=== PATIENT | female | born 1940 | race Caucasian/White ===

== ENCOUNTER → 2020-02-18 15:24 | Outpatient (CLI) | payer MEDICARE, SELFPAY | PROVIDERS: Visit Provider Family Medicine | DX: N15.9 Renal tubulo-interstitial disease, unspecified (principal) | CPT/HCPCS: 87086 ==

== ENCOUNTER → 2020-05-07 15:31 | Outpatient (CLI) | payer MEDICARE, MEDICAID, SELFPAY ==
[2020-05-07 17:22] LABS: Basophils % 0.6 % (0.1-2.0); Eosinophils # 0.1 K/mm3 (0.0-0.4); Eosinophils % 1.7 % (0.1-12.0); Lymphocytes # 1.2 K/mm3 (0.7-4.5); Lymphocytes % 16.7 % (10-50); Mean Corpuscular HGB Conc 32.8 g/dL (31.8-35.4); Mean Corpuscular Hemoglobin 32.3 pg (27.0-31.2); Mean Corpuscular Volume 98.6 fl (81-99); Mean Platelet Volume 9.6 fl (7.4-10.4); Monocytes # 0.5 K/mm3 (0.1-1.0); Monocytes % 6.5 % (1.7-9.3); Neutrophils # 5.3 K/mm3 (1.8-7.8); Neutrophils % 74.5 % (37.0-80.0); Platelet Count 260 K/mm3 (142-424); Red Blood Count 4.97 M/mm3 (4.20-5.40); Red Cell Distribution Width 13.9 % (11.5-17.5); White Blood Count 7.1 K/mm3 (4.8-10.8)
[2020-05-07 17:32] LABS: Alanine Aminotransferase 23 U/L (12-78); Albumin Level 4.3 g/dl (3.5-5.0); Albumin/Globulin Ratio 1.5 (1.1-1.8); Alkaline Phosphatase 168 U/L (38-126); Anion Gap 17.7 mEq/L (5-15); Aspartate Amino Transferase 32 U/L (14-36); Bilirubin,Total 0.7 mg/dl (0.2-1.3); Blood Urea Nitrogen 20 mg/dl (7-17); Calcium 9.5 mg/dl (8.4-10.2); Carbon Dioxide 24 mmol/L (22.0-30.0); Chloride 101 mmol/L (98-107); Chol/HDL Ratio 3.7 (1-3.5); Cholesterol 217 mg/dl (140-200); Estimated Glomerular Filt Rate 44 ml/min (>60); GFR (African American) 53 ML/MIN (>60); Globulin 2.9 g/dL (1.3-3.2); Glucose 181 mg/dl (74-100); HDL Cholesterol 58 mg/dl (40-60); Potassium 4.7 mmoL/L (3.5-5.1); Sodium 138 mmol/L (136-145); Total Protein,Serum 7.2 g/dl (6.3-8.2); Triglycerides 237 mg/dl (30-150); VLDL Cholesterol 47 mg/dL (0-40)
[2020-05-07 17:44] LABS: Hemoglobin A1C 6.6 % (4.0-6.0)
[2020-05-07 17:46] LABS: Direct LDL Cholesterol 132.73 mg/dL (100-129)
== END ==
PROVIDERS: Visit Provider Family Medicine
DX: E11.9 Type 2 diabetes mellitus without complications (principal); J44.9 Chronic obstructive pulmonary disease, unspecified; Z79.84 Long term (current) use of oral hypoglycemic drugs; Z79.899 Other long term (current) drug therapy
CPT/HCPCS: 80053; 80061; 83036; 85025

== ENCOUNTER 2020-11-20 13:38 | Observation (INO) | payer MEDICARE, MEDICAID, SELFPAY ==
[2020-11-20 14:00] VITALS: BP 140/55; RESP 22; TEMP 36.8; O2SAT 91; BMI 26.8
--- NOTE | 2020-11-20 14:42 | XR_ITS ---
PROCEDURE: XR CHEST PORTABLE CLINICAL HISTORY: pneumonia COMPARISON: No exams were available for comparison FINDINGS: The cardiomediastinal silhouette and pulmonary vascularity are within normal limits. Background of chronic interstitial changes are noted. No lobar consolidation, pleural effusions or pneumothorax. Calcifications in the right hilum, may represent had a calcified lymph nodes. Minor bibasal atelectasis. Visualized osseous structures are unremarkable. IMPRESSION: Background of chronic interstitial changes. No lobar consolidation or pleural effusions. Dictated by: Lourdes Garcia 11/20/2020 15:19 Lourdes Garcia in OV 11/20/2020 15:19
[2020-11-20 14:45] LABS: Adenovirus,PCR Not Detected (NotDetected); Bordetella Pertussis Not Detected (NotDetected); Chlamydophila Pneumoniae, PCR Not Detected (NotDetected); Coronavirus 19, PCR Not Detected (NotDetected); Coronavirus 229E Not Detected (NotDetected); Coronavirus NL63 Not Detected (NotDetected); Coronavirus OC43 Not Detected (NotDetected); Coronovirus HKU1,PCR Not Detected (NotDetected); Human Metapneumovirus Not Detected (NotDetected); Influenza A, PCR Not Detected (NotDetected); Influenza AH1, 2009 Not Detected (NotDetected); Influenza AH1, PCR Not Detected (NotDetected); Influenza AH3,PCR Not Detected (NotDetected); Influenza B, PCR Not Detected (NotDetected); Mycoplasma Pneumoniae, PCR Not Detected (NotDetected); Parainfluenza 1, PCR Not Detected (NotDetected); Parainfluenza 2, PCR Not Detected (NotDetected); Parainfluenza 3, PCR Not Detected (NotDetected); Parainfluenza 4, PCR Not Detected (NotDetected); Respiratory Syncytial Virus Not Detected (NotDetected)
--- NOTE | 2020-11-20 14:55 | P.CONPHA_ITS ---
[facility] Pharmacy VTE Monitoring - Patient Demographics Admission date: 11/20/20 Report Date: 11/20/20 Time: 14:55 Allergies/Adverse Reactions: Patient Allergies codeine Adverse Reaction (Severe, Verified 11/20/20 13:02) Anaphylaxis Height: 1.65 m Weight: 73.028 kg - VTE Risk Was VTE Risk Assessment Performed: Yes VTE Score: 8 VTE Risk Level: Moderate Risk Clinical Trial Participant: No - Prophylaxis VTE Prophylaxis Ordered?: Yes Types of VTE Prophylaxis: TEDS Knee High, Pharmacological Pharmacologic Type: Other (xarelto)
--- NOTE | 2020-11-20 15:00 | HMH.HP ---
*Admission Date: 11/20/20 *Chief complaint: copd exacerbation, dyspnea and productive cough *History of present illness: Patient is a 80-year-old female, well-known to me, who has a longstanding history of chronic lung disease. She had come into the office on 11/10/2020 with complaints of productive cough and dyspnea. She refused hospitalization on that occasion, was treated with IM Rocephin and p.o. antibiotics with steroids. Over the course of the last week or so her condition continued to decline. She became more short of breath, has a cough productive of thick yellow purulent sputum, increased wheezing, and has been unsteady on her feet. She has sustained several falls, has an abrasion on her left upper extremity. She seems lucid in the office, but I suspect she is retaining. Patient carries a previous history of severe pneumonia. She had been admitted to [facility] in [place] about a year ago, and after that discharge was offered consideration for hospice. As she clinically improved she was adamant about refusing hospice. She is actually done fairly well since then. Patient has a history of of paroxysmal atrial fibrillation and diabetes. She has marked erosive osteoarthritis, chronic back pain, and chronic lung disease. [facility] History Medical History: Reports:: Arrhythmia, Atrial Fibrillation, Cancer (BREAST), Congestive Heart Failure, Diabetes Mellitus Type 2, Hyperlipidemia, Hypertension *Have you ever received a pneumonia vaccine?: Yes *Have you received a flu vaccine this season?: Yes Other Medical History: Reports: Arthritis, Chemotherapy, Radiation Therapy Laterality Cases: Left: Mastectomy Other Surgeries: Yes: Cancer Surgery, Cardiac Surgery, Open Heart Surgery - *Social History Last grade of school completed: 7th or 8th Smoking Status: Current every day smoker # Packs/Day (cigarettes): 1 Alcohol Intake: never Substance Use Type: denies use *Occupational Status:: retired Housing: house Household Members: family *Travel in the last 8 weeks: None Family Hx:: Unable to obtain Review of Systems - Constitutional Reports weakness - Eyes Denies change in vision - ENT Reports nasal discharge, Reports post nasal drip, Denies difficulty swallowing - *Cardiovascular Reports shortness of breath, Reports shortness of breath with activity, Denies chest pain - *Respiratory Reports change in phlegm color, Reports chest congestion, Reports cough, Reports shortness of breath, Reports shortness of breath with activity, Reports excessive phlegm production, Reports pain with cough, Reports wheezing - *Gastrointestinal Denies abdominal pain - *Genitourinary Denies painful urination - *Musculoskeletal Reports abnormal walking, Reports joint pain, Reports decreased muscle mass, Reports back pain, Reports deformity, Reports joint swelling, Reports limited joint movement, Reports loss of height, Reports muscle weakness, Reports stiffness - Integumentary/Breasts Denies yellowing of the skin - *Neurologic Reports abnormal walking, Reports unsteadiness, Reports dizziness, Reports lack of coordination, Reports dizziness, Reports weakness, Denies abnormal hearing, Denies abnormal movements, Denies abnormal speech, Denies confusion, Denies fainting - Psychiatric Denies behavioral changes - Endocrine Denies cold intolerance - Hematologic/Lymphatic Reports easy bruising - Allergic/Immunologic Reports wheezing Meds Home Medications Medication Instructions Recorded Confirmed Type aspirin 81 mg tablet,delayed 81 mg PO DAILY 02/18/20 11/20/20 History release rivaroxaban 15 mg tablet 15 mg PO DAILY 02/18/20 11/20/20 History furosemide 40 mg tablet 40 mg PO DAILY PRN #90 tab 08/07/20 11/20/20 Rx hydrocodone 5 mg-acetaminophen 325 1 tab PO BID PRN #14 tab 09/11/20 11/20/20 Rx mg tablet Atorvastatin Calcium [Lipitor 10mg 10 mg PO DAILY 11/20/20 11/20/20 History Tab] Blood Sugar Diagnostic [Advanced See
[2020-11-20 15:01] LABS: Basophils % 0.2 % (0.1-2.0); Eosinophils # 0.1 K/mm3 (0.0-0.4); Eosinophils % 1.3 % (0.1-12.0); Hematocrit 44.4 % (37.0-47.0); Hemoglobin 14.5 g/dL (12.2-16.2); Lymphocytes # 1.4 K/mm3 (0.7-4.5); Lymphocytes % 18.3 % (10-50); Mean Corpuscular HGB Conc 32.7 g/dL (31.8-35.4); Mean Corpuscular Hemoglobin 32.8 pg (27.0-31.2); Mean Corpuscular Volume 100.4 fl (81-99); Mean Platelet Volume 8.1 fl (7.4-10.4); Monocytes # 0.5 K/mm3 (0.1-1.0); Neutrophils # 5.7 K/mm3 (1.8-7.8); Neutrophils % 74.1 % (37.0-80.0); Platelet Count 328 K/mm3 (142-424); Red Blood Count 4.43 M/mm3 (4.20-5.40); Red Cell Distribution Width 14.4 % (11.5-17.5); White Blood Count 7.6 K/mm3 (4.8-10.8)
[2020-11-20 15:05] LABS: Chloride 107 mmol/L (98-107); Potassium 5.1 mmoL/L (3.5-5.1); Sodium 140 mmol/L (136-145)
[2020-11-20 15:08] LABS: Alanine Aminotransferase 19 U/L (12-78); Albumin Level 4.5 g/dl (3.5-5.0); Albumin/Globulin Ratio 1.7 (1.1-1.8); Alkaline Phosphatase 124 U/L (38-126); Anion Gap 15.1 mEq/L (5-15); Aspartate Amino Transferase 29 U/L (14-36); Bilirubin,Total 0.5 mg/dl (0.2-1.3); Blood Urea Nitrogen 20 mg/dl (7-17); Calcium 9.7 mg/dl (8.4-10.2); Carbon Dioxide 23 mmol/L (22.0-30.0); Creatinine Clearance Estimated 49 mL/min (50-200); Estimated Glomerular Filt Rate 48 ml/min (>60); GFR (African American) 58 ML/MIN (>60); Globulin 2.6 g/dL (1.3-3.2); Glucose 110 mg/dl (74-100); Total Protein,Serum 7.1 g/dl (6.3-8.2)
--- NOTE | 2020-11-20 15:10 | HMH.PULMCON ---
*Admission Date: 11/20/20 *Reason for consult:: Pneumonia *History of present illness: Ms. Roche is a 80-year-old for significant smoking history smoking 3 to 4 packs a day since she was 10 to 12 years old, currently cut down to 1 pack every 2 to 4 days as per the patient presented to the primary care clinic today where she was found to be having coarse breath sounds, respiratory distress along with her complaining of cough and productive phlegm for the last couple of days associated with dizziness and balance issues and patient was admitted to the hospital for further management and pulmonary was called for evaluation. [facility] History Medical History: Reports:: Arrhythmia, Atrial Fibrillation, Cancer (BREAST), Congestive Heart Failure, Diabetes Mellitus Type 2, Hyperlipidemia, Hypertension *Have you ever received a pneumonia vaccine?: Yes *Have you received a flu vaccine this season?: Yes Other Medical History: Reports: Arthritis, Chemotherapy, Radiation Therapy Laterality Cases: Left: Mastectomy Other Surgeries: Yes: Cancer Surgery, Cardiac Surgery, Open Heart Surgery - *Social History Last grade of school completed: 7th or 8th Smoking Status: Current every day smoker # Packs/Day (cigarettes): 1 Alcohol Intake: never Substance Use Type: denies use Last Used Substance: unknown *Occupational Status:: retired Housing: house Household Members: family *Travel in the last 8 weeks: None Family Hx:: Other ROS - Cons Reports anorexia, Reports fatigue - Eyes Reports blurry vision - Card Reports shortness of breath, Reports shortness of breath with activity - Resp Respiratory: Reports chest congestion, Reports cough, Reports dyspnea on exertion, Reports excessive phlegm production, Reports cough with sputum production, Denies pain with breathing - GI Gastrointestingal: Denies: abdominal pain - Musk Musculoskeletal: Reports back pain Meds Home Medications Medication Instructions Recorded Confirmed Type aspirin 81 mg tablet,delayed 81 mg PO DAILY 02/18/20 11/20/20 History release rivaroxaban 15 mg tablet 15 mg PO DAILY 02/18/20 11/20/20 History furosemide 40 mg tablet 40 mg PO DAILY PRN #90 tab 08/07/20 11/20/20 Rx hydrocodone 5 mg-acetaminophen 325 1 tab PO BID PRN #14 tab 09/11/20 11/20/20 Rx mg tablet Atorvastatin Calcium [Lipitor 10mg 10 mg PO DAILY 11/20/20 11/20/20 History Tab] Blood Sugar Diagnostic [Advanced See Rx Instructions .ROUTE 11/20/20 11/20/20 History Gluc Meter Test Strip] .MEDSUPPLY Blood-Glucose Meter See Rx Instructions .ROUTE 11/20/20 11/20/20 History .MEDSUPPLY Famotidine [Acid Bean Viner] 20 mg PO BID 11/20/20 11/20/20 History Lancets See Rx Instructions .ROUTE 11/20/20 11/20/20 History .MEDSUPPLY Metformin HCl [Glucophage] 850 mg PO BID 11/20/20 11/20/20 History Potassium Chloride [Micro-K 10mEq 10 meq PO DAILY 11/20/20 11/20/20 History cap] dilTIAZem HCl [Diltiazem 240mg 240 mg PO DAILY 11/20/20 11/20/20 History 24Hr ER Cap] levoFLOXacin [Levaquin 500mg 500 mg PO DAILY 11/20/20 11/20/20 History tab] lisinopriL [Prinivil 10mg Tablet] 10 mg PO DAILY 11/20/20 11/20/20 History Allergies Allergy/AdvReac Type Severity Reaction Status Date / Time codeine AdvReac Severe Anaphylaxis Verified 11/20/20 13:02 Exam - Constitutional Constitutional:: Present: no acute distress, comfortable - HENMT Exam HENMT: Present: atraumatic - Eye Exam Eyes:: Present: normal appearance both eyes and related structures - Neck Exam Neck:: Present: normal visual inspection - Respiratory Exam Respiratory:: Present: able to speak in complete sentences, respiratory distress, crackles, wheezing - Cardiovascular Exam Cardiac:: Present: S1, S2 - GI Exam GI:: Present: soft - Skin Exam Skin: Present: warm, no rash - Neurological Exam Neurological: Present: alert, awake, normal cognition - Extremities Exam Extremities: Present: no cyanosis, no clubbing, no ky
[2020-11-20 15:38] LABS: NT Pro Brain Natriuretic Pep. 1720 pg/mL (0-450)
--- NOTE | 2020-11-20 15:38 | PC.NURSE ---
Respiratory notified per Dr Cheek's request that pt will need chest physiotherapy bid and to call him w/ABG result
--- NOTE | 2020-11-20 15:42 | HMH.PTEV ---
Physical Therapy Evaluation Rehab PT IP Evaluation Start: 11/20/20 14:48 Freq: ONCE Status: Active Protocol: Document 11/20/20 15:33 JAIR (Rec: 11/20/20 15:42 JAIR [id number]) Subjective/History History History Patient is a 80 year old female admitted to [facility] 11/20/20 secondary to COPD exacerbation and increased dyspnea. Patient complain of overall general deconditioning and weakness resulting in unsteadyness on her feet. Patient denies any recent falls at home. She reports that she was previously independent with all ADL's . Patient lives at home with her grandson and his . Subjective Subjective I feel like I'm drunk when I have been up walking for a little bit. I just feel weak in my hips. Rehab PT IP Eval Objective Appearance Patient Behavior Appropriate Patient Orientation Person,Place,Day of Week Difficulty following instructions none Speech Pattern Clear,Appropriate Ambulation Patient Able to Ambulate Yes Ambulation Observation IP General Gait Pattern Observation Wide Based Gait Ambulation Distance (feet) 80 Ambulation Assistive Device Straight Cane Ambulation Ability Contact Guard/Hand Hold Balance Ability to Arise Able, w/o using arms Sitting Balance Steady, safe Standing Balance Narrow stance w/o support Dynamic Sitting Balance Ability Normal Dynamic Standing Balance Ability Good Transfers Bed Transfer Ability Independent Sit to Stand Bed Transfer Ability Independent ROM All Extremities PT ROM Status WFL MMT All Extremities PT MMT WFL Rehab PT IP prob,goals,plan Problems Date of Evaluation: 11/20/20 PT IP Problems Gait,Balance,Safety Rehab Potential Rehab Potential Good Plan PT Intervention Plan Gait,Balance,Safety, Therapeutic Exercise PT Plan Frequency BID Duration LOS Discharge Goals Bed Transfer Ability Supervision/Stand by Sit to Stand Chair Transfer Ability Supervision/Stand by Ambulation Assistive Device Straight Cane Ambulation Distance (feet) 150 Discharge Plan PT Discharge Plan PT suggests patient to be seen
[2020-11-20 15:48] LABS: ABG Base Excess -5.5 mmol/L (-2.4-2.3); ABG HCO3 20.3 mmhg (22.0-26.0); ABG Oxygen Saturation 91 % (90-100); ABG PCO2 38.6 mmhg (35.0-45.0); ABG PH 7.34 mmol/L (7.35-7.45); ABG PO2 61.2 mmhg (80-100); ABG TCO2 21.5 mmhg (23-27); Allen's Test Acceptable; Oxygen 21% %; Source Right Radial
[2020-11-20 16:00] VITALS: BP 120/73; RESP 24; TEMP 36.6; O2SAT 93
[2020-11-20 17:13] LABS: POC Glucose,Bedside 88 (70-110)
--- NOTE | 2020-11-20 17:46 | PC.NURSE ---
Pt is alert and oriented x4. Lungs have rhonchi, expiratory wheezes and audible wheezing. She is on RA with O2 sats > 90%. She ambulates with a cane and 1 assist. Gait is unsteady and legs are weak. Bed alarm activated and call light within reach. She has a small skin tear to LFA and scattered bruising. She has had 1 loose BM since admission. Granddaughter is to bring in patients home meds. Will continue to monitor.
[2020-11-20 18:01] VITALS: PULSE 81; PULSE 86; O2SAT 89
[2020-11-20 18:51] LABS: Microscopic, Urine URINE MICROSCOPIC (MICROSCOPIC)
[2020-11-20 18:53] LABS: Appearance,Urine CLEAR (Clear); Bilirubin,Urine Negative (Negative); Blood, Urine Negative (Negative); Color,Urine YELLOW (Yellow); Glucose,Urine (UA) Negative (Negative); Ketones,Urine Negative (Negative); Leukocyte Esterase,Urine TRACE (Negative); Nitrate,Urine Negative (Negative); PH,Urine 5.5 (5.0-8.5); Protein,Urine Negative (Negative); Urobilinogen,Urine 0.2 EU/dl (0.2)
[2020-11-20 19:01] LABS: Bacteria,Urine Trace /lpf
[2020-11-20 19:45] LABS: Lactic Acid 3.9 mmol/L (0.7-2.1)
[2020-11-20 20:00] VITALS: BP 135/67; PULSE 76; RESP 17; TEMP 36.7; O2SAT 93
[2020-11-20 20:18] LABS: POC Glucose,Bedside 151 (70-110)
[2020-11-20 21:15] VITALS: PULSE 74; PULSE 86
[2020-11-20 21:17] LABS: Rhinovirus/Enterovirus Detected (NotDetected)
[2020-11-20 23:41] VITALS: BP 133/64; PULSE 103; RESP 17; TEMP 36.6; O2SAT 94
[2020-11-21] VITALS (10 sets, daily range): BP systolic 98–147; BP diastolic 45–76; PULSE 77–109; RESP 16–28; TEMP 36.3–36.8; O2SAT 91–98; BMI 27.0
--- NOTE | 2020-11-21 02:56 | PC.NURSE ---
shift summary pt is alert and oriented X4. pt denies any pain, nausea, vomting, or diarrhea. pt has had no complaints and slept for most of the shift.
[2020-11-21 05:26] LABS: POC Glucose,Bedside 243 (70-110)
--- NOTE | 2020-11-21 09:11 | HMH.ACPN2 ---
Internal Medicine - PN: Subj *Date: 11/22/20 *Time: 06:47 Interval history: doing better - more alert Exam Vital signs and Labs for Last 24 Hours: Temp Pulse Resp BP Pulse Ox 97.3 F L 107 H 16 147/76 H 97 11/21/20 07:56 11/21/20 07:56 11/21/20 07:56 11/21/20 07:56 11/21/20 07:56 Laboratory Results - last 24 hr 11/20/20 14:10: WBC 7.6, RBC 4.43, Hgb 14.5, Hct 44.4, MCV 100.4 H, MCH 32.8 H, MCHC 32.7, RDW 14.4, Plt Count 328, MPV 8.1, Neut % (Auto) 74.1, Lymph % (Auto) 18.3, Caroline % (Auto) 6.0, Eos % (Auto) 1.3, Baso % (Auto) 0.2, Neut # (Auto) 5.7, Lymph # (Auto) 1.4, Caroline # (Auto) 0.5, Eos # (Auto) 0.1, Baso # (Auto) 0.0 11/20/20 14:10: Sodium 140, Potassium 5.1, Chloride 107, Carbon Dioxide 23, Anion Gap 15.1 H, BUN 20 H, Creatinine 1.10 H, Estimated Creat Clear 49, Estimated GFR 48 L, Est GFR ( Amer) 58 L, Glucose 110 H, Calcium 9.7, Total Bilirubin 0.5, AST 29, ALT 19, Alkaline Phosphatase 124, Total Protein 7.1, Albumin 4.5, Globulin 2.6, Albumin/Globulin Ratio 1.7 11/20/20 14:10: NT-Pro-B Natriuret Pep 1720 H 11/20/20 14:10: Lactate 3.0 H 11/20/20 14:38: Chlamy pneumoniae PCR Not detected, Adenovirus (PCR) Not detected, B. pertussis DNA (PCR) Not detected, Coronavirus OC43 (PCR) Not detected, Coronavirus HKU1 (PCR) Not detected, Coronavirus 229E (PCR) Not detected, SARS-CoV-2 (PCR) Not detected, Coronavirus NL63 (PCR) Not detected, Human Metapneumovir PCR Not detected, Influenza A (H1) PCR Not detected, Influ A (H1N1/09) PCR Not detected, Influenza A (H3) PCR Not detected, Influenza Type A (PCR) Not detected, Influenza Type B (PCR) Not detected, M. pneumoniae (PCR) Not detected, Parainfluenza 1 (PCR) Not detected, Parainfluenza 2 (PCR) Not detected, Parainfluenza 3 (PCR) Not detected, Parainfluenza 4 (PCR) Not detected, RSV (PCR) Not detected, Entero/Rhino (PCR) Detected A 11/20/20 14:40: Specimen Source Right radial, O2 % 21%, ABG pH 7.34 L, ABG pCO2 38.6, ABG pO2 61.2 L, ABG HCO3 20.3 L, ABG Total CO2 21.5 L, ABG O2 Saturation 91, ABG Base Excess -5.5 L, Kamron Test Acceptable 11/20/20 14:41: Urine Color Yellow, Urine Appearance Clear, Urine pH 5.5, Ur Specific [place] 1.020, Urine Protein Negative, Urine Glucose (UA) Negative, Urine Ketones Negative, Urine Blood Negative, Urine Nitrate Negative, Urine Bilirubin Negative, Urine Urobilinogen 0.2, Ur Leukocyte Esterase Trace, Urine RBC None, Urine WBC 5-10, Ur Squamous Epith Cells 5-10, Urine Bacteria Trace 11/20/20 16:11: POC Glucose 88 11/20/20 19:18: Lactate 3.9 H 11/20/20 20:06: POC Glucose 151 H 11/21/20 05:15: POC Glucose 243 H I & O for Last 24 hours: Intake & Output 11/18/20 11/19/20 11/20/20 11/21/20 11:59 11:59 11:59 11:59 Intake Total 720 / 720 Balance 720 / 720 Weight 162 lb 4 oz Microbiology Reports for the Last 24 Hours: Microbiology 11/20/20 15:30 Sputum - Expectorated Sputum Gram Stain - Final - Constitutional no acute distress - *Routine HEENT Exam Head: Present: normocephalic Eye: Present: EOMI, PERRL ENT: Present: mucous membranes dry - *Routine Neck Exam Present: supple. Absent: JVD - *Routine Respiratory Exam Present: decreased breath sounds - *Routine Cardiovascular Exam Present: RRR, murmur - *Routine Abdominal Exam Present: soft - *Routine Extremities Exam Absent: calf tenderness - *Routine Skin Exam Present: intact - *Routine Neurological Exam Present: alert, CN II-XII intact - Routine Psychiatric Exam Present: normal affect Assessment and Plan (1) COPD (chronic obstructive pulmonary disease) Status: Acute Qualifiers: COPD type: unspecified COPD Qualified Code(s): J44.9 - Chronic obstructive pulmonary disease, unspecified Category: Medical Code(s): J44.9 - Chronic obstructive pulmonary disease, unspecified (2) Chronic pain Status: Acute Qualifiers: Chronic pain type: other chronic pain Qualified Code(s): G89.29 - Other chronic pain Category: Med
[2020-11-21 10:04] LABS: Basophils % 0.1 % (0.1-2.0); Eosinophils % 0.1 % (0.1-12.0); Hematocrit 44.9 % (37.0-47.0); Hemoglobin 13.5 g/dL (12.2-16.2); Lymphocytes # 0.6 K/mm3 (0.7-4.5); Lymphocytes % 6.9 % (10-50); Mean Corpuscular Hemoglobin 31.6 pg (27.0-31.2); Mean Corpuscular Volume 105.2 fl (81-99); Mean Platelet Volume 8.1 fl (7.4-10.4); Monocytes # 0.2 K/mm3 (0.1-1.0); Neutrophils # 8.1 K/mm3 (1.8-7.8); Neutrophils % 90.9 % (37.0-80.0); Platelet Count 275 K/mm3 (142-424); Red Blood Count 4.27 M/mm3 (4.20-5.40); Red Cell Distribution Width 13.9 % (11.5-17.5); White Blood Count 8.9 K/mm3 (4.8-10.8)
[2020-11-21 10:13] LABS: Anion Gap 19.5 mEq/L (5-15); Blood Urea Nitrogen 23 mg/dl (7-17); Calcium 9.5 mg/dl (8.4-10.2); Carbon Dioxide 21 mmol/L (22.0-30.0); Chloride 102 mmol/L (98-107); Creatinine Clearance Estimated 49 mL/min (50-200); Estimated Glomerular Filt Rate 48 ml/min (>60); GFR (African American) 58 ML/MIN (>60); Glucose 344 mg/dl (74-100); Potassium 5.5 mmoL/L (3.5-5.1); Sodium 137 mmol/L (136-145)
[2020-11-21 10:20] LABS: MANUAL DIFFERENTIAL MANUAL DIFFERENTIAL (MANUAL DIFF)
[2020-11-21 11:07] LABS: Lymphocytes % 9 % (10-50); Macrocytosis 1+; Neutrophils % 88 % (42-76); Platelet Estimate Normal; Total Cells Counted 100
[2020-11-21 11:36] LABS: POC Glucose,Bedside 344 (70-110)
--- NOTE | 2020-11-21 12:00 | HMH.PHAVTE ---
[facility] Pharmacy VTE Monitoring - Patient Demographics Admission date: 11/20/20 Report Date: 11/21/20 Time: 12:01 Allergies/Adverse Reactions: Patient Allergies codeine Adverse Reaction (Severe, Verified 11/20/20 13:02) Anaphylaxis Height: 1.65 m Weight: 73.595 kg Patient Problems: Current Active Problems Pneumonia (Acute) PAF (paroxysmal atrial fibrillation) (Acute) Chronic pain (Acute) Degenerative joint disease (DJD) of lumbar spine (Acute) COPD (chronic obstructive pulmonary disease) (Acute) - VTE Risk Labs: VTE Related Lab Results Hgb 13.5 g/dL (12.2-16.2) 11/21/20 09:49 Hct 44.9 % (37.0-47.0) 11/21/20 09:49 Plt Count 275 K/mm3 (142-424) 11/21/20 09:49 BUN 23 mg/dl (7-17) H 11/21/20 09:49 Creatinine 1.10 mg/dl (0.52-1.04) H 11/21/20 09:49 Estimated Creat Clear 49 mL/min (50-200) 11/21/20 09:49 Was VTE Risk Assessment Performed: Yes VTE Score: 8 VTE Risk Level: Moderate Risk Clinical Trial Participant: No - Prophylaxis VTE Prophylaxis Ordered?: Yes Types of VTE Prophylaxis: TEDS Knee High, Pharmacological Location of Applied Device: Bilateral Lower Extremeties Pharmacologic Type: Other (XARELTO)
--- NOTE | 2020-11-21 12:08 | PC.NURSE ---
DR. WHATLEY PHONED THIS RN TO INQUIRE ABOUT PATIENT. THIS RN PROVIDED REPORT. PER MD HE WOULD LIKE PATIENT TO RECEIVE MUCOMYST BEFORE EACH CHEST PHYSIOTHERAPY. THIS RN PHONED RT AND SPOKE WITH REGINALD, THIS RN PROVIDED INFORMATION FROM , REGINALD VERBALIZED AN UNDERSTANDING.
--- NOTE | 2020-11-21 13:43 | PC.NURSE ---
THIS RN APPROACHED PATIENT AND VISITOR IN REGARDS TO FOOD FROM [facility]. THIS RN EDUCATED PATIENT AND VISITOR THE IMPORTANCE OF FOLLOWING A DIABETIC DIET. THIS RN PROVIDED PRINTED EDUCATION WELL.
[2020-11-21 17:18] LABS: POC Glucose,Bedside 334 (70-110)
--- NOTE | 2020-11-21 18:08 | PC.NURSE ---
THIS RN HAS EXPLAINED TO PATIENT ON SEVERAL OCCASIONS IN REGARDS TO FALL PREVENTION. PATIENT CONTINUES TO GET UP OUT OF BED WITHOUT ASSISTANCE. PATIENT A&O X4, LUNGS: WHEEZING HEARD THROUGHOUT, PULSES ARE EQUAL. NO NEW NEEDS AT THIS TIME.
[2020-11-21 20:34] LABS: POC Glucose,Bedside 177 (70-110)
[2020-11-22] VITALS (16 sets, daily range): BP systolic 105–138; BP diastolic 40–62; PULSE 74–105; RESP 18–28; TEMP 36.5–37; O2SAT 89–95; BMI 28.4
--- NOTE | 2020-11-22 03:32 | PC.NURSE ---
shift summary pts lung sounds are diminished with some wheezes on inspiration sats maintained 95% or above on 2L via NC, with a rate ranging from 18-22. pt is alert and oriented X4. pt is noncompliant in the fact that she tries to walk on her own constantly, and has even figured out how to turn the bed alarm off so staff won hear her get up. pt is able to walk with a cane to the bathroom with a stanby assist, urine is clear and yellow in color. pt denies any pain, nausea, or diarrhea.
[2020-11-22 05:29] LABS: POC Glucose,Bedside 213 (70-110)
[2020-11-22 07:45] LABS: Potassium 5.9 mmoL/L (3.5-5.1)
--- NOTE | 2020-11-22 09:32 | HMH.ACPN2 ---
Internal Medicine - PN: Subj *Date: 11/23/20 *Time: 07:30 Interval history: doing better - but still sob and labs pending Exam Vital signs and Labs for Last 24 Hours: Temp Pulse Resp BP Pulse Ox 98.6 F 105 H 20 138/55 L 94 L 11/22/20 08:00 11/22/20 08:00 11/22/20 08:00 11/22/20 08:00 11/22/20 08:00 Laboratory Results - last 24 hr 11/21/20 09:49: WBC 8.9, RBC 4.27, Hgb 13.5, Hct 44.9, MCV 105.2 H, MCH 31.6 H, MCHC 30.0 L, RDW 13.9, Plt Count 275, MPV 8.1, Neut % (Auto) 90.9 H, Lymph % (Auto) 6.9 L, Nobles % (Auto) 2.0, Eos % (Auto) 0.1, Baso % (Auto) 0.1, Neut # (Auto) 8.1 H, Lymph # (Auto) 0.6 L, Nobles # (Auto) 0.2, Eos # (Auto) 0.0, Baso # (Auto) 0.0, Total Counted 100, Neutrophils % (Manual) 88 H, Lymphocytes % (Manual) 9 L, Atypical Lymphs % 3.0, Platelet Estimate Normal, Macrocytosis 1+ 11/21/20 09:49: Sodium 137, Potassium 5.5 H, Chloride 102, Carbon Dioxide 21 L, Anion Gap 19.5 H, BUN 23 H, Creatinine 1.10 H, Estimated Creat Clear 49, Estimated GFR 48 L, Est GFR ( Amer) 58 L, Glucose 344 H D, Calcium 9.5 11/21/20 11:25: POC Glucose 344 H* 11/21/20 16:57: POC Glucose 334 H* 11/21/20 20:16: POC Glucose 177 H 11/22/20 05:06: POC Glucose 213 H 11/22/20 07:17: Potassium 5.9 H I & O for Last 24 hours: Intake & Output 11/19/20 11/20/20 11/21/20 11/22/20 11:59 11:59 11:59 11:59 Intake Total 720 / 720 600 / 600 Output Total 3 / 3 Balance 720 / 720 597 / 597 Weight 162 lb 4 oz 170 lb 9 oz Microbiology Reports for the Last 24 Hours: Microbiology 11/20/20 15:30 Sputum - Expectorated Sputum Gram Stain - Final 11/20/20 15:30 Sputum - Expectorated Sputum Sputum Culture - Preliminary - Constitutional no acute distress - *Routine HEENT Exam Head: Present: normocephalic Eye: Present: EOMI, PERRL ENT: Present: mucous membranes dry - *Routine Neck Exam Present: supple. Absent: JVD - *Routine Respiratory Exam Present: decreased breath sounds - *Routine Cardiovascular Exam Present: RRR - *Routine Abdominal Exam Present: soft - *Routine Extremities Exam Absent: calf tenderness - *Routine Skin Exam Present: intact - *Routine Neurological Exam Present: alert, CN II-XII intact - Routine Psychiatric Exam Present: normal affect Assessment and Plan (1) COPD (chronic obstructive pulmonary disease) Status: Acute Qualifiers: COPD type: unspecified COPD Qualified Code(s): J44.9 - Chronic obstructive pulmonary disease, unspecified Category: Medical Code(s): J44.9 - Chronic obstructive pulmonary disease, unspecified (2) Chronic pain Status: Acute Qualifiers: Chronic pain type: other chronic pain Qualified Code(s): G89.29 - Other chronic pain Category: Medical Code(s): G89.29 - Other chronic pain (3) Degenerative joint disease (DJD) of lumbar spine Status: Acute Qualifiers: Spinal osteoarthritis complication: unspecified spinal osteoarthritis Qualified Code(s): M47.816 - Spondylosis without myelopathy or radiculopathy, lumbar region Category: Medical Code(s): M47.816 - Spondylosis without myelopathy or radiculopathy, lumbar region (4) PAF (paroxysmal atrial fibrillation) Status: Acute Category: Medical Code(s): I48.0 - Paroxysmal atrial fibrillation (5) Pneumonia Status: Acute Qualifiers: Pneumonia type: due to unspecified organism Laterality: right Category: Medical Code(s): J18.9 - Pneumonia, unspecified organism (6) Overweight (BMI 25.0-29.9) Status: Acute Category: Medical Code(s): E66.3 - Overweight (7) Renal insufficiency Status: Acute Category: Medical Code(s): N28.9 - Disorder of kidney and ureter, unspecified (8) CHF (congestive heart failure) Status: Acute Qualifiers: Heart failure type: unspecified Heart failure chronicity: acute on chronic Qualified Code(s): I50.9 - Heart failure, unspecified Category: Medical Code(s): I50.9 - Heart failure, uns
[2020-11-22 09:52] LABS: Blood Urea Nitrogen 34 mg/dl (7-17); Calcium 9.2 mg/dl (8.4-10.2); Carbon Dioxide 16 mmol/L (22.0-30.0); Chloride 100 mmol/L (98-107); Creatinine Clearance Estimated 44 mL/min (50-200); Estimated Glomerular Filt Rate 40 ml/min (>60); GFR (African American) 48 ML/MIN (>60); Glucose 165 mg/dl (74-100); Sodium 131 mmol/L (136-145)
[2020-11-22 11:37] LABS: POC Glucose,Bedside 237 (70-110)
[2020-11-22 16:34] LABS: POC Glucose,Bedside 151 (70-110)
--- NOTE | 2020-11-22 18:18 | PC.NURSE ---
PT IS RESTING IN BED WITH FAMILY AT BEDSIDE. PT HAS BEEN ALERT AND ORIENTED T/O THE SHIFT. PT TOLERATED SITTING UP IN THE CHAIR FOR SEVERAL HOURS THIS SHIFT. PT RECEIVED ONE DOSE OF KAYEXALATE THIS SHIFT FOR ELEVATED POTASSIUM. EATING AND DRINKING FAIR THIS SHIFT. LUNG SOUNDS HAVE SCATTERED RHONCHI. ABDOMEN SOFT/NON TENDER WITH ACTIVE BOWEL SOUNDS. PT'S LISINIPRIL AND METFORMIN WERE DC'D THIS SHIFT PER . VSS. SHOWER AND BED CHANGE THIS SHIFT. WILL CONTINUE TO MONITOR.
[2020-11-22 20:37] LABS: POC Glucose,Bedside 210 (70-110)
[2020-11-22 22:40] LABS: Anion Gap 17.8 mEq/L (5-15); Blood Urea Nitrogen 37 mg/dl (7-17); Calcium 8.9 mg/dl (8.4-10.2); Carbon Dioxide 19 mmol/L (22.0-30.0); Chloride 100 mmol/L (98-107); Creatinine Clearance Estimated 44 mL/min (50-200); Estimated Glomerular Filt Rate 40 ml/min (>60); GFR (African American) 48 ML/MIN (>60); Glucose 196 mg/dl (74-100); Potassium 4.8 mmoL/L (3.5-5.1); Sodium 132 mmol/L (136-145)
[2020-11-23] VITALS (10 sets, daily range): BP systolic 96–139; BP diastolic 44–67; PULSE 68–103; RESP 18–21; TEMP 36.3–36.7; O2SAT 90–97; BMI 28.6
--- NOTE | 2020-11-23 03:33 | PC.NURSE ---
shift summary pts lung sounds are diminished with sats maintained 90% or above on room air, with a rate ranging from 16-18. pt is alert and oriente X$. pt is not compliant about calling for help to get up out of bed and continually sets bed alarm off. pt has had 2 episodes of diarrhea tonight but has had no other complaints. pt denies any pain, nausea, or vomiting.
[2020-11-23 05:38] LABS: POC Glucose,Bedside 267 (70-110)
[2020-11-23 06:27] LABS: Eosinophils % 0.2 % (0.1-12.0); Hematocrit 35.4 % (37.0-47.0); Hemoglobin 10.8 g/dL (12.2-16.2); Lymphocytes # 0.5 K/mm3 (0.7-4.5); Lymphocytes % 4.9 % (10-50); Mean Corpuscular HGB Conc 30.5 g/dL (31.8-35.4); Mean Corpuscular Volume 101.5 fl (81-99); Mean Platelet Volume 8.1 fl (7.4-10.4); Monocytes # 0.3 K/mm3 (0.1-1.0); Monocytes % 2.8 % (1.7-9.3); Neutrophils # 8.8 K/mm3 (1.8-7.8); Neutrophils % 92.1 % (37.0-80.0); Platelet Count 227 K/mm3 (142-424); Red Blood Count 3.49 M/mm3 (4.20-5.40); White Blood Count 9.6 K/mm3 (4.8-10.8)
[2020-11-23 06:40] LABS: Anion Gap 11.7 mEq/L (5-15); Blood Urea Nitrogen 35 mg/dl (7-17); Calcium 8.1 mg/dl (8.4-10.2); Carbon Dioxide 22 mmol/L (22.0-30.0); Chloride 104 mmol/L (98-107); Creatinine Clearance Estimated 52 mL/min (50-200); Estimated Glomerular Filt Rate 48 ml/min (>60); GFR (African American) 58 ML/MIN (>60); Glucose 209 mg/dl (74-100); Potassium 3.7 mmoL/L (3.5-5.1); Sodium 134 mmol/L (136-145)
[2020-11-23 06:46] LABS: MANUAL DIFFERENTIAL MANUAL DIFFERENTIAL (MANUAL DIFF)
--- NOTE | 2020-11-23 09:00 | CA_ITS ---
APPROVED REPORT EXAM: Comprehensive 2D, Doppler, and color-flow Echocardiogram Development Advisor: Annette Rosen, ADDY, RVS Ht: 5 ft 5 in Wt: 172lbs BSA: 1.86 BP: 000/00 mmHg Indications: COPD, PAF, SOB, Pneumonia,PAF 2D Dimensions IVSd 1.27 cm LVEF (Visual) 59.00 % PWd 0.93 cm LA Volume 67.80 mL LVDd 4.11 cm LA Volume Index 36.50 mL/m2 (M/F) 16-34 LVDs 2.84 cm Aortic Root 2.61 cm Left Atrium 4.32 cm LVOT 1.76 cm (M/F) 1.5-2.5 M-Mode Dimensions LA Diam 3.19 cm (1.9-4.0) Ao Diam 3.62 cm (2.0-3.7) EPSs 0.85 cm TAPSE 1.62 (<1.7) LV Diastology E Decel Time 203.00 (160-240 msec) E/A Ratio 3.95 MED E' 11.60 (< 7 cm/sec) MED A' 4.50 cm/s E'/MED E' Ratio 13.55 (>14) LAT E' 7.70 (<10 cm/sec) LAT A' 4.20 cm/s E/LAT E' Ratio 20.42 (>14) Aortic Valve LVOT Max 90.00 (70-110 cm/s) LVOT VTI 18.63 cm AoV Peak Colin. 191.00 (50-130 cm/s) AO Peak GR. 14.50 mmHg AO Mean GR. 7.70 (<5 mmHg) AO VTI 40.10 (18-25 cm) TIFFANIE (VTI) 1.13 (2.5-4.5 cm2) Mitral Valve MV E Max Colin. 157.00 (40-130 cm/s) MV A Velocity 40.00 (40-130 cm/s) E/A Ratio 3.95 MV Decel. Time 203.00 (160-240 ms) MV PHT 60.00 ms Pulmonary Valve PV Peak Velocity 76.00 (50-150 cm/s) Tricuspid Valve TR P. Velocity 339.00 cm/s RAP Estimate 10.00 mmHg RVSP 56.00 mmHg Left Ventricle Left atrium is moderately enlarged, left ventricle is normal size, mild concentric left ventricular hypertrophy, visually estimated ejection fraction 55% with no regional wall motion abnormality, diastolic parameters are inconclusive, Doppler evidence of raise left ventricular end-diastolic pressure. Right Ventricle Right atrium and right ventricle are mildly enlarged with normal contractility. Aortic Valve Aortic valve is thickened and calcified without Doppler evidence of aortic stenosis or aortic insufficiency. Mitral Valve Mitral valve is minimally thickened and calcified, there is mitral annular calcification present, there is no mitral stenosis, there is mild mitral regurgitation. Tricuspid Valve Tricuspid valve grossly normal, there is mild tricuspid regurgitation, tricuspid regurgitation jet velocity is inadequate for calculation of the right ventricular systolic pressure. Pulmonic Valve Pulmonic valve is poorly visualized. Great Vessels Aortic root is normal size. Pericardium No significant pericardial effusion noted. Conclusion 1. Biatrial enlargement, normal left ventricular size, mild concentric left ventricular hypertrophy, visually estimated ejection fraction 55% with no regional wall motion abnormality, Doppler evidence of raise left ventricular end-diastolic pressure. Diastolic parameters are inconclusive 2. Thickened and calcified aortic valve without Doppler evidence of aortic stenosis or aortic insufficiency. 3. Mild mitral and tricuspid regurgitation. 4. No significant pericardial effusion noted. Electronically signed by : Landry Ward, 11/23/2020 12:18:19
--- NOTE | 2020-11-23 09:32 | HMH.PULMPN ---
Internal Medicine - PN: Subj *Date: 11/23/20 *Time: 09:32 Interval history: No acute respiratory events overnight Exam - Constitutional Constitutional:: Present: no acute distress - HENMT Exam HENMT: Present: normocephalic, atraumatic - Eye Exam Eyes:: Present: eyelids normal - Neck Exam Neck:: Present: normal visual inspection - Respiratory Exam Respiratory:: Present: able to speak in complete sentences, no respiratory distress, rhonchi - Cardiovascular Exam Cardiac:: Present: S1, S2 - GI Exam GI:: Present: soft - Skin Exam Skin: Present: warm, no rash - Neurological Exam Neurological: Present: alert, awake, normal cognition - Extremities Exam Extremities: Present: no cyanosis, no clubbing, no edema - Psychiatric Exam Psychiatric: Present: normal affect Assessment and Plan (1) COPD (chronic obstructive pulmonary disease) Status: Acute Qualifiers: COPD type: unspecified COPD Qualified Code(s): J44.9 - Chronic obstructive pulmonary disease, unspecified Category: Medical Code(s): J44.9 - Chronic obstructive pulmonary disease, unspecified (2) Chronic pain Status: Acute Qualifiers: Chronic pain type: other chronic pain Qualified Code(s): G89.29 - Other chronic pain Category: Medical Code(s): G89.29 - Other chronic pain (3) Degenerative joint disease (DJD) of lumbar spine Status: Acute Qualifiers: Spinal osteoarthritis complication: unspecified spinal osteoarthritis Qualified Code(s): M47.816 - Spondylosis without myelopathy or radiculopathy, lumbar region Category: Medical Code(s): M47.816 - Spondylosis without myelopathy or radiculopathy, lumbar region (4) PAF (paroxysmal atrial fibrillation) Status: Acute Category: Medical Code(s): I48.0 - Paroxysmal atrial fibrillation (5) Pneumonia Status: Acute Qualifiers: Pneumonia type: due to unspecified organism Laterality: right Category: Medical Code(s): J18.9 - Pneumonia, unspecified organism (6) Overweight (BMI 25.0-29.9) Status: Acute Category: Medical Code(s): E66.3 - Overweight (7) Renal insufficiency Status: Acute Category: Medical Code(s): N28.9 - Disorder of kidney and ureter, unspecified (8) CHF (congestive heart failure) Status: Acute Qualifiers: Heart failure type: unspecified Heart failure chronicity: acute on chronic Qualified Code(s): I50.9 - Heart failure, unspecified Category: Medical Code(s): I50.9 - Heart failure, unspecified (9) Diabetes Status: Acute Qualifiers: Diabetes mellitus type: type 2 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 Roche is a 80-year-old for significant smoking history smoking 3 to 4 packs a day since she was 10 to 12 years old, currently cut down to 1 pack every 2 to 4 days as per the patient presented to the primary care clinic today where she was found to be having coarse breath sounds, respiratory distress along with her complaining of cough and productive phlegm for the last couple of days associated with dizziness and balance issues and patient was admitted to the hospital for further management and pulmonary was called for evaluation. She attempted using albuterol inhaler with albuterol ipratropium nebs. Patient also on home oxygen which she uses it as needed. Patient respiratory status continued to improve. Initial ABG showed hypoxia with a PO2 of 62. Patient initiated on 2 L nasal cannula. Patient also initiated Mucomyst and chest vest with prolonged clearance techniques. Patient auscultation significantly im
--- NOTE | 2020-11-23 09:54 | PC.NURSE ---
Room air sat at rest 82%
[2020-11-23 10:03] LABS: Lymphocytes % 7 % (10-50); Neutrophils % 93 % (42-76); Total Cells Counted 100
[2020-11-23 10:05] LABS: Macrocytosis 2+; Platelet Estimate Normal
[2020-11-23 10:06] LABS: Hypochromasia 1+
--- NOTE | 2020-11-23 11:04 | HMH.ACPN ---
Internal Medicine - PN: Subj *Date: 11/23/20 *Time: 11:04 Exam Vital signs and Labs for Last 24 Hours: Temp Pulse Resp BP Pulse Ox 97.3 F L 91 H 19 109/53 L 90 L 11/23/20 08:00 11/23/20 09:50 11/23/20 08:00 11/23/20 08:00 11/23/20 09:50 Laboratory Results - last 24 hr 11/22/20 11:28: POC Glucose 237 H 11/22/20 16:10: POC Glucose 151 H 11/22/20 20:16: POC Glucose 210 H 11/22/20 22:22: Sodium 132 L, Potassium 4.8, Chloride 100, Carbon Dioxide 19 L, Anion Gap 17.8 H, BUN 37 H, Creatinine 1.30 H, Estimated Creat Clear 44, Estimated GFR 40 L, Est GFR ( Amer) 48 L, Glucose 196 H, Calcium 8.9 11/23/20 05:12: POC Glucose 267 H 11/23/20 06:13: WBC 9.6, RBC 3.49 L, Hgb 10.8 L, Hct 35.4 L, MCV 101.5 H, MCH 31.0, MCHC 30.5 L, RDW 14.0, Plt Count 227, MPV 8.1, Neut % (Auto) 92.1 H, Lymph % (Auto) 4.9 L, [place] % (Auto) 2.8, Eos % (Auto) 0.2, Baso % (Auto) 0.0 L, Neut # (Auto) 8.8 H, Lymph # (Auto) 0.5 L, [place] # (Auto) 0.3, Eos # (Auto) 0.0, Baso # (Auto) 0.0, Total Counted 100, Neutrophils % (Manual) 93 H, Lymphocytes % (Manual) 7 L, Platelet Estimate Normal, Hypochromasia 1+, Macrocytosis 2+ 11/23/20 06:13: Sodium 134 L, Potassium 3.7 D, Chloride 104, Carbon Dioxide 22, Anion Gap 11.7, BUN 35 H, Creatinine 1.10 H, Estimated Creat Clear 52, Estimated GFR 48 L, Est GFR ( Amer) 58 L D, Glucose 209 H, Calcium 8.1 L I & O for Last 24 hours: Intake & Output 11/20/20 11/21/20 11/22/20 11/23/20 23:59 23:59 23:59 23:59 Intake Total 360 / 360 720 / 720 480 / 480 600 / 600 Output Total Balance 360 / 360 717 / 717 480 / 480 600 / 600 Weight 73.028 kg 73.595 kg 77.366 kg 78.046 kg Microbiology Reports for the Last 24 Hours: Microbiology 11/20/20 15:30 Sputum - Expectorated Sputum Gram Stain - Final 11/20/20 15:30 Sputum - Expectorated Sputum Sputum Culture - Final Normal Respiratory [place] 11/20/20 16:25 Nose - Nasal MRSA Culture - Final No growth. 11/20/20 16:25 Blood Blood Culture - Preliminary NO GROWTH AFTER 48 HOURS 11/20/20 14:10 Blood Blood Culture - Preliminary NO GROWTH AFTER 48 HOURS Assessment and Plan (1) COPD (chronic obstructive pulmonary disease) Status: Acute Qualifiers: COPD type: unspecified COPD Qualified Code(s): J44.9 - Chronic obstructive pulmonary disease, unspecified Category: Medical Code(s): J44.9 - Chronic obstructive pulmonary disease, unspecified (2) Chronic pain Status: Acute Qualifiers: Chronic pain type: other chronic pain Qualified Code(s): G89.29 - Other chronic pain Category: Medical Code(s): G89.29 - Other chronic pain (3) Degenerative joint disease (DJD) of lumbar spine Status: Acute Qualifiers: Spinal osteoarthritis complication: unspecified spinal osteoarthritis Qualified Code(s): M47.816 - Spondylosis without myelopathy or radiculopathy, lumbar region Category: Medical Code(s): M47.816 - Spondylosis without myelopathy or radiculopathy, lumbar region (4) PAF (paroxysmal atrial fibrillation) Status: Acute Category: Medical Code(s): I48.0 - Paroxysmal atrial fibrillation (5) Pneumonia Status: Acute Qualifiers: Pneumonia type: due to unspecified organism Laterality: right Category: Medical Code(s): J18.9 - Pneumonia, unspecified organism (6) Overweight (BMI 25.0-29.9) Status: Acute Category: Medical Code(s): E66.3 - Overweight (7) Renal insufficiency Status: Acute Category: Medical Code(s): N28.9 - Disorder of kidney and ureter, unspecified (8) CHF (congestive heart failure) Status: Acute Qualifiers: Heart failure type: unspecified Heart failure chronicity: acute on chronic Qualified Code(s): I50.9 - Heart failure, unspecified Category: Medical Code(s): I50.9 - Heart failure, unspecified (9) Diabetes Status: Acute Quali
[2020-11-23 11:25] LABS: POC Glucose,Bedside 362 (70-110)
--- NOTE | 2020-11-23 12:24 | PC.NURSE ---
PT IS SITTING UP ON THE SOB WITH FAMILY AT BEDSIDE. ALERT AND ORIENTED X4. PT STATES SHE FEELS GREAT AND REALLY WANTS TO GO HOME. PT STILL APPEARS SOA EVEN WITH 2 L NC. PT STATES SHE IS NO MORE SOA THAN SHE IS WHE SHE IS AT HOME. CONTINUES TO HAVE ELEVATED BLOOD SUGARS. LUNG SOUNDS HAVE SCATTERED RHONCHI. ABDOMEN SOFT/NON TENDER WITH ACTIVE BOWEL SOUNDS. PT'S POTASSIUM IS BACK TO NORMAL. AMBULATED TO THE BATHROOM WITH WALKER. WILL CONTINUE TO MONITOR.
--- NOTE | 2020-11-23 12:25 | HMH.CNCARD ---
History of Present Illness Consult date: 11/23/20 Requesting physician: Nehemias Teresa Consult reason: shortness of breath Chief complaint: SOA History of present illness: 80-year-old white female who presented to the emergency department with complaints of shortness of breath and productive cough. The patient states that this has been progressively worsening for quite some time. She states that since being admitted to the hospital her shortness of breath is significantly improved. The patient reports I feel great states that she does not know why cardiology is coming to see her. She denies any chest pain or pressure. She states her shortness of breath is much better. She denies any lower extremity edema. She denies any fever, chills, nausea, vomiting, diarrhea, PND or orthopnea. The patient denies a history of coronary artery disease. She denies a history of congestive heart failure. However, the patient does take Lasix daily and has a diagnosis of congestive heart failure in her medical records. She does have a history of paroxysmal atrial fibrillation and is on long-term anticoagulation for this. [facility] History I have reviewed the patient's past medical history: Yes Medical History: Reports:: Arrhythmia, Atrial Fibrillation, Cancer (BREAST), Congestive Heart Failure, Diabetes Mellitus Type 2, Hyperlipidemia, Hypertension *Have you ever received a pneumonia vaccine?: Yes *Have you received a flu vaccine this season?: Yes Other Medical History: Reports: Arthritis, Chemotherapy, Radiation Therapy Laterality Cases: Left: Mastectomy Other Surgeries: Yes: Cancer Surgery, Cardiac Surgery, Open Heart Surgery - *Social History Last grade of school completed: 7th or 8th Smoking Status: Current every day smoker # Packs/Day (cigarettes): 1 Alcohol Intake: never Substance Use Type: denies use Last Used Substance: unknown *Occupational Status:: retired Housing: house Household Members: family *Travel in the last 8 weeks: None Family Hx:: Unable to obtain Meds Home Medications Medication Instructions Recorded Confirmed Type aspirin 81 mg tablet,delayed 81 mg PO DAILY 02/18/20 11/20/20 History release rivaroxaban 15 mg tablet 15 mg PO QPMWM 02/18/20 11/21/20 History furosemide 40 mg tablet 40 mg PO DAILY PRN #90 tab 08/07/20 11/20/20 Rx hydrocodone 5 mg-acetaminophen 325 1 tab PO BID PRN #14 tab 09/11/20 11/20/20 Rx mg tablet Atorvastatin Calcium [Lipitor 10mg 10 mg PO HS 11/20/20 11/21/20 History Tab] Famotidine [Acid Tapering Machine Operator] 20 mg PO BID 11/20/20 11/20/20 History Metformin HCl [Glucophage] 850 mg PO BID 11/20/20 11/20/20 History Potassium Chloride [Micro-K 10mEq 10 meq PO DAILY 11/20/20 11/20/20 History cap] dilTIAZem HCl [Diltiazem 240mg 240 mg PO DAILY 11/20/20 11/20/20 History 24Hr ER Cap] levoFLOXacin [Levaquin 500mg 500 mg PO DAILY 11/20/20 11/20/20 History tab] lisinopriL [Lisinopril] 10 mg PO DAILY 11/21/20 11/21/20 History Albuterol Sulfate [Albuterol 8.5 gm IH Q6 PRN #1 hfa.aer.ad 11/23/20 Rx Sulfate Hfa] Ipratropium/Albuterol Sulfate 3 ml IH Q6 PRN #120 ampul.neb 11/23/20 Rx [Iprat-Albut 0.5-3(2.5) mg/3 ml] Umeclidinium Brm/Vilanterol Tr 1 inh IH DAILY #60 device 11/23/20 Rx [Anoro Ellipta 62.5-25 Mcg INH] Allergies Allergy/AdvReac Type Severity Reaction Status Date / Time codeine AdvReac Severe Anaphylaxis Verified 11/20/20 13:02 Exam Vital signs and Labs for Last 24 Hours: Temp Pulse Resp BP Pulse Ox 97.9 F 80 18 96/44 L 97 11/23/20 11:41 11/23/20 11:41 11/23/20 11:41 11/23/20 11:41 11/23/20 11:41 Laboratory Results - last 24 hr 11/22/20 16:10: POC Glucose 151 H 11/22/20 20:16: POC Glucose 210 H 11/22/20 22:22: Sodium 132 L, Potassium 4.8, Chloride 100, Carbon Dioxide 19 L, Anion Gap 17.8 H, BUN 37 H, Creatinine 1.30 H, Estimated Creat Clear 44, Estimated GFR 40 L, Est GFR ( Amer) 48 L, Glucose 196 H, Calcium 8.9 11/23/20 05:12: POC
--- NOTE | 2020-11-23 13:14 | HMH.ACPN2 ---
Internal Medicine - PN: Subj *Date: 11/24/20 *Time: 06:40 Interval history: pt is better today and has card consult Exam Vital signs and Labs for Last 24 Hours: Temp Pulse Resp BP Pulse Ox 97.9 F 80 18 96/44 L 97 11/23/20 11:41 11/23/20 11:41 11/23/20 11:41 11/23/20 11:41 11/23/20 11:41 Laboratory Results - last 24 hr 11/22/20 16:10: POC Glucose 151 H 11/22/20 20:16: POC Glucose 210 H 11/22/20 22:22: Sodium 132 L, Potassium 4.8, Chloride 100, Carbon Dioxide 19 L, Anion Gap 17.8 H, BUN 37 H, Creatinine 1.30 H, Estimated Creat Clear 44, Estimated GFR 40 L, Est GFR ( Amer) 48 L, Glucose 196 H, Calcium 8.9 11/23/20 05:12: POC Glucose 267 H 11/23/20 06:13: WBC 9.6, RBC 3.49 L, Hgb 10.8 L, Hct 35.4 L, MCV 101.5 H, MCH 31.0, MCHC 30.5 L, RDW 14.0, Plt Count 227, MPV 8.1, Neut % (Auto) 92.1 H, Lymph % (Auto) 4.9 L, [place] % (Auto) 2.8, Eos % (Auto) 0.2, Baso % (Auto) 0.0 L, Neut # (Auto) 8.8 H, Lymph # (Auto) 0.5 L, [place] # (Auto) 0.3, Eos # (Auto) 0.0, Baso # (Auto) 0.0, Total Counted 100, Neutrophils % (Manual) 93 H, Lymphocytes % (Manual) 7 L, Platelet Estimate Normal, Hypochromasia 1+, Macrocytosis 2+ 11/23/20 06:13: Sodium 134 L, Potassium 3.7 D, Chloride 104, Carbon Dioxide 22, Anion Gap 11.7, BUN 35 H, Creatinine 1.10 H, Estimated Creat Clear 52, Estimated GFR 48 L, Est GFR ( Amer) 58 L D, Glucose 209 H, Calcium 8.1 L 11/23/20 11:07: POC Glucose 362 H* I & O for Last 24 hours: Intake & Output 11/21/20 11/22/20 11/23/20 11/24/20 11:59 11:59 11:59 11:59 Intake Total 720 / 720 600 / 600 840 / 840 Output Total 3 / 3 Balance 720 / 720 597 / 597 840 / 840 Weight 162 lb 4 oz 170 lb 9 oz 172 lb 1 oz Microbiology Reports for the Last 24 Hours: Microbiology 11/20/20 15:30 Sputum - Expectorated Sputum Gram Stain - Final 11/20/20 15:30 Sputum - Expectorated Sputum Sputum Culture - Final Normal Respiratory [place] 11/20/20 16:25 Nose - Nasal MRSA Culture - Final No growth. 11/20/20 16:25 Blood Blood Culture - Preliminary NO GROWTH AFTER 48 HOURS 11/20/20 14:10 Blood Blood Culture - Preliminary NO GROWTH AFTER 48 HOURS - Constitutional no acute distress - *Routine HEENT Exam Head: Present: normocephalic Eye: Present: EOMI, PERRL ENT: Present: mucous membranes dry - *Routine Neck Exam Present: supple - *Routine Respiratory Exam Present: prolonged expiratory phase - *Routine Cardiovascular Exam Present: RRR - *Routine Abdominal Exam Present: soft - *Routine Extremities Exam Absent: calf tenderness - *Routine Skin Exam Present: intact - *Routine Neurological Exam Present: alert, CN II-XII intact - Routine Psychiatric Exam Present: normal affect Assessment and Plan (1) PAF (paroxysmal atrial fibrillation) Status: Acute Category: Medical Code(s): I48.0 - Paroxysmal atrial fibrillation (2) COPD (chronic obstructive pulmonary disease) Status: Acute Qualifiers: COPD type: unspecified COPD Qualified Code(s): J44.9 - Chronic obstructive pulmonary disease, unspecified Category: Medical Code(s): J44.9 - Chronic obstructive pulmonary disease, unspecified (3) Chronic pain Status: Acute Qualifiers: Chronic pain type: other chronic pain Qualified Code(s): G89.29 - Other chronic pain Category: Medical Code(s): G89.29 - Other chronic pain (4) Degenerative joint disease (DJD) of lumbar spine Status: Acute Qualifiers: Spinal osteoarthritis complication: unspecified spinal osteoarthritis Qualified Code(s): M47.816 - Spondylosis without myelopathy or radiculopathy, lumbar region Category: Medical Code(s): M47.816 - Spondylosis without myelopathy or radiculopathy, lumbar region (5) Pneumonia Status: Acute Qualifiers: Pneumonia type: due to unspecified organism Laterality: right Tanisha
[2020-11-23 14:17] LABS: NT Pro Brain Natriuretic Pep. 4030 pg/mL (0-450)
[2020-11-23 14:25] LABS: T4 (Thyroxine) 5.5 ug/dl (5.53-11.0)
[2020-11-23 16:10] LABS: POC Glucose,Bedside 379 (70-110)
[2020-11-23 17:17] LABS: Body Fluid Culture, Sterile Not indicated. (.); Organism ID Not indicated. (.); Specimen Source Urine (.); Streptococcus pneumoniae Ag Negative (Negative)
[2020-11-23 21:11] LABS: POC Glucose,Bedside 161 (70-110)
[2020-11-24] VITALS (7 sets, daily range): BP systolic 130–156; BP diastolic 56–74; PULSE 71–95; RESP 18–22; TEMP 36.4–36.6; O2SAT 91–96; BMI 29.2
--- NOTE | 2020-11-24 03:04 | PC.NURSE ---
PT A&OX4 AT BEGINNING OF SHIFT BUT SEEMS TO BECOME MORE CONFUSED T/O THE NIGHT. PT TOLERATING 2LNC WELL. PT HAS INTERMITTENT HACKING COUGH T/O SHIFT, PRODUCING CLEAR PHLEGEM. PT AMBULATING WELL IN ROOM WITH CANE AND STANDBY ASSIST. PT HAS HAD NO C/O PAIN, SOA. PT HAS NOT APPEARED TO BE SOA THIS SHIFT. RESTING IN BED MAJORITY OF NIGHT, VSS WILL CONTINUE TO MONITOR.
[2020-11-24 05:32] LABS: POC Glucose,Bedside 207 (70-110)
--- NOTE | 2020-11-24 08:31 | HMH.PNCARD ---
Subjective Date: 11/24/20 Time: 08:20 Principal diagnosis: chf Interval history: This is a 80-year-old white female who presented to the emergency department with complaints of shortness of breath and a productive cough. The patient states that this has been worsening over quite some time. The patient was admitted to the hospital and she states that her shortness of breath has improved. However when speaking to me this morning the patient does seem to be a little short of breath and she has to catch her breath between words. She denies any chest pain or pressure. She states the only time she is short of breath is when she is up ambulating but as mentioned above she seems short of breath just talking to me this morning. She denies any fever, chills, nausea, vomiting, diarrhea, PND orthopnea. She denies any lower extremity edema. She states that she is feeling much better than when she was admitted to the hospital. Exam Vital signs and Labs for Last 24 Hours: Temp Pulse Resp BP Pulse Ox 98.8 F 70 20 125/54 L 94 L 11/24/20 08:00 11/24/20 08:00 11/24/20 08:00 11/24/20 08:00 11/24/20 08:00 Laboratory Results - last 24 hr 11/23/20 06:13: Total Counted 100, Neutrophils % (Manual) 93 H, Lymphocytes % (Manual) 7 L, Platelet Estimate Normal, Hypochromasia 1+, Macrocytosis 2+ 11/23/20 06:13: NT-Pro-B Natriuret Pep 4030 H, TSH 0.10 L, Thyroxine (T4) 5.5 L 11/23/20 11:07: POC Glucose 362 H* 11/23/20 15:38: POC Glucose 379 H* 11/23/20 20:34: POC Glucose 161 H 11/24/20 05:12: POC Glucose 207 H I & O for Last 24 hours: Intake & Output 11/21/20 11/22/20 11/23/20 11/24/20 23:59 23:59 23:59 23:59 Intake Total 720 / 720 480 / 480 2672 / 2672 280 / 280 Output Total 3 / 3 0 / 0 Balance 717 / 717 480 / 480 2672 / 2672 280 / 280 Weight 162 lb 4 oz 170 lb 9 oz 171 lb 15.369 oz 175 lb 8 oz Microbiology Reports for the Last 24 Hours: Microbiology 11/20/20 15:30 Sputum - Expectorated Sputum Gram Stain - Final 11/20/20 15:30 Sputum - Expectorated Sputum Sputum Culture - Final Normal Respiratory [place] 11/20/20 16:25 Nose - Nasal MRSA Culture - Final No growth. Narrative: Echo shows: 1. Biatrial enlargement, normal left ventricular size, mild concentric left ventricular hypertrophy, visually estimated ejection fraction 55% with no regional wall motion abnormality, Doppler evidence of raise left ventricular end-diastolic pressure. Diastolic parameters are inconclusive 2. Thickened and calcified aortic valve without Doppler evidence of aortic stenosis or aortic insufficiency. 3. Mild mitral and tricuspid regurgitation. 4. No significant pericardial effusion noted. - Constitutional no acute distress, average body habitus - *Routine HEENT Exam Head: Present: normocephalic Eye: Present: EOMI, PERRL ENT: Present: mucous membranes moist - *Routine Neck Exam Present: supple, full ROM, normal carotid upstroke. Absent: JVD, carotid bruit, lymphadenopathy - *Routine Respiratory Exam Present: rales, wheezes - *Routine Cardiovascular Exam Present: RRR, Normal S1, Normal S2. Absent: murmur - *Routine Abdominal Exam Present: soft, normoactive bowel sounds. Absent: tenderness, distended - *Routine Extremities Exam Present: full ROM, pulses intact, normal capillary refill. Absent: cyanosis, clubbing, edema - *Routine Skin Exam Present: intact, warm. Absent: erythema, rash - *Routine Neurological Exam Present: alert, oriented X3, CN II-XII intact. Absent: sensory deficit, motor deficit Progress Note: A&P (1) SOB (shortness of breath) Status: Acute (2) CHF (congestive heart failure) Status: Acute (3) PAF (paroxysmal atrial fibrillation) Status: Acute (4) COPD (chronic obstructive pulmonary disease) Status: Acute (5) Chronic pain Status: Acute (6) Degenerative joint disease (DJD) of lumbar spine Status: Acute
--- NOTE | 2020-11-24 10:09 | HMH.OTEV ---
OT Inpatient Evaluation Rehab OT IP Evaluation Start: 11/24/20 08:59 Freq: ONCE Status: Complete Protocol: Document 11/24/20 10:02 TRACEY (Rec: 11/24/20 10:08 [facility] [id number]) Rehab OT IP Assessment Subjective History Pt oriented x 3 on arrival. Pt agreeable to engage in therapy evaluation. Pt was admitted on 11/20/20 due to COPD exacerbation, dyspnea, and productive cough. Pt has a past medical history of Arrhythmia, CHF, DM type 2, Hyperlipidemia, and HTN. Pt reports she lives at home with her 5 grandchildren. Pt claims she is independent with all ADLs and IADLs. She uses a cane during ambulation and oxygen at night. Subjective I don't need help, I am fine. Objective Patient Orientation Person,Place,Birthday Upper Extremity Gross ROM WFL Transfer Training Sit/Stand Transfer Assist Level Supervision/Stand by Chair Transfer Ability Supervision/Stand by Chair Transfer Technique Sit to/from Ambulatory Chair Transfer Assistive Devices Straight Cane Feeding Ability Independent Lower Body Dressing Ability Standby Assistance Rehab OT IP prob,goals,plan Problems Date of Evaluation: 11/24/20 Rehab Potential Rehab Potential Innapropriate for Skilled Therapy Discharge Plan OT Discharge Plan Pt appears to be at baseline at this time functionally. Pt can return home with family once medically stable per physician. Eval Complexity Eval Charge Codes 40178 - Moderate Complexity G Codes G -code Required No PHYSICIAN CERTIFICATION: I certify the specified therapy services for Goldie Roche are required, authorized, and reviewed every 30 days.
[2020-11-24 11:17] LABS: POC Glucose,Bedside 229 (70-110)
--- NOTE | 2020-11-24 11:45 | HMH.PTEV ---
Physical Therapy Evaluation Rehab PT IP Evaluation Start: 11/20/20 14:48 Freq: ONCE Status: Complete Protocol: Document 11/20/20 15:33 JAIR (Rec: 11/20/20 15:42 JAIR [id number]) Subjective/History History History Patient is a 80 year old female admitted to [facility] 11/20/20 secondary to COPD exacerbation and increased dyspnea. Patient complain of overall general deconditioning and weakness resulting in unsteadyness on her feet. Patient denies any recent falls at home. She reports that she was previously independent with all ADL's . Patient lives at home with her grandson and his . Subjective Subjective I feel like I'm drunk when I have been up walking for a little bit. I just feel weak in my hips. Rehab PT IP Eval Objective Appearance Patient Behavior Appropriate Patient Orientation Person,Place,Day of Week Difficulty following instructions none Speech Pattern Clear,Appropriate Ambulation Patient Able to Ambulate Yes Ambulation Observation IP General Gait Pattern Observation Wide Based Gait Ambulation Distance (feet) 80 Ambulation Assistive Device Straight Cane Ambulation Ability Contact Guard/Hand Hold Balance Ability to Arise Able, w/o using arms Sitting Balance Steady, safe Standing Balance Narrow stance w/o support Dynamic Sitting Balance Ability Normal Dynamic Standing Balance Ability Good Transfers Bed Transfer Ability Independent Sit to Stand Bed Transfer Ability Independent ROM All Extremities PT ROM Status WFL MMT All Extremities PT MMT WFL Rehab PT IP prob,goals,plan Problems Date of Evaluation: 11/20/20 PT IP Problems Gait,Balance,Safety Rehab Potential Rehab Potential Good Plan PT Intervention Plan Gait,Balance,Safety, Therapeutic Exercise PT Plan Frequency BID Duration LOS Discharge Goals Bed Transfer Ability Supervision/Stand by Sit to Stand Chair Transfer Ability Supervision/Stand by Ambulation Assistive Device Straight Cane Ambulation Distance (feet) 150 Discharge Plan PT Discharge Plan PT suggests patient to be seen
--- NOTE | 2020-11-24 13:06 | HMH.PULMPN ---
Internal Medicine - PN: Subj *Date: 11/24/20 *Time: 13:26 Interval history: No acute respiratory events overnight. denies any new complaints. Exam - Constitutional Constitutional:: Present: no acute distress - HENMT Exam HENMT: Present: normocephalic - Neck Exam Neck:: Present: normal visual inspection - Respiratory Exam Respiratory:: Present: able to speak in complete sentences, crackles - Cardiovascular Exam Cardiac:: Present: S1, S2 - GI Exam GI:: Present: soft - Skin Exam Skin: Present: warm, no rash - Neurological Exam Neurological: Present: alert, awake - Extremities Exam Extremities: Present: no cyanosis, no clubbing - Psychiatric Exam Psychiatric: Present: normal affect Assessment and Plan (1) SOB (shortness of breath) Status: Acute Category: Medical Code(s): R06.02 - Shortness of breath (2) CHF (congestive heart failure) Status: Acute Qualifiers: Heart failure type: unspecified Heart failure chronicity: acute on chronic Qualified Code(s): I50.9 - Heart failure, unspecified Category: Medical Code(s): I50.9 - Heart failure, unspecified (3) PAF (paroxysmal atrial fibrillation) Status: Acute Category: Medical Code(s): I48.0 - Paroxysmal atrial fibrillation (4) COPD (chronic obstructive pulmonary disease) Status: Acute Qualifiers: COPD type: unspecified COPD Qualified Code(s): J44.9 - Chronic obstructive pulmonary disease, unspecified Category: Medical Code(s): J44.9 - Chronic obstructive pulmonary disease, unspecified (5) Chronic pain Status: Acute Qualifiers: Chronic pain type: other chronic pain Qualified Code(s): G89.29 - Other chronic pain Category: Medical Code(s): G89.29 - Other chronic pain (6) Degenerative joint disease (DJD) of lumbar spine Status: Acute Qualifiers: Spinal osteoarthritis complication: unspecified spinal osteoarthritis Qualified Code(s): M47.816 - Spondylosis without myelopathy or radiculopathy, lumbar region Category: Medical Code(s): M47.816 - Spondylosis without myelopathy or radiculopathy, lumbar region (7) Pneumonia Status: Acute Qualifiers: Pneumonia type: due to unspecified organism Laterality: right Category: Medical Code(s): J18.9 - Pneumonia, unspecified organism (8) Overweight (BMI 25.0-29.9) Status: Acute Category: Medical Code(s): E66.3 - Overweight (9) Renal insufficiency Status: Acute Category: Medical Code(s): N28.9 - Disorder of kidney and ureter, unspecified (10) Diabetes Status: Acute Qualifiers: Diabetes mellitus type: type 2 Diabetes mellitus exterminator termite insulin use: unspecified alf insulin use status Diabetes mellitus complication status: without complication Qualified Code(s): E11.9 - Type 2 diabetes mellitus without complications Category: Medical Code(s): E11.9 - Type 2 diabetes mellitus without complications - Assessment and plan all Dx Assessment and Plan for all problems:: #Community-acquired pneumonia: #COPD exacerbation: Ms. Roche is a 80-year-old for significant smoking history smoking 3 to 4 packs a day since she was 10 to 12 years old, currently cut down to 1 pack every 2 to 4 days as per the patient presented to the primary care clinic today where she was found to be having coarse breath sounds, respiratory distress along with her complaining of cough and productive phlegm for the last couple of days associated with dizziness and balance issues and patient was admitted to the hospital for further management and pulmonary was called for evaluation. She attempted using albuterol inhaler with albuterol ipratropium nebs. Patient also on home oxygen which she uses it as needed. Initial ABG showed hypoxia with a PO2 of 62. Patient has been initiated subfractions remember possible community-acquired and diuresis oxygen as needed along with nocturnal oxygen therapy which she had been using at home. Plan:
--- NOTE | 2020-11-24 14:21 | HMH.DCSUM ---
General - General Admission date:: 11/20/20 Discharge date: 11/24/20 HPI HPI: Patient is a 80-year-old female, well-known to me, who has a longstanding history of chronic lung disease. She had come into the office on 11/10/2020 with complaints of productive cough and dyspnea. She refused hospitalization on that occasion, was treated with IM Rocephin and p.o. antibiotics with steroids. Over the course of the last week or so her condition continued to decline. She became more short of breath, has a cough productive of thick yellow purulent sputum, increased wheezing, and has been unsteady on her feet. She has sustained several falls, has an abrasion on her left upper extremity. She seems lucid in the office, but I suspect she is retaining. Patient carries a previous history of severe pneumonia. She had been admitted to [facility] in [place] about a year ago, and after that discharge was offered consideration for hospice. As she clinically improved she was adamant about refusing hospice. She is actually done fairly well since then. Patient has a history of of paroxysmal atrial fibrillation and diabetes. She has marked erosive osteoarthritis, chronic back pain, and chronic lung disease. Hospital Course Hospital Course: 80-year-old female patient admitted with increased shortness of breath, thick yellow productive cough, and increased wheezing. 11/20/20: Rhino Virus PCR positive 11/10/20 CXR: FINDINGS: The cardiomediastinal silhouette and pulmonary vascularity are within normal limits. Background of chronic interstitial changes are noted. No lobar consolidation, pleural effusions or pneumothorax. Calcifications in the right hilum, may represent had a calcified lymph nodes. Minor bibasal atelectasis. Visualized osseous structures are unremarkable. IMPRESSION: Background of chronic interstitial changes. No lobar consolidation or pleural effusions. Dictated by: Lourdes Garcia 11/23/20 ECHO: Conclusion 1. Biatrial enlargement, normal left ventricular size, mild concentric left ventricular hypertrophy, visually estimated ejection fraction 55% with no regional wall motion abnormality, Doppler evidence of raise left ventricular end-diastolic pressure. Diastolic parameters are inconclusive 2. Thickened and calcified aortic valve without Doppler evidence of aortic stenosis or aortic insufficiency. 3. Mild mitral and tricuspid regurgitation. 4. No significant pericardial effusion noted. Electronically signed by : Landry Ward Cardiology is seen and recommends: 1. The patient was admitted to the hospital for shortness of breath. She is being treated for COPD. This is being managed by her primary care provider and pulmonary. 2. The patient's BNP is elevated over 4000. She is more short of breath today when talking to me than she was yesterday. She denies any significant shortness of breath but on exam she does appear to be short of breath. We will stop her IV fluids and change her Lasix to 40 mg IV twice daily for diuresis. 3. Her echocardiogram showed a preserved ejection fraction. The patient is likely having acute exacerbation of systolic congestive heart failure. 4. Her blood pressures well controlled. 5. Her LDL goal is less than 100. 6. Tobacco cessation is highly advised and counseled. 7. The patient denies any chest pain or pressure. No plans for any invasive cardiac testing at this time. She may benefit from an ischemic evaluation on an outpatient basis. 8. Repeat a BMP in the morning. 9. Further recommendations were made pending the patient's response to treatment. Pulmonology has seen and recommends: - Can de-escalate de-escalate antibiotics to levofloxacin to complete a total of 5-day course. - De-escalate methylprednisolone to prednisone for the total of 7 days at 40 mg including IV steroid duration - DuoNebs every 6 hours scheduled, discharge patient on
--- NOTE | 2020-11-24 17:14 | PC.NURSE ---
Pt left prior to this RN being able to give her home meds back, pt was very anxious to leave. This RN did attempt to call son and no one answered the phone at this time.
--- NOTE | 2020-11-24 19:32 | PC.NURSE ---
Pts family aware that home meds need to be picked up.
[2020-12-01 06:53] LABS: Lactate Arterial 3.2 mmol/L (0.4-2.0)
[2020-12-01 10:52] LABS: Reflex Lactic Add Lactic Reflex
== END 2020-11-24 15:40 | disposition home or self-care (01) ==
PROVIDERS: Emergency Medicine; Internal Medicine Pulmonary Disease; Admitting Provider Family Medicine; PCP Family Medicine; Visit Provider Family Medicine
DX: J18.9 Pneumonia, unspecified organism (principal); I48.0 Paroxysmal atrial fibrillation; E11.9 Type 2 diabetes mellitus without complications; I50.23 Acute on chronic systolic (congestive) heart failure; F17.210 Nicotine dependence, cigarettes, uncomplicated; Z20.822 Contact with and (suspected) exposure to COVID-19; J44.1 Chronic obstructive pulmonary disease with (acute) exacerbation; Z87.01 Personal history of pneumonia (recurrent); M15.4 Erosive (osteo)arthritis; G89.29 Other chronic pain; M54.9 Dorsalgia, unspecified; I11.0 Hypertensive heart disease with heart failure; E78.5 Hyperlipidemia, unspecified; Z79.84 Long term (current) use of oral hypoglycemic drugs; Z88.5 Allergy status to narcotic agent; J44.0 Chronic obstructive pulmonary disease with (acute) lower respiratory infection; M47.896 Other spondylosis, lumbar region; Z71.6 Tobacco abuse counseling; E87.5 Hyperkalemia
CPT/HCPCS: 36415; 71045; 80048; 80053; 81001; 82803; 82962; 83605; 83880; 84132; 84436; 84443; 85007; 85025; 87040; 87070; 87081; 87205; 87581; 87633; 87798; 87899; 93306; 94640; 94667; 94668; 94761; 97116; 97161; 97166; G0378; J0456

== ENCOUNTER → 2020-12-01 13:39 | Outpatient (CLI) | payer MEDICARE, MEDICAID, SELFPAY ==
[2020-12-01 13:55] LABS: Alanine Aminotransferase 22 U/L (12-78); Albumin Level 3.9 g/dl (3.5-5.0); Albumin/Globulin Ratio 1.8 (1.1-1.8); Alkaline Phosphatase 112 U/L (38-126); Aspartate Amino Transferase 26 U/L (14-36); Blood Urea Nitrogen 25 mg/dl (7-17); Calcium 8.8 mg/dl (8.4-10.2); Carbon Dioxide 30 mmol/L (22.0-30.0); Chloride 98 mmol/L (98-107); Estimated Glomerular Filt Rate 43 ml/min (>60); GFR (African American) 53 ML/MIN (>60); Globulin 2.2 g/dL (1.3-3.2); Glucose 158 mg/dl (74-100); Sodium 137 mmol/L (136-145); Total Protein,Serum 6.1 g/dl (6.3-8.2)
== END ==
PROVIDERS: Visit Provider Family Medicine
DX: N28.9 Disorder of kidney and ureter, unspecified (principal)
CPT/HCPCS: 80053

== ENCOUNTER 2020-12-23 08:19 | Emergency (ER) | payer MEDICARE, MEDICAID, SELFPAY ==
[2020-12-23 08:20] VITALS: BP 109/68; PULSE 72; RESP 20; TEMP 36.4; O2SAT 90; BMI 26.1
--- NOTE | 2020-12-23 08:24 | ECG_ITS ---
APPROVED REPORT Exam: Resting ECG HR:68 bpm ECG Measurements Heart Rate 68 AXES QRSd 88 QRS -16 QT 394 T 138 QTc [address] & T wave abnormality, consider lateral ischemia or digitalis effect Abnormal ECG Electronically signed by : Stephen Romero, 12/23/2020 17:49:33
--- NOTE | 2020-12-23 08:31 | HMH.EDGENADL ---
ED Disposition Clinical Impression: Cervical radiculopathy Disposition: Home, Self-Care Condition on Discharge: Good Instructions: DI for Cervical Radiculopathy Additional Instructions: Medrol Dosepak as prescribed. Dolphin as needed for pain. Follow-up with primary care provider, call to make appointment. Additional instructions for CONTROLLED SUBSTANCES: You have been prescribed a medication that is a controlled substance. Controlled substances include pain medications known as opiates and sedative nerve medications known as benzodiazepines. Tramadol, fioricet, and gabapentin are also controlled substances. Some common opiates include: Codeine (such as Tylenol #3) Hydrocodone (Vicodin, Lortab, Lorcet, Dolphin) Oxycodone (Percocet, Percodan, Oxycodone, Oxy IR) Some common benzodiazepines include: Diazepam (Valium) Lorazepam (Ativan) Alprazolam (Xanax) Clonazepam (Klonopin) Oxazepam (Serax) All of these controlled substances are highly addictive and frequently abused. Misuse can and frequently does lead to addiction as well as overdose and . Medication should be stored in a locked cabinet or other secure storage unit. Do not store the medication in a motor vehicle. Short term supplies, 3 days or less, are prescribed because of the highly addictive nature of the medication. Any of the controlled substance medication NOT taken should be disposed of properly and NOT SAVED. The recommended method of disposing of unused medications is: Place the medicines in a sealable plastic bag. If the medicine is a solid, crush it or add water to dissolve it. Add something undesirable (cat litter, coffee grounds, etc.) Dispose of sealed bag in household trash Do not flush or pour unused medicines down a sink or drain. Controlled substances should not be shared, given away or sold. Because of the addictive nature and frequent abuse, these medications are sometimes stolen. These medications should be kept in a safe place where they cannot be stolen. Do not keep them in your car or purse. Lost or stolen prescriptions for controlled substances WILL NOT BE REFILLED in this emergency department, regardless of whether a police report was filed. Prescriptions: Hydrocod/Acet 5/325 mg [Dolphin 5/325mg tablet] 1 tab PO Q6HP PRN #10 tab PRN Reason: Pain Transmission Status: Sent to [facility] methylPREDNISolone [Medrol 4mg tab] 4 mg PO DIRECTED #21 tab Transmission Status: Pending to [facility] Referrals: Jesus Alberto Stevenson MD [Primary Care Provider] - - Critical Care Critical Care Time: No Attestation: On , the high probability of a clinically significant, sudden or life threatening deterioration of the following system(s) required my full and direct attention, intervention and personal management. The time I documented below is in addition to time spent performing reported procedures but includes the following listed in this critical care notation. Medical Decision Making - Medical Records Medical records reviewed: Yes: I reviewed the patient's medical records. MR Comment: The patient was seen by her primary care provider, Dr. Stevenson, 09/11/2020 for same symptoms and addition to left hip pain. Treated with steroids and Dolphin. No imaging performed. - Jose Inquiry Pt receiving controlled substance: Yes Jose was queried for this patient: Yes Risks and benefits of using a controlled substance: were discussed with pt by me Vital Signs: 12/23/20 08:20 12/23/20 08:43 Temperature 97.5 F L Temperature Source Oral Pulse Rate [Left] 72 Respiratory Rate 20 Blood Pressure [Right Arm] 109/68 L Blood Pressure Mean [Right Arm] 81 Blood Pressure Source [Right Arm] Automatic Cuff Blood Pressure Position [Right Arm] Supine 02 Sat by Pulse Oximetry 90 L 96 Oxygen Delivery Method Room Air Nasal Cannula Oxygen Flow Rate (LPM) 3 Orders (Tests/Meds): ED MEDICATIONS Discontinued
[2020-12-23 08:43] VITALS: O2SAT 96
--- NOTE | 2020-12-23 09:01 | CT_ITS ---
PROCEDURE: CT CERVICAL SPINE WO CON CLINICAL INDICATION: neck pain, left arm radicular pain COMPARISON: No exams were available for comparison TECHNIQUE: Axial images obtained with sagittal and coronal reformats. All CT scans at the facility use one or more dose reduction, viz: automated exposure control, ma/kV adjustment per patient size (including targeted exams where dose is matched to indication, i.e. head), or iterative reconstruction technique. Axial spiral CT scanning performed of the cervical spine beginning at the base of the skull and continuing to the upper T-spine. 3-D multiplanar reconstruction with 3-D manipulation of volumetric data set in image rendering was completed by the radiologist and/or technologist with the supervision of the radiologist on independent workstation. FINDINGS: Extensive diffuse degenerative changes are present, particularly of C6-7 and C7-T1. Slight anterolisthesis of C6 on C7. No definite acute fracture. No subluxation. Odontoid and lateral masses of C1 are normal. No prevertebral soft tissue swelling. Some bilateral neural foraminal encroachment at multiple levels, most pronounced at C2-3 as well as at C6-7. No paraspinous soft tissue abnormality. No central canal stenosis. Soft tissues of the neck are normal. 2 centimeter low-attenuation nodule in the right thyroid lobe noted for which correlation with nonemergent thyroid ultrasound is suggested. Lung apices are normal. IMPRESSION: Extensive diffuse cervical spondylosis and multilevel neural foraminal encroachment as described above. No acute fracture or subluxation. 2 cm low-attenuation nodule right thyroid lobe for which correlation with nonemergent thyroid ultrasound is suggested. Dictated by: Jose Woody MD 12/23/2020 09:40 Jose Woody MD in [place] 12/23/2020 09:40
--- NOTE | 2020-12-23 09:15 | PC.NURSE ---
patient to CT
[2020-12-23 10:13] VITALS: BP 97/55; PULSE 76; RESP 16; TEMP 36.7; O2SAT 93
== END 2020-12-23 10:14 | disposition home or self-care (01) ==
PROVIDERS: Emergency Provider Emergency Medicine; PCP Family Medicine
DX: M54.12 Radiculopathy, cervical region (principal); E11.9 Type 2 diabetes mellitus without complications; I48.91 Unspecified atrial fibrillation; I10 Essential (primary) hypertension; E78.5 Hyperlipidemia, unspecified; F17.210 Nicotine dependence, cigarettes, uncomplicated; Z90.12 Acquired absence of left breast and nipple; Z79.899 Other long term (current) drug therapy
CPT/HCPCS: 72125; 93005; 96374; 96375; 99282; J2405

== ENCOUNTER 2021-01-15 19:19 | Inpatient (IN) | payer MEDICARE, MEDICAID, SELFPAY ==
[2021-01-15 19:20] VITALS: BP 118/57; PULSE 117; RESP 16; TEMP 38.4; O2SAT 97; BMI 24.5
--- NOTE | 2021-01-15 19:41 | HMH.EDGENADL ---
ED Disposition Condition on Discharge: Good - Critical Care Critical Care Time: No <Mo Ceron - Last Filed: 01/15/21 21:07> <Nehemias Teresa - Last Filed: 01/15/21 22:09> Clinical Impression: PAF (paroxysmal atrial fibrillation), SIRS (systemic inflammatory response syndrome), Tobacco use, Acute delirium Sepsis Qualifiers: Sepsis type: sepsis due to unspecified organism Sepsis acute organ dysfunction status: unspecified Qualified Code(s): A41.9 - Sepsis, unspecified organism Pneumonia Qualifiers: Pneumonia type: due to unspecified organism Laterality: right Lung location: lower lobe of lung Qualified Code(s): J18.9 - Pneumonia, unspecified organism COPD (chronic obstructive pulmonary disease) Qualifiers: COPD type: unspecified COPD Qualified Code(s): J44.9 - Chronic obstructive pulmonary disease, unspecified Diabetes Qualifiers: Diabetes mellitus type: type 2 Diabetes mellitus intermodal dispatcher insulin use: unspecified intermodal dispatcher insulin use status Diabetes mellitus complication status: with other specified complication Qualified Code(s): E11.69 - Type 2 diabetes mellitus with other specified complication Disposition: Admitted As Inpatient Attestation: On 01/15/21, the high probability of a clinically significant, sudden or life threatening deterioration of the following system(s) required my full and direct attention, intervention and personal management. The time I documented below is in addition to time spent performing reported procedures but includes the following listed in this critical care notation. Medical Decision Making - Jose Inquiry Pt receiving controlled substance: No - Lab Data Result diagrams: 01/15/21 19:49 01/15/21 19:49 <Mo Ceron - Last Filed: 01/15/21 21:07> - Medical Records Medical records reviewed: Yes: I reviewed the patient's medical records. - Lab Data Lab results reviewed: Yes: I reviewed the patient's lab results. Result diagrams: 01/15/21 19:49 01/15/21 19:49 - Radiology Data #1 Image(s): Chest Image Reviewed: Yes I reviewed the patient's radiology image Preliminary Findings: Abnormal (see report) - CT Data CT Scan: Head, Abdomen, Pelvis Time Received: 22:[address] Reviewed: Yes: I have viewed the radiologist's interpretation Preliminary Findings: Abnormal (see report ) - ECG Data Tracing #1 Arrhythmias present: afib Ischemic changes: non-specific ST-T wave changes <Nehemias Teresa Carrie - Last Filed: 01/15/21 22:09> Vital Signs: 01/15/21 19:20 01/15/21 20:59 Temperature 101.2 F H 98.9 F Temperature Source Rectal Oral Pulse Rate [Right] 117 H Respiratory Rate 16 Blood Pressure [Right Arm] 118/57 L Blood Pressure Mean [Right Arm] 77 02 Sat by Pulse Oximetry 97 - Lab Data Lab Results 01/15/21 19:33: POC Glucose 195 H 01/15/21 19:49: WBC 7.2, RBC 4.37, Hgb 14.4, Hct 42.3, MCV 96.8, MCH 32.9 H, MCHC 34.0, RDW 16.3, Plt Count 177, MPV 8.2, Neut % (Auto) 73.7, Lymph % (Auto) 15.7, Mccormick % (Auto) 10.1 H, Eos % (Auto) 0.3, Baso % (Auto) 0.2, Neut # (Auto) 5.3, Lymph # (Auto) 1.1, Mccormick # (Auto) 0.7, Eos # (Auto) 0.0, Baso # (Auto) 0.0 01/15/21 19:49: Sodium 138, Potassium 4.3, Chloride 105, Carbon Dioxide 23, Anion Gap 14.3, BUN 12, Creatinine 1.00, Estimated Creat Clear 43, Estimated GFR 54 L, Est GFR ( Amer) 65, Glucose 194 H, Calcium 9.0, Total Bilirubin 1.6 H, AST 41 H, ALT 35, Alkaline Phosphatase 110, Troponin I < 0.01, Total Protein 7.1, Albumin 4.4, Globulin 2.7, Albumin/Globulin Ratio 1.6 01/15/21 19:49: ESR 50 H 01/15/21 19:49: C-Reactive Protein 46.1 H, Amylase 65, Procalcitonin 0.053 01/15/21 19:49: Lipase 88 01/15/21 19:52: Specimen Source Right radial, ABG pH 7.48 H, ABG pCO2 31.2 L, ABG pO2 61.5 L, ABG HCO3 22.6, ABG Total CO2 23.6, ABG O2 Saturation 94, ABG Base Excess -0.9, Kamron Test Acceptable 01/15/21 20:00: Lactate 1.7 01/15/21 20:10: Urine Color Yellow, Urine Appearance Clear, Urine pH 5.0, Ur Specific G
--- NOTE | 2021-01-15 19:43 | ECG_ITS ---
APPROVED REPORT Exam: Resting ECG HR:117 bpm ECG Measurements Heart Rate 117 AXES QRSd 86 QRS -8 QT 306 T 96 QTc 426 Conclusion Atrial fibrillation with rapid ventricular response Inferior infarct, age undetermined Abnormal ECG Electronically signed by : Stephen Romero, 01/17/2021 13:50:26
[2021-01-15 19:56] LABS: ABG Base Excess -0.9 mmol/L (-2.4-2.3); ABG HCO3 22.6 mmhg (22.0-26.0); ABG Oxygen Saturation 94 % (90-100); ABG PCO2 31.2 mmhg (35.0-45.0); ABG PH 7.48 mmol/L (7.35-7.45); ABG PO2 61.5 mmhg (80-100); ABG TCO2 23.6 mmhg (23-27)
--- NOTE | 2021-01-15 19:56 | CT_ITS ---
PROCEDURE INFORMATION: Exam: CT Abdomen And Pelvis Without Contrast Exam date and time: 01/15/2021 7:56 PM Age: 80 years old Clinical indication: Abdominal pain; Localized; Patient HX: Right abd pain with nausea TECHNIQUE: Imaging protocol: Computed tomography of the abdomen and pelvis without contrast. Radiation optimization: All CT scans at this facility use at least one of these dose optimization techniques: automated exposure control; mA and/or kV adjustment per patient size (includes targeted exams where dose is matched to clinical indication); or iterative reconstruction. COMPARISON: CR XR CHEST PORTABLE 11/20/2020 2:53 PM FINDINGS: Lungs: Calcific densities of the right hilum, and right lower lobe favor granulomas. Pleural spaces: Low volume right basilar pleural effusion with compressive atelectasis present. Liver: Click liver calcs Gallbladder and bile ducts: There are surgical clips within the gallbladder fossa. Pancreas: Normal. No ductal dilation. Spleen: Multiple calcific densities spleen are likely related to prior granulomatous process. Adrenal glands: Normal. No mass. 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 Multiple nonobstructing nephroliths on the right with largest measuring approximately 3 mm. Stomach and bowel: Unremarkable. No obstruction. No mucosal thickening. Appendix: No evidence of appendicitis. Intraperitoneal space: Unremarkable. No free air. No significant fluid collection. Vasculature: Moderate calcific atherosclerotic disease of the abdominal aorta without aneurysmal dilatation is present. Lymph nodes: Unremarkable. No enlarged lymph nodes. Urinary bladder: Robles catheter decompresses the bladder. Reproductive: Calcified uterine fibroid measures 3.6 cm in diameter. Bones/joints: There are postsurgical changes to the right hip with right femoral IM nail and cannulated femoral neck screw in place. Soft tissues: Normal. IMPRESSION: Nonobstructive right nephrolithiasis. No CT findings explain patient's symptoms.
--- NOTE | 2021-01-15 19:56 | CT_ITS ---
PROCEDURE INFORMATION: Exam: CT Head Without Contrast Exam date and time: 01/15/2021 7:56 PM Age: 80 years old Clinical indication: Altered mental status/memory loss; Patient HX: AMS; Additional info: Pain TECHNIQUE: Imaging protocol: Computed tomography of the head without contrast. 3D rendering (Not supervised by radiologist): MIP and/or 3D reconstructed images were created by the technologist. Radiation optimization: All CT scans at this facility use at least one of these dose optimization techniques: automated exposure control; mA and/or kV adjustment per patient size (includes targeted exams where dose is matched to clinical indication); or iterative reconstruction. COMPARISON: CT CERVICAL SPINE WO CON 12/23/2020 9:24 AM FINDINGS: Brain: There is parenchymal atrophy. Periventricular and subcortical white matter areas of hypoattenuation, likely chronic small vessel ischemic change, demyelination, or gliosis. No mass, hemorrhage, or acute infarction. Cerebral ventricles: No ventriculomegaly. Paranasal sinuses: Visualized sinuses are unremarkable. No fluid levels. Mastoid air cells: Small amount of fluid within the left mastoid air cells. Vasculature: Atherosclerotic vascular disease. Bones/joints: Normal. Soft tissues: Unremarkable. IMPRESSION: No acute intracranial abnormality.
--- NOTE | 2021-01-15 19:56 | XR_ITS ---
PROCEDURE INFORMATION: Exam: XR Chest Exam date and time: 01/15/2021 7:56 PM Age: 80 years old Clinical indication: Cough and fever; Additional info: Fever, cough, AMS TECHNIQUE: Imaging protocol: XR of the chest. Views: 1 view. COMPARISON: CR XR CHEST PORTABLE 11/20/2020 2:53 PM FINDINGS: Lungs: Right basilar opacities partially silhouette the right rigoberto diaphragm are favored to represent combination of atelectasis/pleural effusion/consolidation. Pleural spaces: See Lungs finding. Heart/Mediastinum: Unremarkable. No cardiomegaly. Bones/joints: Unremarkable. IMPRESSION: Right basilar opacities partially silhouette the right rigoberto diaphragm are favored to represent combination of atelectasis/pleural effusion/consolidation.
[2021-01-15 19:57] LABS: Allen's Test Acceptable; Source Right Radial
[2021-01-15 20:01] LABS: POC Glucose,Bedside 195 (70-110)
[2021-01-15 20:14] LABS: Basophils % 0.2 % (0.1-2.0); Eosinophils % 0.3 % (0.1-12.0); Hematocrit 42.3 % (37.0-47.0); Hemoglobin 14.4 g/dL (12.2-16.2); Lymphocytes # 1.1 K/mm3 (0.7-4.5); Lymphocytes % 15.7 % (10-50); Mean Corpuscular Hemoglobin 32.9 pg (27.0-31.2); Mean Corpuscular Volume 96.8 fl (81-99); Mean Platelet Volume 8.2 fl (7.4-10.4); Monocytes # 0.7 K/mm3 (0.1-1.0); Monocytes % 10.1 % (1.7-9.3); Neutrophils # 5.3 K/mm3 (1.8-7.8); Neutrophils % 73.7 % (37.0-80.0); Platelet Count 177 K/mm3 (142-424); Red Blood Count 4.37 M/mm3 (4.20-5.40); Red Cell Distribution Width 16.3 % (11.5-17.5); White Blood Count 7.2 K/mm3 (4.8-10.8)
[2021-01-15 20:16] LABS: Alanine Aminotransferase 35 U/L (12-78); Albumin Level 4.4 g/dl (3.5-5.0); Albumin/Globulin Ratio 1.6 (1.1-1.8); Alkaline Phosphatase 110 U/L (38-126); Anion Gap 14.3 mEq/L (5-15); Aspartate Amino Transferase 41 U/L (14-36); Bilirubin,Total 1.6 mg/dl (0.2-1.3); Blood Urea Nitrogen 12 mg/dl (7-17); Carbon Dioxide 23 mmol/L (22.0-30.0); Chloride 105 mmol/L (98-107); Creatinine Clearance Estimated 43 mL/min (50-200); Estimated Glomerular Filt Rate 54 ml/min (>60); GFR (African American) 65 ML/MIN (>60); Globulin 2.7 g/dL (1.3-3.2); Glucose 194 mg/dl (74-100); Potassium 4.3 mmoL/L (3.5-5.1); Sodium 138 mmol/L (136-145); Total Protein,Serum 7.1 g/dl (6.3-8.2)
[2021-01-15 20:20] LABS: Microscopic, Urine URINE MICROSCOPIC (MICROSCOPIC)
[2021-01-15 20:21] LABS: Appearance,Urine CLEAR (Clear); Bilirubin,Urine Negative (Negative); Blood, Urine Negative (Negative); Color,Urine YELLOW (Yellow); Glucose,Urine (UA) Negative (Negative); Ketones,Urine Negative (Negative); Leukocyte Esterase,Urine Negative (Negative); Nitrate,Urine Negative (Negative); Protein,Urine Negative (Negative); Specific Gravity, Urine 1.015 (1.005-1.030); Urobilinogen,Urine 0.2 EU/dl (0.2)
[2021-01-15 20:21] LABS: Amylase 65 U/L (30-110)
[2021-01-15 20:24] LABS: Adenovirus,PCR Not Detected (NotDetected); Bordetella Pertussis Not Detected (NotDetected); Chlamydophila Pneumoniae, PCR Not Detected (NotDetected); Coronavirus 19, PCR Not Detected (NotDetected); Coronavirus 229E Not Detected (NotDetected); Coronavirus NL63 Not Detected (NotDetected); Coronavirus OC43 Not Detected (NotDetected); Coronovirus HKU1,PCR Not Detected (NotDetected); Human Metapneumovirus Not Detected (NotDetected); Influenza A, PCR Not Detected (NotDetected); Influenza AH1, 2009 Not Detected (NotDetected); Influenza AH1, PCR Not Detected (NotDetected); Influenza AH3,PCR Not Detected (NotDetected); Influenza B, PCR Not Detected (NotDetected); Mycoplasma Pneumoniae, PCR Not Detected (NotDetected); Parainfluenza 1, PCR Not Detected (NotDetected); Parainfluenza 2, PCR Not Detected (NotDetected); Parainfluenza 3, PCR Not Detected (NotDetected); Parainfluenza 4, PCR Not Detected (NotDetected); Respiratory Syncytial Virus Not Detected (NotDetected); Rhinovirus/Enterovirus Not Detected (NotDetected)
[2021-01-15 20:30] LABS: Troponin I < 0.01 ng/ml (0.00-0.034)
[2021-01-15 20:30] LABS: Bacteria,Urine 1+ /lpf; RBC,Urine Occasional #/hpf (0-3)
[2021-01-15 20:33] LABS: Lactic Acid 1.7 mmol/L (0.7-2.1)
[2021-01-15 20:38] LABS: C-Reactive Protein 46.1 mg/L (0-4)
[2021-01-15 20:39] LABS: Erythrocyte Sedimentation Rate 50 mm/hr (0-30)
[2021-01-15 20:49] LABS: Lipase 88 U/L (23-300)
[2021-01-15 20:52] LABS: Procalcitonin 0.053 ng/mL (0.0-2.0)
[2021-01-15 20:59] VITALS: TEMP 37.2
--- NOTE | 2021-01-15 21:06 | PC.NURSE ---
spoke with munir @ night watch for vanc dosage
[2021-01-15 21:52] VITALS: PULSE 89; PULSE 96
[2021-01-15 22:06] LABS: NT Pro Brain Natriuretic Pep. 5450 pg/mL (0-450)
--- NOTE | 2021-01-15 22:27 | PC.NURSE ---
report called to Lizabeth Kaiser
[2021-01-15 22:28] VITALS: BP 128/68; PULSE 90; RESP 16; TEMP 37.2; O2SAT 97
--- NOTE | 2021-01-15 22:36 | PC.NURSE ---
patient up to floor via stretcher.
[2021-01-15 23:20] VITALS: BMI 24.4
[2021-01-15 23:30] VITALS: BP 129/54; PULSE 89; RESP 20; TEMP 36.6; O2SAT 96
[2021-01-15 23:59] LABS: Troponin I < 0.01 ng/ml (0.00-0.034)
[2021-01-16] VITALS (15 sets, daily range): BP systolic 110–137; BP diastolic 55–85; PULSE 70–103; RESP 16–20; TEMP 36.3–37; O2SAT 90–99; BMI 27.4; BMI 27.9
[2021-01-16 02:31] LABS: Troponin I < 0.01 ng/ml (0.00-0.034)
[2021-01-16 05:57] LABS: POC Glucose,Bedside 253 (70-110)
--- NOTE | 2021-01-16 06:16 | PC.NURSE ---
Pt is alert to self. Has not c/o any discomfort since arrival to floor. VSS. Pt has been febrile. She is currently on O2 2L NC. Pt was noted to be 88% on RA while sleeping overnight. Has been diaphoretic this shift. FSBS was 253. Pt received 6 units of humalog. Lungs noted to have wheezing t/o. BS active. F/C draining to bedside. 300 ml total urine output. No other concerns. Will continue to monitor.
[2021-01-16 06:55] LABS: Basophils % 0.1 % (0.1-2.0); Eosinophils % 0.3 % (0.1-12.0); Hematocrit 39.6 % (37.0-47.0); Hemoglobin 13.2 g/dL (12.2-16.2); Lymphocytes # 0.4 K/mm3 (0.7-4.5); Lymphocytes % 13.4 % (10-50); Mean Corpuscular HGB Conc 33.3 g/dL (31.8-35.4); Mean Corpuscular Hemoglobin 33.5 pg (27.0-31.2); Mean Corpuscular Volume 100.5 fl (81-99); Mean Platelet Volume 8.8 fl (7.4-10.4); Monocytes # 0.1 K/mm3 (0.1-1.0); Monocytes % 2.5 % (1.7-9.3); Neutrophils # 2.7 K/mm3 (1.8-7.8); Neutrophils % 83.7 % (37.0-80.0); Platelet Count 138 K/mm3 (142-424); Red Blood Count 3.95 M/mm3 (4.20-5.40); Red Cell Distribution Width 16.1 % (11.5-17.5); White Blood Count 3.3 K/mm3 (4.8-10.8)
[2021-01-16 07:04] LABS: Anion Gap 11.6 mEq/L (5-15); Blood Urea Nitrogen 15 mg/dl (7-17); Calcium 8.2 mg/dl (8.4-10.2); Carbon Dioxide 22 mmol/L (22.0-30.0); Chloride 111 mmol/L (98-107); Creatinine Clearance Estimated 48 mL/min (50-200); Estimated Glomerular Filt Rate 69 ml/min (>60); GFR (African American) 84 ML/MIN (>60); Glucose 268 mg/dl (74-100); Magnesium 1.5 mg/dl (1.6-2.3); Potassium 4.6 mmoL/L (3.5-5.1); Sodium 140 mmol/L (136-145)
--- NOTE | 2021-01-16 08:52 | HMH.PHAVTE ---
[facility] Pharmacy VTE Monitoring - Patient Demographics Admission date: 01/16/21 Report Date: 01/16/21 Time: 08:52 Allergies/Adverse Reactions: Patient Allergies codeine Adverse Reaction (Severe, Verified 12/08/20 14:45) Anaphylaxis Height: 1.55 m Weight: 67.16 kg Patient Problems: Current Active Problems Pneumonia (Acute) Sepsis (Acute) SIRS (systemic inflammatory response syndrome) (Acute) Tobacco use (Acute) Acute delirium (Acute) Diabetes (Acute) PAF (paroxysmal atrial fibrillation) (Acute) COPD (chronic obstructive pulmonary disease) (Acute) - VTE Risk Labs: VTE Related Lab Results Hgb 13.2 g/dL (12.2-16.2) 01/16/21 06:28 Hct 39.6 % (37.0-47.0) 01/16/21 06:28 Plt Count 138 K/mm3 (142-424) L 01/16/21 06:28 BUN 15 mg/dl (7-17) 01/16/21 06:28 Creatinine 0.80 mg/dl (0.52-1.04) 01/16/21 06:28 Estimated Creat Clear 48 mL/min (50-200) 01/16/21 06:28 Was VTE Risk Assessment Performed: Yes VTE Risk Level: Moderate Risk Clinical Trial Participant: No - Prophylaxis VTE Prophylaxis Ordered?: Yes Types of VTE Prophylaxis: TEDS Knee High Location of Applied Device: Not Applicable
--- NOTE | 2021-01-16 09:32 | HMH.PHACONS ---
- Pharmacy Consult Date: 01/16/21 Time: 09:32 Referring provider: DR. JEWELL Reason for Consult:: VANCOMYCIN DOSING Allergies and ADEs:: Allergies Allergy/AdvReac Type Severity Reaction Status Date / Time codeine AdvReac Severe Anaphylaxis Verified 12/08/20 14:45 Home Medications:: Home Medications Medication Instructions Recorded Confirmed Type aspirin 81 mg tablet,delayed 81 mg PO DAILY 02/18/20 01/15/21 History release rivaroxaban 15 mg tablet 15 mg PO QPMWM 02/18/20 01/15/21 History Atorvastatin Calcium [Lipitor 10mg 10 mg PO HS 11/20/20 01/16/21 History Tab] Famotidine [Acid Binder Fixer] 20 mg PO BID 11/20/20 01/16/21 History Potassium Chloride [Micro-K 10mEq 10 meq PO DAILY 11/20/20 01/15/21 History cap] dilTIAZem HCl [Diltiazem 240mg 240 mg PO DAILY 11/20/20 01/16/21 History 24Hr ER Cap] Albuterol Sulfate [Albuterol 8.5 gm IH Q6 PRN #1 hfa.aer.ad 11/23/20 01/15/21 Rx Sulfate Hfa] Ipratropium/Albuterol Sulfate 3 ml IH Q6 PRN #120 ampul.neb 11/23/20 01/15/21 Rx [Iprat-Albut 0.5-3(2.5) mg/3 ml] Hydrocod/Acet 5/325 mg [[place] 1 tab PO Q6HP PRN #10 tab 12/23/20 01/16/21 Rx 5/325mg tablet] Metformin HCl [Glucophage 500mg 500 mg PO BIDWM 12/23/20 01/15/21 History Tablet] Umeclidinium Brm/Vilanterol Tr 1 inh IH DAILY 12/23/20 01/15/21 History [Anoro Ellipta 62.5-25 Mcg INH] lisinopriL [Zestril 2.5mg Tab] 2.5 mg PO DAILY 12/23/20 01/15/21 History furosemide 40 mg tablet 40 mg PO BID #60 tab 12/24/20 01/15/21 Rx Blood Sugar Diagnostic [OneTouch See Rx Instructions .ROUTE TID 01/15/21 01/15/21 History Verio test strips] methylPREDNISolone [Medrol 4mg 4 mg PO DIRECTED 01/15/21 01/15/21 History tab] Height: 1.55 m Weight: 67.16 kg Laboratory Results:: Laboratory Results - last 24 hr 01/15/21 19:33: POC Glucose 195 H 01/15/21 19:49: WBC 7.2, RBC 4.37, Hgb 14.4, Hct 42.3, MCV 96.8, MCH 32.9 H, MCHC 34.0, RDW 16.3, Plt Count 177, MPV 8.2, Neut % (Auto) 73.7, Lymph % (Auto) 15.7, [place] % (Auto) 10.1 H, Eos % (Auto) 0.3, Baso % (Auto) 0.2, Neut # (Auto) 5.3, Lymph # (Auto) 1.1, [place] # (Auto) 0.7, Eos # (Auto) 0.0, Baso # (Auto) 0.0 01/15/21 19:49: Sodium 138, Potassium 4.3, Chloride 105, Carbon Dioxide 23, Anion Gap 14.3, BUN 12, Creatinine 1.00, Estimated Creat Clear 43, Estimated GFR 54 L, Est GFR ( Amer) 65, Glucose 194 H, Calcium 9.0, Total Bilirubin 1.6 H, AST 41 H, ALT 35, Alkaline Phosphatase 110, Troponin I < 0.01, Total Protein 7.1, Albumin 4.4, Globulin 2.7, Albumin/Globulin Ratio 1.6 01/15/21 19:49: ESR 50 H 01/15/21 19:49: C-Reactive Protein 46.1 H, Amylase 65, Procalcitonin 0.053 01/15/21 19:49: Lipase 88 01/15/21 19:49: NT-Pro-B Natriuret Pep 5450 H 01/15/21 19:52: Specimen Source Right radial, ABG pH 7.48 H, ABG pCO2 31.2 L, ABG pO2 61.5 L, ABG HCO3 22.6, ABG Total CO2 23.6, ABG O2 Saturation 94, ABG Base Excess -0.9, Kamron Test Acceptable 01/15/21 20:00: Lactate 1.7 01/15/21 20:00: Chlamy pneumoniae PCR Not detected, Adenovirus (PCR) Not detected, B. pertussis DNA (PCR) Not detected, Coronavirus OC43 (PCR) Not detected, Coronavirus HKU1 (PCR) Not detected, Coronavirus 229E (PCR) Not detected, SARS-CoV-2 (PCR) Not detected, Coronavirus NL63 (PCR) Not detected, Human Metapneumovir PCR Not detected, Influenza A (H1) PCR Not detected, Influ A (H1N1/) PCR Not detected, Influenza A (H3) PCR Not detected, Influenza Type A (PCR) Not detected, Influenza Type B (PCR) Not detected, M. pneumoniae (PCR) Not detected, Parainfluenza 1 (PCR) Not detected, Parainfluenza 2 (PCR) Not detected, Parainfluenza 3 (PCR) Not detected, Parainfluenza 4 (PCR) Not detected, RSV (PCR) Not detected, Entero/Rhino (PCR) Not detected 01/15/21 20:10: Urine Color Yellow, Urine Appearance Clear, Urine pH 5.0, Ur Specific [place] 1.015, Urine Protein Negative, Urine Glucose (UA) Negative, Urine Ketones Negative, Urine Blood Negative, Urine Nitrate Negative, Urine Bilirubin Negative, Urine Urobilin
--- NOTE | 2021-01-16 09:53 | HMH.HP ---
*Admission Date: 01/16/21 *Chief complaint: cough *History of present illness: this patient presented to the ed with cough pauline is a 80-year-old female who was sent to the emergency department today by 911 because her son called because she had a fever and was confused at home. She has had this happen before in the past. Son says she has a history of COPD. She has had worsening confusion over the past day or 2. He denies any syncopal events. Patient is alert to person and place at this time but not to the year. She complains of pain everywhere. pt uses o2 at night and has hx of copd - pt was found to have cap and admitted with orders [facility] History I have reviewed the patient's past medical history: Yes Medical History: Reports:: Arrhythmia, Atrial Fibrillation, Congestive Heart Failure, Diabetes Mellitus Type 2, Hyperlipidemia, Hypertension Denies:: Cancer (breast) *Have you ever received a pneumonia vaccine?: Yes *Have you received a flu vaccine this season?: Yes Other Medical History: Reports: Arthritis, Chemotherapy, Radiation Therapy Laterality Cases: Left: Mastectomy, Right: Arthroscopy Hip Other Surgeries: Yes: Cancer Surgery, Cardiac Surgery, Open Heart Surgery - *Social History Smoking Status: Current every day smoker Tobacco Type: cigarettes # Packs/Day (cigarettes): 1 Alcohol Intake: never Substance Use Type: denies use *Occupational Status:: retired Housing: house Household Members: family *Travel in the last 8 weeks: None Family Hx:: Cancer, Diabetes, Heart Attack, Hyperlipidemia, Hypertension Review of Systems - Review of Systems Review of systems:: pertinent systems reviewed and negative unless documented below - Constitutional Reports fever(s), Reports weakness - Eyes Denies change in vision - ENT Reports dry mouth - *Cardiovascular Reports shortness of breath, Denies chest pain - *Respiratory Reports cough, Denies coughing up blood - *Gastrointestinal Denies abdominal pain - *Genitourinary Denies blood in urine - *Musculoskeletal Denies joint pain - Integumentary/Breasts Denies rash - *Neurologic Denies headache(s), Denies seizure-like activity - Psychiatric Denies anxiety Meds Home Medications Medication Instructions Recorded Confirmed Type aspirin 81 mg tablet,delayed 81 mg PO DAILY 02/18/20 01/15/21 History release rivaroxaban 15 mg tablet 15 mg PO QPMWITHMEAL 02/18/20 01/16/21 History Atorvastatin Calcium [Lipitor 10mg 10 mg PO HS 11/20/20 01/16/21 History Tab] Famotidine [Acid Bacteriologist Food] 20 mg PO BID 11/20/20 01/16/21 History Potassium Chloride [Micro-K 10mEq 10 meq PO DAILY 11/20/20 01/15/21 History cap] dilTIAZem HCl [Diltiazem 240mg 240 mg PO DAILY 11/20/20 01/16/21 History 24Hr ER Cap] Albuterol Sulfate [Albuterol 8.5 gm IH Q6 PRN #1 hfa.aer.ad 11/23/20 01/15/21 Rx Sulfate Hfa] Ipratropium/Albuterol Sulfate 3 ml IH Q6 PRN #120 ampul.neb 11/23/20 01/15/21 Rx [Iprat-Albut 0.5-3(2.5) mg/3 ml] Metformin HCl [Glucophage 500mg 500 mg PO BIDWMEAL 12/23/20 01/16/21 History Tablet] Umeclidinium Brm/Vilanterol Tr 1 puff IH DAILY 12/23/20 01/16/21 History [Anoro Ellipta 62.5-25 Mcg INH] lisinopriL [Zestril 2.5mg Tab] 2.5 mg PO DAILY 12/23/20 01/15/21 History furosemide 40 mg tablet 40 mg PO BID #60 tab 12/24/20 01/15/21 Rx Allergies Allergy/AdvReac Type Severity Reaction Status Date / Time codeine AdvReac Severe Anaphylaxis Verified 12/08/20 14:45 Exam Vital signs and Labs for Last 24 Hours: Temp Pulse Resp BP Pulse Ox 98.5 F 85 18 128/68 99 01/16/21 07:35 01/16/21 07:35 01/16/21 07:35 01/16/21 07:35 01/16/21 07:58 Laboratory Results - last 24 hr 01/15/21 19:33: POC Glucose 195 H 01/15/21 19:49: WBC 7.2, RBC 4.37, Hgb 14.4, Hct 42.3, MCV 96.8, MCH 32.9 H, MCHC 34.0, RDW 16.3, Plt Count 177, MPV 8.2, Neut % (Auto) 73.7, Lymph % (Auto) 15.7, [place] % (Auto) 10.1 H, Eos % (Auto) 0.3, Baso % (Auto) 0.
--- NOTE | 2021-01-16 10:06 | CT_ITS ---
PROCEDURE INFORMATION: Exam: CT Chest Without Contrast; Diagnostic Exam date and time: 01/16/2021 10:06 AM Age: 80 years old Clinical indication: Shortness of breath; Patient HX: Pneumonia, SOB TECHNIQUE: Imaging protocol: Diagnostic computed tomography of the chest without contrast. Radiation optimization: All CT scans at this facility use at least one of these dose optimization techniques: automated exposure control; mA and/or kV adjustment per patient size (includes targeted exams where dose is matched to clinical indication); or iterative reconstruction. COMPARISON: CR XR CHEST PORTABLE 01/15/2021 8:39 PM FINDINGS: Thyroid: Heterogeneous appearance of the thyroid gland with a nodule on the right lobe measuring up to 1.6 cm. Further evaluation with thyroid ultrasound is recommended. Lungs: The lungs are hyperinflated, consistent with underlying small airways disease. Patchy airspace opacity is noted within the right middle lobe consistent with atelectasis and/or developing pneumonia. Pleural spaces: Bilateral pleural effusions, greater on the right. There is no evidence of pneumothorax. Heart: The heart demonstrates mild diffuse enlargement. There is moderate atherosclerotic calcification of the coronary arteries. Aorta: The vasculature demonstrates diffuse mild atherosclerotic calcification. Lymph nodes: There is no evidence of mediastinal or hilar lymphadenopathy. Calcified hilar and mediastinal lymph nodes present consistent with granulomatous changes. Liver: The liver demonstrates punctate calcifications, consistent with remote granulomatous organism exposure. Gallbladder and bile ducts: There has been a cholecystectomy. Spleen: The spleen demonstrates punctate calcifications, consistent with remote granulomatous organism exposure. Bones/joints: Unremarkable. No acute fracture. Soft tissues: Unremarkable. IMPRESSION: 1. The lungs are hyperinflated, consistent with underlying small airways disease. 2. Patchy airspace opacity is noted within the right middle lobe consistent with atelectasis and/or developing pneumonia. 3. Bilateral pleural effusions, greater on the right. 4. Calcified hilar and mediastinal lymph nodes present consistent with granulomatous changes. 5. Heterogeneous appearance of the thyroid gland with a nodule on the right lobe measuring up to 1.6 cm. Further evaluation with thyroid ultrasound is recommended. COMMENTS: Consistent with the [employer]'s Incidental Findings Committee white paper (J Am Lydia Radiol 2015): In patients aged 35 years and older with an incidental thyroid nodule equal to or greater than 1.[address], MRI or extrathyroidal US, further evaluation with dedicated thyroid US is recommended for patients with normal life expectancy and without comorbidities. For smaller nodules without suspicious features, no further evaluation or follow up is recommended.
[2021-01-16 11:01] LABS: POC Glucose,Bedside 298 (70-110)
--- NOTE | 2021-01-16 11:52 | HMH.PHAINT ---
MEDICATION RECONCILIATION COMPLETED ON PATIENT USING EXTERNAL FILL HISTORY FROM PHARMACY AND LIST FROM PCP OFFICE. -ISABEL JOHNSOND
--- NOTE | 2021-01-16 14:20 | PC.NURSE ---
SPUTUM SAMPLE SENT TO LAB
[2021-01-16 17:00] LABS: POC Glucose,Bedside 324 (70-110)
--- NOTE | 2021-01-16 19:13 | PC.NURSE ---
Pt alert and oriented to person, place. Pt able to communicate needs to staff. Pt has tolerated room air since 1200 with sats above 93. Robles catheter removed during this shift. Pt able to ambulate to bathroom with standby assist. Pt glucose was 324 at 1630 and was given 8u Humalog per sliding scale. Pt has had no c/o pain t/o shift. Son at bedside. Call light within reach. Will continue to monitor.
[2021-01-16 21:32] LABS: POC Glucose,Bedside 310 (70-110)
[2021-01-17] VITALS (10 sets, daily range): BP systolic 100–146; BP diastolic 50–68; PULSE 67–93; RESP 17–20; TEMP 36.3–36.9; O2SAT 91–98; BMI 29.2
--- NOTE | 2021-01-17 03:46 | PC.NURSE ---
Patient was pleasant and rested well throughout shift. Ambulated to bathroom with stand by assist. VSS. No pain reported to RN. No further concerns voiced to RN.
[2021-01-17 05:53] LABS: POC Glucose,Bedside 283 (70-110)
--- NOTE | 2021-01-17 09:41 | HMH.ACPN2 ---
Internal Medicine - PN: Subj *Date: 01/18/21 *Time: 07:33 Interval history: doing better - reviewed ct and labs pending Exam Vital signs and Labs for Last 24 Hours: Temp Pulse Resp BP Pulse Ox 97.8 F 85 18 100/68 L 95 01/17/21 08:00 01/17/21 08:00 01/17/21 08:00 01/17/21 08:00 01/17/21 08:00 Laboratory Results - last 24 hr 01/16/21 10:54: POC Glucose 298 H 01/16/21 16:24: POC Glucose 324 H* 01/16/21 20:47: POC Glucose 310 H* 01/17/21 05:25: POC Glucose 283 H I & O for Last 24 hours: Intake & Output 01/14/21 01/15/21 01/16/21 01/17/21 11:59 11:59 11:59 11:59 Intake Total 2290 / 2290 2713 / 2713 Output Total 1000 / 1000 Balance 1290 / 1290 2713 / 2713 Weight 148 lb 1 oz 155 lb 2 oz Microbiology Reports for the Last 24 Hours: Microbiology 01/15/21 14:20 Sputum - Expectorated Sputum Gram Stain - Final 01/15/21 14:20 Sputum - Expectorated Sputum Sputum Culture - Preliminary - Constitutional no acute distress - *Routine HEENT Exam Head: Present: normocephalic Eye: Present: EOMI, PERRL ENT: Present: mucous membranes dry - *Routine Neck Exam Present: supple. Absent: JVD - *Routine Respiratory Exam Present: decreased breath sounds - *Routine Cardiovascular Exam Present: RRR, murmur - *Routine Abdominal Exam Present: soft - *Routine Extremities Exam Present: pulses intact - *Routine Skin Exam Present: intact - *Routine Neurological Exam Present: alert, CN II-XII intact - Routine Psychiatric Exam Present: normal affect Assessment and Plan (1) Pneumonia Status: Acute Qualifiers: Pneumonia type: due to unspecified organism Laterality: right Lung location: lower lobe of lung Qualified Code(s): J18.9 - Pneumonia, unspecified organism Category: Medical Code(s): J18.9 - Pneumonia, unspecified organism (2) Overweight (BMI 25.0-29.9) Status: Acute Category: Medical Code(s): E66.3 - Overweight (3) Renal insufficiency Status: Acute Category: Medical Code(s): N28.9 - Disorder of kidney and ureter, unspecified (4) SIRS (systemic inflammatory response syndrome) Status: Acute Category: Medical Code(s): R65.10 - Systemic inflammatory response syndrome (SIRS) of non-infectious origin without acute organ dysfunction (5) Acute delirium Status: Acute Category: Medical Code(s): R41.0 - Disorientation, unspecified (6) Diabetes Status: Acute Qualifiers: Diabetes mellitus type: type 2 Diabetes mellitus skilled nursing insulin use: unspecified skilled nursing insulin use status Diabetes mellitus complication status: with other specified complication Qualified Code(s): E11.69 - Type 2 diabetes mellitus with other specified complication Category: Medical Code(s): E11.9 - Type 2 diabetes mellitus without complications (7) PAF (paroxysmal atrial fibrillation) Status: Acute Category: Medical Code(s): I48.0 - Paroxysmal atrial fibrillation (8) COPD (chronic obstructive pulmonary disease) Status: Acute Qualifiers: COPD type: unspecified COPD Qualified Code(s): J44.9 - Chronic obstructive pulmonary disease, unspecified Category: Medical Code(s): J44.9 - Chronic obstructive pulmonary disease, unspecified (9) Thyroid nodule Status: Acute Category: Medical Code(s): E04.1 - Nontoxic single thyroid nodule
[2021-01-17 10:16] LABS: Basophils % 0.1 % (0.1-2.0); Eosinophils # 0.1 K/mm3 (0.0-0.4); Eosinophils % 0.7 % (0.1-12.0); Hematocrit 38.7 % (37.0-47.0); Hemoglobin 12.5 g/dL (12.2-16.2); Lymphocytes # 0.5 K/mm3 (0.7-4.5); Lymphocytes % 4.3 % (10-50); Mean Corpuscular HGB Conc 32.3 g/dL (31.8-35.4); Mean Corpuscular Hemoglobin 32.8 pg (27.0-31.2); Mean Corpuscular Volume 101.5 fl (81-99); Mean Platelet Volume 8.7 fl (7.4-10.4); Monocytes # 0.4 K/mm3 (0.1-1.0); Monocytes % 3.4 % (1.7-9.3); Neutrophils # 9.6 K/mm3 (1.8-7.8); Neutrophils % 91.5 % (37.0-80.0); Platelet Count 192 K/mm3 (142-424); Red Blood Count 3.81 M/mm3 (4.20-5.40); Red Cell Distribution Width 15.9 % (11.5-17.5); White Blood Count 10.5 K/mm3 (4.8-10.8)
[2021-01-17 10:18] LABS: MANUAL DIFFERENTIAL MANUAL DIFFERENTIAL (MANUAL DIFF)
[2021-01-17 10:22] LABS: Chloride 106 mmol/L (98-107); Sodium 139 mmol/L (136-145)
[2021-01-17 10:23] LABS: Potassium 4.7 mmoL/L (3.5-5.1)
[2021-01-17 10:26] LABS: Anion Gap 19.7 mEq/L (5-15); Blood Urea Nitrogen 23 mg/dl (7-17); Calcium 8.4 mg/dl (8.4-10.2); Carbon Dioxide 18 mmol/L (22.0-30.0); Creatinine Clearance Estimated 40 mL/min (50-200); Estimated Glomerular Filt Rate 40 ml/min (>60); GFR (African American) 48 ML/MIN (>60); Glucose 365 mg/dl (74-100); Magnesium 1.5 mg/dl (1.6-2.3)
[2021-01-17 10:38] LABS: Anisocytosis 1+; Lymphocytes % 3 % (10-50); Macrocytosis 1+; Monocytes % 1 % (2-9); Neutrophils % 96 % (42-76); Platelet Estimate Normal; Total Cells Counted 100
[2021-01-17 11:51] LABS: POC Glucose,Bedside 363 (70-110)
--- NOTE | 2021-01-17 13:46 | PC.NURSE ---
Pt reports IV fell out while going to bathroom. New IV inserted into R FA.
[2021-01-17 16:29] LABS: POC Glucose,Bedside 356 (70-110)
--- NOTE | 2021-01-17 16:57 | PC.NURSE ---
Pt is a+o to person, place. No acute changes this shift. Pt is able to ambulate to bathroom well with standby assist. Pt reports she uses 2L O2 PRN at home. Pt has tolerated O2 2L nc intermittently and sats have remained in upper 90s. Pt has had no c/o pain t/o shift. Son is at bedside. Will continue to monitor.
[2021-01-17 20:50] LABS: POC Glucose,Bedside 350 (70-110)
[2021-01-18] VITALS: BP 111/51; PULSE 78; RESP 20; TEMP 36.5; O2SAT 94
[2021-01-18 02:07] LABS: Vancomycin,Peak 20.6 ug/ml (11-39)
--- NOTE | 2021-01-18 03:08 | PC.NURSE ---
Patient is A&Ox4. NO complaints of pain. VSS. Ambulated to bathroom multiple times with stand by assist. Patient rested well and was cooperative throughout shift. Patient veralized no further concerns to RN.
[2021-01-18 04:00] VITALS: BP 117/55; PULSE 72; RESP 20; TEMP 36.7; O2SAT 93
[2021-01-18 05:16] VITALS: BMI 29.9
[2021-01-18 05:43] LABS: POC Glucose,Bedside 301 (70-110)
[2021-01-18 06:04] VITALS: PULSE 72; PULSE 77; O2SAT 94
[2021-01-18 08:00] VITALS: BP 153/73; PULSE 98; RESP 20; TEMP 36.9; O2SAT 95
--- NOTE | 2021-01-18 08:00 | US_ITS ---
PROCEDURE: US THYROID CLINICAL INDICATION: nodule /mass COMPARISON: No exams were available for comparison FINDINGS: Right lobe: 4.8 x 2.3 x 1.4 cm. There are numerous hypoechoic nodules which are probably benign the largest in the mid aspect of the right lobe at 6 mm. There is a solid-appearing 16 mm nodule in the lower pole slightly hyperechoic to the strap muscles. In the lower pole there is a 2.3 x 1.1 cm heterogeneous hypoechoic nodule with increased echogenicity centrally and posteriorly fairly well-defined with no obvious calcifications, TR 4 greater than 1.5 cm. Left lobe: 4.1 x 1.3 x 1.3 cm. There are multiple small hypoechoic/cystic nodules measuring up to 6 mm in the lower pole. In the lower pole there is a 7 by 5 mm slightly hypoechoic nodule and a 5 mm slightly hypoechoic nodule. TR level 4 less than 1.5 cm. Isthmus: Unremarkable Additional findings: IMPRESSION: Numerous bilateral thyroid nodules with borderline enlarged gland. Multinodular goiter is considered. There is a TR level 4 nodule in the lower pole on the right greater than 1.5 cm. Ultrasound-guided FNA suggested. TR level 4 nodules on the left less than 1.5 cm. Recommend follow-up of the left lobe in 1 year. Dictated by: Kamron Yo MD 01/18/2021 12:02 Kamron Yo MD in [place] 01/18/2021 12:02
--- NOTE | 2021-01-18 09:28 | HMH.DCSUM ---
General - General Admission date:: 01/15/21 Discharge date: 01/18/21 HPI HPI: this patient presented to the ed with cough pauline is a 80-year-old female who was sent to the emergency department today by 911 because her son called because she had a fever and was confused at home. She has had this happen before in the past. Son says she has a history of COPD. She has had worsening confusion over the past day or 2. He denies any syncopal events. Patient is alert to person and place at this time but not to the year. She complains of pain everywhere. pt uses o2 at night and has hx of copd - pt was found to have cap and admitted with orders Hospital Course Hospital Course: Laboratory Tests 01/15/21 01/15/21 01/15/21 19:33 19:49 19:49 WBC 7.2 RBC 4.37 Hgb 14.4 Hct 42.3 MCV 96.8 MCH 32.9 H MCHC 34.0 RDW 16.3 Plt Count 177 MPV 8.2 Neut % (Auto) 73.7 Lymph % (Auto) 15.7 [place] % (Auto) 10.1 H Eos % (Auto) 0.3 Baso % (Auto) 0.2 Neut # (Auto) 5.3 Lymph # (Auto) 1.1 [place] # (Auto) 0.7 Eos # (Auto) 0.0 Baso # (Auto) 0.0 Total Counted Neutrophils % (Manual) Lymphocytes % (Manual) Monocytes % (Manual) Platelet Estimate Anisocytosis Macrocytosis ESR Specimen Source ABG pH ABG pCO2 ABG pO2 ABG HCO3 ABG Total CO2 ABG O2 Saturation ABG Base Excess Kamron Test Sodium 138 Potassium 4.3 Chloride 105 Carbon Dioxide 23 Anion Gap 14.3 BUN 12 Creatinine 1.00 Estimated Creat Clear 43 Estimated GFR 54 L Est GFR ( Amer) 65 Glucose 194 H POC Glucose 195 H Lactate Calcium 9.0 Magnesium Total Bilirubin 1.6 H AST 41 H ALT 35 Alkaline Phosphatase 110 Troponin I < 0.01 C-Reactive Protein NT-Pro-B Natriuret Pep Total Protein 7.1 Albumin 4.4 Globulin 2.7 Albumin/Globulin Ratio 1.6 Amylase Lipase Procalcitonin Urine Color Urine Appearance Urine pH Ur Specific [place] Urine Protein Urine Glucose (UA) Urine Ketones Urine Blood Urine Nitrate Urine Bilirubin Urine Urobilinogen Ur Leukocyte Esterase Urine RBC Urine WBC Ur Squamous Epith Cells Urine Bacteria Vancomycin Peak Chlamy pneumoniae PCR Adenovirus (PCR) B. pertussis DNA (PCR) Coronavirus OC43 (PCR) Coronavirus HKU1 (PCR) Coronavirus 229E (PCR) SARS-CoV-2 (PCR) Coronavirus NL63 (PCR) Human Metapneumovir PCR Influenza A (H1) PCR Influ A (H1N1/) PCR Influenza A (H3) PCR Influenza Type A (PCR) Influenza Type B (PCR) M. pneumoniae (PCR) Parainfluenza 1 (PCR) Parainfluenza 2 (PCR) Parainfluenza 3 (PCR) Parainfluenza 4 (PCR) RSV (PCR) Entero/Rhino (PCR) 01/15/21 01/15/21 01/15/21 19:49 19:49 19:49 WBC RBC Hgb Hct MCV MCH MCHC RDW Plt Count MPV Neut % (Auto) Lymph % (Auto) [place] % (Auto) Eos % (Auto) Baso % (Auto) Neut # (Auto) Lymph # (Auto) [place] # (Auto) Eos # (Auto) Baso # (Auto) Total Counted Neutrophils % (Manual) Lymphocytes % (Manual) Monocytes % (Manual) Platelet Estimate Anisocytosis Macrocytosis ESR 50 H Specimen Source ABG pH ABG pCO2 ABG pO2 ABG HCO3 ABG Total CO2 ABG O2 Saturation ABG Base Excess Kamron Test Sodium Potassium Chloride Carbon Dioxide Anion Gap BUN Creatinine Estimated Creat Clear Estimated GFR Est GFR ( Amer) Glucose POC Glucose Lactate Calcium Magnesium Total Bilirubin AST ALT Alkaline Phosphatase Troponin I C-Reactive Protein 46.1 H NT-Pro-B Natriuret Pep Total Protein Albumin Globulin Albumin/Globulin Ratio Amylase 65 Lipase 88 Procalcitonin 0.053 Urin
== END 2021-01-18 10:45 | disposition home or self-care (01) | DRG 194 ==
LOC: ER 21:07 → 2ND 21:30
PROVIDERS: Admitting Provider Emergency Medicine; Emergency Provider Emergency Medicine; PCP Family Medicine; Visit Provider Emergency Medicine
DX: J18.9 Pneumonia, unspecified organism (principal); J44.0 Chronic obstructive pulmonary disease with (acute) lower respiratory infection; E11.9 Type 2 diabetes mellitus without complications; Z79.84 Long term (current) use of oral hypoglycemic drugs; Z79.82 Long term (current) use of aspirin; Z99.81 Dependence on supplemental oxygen; I48.0 Paroxysmal atrial fibrillation; I11.0 Hypertensive heart disease with heart failure; I50.9 Heart failure, unspecified; E78.5 Hyperlipidemia, unspecified; M19.90 Unspecified osteoarthritis, unspecified site; F17.210 Nicotine dependence, cigarettes, uncomplicated; Z20.822 Contact with and (suspected) exposure to COVID-19; Z85.9 Personal history of malignant neoplasm, unspecified
CPT/HCPCS: 36415; 70450; 71045; 71250; 74176; 76536; 80048; 80053; 80202; 81001; 82150; 82803; 82962; 83605; 83690; 83735; 83880; 84145; 84484; 85007; 85025; 85651; 86140; 87040; 87070; 87077; 87186; 87205; 87581; 87633; 87798; 93005; 94640; 96365; 96366; 96375; 99285; 99291; J2543; J3370

== ENCOUNTER → 2021-03-03 13:21 | Outpatient (CLI) | payer MEDICARE, MEDICAID, SELFPAY ==
--- NOTE | 2021-03-03 13:26 | US_ITS ---
PROCEDURE: US FNA THYROID CLINICAL INDICATION: Dominant mass right lower pole thyroid COMPARISON: US US THYROID from 01/18/2021 TECHNIQUE: Following obtaining informed consent and time-out procedure, using aseptic technique and local anesthesia with buffered lidocaine, fine-needle aspiration was performed of the nodule of interest using sonographic guidance. 3 passes were made into the nodule with a 21-gauge needle. Specimen was given to cytology. The patient tolerated the procedure well without evidence of immediate complications and left the ultrasound suite in stable condition. FINDINGS: CYTOLOGY: Atypical follicular lesion of undetermined significance IMPRESSION: Status post FNA right thyroid nodule without complications. Cytology demonstrates atypical follicular lesion of undetermined significance. Please see pathologist recommendations Dictated by: Kamron Yo MD 03/22/2021 10:20 Kamron Yo MD in [place] 03/22/2021 10:20
== END ==
PROVIDERS: PCP Family Medicine; Visit Provider Family Medicine
DX: E04.1 Nontoxic single thyroid nodule (principal)
CPT/HCPCS: 10005; 76536

== ENCOUNTER → 2022-05-16 16:57 | Outpatient (CLI) | payer MEDICARE, MEDICAID, SELFPAY ==
--- NOTE | 2022-05-16 17:07 | XR_ITS ---
PROCEDURE INFORMATION: Exam: XR Left Hip Exam date and time: 05/16/2022 5:11 PM Age: 81 years old Clinical indication: Hip pain; Left hip; Additional info: Pain -- no injury TECHNIQUE: Imaging protocol: Radiologic exam of the Left hip. Views: 2 or 3 views hip with pelvis when performed. COMPARISON: CT ABDOMEN PELVIS WO CON 01/15/2021 8:30 PM FINDINGS: Bones/joints: There is a right femoral intramedullary pete. No visible fracture or dislocation. Soft tissues: Coarse focus of calcification projected over the left pelvic floor. Vasculature: Vascular calcifications noted. IMPRESSION: No visible fracture or dislocation.
== END ==
PROVIDERS: PCP Family Medicine; Visit Provider Family Medicine
DX: M25.551 Pain in right hip (principal); M25.552 Pain in left hip
CPT/HCPCS: 73502

== ENCOUNTER → 2022-07-07 09:24 | Outpatient (CLI) | payer MEDICARE, MEDICAID, SELFPAY ==
--- NOTE | 2022-07-07 09:33 | XR_ITS ---
FINAL REPORT CLINICAL HISTORY: lt hip pain COMPARISON: May 16, 2022 FINDINGS: 2 views of the left hip were obtained. There are postoperative changes involving the right femur. There are mild degenerative changes of the left femur. There is chronic deformity of the greater and lesser trochanters that may represent sequela of prior fractures. There is no definite acute fracture. There is a calcified mass in the left pelvis that may represent a uterine fibroid. There are chronic calcifications adjacent to the greater trochanter. There is moderate vascular calcification. IMPRESSION: No definite acute fracture. If indicated, CT or MRI could further evaluate. Deformity of the left lesser and greater trochanters may represent sequela of prior fractures. Reviewed, Interpreted and Dictated by Armando Arellano III, MD Transcribed by Catarino Nichole Authenticated and [facility]
== END ==
PROVIDERS: PCP Family Medicine; Visit Provider Orthopaedic Surgery
DX: M25.552 Pain in left hip (principal)
CPT/HCPCS: 73502

== ENCOUNTER 2022-07-11 15:12 | Emergency (ER) | payer MEDICARE, MEDICAID, SELFPAY ==
[2022-07-11 15:15] VITALS: BP 108/81; PULSE 98; RESP 18; TEMP 36.4; O2SAT 98; BMI 26.6
[2022-07-11 15:30] VITALS: BP 120/65; PULSE 83; RESP 20; O2SAT 96
--- NOTE | 2022-07-11 15:34 | XR_ITS ---
PROCEDURE INFORMATION: Exam: XR Chest Exam date and time: 07/11/2022 4:22 PM Age: 81 years old Clinical indication: Injury or trauma; Fall; Blunt trauma (contusions or hematomas) TECHNIQUE: Imaging protocol: Radiologic exam of the chest. Views: 1 view. COMPARISON: CT CHEST WO CON 01/16/2021 1:05 PM FINDINGS: Lungs: No evidence of pneumonia or interstitial edema. Pleural spaces: Unremarkable. No pleural effusion. No pneumothorax. Heart/Mediastinum: Unremarkable. No cardiomegaly. Bones/joints: No acute osseous abnormality IMPRESSION: No evidence of pneumonia or interstitial edema.
--- NOTE | 2022-07-11 15:34 | CT_ITS ---
PROCEDURE INFORMATION: Exam: CT Abdomen And Pelvis Without Contrast Exam date and time: 07/11/2022 5:01 PM Age: 81 years old Clinical indication: Abdominal pain; Generalized; Additional info: Fall, ecchysmosi hip (l) TECHNIQUE: Imaging protocol: Computed tomography of the abdomen and pelvis without contrast. Radiation optimization: All CT scans at this facility use at least one of these dose optimization techniques: automated exposure control; mA and/or kV adjustment per patient size (includes targeted exams where dose is matched to clinical indication); or iterative reconstruction. COMPARISON: CT ABDOMEN PELVIS WO CON 01/15/2021 8:30 PM FINDINGS: Tubes, catheters and devices: None noted. Lungs: Lung bases appear clear. Heart: No significant coronary calcifications. No cardiomegaly. No significant pericardial effusion. Liver: Calcified granulomata. No mass. Gallbladder and bile ducts: Cholecystectomy. No ductal dilation. Pancreas: Normal. No ductal dilation. Spleen: Calcified granulomata. No splenomegaly. Adrenal glands: Normal. No mass. Kidneys and ureters: Abnormal axis left kidney. At least 2 nonobstructive right renal caliceal calcifications. No hydronephrosis. Stomach and bowel: Unremarkable. No obstruction. No mucosal thickening. Appendix: No evidence of appendicitis. Intraperitoneal space: Unremarkable. No free air. No significant fluid collection. Retroperitoneal space: No significant retroperitoneal inflammatory changes are noted. Vasculature: Unremarkable. No abdominal aortic aneurysm. Lymph nodes: Unremarkable. No enlarged lymph nodes. Urinary bladder: Unremarkable as visualized. Reproductive: Myomatous uterus. Bones/joints: Internal fixation right hip. No acute fracture. Soft tissues: Unremarkable. IMPRESSION: 1. Intramedullary pete right femur with Temple screw. 2. Myomatous uterus. 3. Calcified granulomata. 4. Cholecystectomy. 5. Abnormal axis left kidney 6. Abnormal caliceal calcifications right kidney without obstruction.
--- NOTE | 2022-07-11 15:39 | HMH.EDGENADL ---
Discharge Plan Disposition Patient Disposition: Home, Self-Care Condition: Good Prescriptions Prescriptions: No Action mupirocin 2 % ointment 1 applic TOPICAL TID Qty: 22 3RF Rx Instructions: apply to navel, be especially liberal hs prednisone 20 mg tablet 20 mg PO DAILY Qty: 10 0RF hydrocodone-acetaminophen 5-325 mg tablet 1 tab PO BID PRN (Reason: pain) Qty: 60 0RF aspirin [Adult Aspirin Regimen] 81 mg tablet,delayed release (DR/EC) 81 mg PO DAILY albuterol sulfate 90 mcg/actuation HFA aerosol inhaler 2 puff INHALATION Q6 PRN (Reason: Shortness Of Breath Or Wheezing) Qty: 8.5 12RF atorvastatin 10 mg tablet See Rx Instructions .ROUTE .COMPLEX Qty: 90 3RF Dose Instruction: TAKE 1 TABLET BY MOUTH DAILY. Rx Instructions: TAKE 1 TABLET BY MOUTH DAILY. diltiazem HCl 240 mg capsule,extended release 24 hr See Rx Instructions .ROUTE .COMPLEX Qty: 90 3RF Dose Instruction: TAKE 1 CAPSULE BY MOUTH DAILY. Rx Instructions: TAKE 1 CAPSULE BY MOUTH DAILY. ipratropium-albuterol 0.5 mg-3 mg(2.5 mg base)/3 mL solution for nebulization 3 ml IH Q6 PRN (Reason: Shortness Of Breath Or Wheezing) Qty: 120 2RF Xarelto 15 mg tablet 15 mg PO QPMWITHMEAL Qty: 90 3RF Rx Instructions: must administer with evening meal umeclidinium-vilanterol 62.5-25 mcg/actuation blister with device 1 ea IH DAILY Qty: 60 10RF potassium chloride 10 mEq capsule, extended release See Rx Instructions .ROUTE .COMPLEX Qty: 90 0RF Dose Instruction: TAKE 1 CAPSULE BY MOUTH DAILY. Rx Instructions: TAKE 1 CAPSULE BY MOUTH DAILY. metformin 500 mg tablet 500 mg PO BIDWMEAL Qty: 180 3RF furosemide 40 mg tablet See Rx Instructions .ROUTE .COMPLEX Qty: 90 0RF Dose Instruction: TAKE 1 TABLET BY MOUTH DAILY NEEDED FOR EDEMA. Rx Instructions: TAKE 1 TABLET BY MOUTH DAILY NEEDED FOR EDEMA. lisinopril 2.5 mg tablet See Rx Instructions .ROUTE .COMPLEX Qty: 90 0RF Dose Instruction: TAKE 1 TABLET BY MOUTH DAILY. Rx Instructions: TAKE 1 TABLET BY MOUTH DAILY. famotidine 20 mg tablet See Rx Instructions .ROUTE .COMPLEX Qty: 180 0RF Dose Instruction: TAKE ONE (1) TABLET BY MOUTH TWO TIMES A DAY. Rx Instructions: TAKE ONE (1) TABLET BY MOUTH TWO TIMES A DAY. (DME) OneTouch Verio test strips Strip See Rx Instructions .Route Qty: 100 0RF Rx Instructions: As directed Referrals Follow up/Referrals: Jesus Alberto Stevenson MD [Primary Care Provider] - See instructions Activity Restrictions/Add. Instructions Additional Instructions/Restrictions: Please follow up with your primary care physician in 1-2 days for further management. Please take tylenol for comfort. Please return if bruising expands or pain worsens. Clinical Impressions Clinical Impression: Hematoma, Muscle strain Instructions Patient Instructions: Abdominal Muscle Strain, DI for Hematoma (Bruise), How to Prevent Falls Print Language Print Language: Colombian Discharge ED Provider: Isaura Galloway Adult HPI General Chief complaint: Fall Stated complaint: ao fall 06/27, dizzy, left side brusing, cough Time Seen by Provider: 07/11/22 17:59 Mode of Arrival: Ambulatory Source of Information: Patient Limitations: No Limitations Description of Symptoms (Recalled from ER Triage Doc. by RN): pt states she fell about 2-3 weeks ago, states she got tripped p on her feet, denies LOC, states she landed on her left side and has pain on that side since, explains it as a sharp, pounding pain History of Present Illness HPI narrative: Miss Roche is a 81 yo female presenting to the ED after mechanical fall. Patient reports she fell 2-3 weeks ago, she tripped from standing and landed on her (L) hip. She denies hitting her head, -LOC. Since then she has had sharp pounding pain on her left hip w/ residual ecchymosis. XR of hip was performed during h
[2022-07-11 16:00] VITALS: BP 112/59; PULSE 86; O2SAT 95
--- NOTE | 2022-07-11 16:09 | PC.NURSE ---
rad at bedside for cxr
[2022-07-11 16:22] LABS: Alanine Aminotransferase 15 U/L (12-78); Albumin Level 4.1 g/dl (3.5-5.0); Albumin/Globulin Ratio 1.6 (1.1-1.8); Alkaline Phosphatase 113 U/L (38-126); Anion Gap 12.7 mEq/L (5-15); Aspartate Amino Transferase 25 U/L (14-36); Blood Urea Nitrogen 29 mg/dl (7-17); Calcium 8.7 mg/dl (8.4-10.2); Carbon Dioxide 26 mmol/L (22.0-30.0); Chloride 100 mmol/L (98-107); Creatinine Clearance Estimated 33 mL/min (50-200); Estimated Glomerular Filt Rate 31 ml/min (>60); GFR (African American) 38 ML/MIN (>60); Globulin 2.5 g/dL (1.3-3.2); Glucose 108 mg/dl (74-100); Potassium 4.7 mmoL/L (3.5-5.1); Sodium 134 mmol/L (136-145); Total Protein,Serum 6.6 g/dl (6.3-8.2)
[2022-07-11 17:54] VITALS: BP 112/74; PULSE 87; O2SAT 96
[2022-07-11 17:58] VITALS: BP 112/74; PULSE 91; RESP 17; TEMP 37; O2SAT 99
== END 2022-07-11 17:59 | disposition home or self-care (01) ==
PROVIDERS: Emergency Provider Student in an Organized Health Care Education/Training Program; PCP Family Medicine
DX: S39.011A Strain of muscle, fascia and tendon of abdomen, initial encounter (principal); S30.1XXA Contusion of abdominal wall, initial encounter; W01.0XXA Fall on same level from slipping, tripping and stumbling without subsequent striking against object, initial encounter; F17.210 Nicotine dependence, cigarettes, uncomplicated
CPT/HCPCS: 71045; 74176; 80053; 99285

== ENCOUNTER 2022-08-20 12:13 | Emergency (ER) | payer MEDICARE, MEDICAID, SELFPAY ==
[2022-08-20] VITALS (7 sets, daily range): BP systolic 106–155; BP diastolic 59–80; PULSE 86–107; RESP 16–20; TEMP 36.7; O2SAT 95–97; BMI 26.6
--- NOTE | 2022-08-20 12:13 | ECG_ITS ---
APPROVED REPORT Exam: Resting ECG HR:107 bpm ECG Measurements Heart Rate 107 AXES QRSd 89 QRS -3 QT 332 T 93 QTc 394 Conclusion ATRIAL FLUTTER/TACHYCARDIA WITH RAPID VENTRICULAR RESPONSE NONSPECIFIC ST & T-WAVE ABNORMALITY ABNORMAL ECG UNCONFIRMED REPORT Electronically signed by : Stephen Romero MD 08/21/2022 09:08:56
--- NOTE | 2022-08-20 12:49 | HMH.EDGENADL ---
Discharge Plan Disposition Patient Disposition: Home, Self-Care Prescriptions Prescriptions: No Action mupirocin 2 % ointment 1 applic TOPICAL TID Qty: 22 3RF Rx Instructions: apply to tj, be especially liberal hs prednisone 20 mg tablet 20 mg PO DAILY Qty: 10 0RF aspirin [Adult Aspirin Regimen] 81 mg tablet,delayed release (DR/EC) 81 mg PO DAILY albuterol sulfate 90 mcg/actuation HFA aerosol inhaler 2 puff INHALATION Q6 PRN (Reason: Shortness Of Breath Or Wheezing) Qty: 8.5 12RF atorvastatin 10 mg tablet See Rx Instructions .ROUTE .COMPLEX Qty: 90 3RF Dose Instruction: TAKE 1 TABLET BY MOUTH DAILY. Rx Instructions: TAKE 1 TABLET BY MOUTH DAILY. diltiazem HCl 240 mg capsule,extended release 24 hr See Rx Instructions .ROUTE .COMPLEX Qty: 90 3RF Dose Instruction: TAKE 1 CAPSULE BY MOUTH DAILY. Rx Instructions: TAKE 1 CAPSULE BY MOUTH DAILY. ipratropium-albuterol 0.5 mg-3 mg(2.5 mg base)/3 mL solution for nebulization 3 ml IH Q6 PRN (Reason: Shortness Of Breath Or Wheezing) Qty: 120 2RF Xarelto 15 mg tablet 15 mg PO QPMWITHMEAL Qty: 90 3RF Rx Instructions: must administer with evening meal umeclidinium-vilanterol 62.5-25 mcg/actuation blister with device 1 ea IH DAILY Qty: 60 10RF potassium chloride 10 mEq capsule, extended release See Rx Instructions .ROUTE .COMPLEX Qty: 90 0RF Dose Instruction: TAKE 1 CAPSULE BY MOUTH DAILY. Rx Instructions: TAKE 1 CAPSULE BY MOUTH DAILY. metformin 500 mg tablet 500 mg PO BIDWMEAL Qty: 180 3RF furosemide 40 mg tablet See Rx Instructions .ROUTE .COMPLEX Qty: 90 0RF Dose Instruction: TAKE 1 TABLET BY MOUTH DAILY NEEDED FOR EDEMA. Rx Instructions: TAKE 1 TABLET BY MOUTH DAILY NEEDED FOR EDEMA. lisinopril 2.5 mg tablet See Rx Instructions .ROUTE .COMPLEX Qty: 90 0RF Dose Instruction: TAKE 1 TABLET BY MOUTH DAILY. Rx Instructions: TAKE 1 TABLET BY MOUTH DAILY. famotidine 20 mg tablet See Rx Instructions .ROUTE .COMPLEX Qty: 180 0RF Dose Instruction: TAKE ONE (1) TABLET BY MOUTH TWO TIMES A DAY. Rx Instructions: TAKE ONE (1) TABLET BY MOUTH TWO TIMES A DAY. (DME) OneTouch Verio test strips Strip See Rx Instructions .Route Qty: 100 0RF Rx Instructions: As directed hydrocodone-acetaminophen 5-325 mg tablet 1 tab PO BID PRN (Reason: pain) Qty: 60 0RF Referrals Follow up/Referrals: Jesus Alberto Stevenson MD [Primary Care Provider] - See instructions Activity Restrictions/Add. Instructions Additional Instructions/Restrictions: Your work-up for altered mental status today yielded only a 5 mm punctate intraparenchymal brain hemorrhage. The remainder of your work-up is negative. We considered hospitalization. However that this is not symptom needs emergency neurosurgical intervention. Additionally does not need any emergent neurologic intervention. With shared decision making and discussion with Dr. Stevenson we opted for close outpatient observation and to return to the emergency department with any worsening symptoms at all at which point you would get a repeat CT scan to see if there is any progression of the small hemorrhage. Dr. Stevenson advised that your son Frances call his clinic early in the week and to follow-up with him or to return the emergency department any worsening. Clinical Impressions Clinical Impression: Altered mental status, Intraparenchymal hemorrhage of brain Discharge ED Provider: Ryan Sofia Adult HPI General Chief complaint: Weakness Stated complaint: Dizziness Time Seen by Provider: 08/20/22 12:49 Mode of Arrival: Ambulatory Source of Information: Patient Limitations: No Limitations Description of Symptoms (Recalled from ER Triage Doc. by RN): Pt family reports pt has had some confusion intermittently over the past 2-3 days, also reports pt has been off balance. Pt reports sh
--- NOTE | 2022-08-20 12:56 | CT_ITS ---
PROCEDURE INFORMATION: Exam: CT Head Without Contrast Exam date and time: 08/20/2022 1:07 PM Age: 81 years old Clinical indication: Altered mental status/memory loss; Additional info: AMS TECHNIQUE: Imaging protocol: Computed tomography of the head without contrast. Radiation optimization: All CT scans at this facility use at least one of these dose optimization techniques: automated exposure control; mA and/or kV adjustment per patient size (includes targeted exams where dose is matched to clinical indication); or iterative reconstruction. Other protocol: This patient has received [address] and 0 known cardiac nuclear medicine studies in the 12 months prior to the current study. COMPARISON: CT HEAD/BRAIN WO CON 01/15/2021 8:28 PM FINDINGS: Brain: Symmetric prominence of the cortical sulci. Small-vessel ischemic change. Vascular, basal ganglia, and dural calcifications. Newly visualized 5 mm nodular hyperdensity in the left centrum semiovale (series 3: Image 42), suggesting small hemorrhage. No significant surrounding edema or mass effect is identified. Cerebral ventricles: Normal configuration of the ventricles. Paranasal sinuses: No sinus fluid. Mastoid air cells: Partial opacification of left mastoid air cells. Bones/joints: No acute calvarial pathology. Soft tissues: Unremarkable soft tissues. IMPRESSION: 1. No 5 mm nodular hyperdensity in the left centrum semiovale (series 3: Image 42), suggesting small hemorrhage. 2. Asymmetric inflammatory change in the left left mastoid air cells. The aforementioned findings initiated a critical results communication pathway. An addendum will be issued at the time of clincian notification.
--- NOTE | 2022-08-20 12:56 | XR_ITS ---
PROCEDURE INFORMATION: Exam: XR Chest Exam date and time: 08/20/2022 1:21 PM Age: 81 years old Clinical indication: Other: AMS TECHNIQUE: Imaging protocol: Radiologic exam of the chest. Views: 1 view. COMPARISON: CR XR CHEST PORTABLE 07/11/2022 4:22 PM FINDINGS: Lungs: COPD and interstitial prominence. Pleural spaces: No pleural effusion. Heart/Mediastinum: Epicardial fat accentuates the cardiac silhouette. Bones/joints: Osteopenia and degenerative change. IMPRESSION: COPD and interstitial prominence.
[2022-08-20 13:02] LABS: Microscopic, Urine URINE MICROSCOPIC (MICROSCOPIC)
--- NOTE | 2022-08-20 13:09 | PC.NURSE ---
xray at bedside
--- NOTE | 2022-08-20 13:16 | PC.NURSE ---
Limb alert band placed on patient's left arm. Rounded on pt. does not need anything at this time; call light within reach
--- NOTE | 2022-08-20 13:24 | PC.NURSE ---
blood sent to lab at this time, call light within reach, pt states no needs at this time
[2022-08-20 13:29] LABS: Appearance,Urine Clear (Clear); Bacteria,Urine Trace /lpf; Bilirubin,Urine Negative (Negative); Blood, Urine Negative (Negative); Color,Urine Yellow (Yellow); Glucose,Urine (UA) Negative (Negative); Ketones,Urine Negative (Negative); Leukocyte Esterase,Urine Negative (Negative); Nitrate,Urine Negative (Negative); Protein,Urine Negative (Negative); Squamous Epithelial Cell,Urine Occasional #/hpf (0-5); Urobilinogen,Urine 0.2 EU/dl (0.2)
--- NOTE | 2022-08-20 13:52 | PC.NURSE ---
vrad on with Dr Sofia
[2022-08-20 14:08] LABS: Alanine Aminotransferase 18 U/L (12-78); Albumin Level 4.4 g/dl (3.5-5.0); Albumin/Globulin Ratio 1.6 (1.1-1.8); Alkaline Phosphatase 129 U/L (38-126); Anion Gap 9.6 mEq/L (5-15); Aspartate Amino Transferase 30 U/L (14-36); Basophils % 0.4 % (0.1-2.0); Blood Urea Nitrogen 14 mg/dl (7-17); Calcium 8.8 mg/dl (8.4-10.2); Carbon Dioxide 28 mmol/L (22.0-30.0); Chloride 106 mmol/L (98-107); Creatinine Clearance Estimated 37 mL/min (50-200); Eosinophils # 0.1 K/mm3 (0.0-0.4); Eosinophils % 1.1 % (0.1-12.0); Estimated Glomerular Filt Rate 36 ml/min (>60); GFR (African American) 44 ML/MIN (>60); Globulin 2.7 g/dL (1.3-3.2); Glucose 120 mg/dl (74-100); Hematocrit 47.9 % (37.0-47.0); Hemoglobin 15.6 g/dL (12.2-16.2); Mean Corpuscular HGB Conc 32.6 g/dL (31.8-35.4); Mean Corpuscular Hemoglobin 33.5 pg (27.0-31.2); Mean Corpuscular Volume 102.7 fl (81-99); Mean Platelet Volume 8.3 fl (7.4-10.4); Monocytes # 0.5 K/mm3 (0.1-1.0); Monocytes % 6.9 % (1.7-9.3); Neutrophils # 4.9 K/mm3 (1.8-7.8); Neutrophils % 75.5 % (37.0-80.0); Platelet Count 264 K/mm3 (142-424); Potassium 4.6 mmoL/L (3.5-5.1); Red Blood Count 4.66 M/mm3 (4.20-5.40); Red Cell Distribution Width 14.1 % (11.5-17.5); Sodium 139 mmol/L (136-145); Total Protein,Serum 7.1 g/dl (6.3-8.2); White Blood Count 6.4 K/mm3 (4.8-10.8)
--- NOTE | 2022-08-20 14:23 | PC.NURSE ---
DR GODINEZ PAGED AT THIS TIME
== END 2022-08-20 14:50 | disposition home or self-care (01) ==
PROVIDERS: Emergency Provider Student in an Organized Health Care Education/Training Program; PCP Family Medicine
DX: I61.8 Other nontraumatic intracerebral hemorrhage (principal); R41.82 Altered mental status, unspecified; R42 Dizziness and giddiness; F17.210 Nicotine dependence, cigarettes, uncomplicated
CPT/HCPCS: 70450; 71045; 80053; 81001; 85025; 93005; 99285

== ENCOUNTER 2022-08-30 10:56 | Emergency (ER) | payer MEDICARE, MEDICAID, SELFPAY ==
[2022-08-30 11:13] VITALS: BP 136/64; PULSE 76; RESP 16; TEMP 36.5; O2SAT 97; BMI 23.3
--- NOTE | 2022-08-30 11:19 | CT_ITS ---
FINAL REPORT TECHNIQUE: Axial CT images of the face were obtained without contrast. Coronal reformatted images were also obtained. This study was performed with techniques to keep radiation doses as low as reasonably achievable, (ALARA). Individualized dose reduction techniques using automated exposure control or adjustment of mA and/or kV according to the patient''s size were employed. CLINICAL HISTORY: fall, lac, blood thinner FINDINGS: No fracture is identified. There is severe degenerative changes of the left TMJ. There is mild sinus mucosal thickening. No fluid levels are identified. The globes are intact. IMPRESSION: No fracture or acute bony abnormality identified. Reviewed, Interpreted and Dictated by Armando Arellano III, MD Transcribed by Ailyn Alvarez Authenticated and [facility]
--- NOTE | 2022-08-30 11:19 | CT_ITS ---
FINAL REPORT CLINICAL HISTORY: fall, lac, blood thinner COMPARISON: 08/20/2022 FINDINGS: Axial images of the head were obtained without contrast. Coronal reformatted images were also obtained. This study was performed with techniques to keep radiation doses as low as reasonably achievable (ALARA). Individualized dose reduction techniques using automated exposure control or adjustment of mA and/or kV according to the patient''s size were employed. There is generalized age appropriate atrophy. There is a 5 mm increased attenuation focus in the left centrum semiovale. It is uncertain if this represents a small focus of hemorrhage or calcification however appear stable since previous. No new evidence of hemorrhage is identified. The ventricular size is within normal limits. There is no evidence of shift of the midline structures. No skull abnormality is seen on the bone window images. IMPRESSION: Stable focus in the left centrum semiovale, may represent hemorrhage versus calcification. Additional follow-up CT or MRI is recommended. Reviewed, Interpreted and Dictated by Armando Arellano III, MD Transcribed by Ailyn Alvarez Authenticated and [facility]
--- NOTE | 2022-08-30 11:22 | PC.NURSE ---
notified rad of CT orders
--- NOTE | 2022-08-30 11:22 | PC.NURSE ---
spoke with md about pt hx and complaints. verbal order given to ct head/brain and facial bones.
--- NOTE | 2022-08-30 11:51 | HMH.EDGENADL ---
Discharge Plan Disposition Patient Disposition: Home, Self-Care Condition: Good Chief Complaint: Wound/Laceration Prescriptions Prescriptions: No Action mupirocin 2 % ointment 1 applic TOPICAL TID Qty: 22 3RF Rx Instructions: apply to tj be especially liberal hs cefdinir 300 mg capsule 300 mg PO BID 10 Days Qty: 20 0RF aspirin [Adult Aspirin Regimen] 81 mg tablet,delayed release (DR/EC) 81 mg PO DAILY albuterol sulfate 90 mcg/actuation HFA aerosol inhaler 2 puff INHALATION Q6 PRN (Reason: Shortness Of Breath Or Wheezing) Qty: 8.5 12RF atorvastatin 10 mg tablet See Rx Instructions .ROUTE .COMPLEX Qty: 90 3RF Dose Instruction: TAKE 1 TABLET BY MOUTH DAILY. Rx Instructions: TAKE 1 TABLET BY MOUTH DAILY. diltiazem HCl 240 mg capsule,extended release 24 hr See Rx Instructions .ROUTE .COMPLEX Qty: 90 3RF Dose Instruction: TAKE 1 CAPSULE BY MOUTH DAILY. Rx Instructions: TAKE 1 CAPSULE BY MOUTH DAILY. ipratropium-albuterol 0.5 mg-3 mg(2.5 mg base)/3 mL solution for nebulization 3 ml IH Q6 PRN (Reason: Shortness Of Breath Or Wheezing) Qty: 120 2RF Xarelto 15 mg tablet 15 mg PO QPMWITHMEAL Qty: 90 3RF Rx Instructions: must administer with evening meal umeclidinium-vilanterol 62.5-25 mcg/actuation blister with device 1 ea IH DAILY Qty: 60 10RF potassium chloride 10 mEq capsule, extended release See Rx Instructions .ROUTE .COMPLEX Qty: 90 0RF Dose Instruction: TAKE 1 CAPSULE BY MOUTH DAILY. Rx Instructions: TAKE 1 CAPSULE BY MOUTH DAILY. metformin 500 mg tablet 500 mg PO BIDWMEAL Qty: 180 3RF furosemide 40 mg tablet See Rx Instructions .ROUTE .COMPLEX Qty: 90 0RF Dose Instruction: TAKE 1 TABLET BY MOUTH DAILY NEEDED FOR EDEMA. Rx Instructions: TAKE 1 TABLET BY MOUTH DAILY NEEDED FOR EDEMA. lisinopril 2.5 mg tablet See Rx Instructions .ROUTE .COMPLEX Qty: 90 0RF Dose Instruction: TAKE 1 TABLET BY MOUTH DAILY. Rx Instructions: TAKE 1 TABLET BY MOUTH DAILY. famotidine 20 mg tablet See Rx Instructions .ROUTE .COMPLEX Qty: 180 0RF Dose Instruction: TAKE ONE (1) TABLET BY MOUTH TWO TIMES A DAY. Rx Instructions: TAKE ONE (1) TABLET BY MOUTH TWO TIMES A DAY. (DME) OneTouch Verio test strips Strip See Rx Instructions .Route Qty: 100 0RF Rx Instructions: As directed hydrocodone-acetaminophen 5-325 mg tablet 1 tab PO BID PRN (Reason: pain) Qty: 60 0RF Referrals Follow up/Referrals: Jesus Alberto Stevenson MD [Primary Care Provider] - See instructions Clinical Impressions Clinical Impression: Complex laceration of face Qualifiers: Encounter type: initial encounter Qualified Code(s): S01.91XA - Laceration without foreign body of unspecified part of head, initial encounter Instructions Patient Instructions: DI for Laceration Repair Discharge ED Provider: Alex Santana General Adult HPI General Chief complaint: Wound/Laceration Stated complaint: [email or web address]@home lac on forehead Time Seen by Provider: 08/30/22 11:10 Mode of Arrival: Ambulatory Source of Information: Patient and Relative Limitations: No Limitations Description of Symptoms (Recalled from ER Triage Doc. by RN): pt comes in for laceration to forehead and right elbow. pt reports that she tripped over her feet due to the shoes she was wearing at the time. pt states that she hit her head on something but does not remember what exactly. pt reports no LOC. pt is on a blood thinner. History of Present Illness HPI narrative: This is a 81-year-old female with history of A-fib on Xarelto, COPD, renal insufficiency, CHF, who is presenting with fall from standing. Patient had mechanical fall from standing after tripping over her shoes, hit her head on nearby furniture. Denies loss of consciousness. Because she is on Xarelto, EMS was called and she was brought to the ER for further evaluation.
[2022-08-30 12:00] VITALS: BP 137/64; PULSE 66; RESP 18; O2SAT 94
[2022-08-30 12:30] VITALS: BP 129/66; PULSE 76; O2SAT 94
[2022-08-30 13:00] VITALS: BP 119/53; PULSE 72; O2SAT 94
--- NOTE | 2022-08-30 13:50 | PC.NURSE ---
MARGOTH CARRILLO at suturing
[2022-08-30 14:36] VITALS: BP 144/87; PULSE 84; RESP 14; TEMP 36.7
== END 2022-08-30 14:37 | disposition home or self-care (01) ==
PROVIDERS: Emergency Provider Emergency Medicine; PCP Family Medicine
DX: S01.81XA Laceration without foreign body of other part of head, initial encounter (principal); S51.011A Laceration without foreign body of right elbow, initial encounter; W01.0XXA Fall on same level from slipping, tripping and stumbling without subsequent striking against object, initial encounter; I48.91 Unspecified atrial fibrillation; Z79.01 Long term (current) use of anticoagulants; J44.9 Chronic obstructive pulmonary disease, unspecified; N19 Unspecified kidney failure; I50.9 Heart failure, unspecified; F17.210 Nicotine dependence, cigarettes, uncomplicated; Z23 Encounter for immunization
CPT/HCPCS: 12013; 70450; 70486; 90471; 90714; 99285

== ENCOUNTER → 2022-09-06 08:55 | Outpatient (CLI) | payer MEDICARE, MEDICAID, SELFPAY ==
--- NOTE | 2022-09-06 09:05 | CT_ITS ---
FINAL REPORT TECHNIQUE: Thin section axial images were obtained from skull base to vertex without contrast. Coronal reconstruction images were obtained from the axial data. Exam was performed using dose reduction technique. CLINICAL HISTORY: follow up on bleed COMPARISON: 08/30/2022 FINDINGS: There is stable atrophy. There is no mass effect or midline shift. There is no hydrocephalus. There is a small focus of increased density in the left centrum semiovale which may be less stents as compared to the prior exam. This could represent a small resolving hematoma. No new hemorrhage is identified. The posterior fossa is without acute abnormality. There is continued opacification of the left mastoid air cells. No acute osseous abnormality is identified. IMPRESSION: Focus of increased density in the left centrum semiovale may be slightly less dense, as compared to the prior exam, and could represent resolving small hemorrhage. Continued follow-up is recommended. No new abnormality identified. Reviewed, Interpreted and Dictated by Justine Allan MD Transcribed by Brooklyn Novak Authenticated and [facility]
[2022-09-06 09:38] LABS: Blood Urea Nitrogen 20 mg/dl (7-17); Estimated Glomerular Filt Rate 29 ml/min (>60); GFR (African American) 35 ML/MIN (>60)
== END ==
PROVIDERS: PCP Family Medicine; Visit Provider Family Medicine
DX: I61.9 Nontraumatic intracerebral hemorrhage, unspecified (principal)
CPT/HCPCS: 36415; 70450; 82565; 84520

== ENCOUNTER 2023-02-07 11:31 | Emergency (ER) | payer MEDICARE, SELFPAY ==
[2023-02-07] VITALS (8 sets, daily range): BP systolic 81–151; BP diastolic 32–72; PULSE 66–101; RESP 17–20; TEMP 36.6; O2SAT 97–99; BMI 26.6
[2023-02-07 11:44] LABS: Microscopic, Urine URINE MICROSCOPIC (MICROSCOPIC)
[2023-02-07 11:47] LABS: Appearance,Urine CLEAR (Clear); Bilirubin,Urine Negative (Negative); Blood, Urine Negative (Negative); Color,Urine YELLOW (Yellow); Glucose,Urine (UA) Negative (Negative); Ketones,Urine Negative (Negative); Leukocyte Esterase,Urine Negative (Negative); Nitrate,Urine Negative (Negative); Protein,Urine Negative (Negative); Urobilinogen,Urine 0.2 EU/dl (0.2)
--- NOTE | 2023-02-07 11:55 | XR_ITS ---
FINAL REPORT TECHNIQUE: Chest PA & Lateral CLINICAL HISTORY: cough, copd, AMS COMPARISON: August 20, 2022 FINDINGS: 2 views of the chest were performed. The heart size is normal. The mediastinum is within normal limits. There is presumed postoperative change in the left thorax. A 10 mm left mid lung nodule has increased in size. There are no pleural effusions. There is no pneumothorax. The bony thorax appears intact. IMPRESSION: Interval increase in size of a left mid lung nodule. Recommend chest CT. Reviewed, Interpreted and Dictated by Armando Arellano III, MD Transcribed by Catraino Nichole Authenticated and [facility]
--- NOTE | 2023-02-07 11:58 | HMH.EDGENADL ---
Discharge Plan Disposition Patient Disposition: Home, Self-Care Prescriptions Prescriptions: New amoxicillin-pot clavulanate 875-125 mg tablet 1 tab PO BID Qty: 20 0RF No Action mupirocin 2 % ointment 1 applic TOPICAL TID Qty: 22 3RF Rx Instructions: apply to navel, be especially liberal hs hydrocodone-acetaminophen 5-325 mg tablet 1 tab PO BID PRN (Reason: pain) Qty: 60 0RF methylprednisolone [Medrol (Juancarlos)] 4 mg tablets,dose pack See Rx Instructions PO PER PKG DIR Qty: 21 0RF Rx Instructions: PO PER PKG DIR methylprednisolone [Medrol (Juancarlos)] 4 mg tablets,dose pack See Rx Instructions PO PER PKG DIR Qty: 21 0RF Rx Instructions: PO PER PKG DIR cephalexin 500 mg capsule 500 mg PO Q8H 10 Days Qty: 30 0RF mupirocin 2 % ointment 1 applic topical TID Qty: 22 4RF aspirin [Adult Aspirin Regimen] 81 mg tablet,delayed release (DR/EC) 81 mg PO DAILY albuterol sulfate 90 mcg/actuation HFA aerosol inhaler 2 puff INHALATION Q6 PRN (Reason: Shortness Of Breath Or Wheezing) Qty: 8.5 12RF atorvastatin 10 mg tablet See Rx Instructions .ROUTE .COMPLEX Qty: 90 3RF Dose Instruction: TAKE 1 TABLET BY MOUTH DAILY. Rx Instructions: TAKE 1 TABLET BY MOUTH DAILY. diltiazem HCl 240 mg capsule,extended release 24 hr See Rx Instructions .ROUTE .COMPLEX Qty: 90 3RF Dose Instruction: TAKE 1 CAPSULE BY MOUTH DAILY. Rx Instructions: TAKE 1 CAPSULE BY MOUTH DAILY. ipratropium-albuterol 0.5 mg-3 mg(2.5 mg base)/3 mL solution for nebulization 3 ml IH Q6 PRN (Reason: Shortness Of Breath Or Wheezing) Qty: 120 2RF Xarelto 15 mg tablet 15 mg PO QPMWITHMEAL Qty: 90 3RF Rx Instructions: must administer with evening meal umeclidinium-vilanterol 62.5-25 mcg/actuation blister with device 1 ea IH DAILY Qty: 60 10RF metformin 500 mg tablet 500 mg PO BIDWMEAL Qty: 180 3RF (DME) OneTouch Verio test strips Strip See Rx Instructions .Route Qty: 100 0RF Rx Instructions: As directed lisinopril 2.5 mg tablet See Rx Instructions .ROUTE .COMPLEX Qty: 90 0RF Dose Instruction: TAKE 1 TABLET BY MOUTH DAILY. Rx Instructions: TAKE 1 TABLET BY MOUTH DAILY. famotidine 20 mg tablet See Rx Instructions .ROUTE .COMPLEX Qty: 180 0RF Dose Instruction: TAKE ONE (1) TABLET BY MOUTH TWO TIMES A DAY. Rx Instructions: TAKE ONE (1) TABLET BY MOUTH TWO TIMES A DAY. furosemide 40 mg tablet See Rx Instructions .ROUTE .COMPLEX Qty: 90 0RF Dose Instruction: TAKE 1 TABLET BY MOUTH DAILY NEEDED FOR EDEMA. Rx Instructions: TAKE 1 TABLET BY MOUTH DAILY NEEDED FOR EDEMA. potassium chloride 10 mEq capsule, extended release See Rx Instructions .ROUTE .COMPLEX Qty: 90 0RF Dose Instruction: TAKE 1 CAPSULE BY MOUTH DAILY. Rx Instructions: TAKE 1 CAPSULE BY MOUTH DAILY. hydrocodone-acetaminophen 5-325 mg tablet 1 tab PO BID PRN (Reason: pain) Qty: 60 0RF Referrals Follow up/Referrals: Jesus Alberto Stevenson MD [Primary Care Provider] - See instructions Activity Restrictions/Add. Instructions Additional Instructions/Restrictions: Take antibiotic twice daily for 10 days as prescribed. If you have any worsening of your condition or any other concerning signs or symptoms, return to the emergency department or your primary care doctor for further evaluation. Be sure to stay hydrated. If diarrhea develops from antibiotic, you can add a probiotic from an [facility] pharmacy. Clinical Impressions Clinical Impression: Acute exacerbation of chronic obstructive pulmonary disease (COPD), Nodule of left lung Instructions Patient Instructions: DI for Altered Mental Status Discharge ED Provider: Alex Santana General Adult [facility] General Chief complaint: Altered Mental Status Stated complaint: confused Time Seen by Provider: 02/07/23 11:39 Mode of Arrival: Ambulatory S
[2023-02-07 12:07] LABS: Basophils % 0.4 % (0.1-2.0); Eosinophils # 0.2 K/mm3 (0.0-0.4); Eosinophils % 1.5 % (0.1-12.0); Hematocrit 52.2 % (37.0-47.0); Hemoglobin 16.8 g/dL (12.2-16.2); Lymphocytes # 1.4 K/mm3 (0.7-4.5); Lymphocytes % 13.3 % (10-50); Mean Corpuscular HGB Conc 32.3 g/dL (31.8-35.4); Mean Corpuscular Hemoglobin 31.7 pg (27.0-31.2); Mean Corpuscular Volume 98.3 fl (81-99); Mean Platelet Volume 8.3 fl (7.4-10.4); Monocytes # 0.6 K/mm3 (0.1-1.0); Monocytes % 6.1 % (1.7-9.3); Neutrophils % 78.6 % (37.0-80.0); Platelet Count 274 K/mm3 (142-424); Red Blood Count 5.31 M/mm3 (4.20-5.40); Red Cell Distribution Width 13.9 % (11.5-17.5); White Blood Count 10.1 K/mm3 (4.8-10.8)
[2023-02-07 12:14] LABS: Alanine Aminotransferase 23 U/L (12-78); Albumin Level 4.5 g/dl (3.5-5.0); Albumin/Globulin Ratio 1.6 (1.1-1.8); Alkaline Phosphatase 119 U/L (38-126); Anion Gap 11.9 mEq/L (5-15); Aspartate Amino Transferase 28 U/L (14-36); Bilirubin,Total 1.1 mg/dl (0.2-1.3); Blood Urea Nitrogen 13 mg/dl (7-17); Carbon Dioxide 28 mmol/L (22.0-30.0); Chloride 99 mmol/L (98-107); Creatinine Clearance Estimated 47 mL/min (50-200); Estimated Glomerular Filt Rate 48 ml/min (>60); GFR (African American) 58 ML/MIN (>60); Globulin 2.8 g/dL (1.3-3.2); Glucose 178 mg/dl (74-100); Lipase 213 U/L (23-300); Potassium 3.9 mmoL/L (3.5-5.1); Sodium 135 mmol/L (136-145); Total Protein,Serum 7.3 g/dl (6.3-8.2)
[2023-02-07 12:44] LABS: Lactic Acid 2.1 mmol/L (0.7-2.1)
[2023-02-07 14:14] LABS: VBG HCO3 23.8 mmol/L (23-30); VBG Oxygen Saturation 48.4 % (50-70); VBG PCO2 45.8 mmol/L (35-51); VBG PH 7.33 mmol/L (7.31-7.41); VBG PO2 25.7 mmol/L (28-40); VBG Total CO2 25.2 mmol/L (23-27)
[2023-02-07 16:17] LABS: Reflex Lactic Add Lactic Reflex
== END 2023-02-07 14:45 | disposition home or self-care (01) ==
PROVIDERS: Emergency Provider Emergency Medicine; PCP Family Medicine
DX: J44.1 Chronic obstructive pulmonary disease with (acute) exacerbation (principal); R41.82 Altered mental status, unspecified; R91.1 Solitary pulmonary nodule; I10 Essential (primary) hypertension; E78.5 Hyperlipidemia, unspecified; I48.0 Paroxysmal atrial fibrillation; F17.210 Nicotine dependence, cigarettes, uncomplicated; Z79.01 Long term (current) use of anticoagulants
CPT/HCPCS: 71046; 80053; 81001; 82803; 83605; 83690; 85025; 87040; 96361; 96374; 99285

== ENCOUNTER → 2023-03-23 23:51 | Outpatient (CLI) | payer MEDICARE, MEDICAID, SELFPAY ==
[2023-03-23 21:56] LABS: Hemoglobin A1C 5.7 % (4.0-6.0)
== END ==
LOC: LAB.DROPOF 23:51
PROVIDERS: PCP Family Medicine; Visit Provider Family Medicine
DX: E11.69 Type 2 diabetes mellitus with other specified complication (principal); E04.1 Nontoxic single thyroid nodule
CPT/HCPCS: 83036; 84443

== ENCOUNTER 2024-07-05 15:13 | Emergency (ER) | payer MEDICARE, MEDICAID, SELFPAY ==
--- NOTE | 2024-07-05 15:11 | ECG_ITS ---
APPROVED REPORT Exam: Resting ECG HR:76 bpm ECG Measurements Heart Rate 76 AXES QRSd 86 QRS -9 QT 360 T 72 QTc 391 Conclusion ATRIAL FIBRILLATION NONSPECIFIC ST & T-WAVE ABNORMALITY No acute STEMI Electronically signed by : ROMEO CROCKER, 07/06/2024 00:11:11
[2024-07-05 15:13] VITALS: BP 129/56; PULSE 94; RESP 16; TEMP 36.5; O2SAT 97; BMI 18.9
--- NOTE | 2024-07-05 15:29 | XR_ITS ---
PROCEDURE INFORMATION: Exam: XR Left Femur Exam date and time: 07/05/2024 4:07 PM Age: 83 years old Clinical indication: Injury or trauma; Fall; Blunt trauma; Hip; Left; Additional info: Fall, pain TECHNIQUE: Imaging protocol: Radiologic exam of the left femur. Views: 2 views. COMPARISON: CR XR FEMUR LT 2V 07/05/2024 4:07 PM FINDINGS: Bones/joints: Only the distal 2/3 of the femur or imaged. Within the limits of this limited study there is no fracture. Soft tissues: Unremarkable. Vasculature: Vascular calcifications. IMPRESSION: Limited evaluation of the femur. No fracture noted involving the distal 2/3.
--- NOTE | 2024-07-05 15:29 | XR_ITS ---
PROCEDURE INFORMATION: Exam: XR Left Hip Exam date and time: 07/05/2024 4:07 PM Age: 83 years old Clinical indication: Injury or trauma; Fall; Blunt trauma (contusions or hematomas); Left; Hip; Additional info: Fall, pain TECHNIQUE: Imaging protocol: Radiologic exam of the left hip. Views: 2 or 3 views hip with pelvis when performed. COMPARISON: CT ABDOMEN PELVIS WO CON 07/11/2022 5:01 PM FINDINGS: Bones/joints: No fracture. Internal fixation in the right hip. Soft tissues: Unremarkable. Intraperitoneal space: The patient is having a CT scan of the pelvis. Please see that report as well. Organs: Calcification in the uterus consistent with a fibroid. Vasculature: Vascular calcifications. IMPRESSION: No evidence of a bony fracture. However, please see the CT scan of the pelvis which was performed at a separate dedicated study.
--- NOTE | 2024-07-05 15:29 | CT_ITS ---
PROCEDURE INFORMATION: Exam: CT Lumbar Spine Without Contrast Exam date and time: 07/05/2024 4:05 PM Age: 83 years old Clinical indication: Injury or trauma; Additional info: Fall, pain TECHNIQUE: Imaging protocol: Computed tomography of the lumbar spine without contrast. Radiation optimization: All CT scans at this facility use at least one of these dose optimization techniques: automated exposure control; mA and/or kV adjustment per patient size (includes targeted exams where dose is matched to clinical indication); or iterative reconstruction. COMPARISON: CT THORACIC SPINE WO CON 07/05/2024 3:59 PM FINDINGS: Bones/joints: No acute fracture. Normal alignment. L1-L2: Vacuum disc L1-L2, L2-L3, and L5-S1. L2-L3: See L1-L2 finding. L3-L4: No significant disc bulge or herniation. No severe spinal canal stenosis. No significant neural foraminal narrowing. L4-L5: No significant disc bulge or herniation. No severe spinal canal stenosis. No significant neural foraminal narrowing. L5-S1: See L1-L2 finding. Gallbladder and biliary ducts: Cholecystectomy. Reproductive: Calcified uterine fibroids. Vasculature: Atherosclerotic vascular calcifications. Soft tissues: Unremarkable. IMPRESSION: No acute traumatic injury identified.
--- NOTE | 2024-07-05 15:29 | CT_ITS ---
PROCEDURE INFORMATION: Exam: CT Chest Without Contrast; Diagnostic Exam date and time: 07/05/2024 4:03 PM Age: 83 years old Clinical indication: Injury or trauma; Additional info: Fall, pain TECHNIQUE: Imaging protocol: Diagnostic computed tomography of the chest without contrast. Radiation optimization: All CT scans at this facility use at least one of these dose optimization techniques: automated exposure control; mA and/or kV adjustment per patient size (includes targeted exams where dose is matched to clinical indication); or iterative reconstruction. COMPARISON: CT CHEST WO CON 01/16/2021 1:05 PM FINDINGS: Thyroid: Questionable mass measuring 19 x 22 mm in the right lobe of the thyroid. Other masses may be present on this noncontrast study. Lungs: Mild interstitial lung disease early changes noted versus sequelae of radiation therapy status post mastectomy involving the left upper lobe. There is a 4 mm left upper lobe nodule image as well as a peripheral base possible pleural tag measuring 6 x 5 mm image 10/07. Granuloma right posterior lung base. Pleural spaces: See Lungs finding. Heart: Cardiomegaly. Pericardial thickening versus a small pericardial effusion. Coronary arteries: Severe coronary artery calcifications. Lymph nodes: Calcified lymph nodes in the mediastinum and right hilum. Mediastinal lymph nodes. They are enlarged measuring up to 11 x 11 mm in the AP window. There is an 11 x 13 mm pretracheal lymph node. Vasculature: Ascending aortic ectasia at 32 x 31 mm. Bones/joints: The spine will be discussed in a separate examination. Soft tissues: See Lungs finding. Other findings: The abdomen will be discussed in a separate examination. IMPRESSION: 1. Interstitial lung changes unilateral versus sequelae of radiation therapy status post left mastectomy. I favor the latter. 2. Two lung abnormalities in the left upper lobe in the area of radiation therapy changes. Due to the fact that I suspect there has been a prior mastectomy possibly for neoplasia recommendations for these lung abnormalities will not be made at this time. If additional clinical correlation and history can be made Jh criteria can be applied if clinically needed. 3. Mediastinal granulomas lowest right hilar granulomas with uncalcified mediastinal enlarged lymph nodes. 4. No evidence of a fracture. Please see the cervical, thoracic and lumbar spine dictations for separate evaluation of these areas. 5. Pericardial thickening versus a small pericardial effusion. 6. Questionable thyroid masses. Questionable multinodular gland. COMMENTS: Consistent with the [employer]'s Incidental Findings Committee white paper (J Am Lydia Radiol 2015): In patients aged 35 years and older with an incidental thyroid nodule equal to or greater than 1.[address], MRI or extrathyroidal US, further evaluation with dedicated thyroid US is recommended for patients with normal life expectancy and without comorbidities. For smaller nodules without suspicious features, no further evaluation or follow up is recommended.
--- NOTE | 2024-07-05 15:29 | CT_ITS ---
PROCEDURE INFORMATION: Exam: CT Head Without Contrast Exam date and time: 07/05/2024 3:55 PM Age: 83 years old Clinical indication: Injury or trauma; Additional info: Fall, pain TECHNIQUE: Imaging protocol: Computed tomography of the head without contrast. Radiation optimization: All CT scans at this facility use at least one of these dose optimization techniques: automated exposure control; mA and/or kV adjustment per patient size (includes targeted exams where dose is matched to clinical indication); or iterative reconstruction. COMPARISON: Head CT from 09/06/2022 FINDINGS: Brain: There is no acute intracranial hemorrhage, cerebral edema, or midline shift. A tiny calcification is again noted in the left perez radiata. Chronic microvascular ischemic changes are seen in the periventricular white matter. Age-related cerebral and cerebellar volume loss is present. Cerebral ventricles: Mild ex vacuo dilation of the lateral and third ventricles is noted. Paranasal sinuses: There is no acute sinusitis. Mastoid air cells: The mastoid air cells are clear. Orbital cavities: The included orbital structures are unremarkable. Bones: Unremarkable. No acute fracture. Soft tissues: Unremarkable. Vasculature: Atherosclerotic calcifications are seen involving the cavernous carotid arteries. IMPRESSION: 1. No acute intracranial abnormality. 2. Atrophy and chronic deep white matter ischemic changes.
--- NOTE | 2024-07-05 15:29 | CT_ITS ---
PROCEDURE INFORMATION: Exam: CT Abdomen And Pelvis Without Contrast Exam date and time: 07/05/2024 4:08 PM Age: 83 years old Clinical indication: Injury or trauma; Additional info: Fall, pain TECHNIQUE: Imaging protocol: Computed tomography of the abdomen and pelvis without contrast. Radiation optimization: All CT scans at this facility use at least one of these dose optimization techniques: automated exposure control; mA and/or kV adjustment per patient size (includes targeted exams where dose is matched to clinical indication); or iterative reconstruction. COMPARISON: CT ABDOMEN PELVIS WO CON 07/11/2022 5:01 PM FINDINGS: Tubes, catheters and devices: None noted. Lungs: Lung bases appear clear. Heart: Severe proximal coronary calcifications. No cardiomegaly. No significant pericardial effusion. Liver: Calcified granulomata. No mass. Gallbladder and biliary ducts: Cholecystectomy. No ductal dilation. Pancreas: Normal. No ductal dilation. Spleen: Calcified granulomata. No splenomegaly. Adrenal glands: Normal. No mass. Kidneys and ureters: Abnormal axis left kidney. No hydronephrosis. Stomach and bowel: Unremarkable. No obstruction. No mucosal thickening. Appendix: No evidence of appendicitis. Intraperitoneal space: Unremarkable. No free air. No significant fluid collection. Retroperitoneal space: No significant retroperitoneal inflammatory changes are noted. Vasculature: Atherosclerotic vascular calcifications. No abdominal aortic aneurysm. Lymph nodes: Unremarkable. No enlarged lymph nodes. Urinary bladder: Unremarkable as visualized. Reproductive: Calcified fibroids. Bones/joints: Intramedullary pete right femur with Tempel screw. No acute fracture. Soft tissues: Unremarkable. IMPRESSION: No acute traumatic findings.
--- NOTE | 2024-07-05 15:29 | CT_ITS ---
PROCEDURE INFORMATION: Exam: CT Thoracic Spine Without Contrast Exam date and time: 07/05/2024 3:59 PM Age: 83 years old Clinical indication: Injury or trauma; Additional info: Fall, pain TECHNIQUE: Imaging protocol: Computed tomography of the thoracic spine without contrast. Radiation optimization: All CT scans at this facility use at least one of these dose optimization techniques: automated exposure control; mA and/or kV adjustment per patient size (includes targeted exams where dose is matched to clinical indication); or iterative reconstruction. COMPARISON: CT THORACIC SPINE WO CON 07/05/2024 3:59 PM FINDINGS: Bones/joints: No acute fracture. Normal alignment. No significant disc bulge or herniation. No severe spinal canal stenosis. Advanced multilevel degenerative changes. Soft tissues: Unremarkable. IMPRESSION: Advanced degenerative changes. No acute fracture.
--- NOTE | 2024-07-05 15:29 | XR_ITS ---
PROCEDURE INFORMATION: Exam: XR Left Knee Exam date and time: 07/05/2024 4:07 PM Age: 83 years old Clinical indication: Pain; Knee; Left; Additional info: Fall, pain TECHNIQUE: Imaging protocol: Radiologic exam of the left knee. Views: 3 views. COMPARISON: CR XR FEMUR LT 2V 07/05/2024 4:07 PM FINDINGS: Bones/joints: Moderate arthritic changes at the patellofemoral joint. No medial or lateral joint space narrowing. No fracture, dislocation or subluxation. Soft tissues: Normal. Vasculature: Vascular calcifications. IMPRESSION: No acute findings.
--- NOTE | 2024-07-05 15:29 | CT_ITS ---
PROCEDURE INFORMATION: Exam: CT Cervical Spine Without Contrast Exam date and time: 07/05/2024 3:57 PM Age: 83 years old Clinical indication: Injury or trauma; Additional info: Fall, pain TECHNIQUE: Imaging protocol: Computed tomography of the cervical spine without contrast. Radiation optimization: All CT scans at this facility use at least one of these dose optimization techniques: automated exposure control; mA and/or kV adjustment per patient size (includes targeted exams where dose is matched to clinical indication); or iterative reconstruction. COMPARISON: CT CERVICAL SPINE WO CON 07/05/2024 3:57 PM FINDINGS: Bones: Degenerative changes of the C-spine most pronounced at C5-C6 and C6-C7. Otherwise unremarkable CT of the C-spine with no fracture evident. Alignment and vertebral body heights are intact. Lungs: Lung apices are normal. Thyroid: A incidental 16 mm low-dense right thyroid nodule. Advise further assessment with nonemergent ultrasound of the thyroid. Soft tissues: Unremarkable. IMPRESSION: 1. Degenerative changes. No acute abnormality. 2. A incidental 16 mm low-dense right thyroid nodule. Advise further assessment with nonemergent ultrasound of the thyroid. COMMENTS: Consistent with the [employer]'s Incidental Findings Committee white paper (J Am Lydia Radiol 2015): In patients aged 35 years and older with an incidental thyroid nodule equal to or greater than 1.[address], MRI or extrathyroidal US, further evaluation with dedicated thyroid US is recommended for patients with normal life expectancy and without comorbidities. For smaller nodules without suspicious features, no further evaluation or follow up is recommended.
--- NOTE | 2024-07-05 15:29 | CT_ITS ---
PROCEDURE INFORMATION: Exam: CT Pelvis Without Contrast, Skeleton Exam date and time: 07/05/2024 4:10 PM Age: 83 years old Clinical indication: Injury or trauma; Additional info: Fall, pain TECHNIQUE: Imaging protocol: Computed tomography of the pelvis without contrast. Exam focused on the skeleton. Radiation optimization: All CT scans at this facility use at least one of these dose optimization techniques: automated exposure control; mA and/or kV adjustment per patient size (includes targeted exams where dose is matched to clinical indication); or iterative reconstruction. COMPARISON: CT ABDOMEN PELVIS WO CON 07/05/2024 4:08 PM FINDINGS: Bones/joints: Intramedullary pete right femur with Temple screw in the right femoral neck. Soft tissues: Unremarkable. IMPRESSION: No acute traumatic abnormality identified.
[2024-07-05 15:49] LABS: Lactate Venous 1.6 mmol/L (0.4-2.0); VBG Base Excess -4.3 mmol/L (-2.4-2.3); VBG HCO3 21.5 mmol/L (23-30); VBG Oxygen Saturation 75.4 % (50-70); VBG PCO2 41.2 mmol/L (35-51); VBG PH 7.34 mmol/L (7.31-7.41); VBG PO2 38.3 mmol/L (28-40); VBG Total CO2 22.8 mmol/L (23-27)
--- NOTE | 2024-07-05 15:50 | PC.NURSE ---
PT TO RADIOLOGY
[2024-07-05 15:59] LABS: Alanine Aminotransferase 13 U/L (12-78); Albumin Level 4.2 g/dl (3.5-5.0); Albumin/Globulin Ratio 1.8 (1.1-1.8); Alkaline Phosphatase 121 U/L (38-126); Aspartate Amino Transferase 26 U/L (14-36); Bilirubin,Total 0.8 mg/dl (0.2-1.3); Blood Urea Nitrogen 18 mg/dl (7-17); Calcium 9.2 mg/dl (8.4-10.2); Carbon Dioxide 25 mmol/L (22.0-30.0); Chloride 109 mmol/L (98-107); Creatine Kinase 125 U/L (30-135); Creatinine Clearance Estimated 23 mL/min (50-200); Estimated Glomerular Filt Rate 31 ml/min (>60); GFR (African American) 37 ML/MIN (>60); Globulin 2.3 g/dL (1.3-3.2); Glucose 122 mg/dl (74-100); Magnesium 1.7 mg/dl (1.6-2.3); Sodium 142 mmol/L (136-145); Total Protein,Serum 6.5 g/dl (6.3-8.2)
[2024-07-05 16:02] LABS: Basophils % 0.1 % (0.1-2.0); Eosinophils # 0.1 K/mm3 (0.0-0.4); Eosinophils % 0.7 % (0.1-12.0); Hematocrit 38.9 % (37.0-47.0); Hemoglobin 12.9 g/dL (12.2-16.2); Lymphocytes # 0.8 K/mm3 (0.7-4.5); Lymphocytes % 11.8 % (10-50); Mean Corpuscular HGB Conc 33.2 g/dL (31.8-35.4); Mean Corpuscular Hemoglobin 33.2 pg (27.0-31.2); Mean Platelet Volume 10.9 fl (7.4-10.4); Monocytes # 0.6 K/mm3 (0.1-1.0); Monocytes % 9.2 % (1.7-9.3); Neutrophils # 5.4 K/mm3 (1.8-7.8); Neutrophils % 77.9 % (37.0-80.0); Platelet Count 189 K/mm3 (142-424); Red Blood Count 3.89 M/mm3 (4.20-5.40); Red Cell Distribution Width 12.7 % (11.5-17.5)
--- NOTE | 2024-07-05 16:07 | HMH.EDGENADL ---
Discharge Plan Disposition Patient Disposition: Home, Self-Care Condition: Good Prescriptions Prescriptions: New cefdinir 300 mg capsule 300 mg PO BID 10 Days Qty: 20 0RF No Action melatonin 3 mg tablet 3 mg PO DAILY cyanocobalamin (vitamin B-12) 1,000 mcg tablet 1,000 mcg PO DAILY mirabegron [Myrbetriq] 25 mg tablet extended release 24 hr 25 mg PO DAILY Qty: 90 3RF trazodone 50 mg tablet 50 mg PO HS PRN (Reason: sleep) Qty: 30 10RF aspirin [Adult Aspirin Regimen] 81 mg tablet,delayed release (DR/EC) 81 mg PO DAILY albuterol sulfate 90 mcg/actuation HFA aerosol inhaler 2 puff INHALATION Q6 PRN (Reason: Shortness Of Breath Or Wheezing) Qty: 8.5 12RF ipratropium-albuterol 0.5 mg-3 mg(2.5 mg base)/3 mL solution for nebulization 3 ml IH Q6 PRN (Reason: Shortness Of Breath Or Wheezing) Qty: 120 2RF (DME) OneTouch Verio test strips Strip See Rx Instructions .Route Qty: 100 0RF Rx Instructions: As directed umeclidinium-vilanterol 62.5-25 mcg/actuation blister with device 1 ea IH DAILY Qty: 60 10RF cetirizine 10 mg tablet 10 mg PO DAILY Qty: 30 2RF diltiazem HCl 120 mg capsule,extended release 24 hr 120 mg PO DAILY Qty: 90 0RF risperidone [Risperdal] 1 mg tablet 1 mg PO HS Qty: 30 3RF atorvastatin 10 mg tablet See Rx Instructions .ROUTE .COMPLEX Qty: 90 5RF Dose Instruction: TAKE 1 TABLET BY MOUTH DAILY. Rx Instructions: TAKE 1 TABLET BY MOUTH DAILY. famotidine 20 mg tablet See Rx Instructions .ROUTE .COMPLEX Qty: 180 5RF Dose Instruction: TAKE ONE (1) TABLET BY MOUTH TWO TIMES A DAY. Rx Instructions: TAKE ONE (1) TABLET BY MOUTH TWO TIMES A DAY. Namzaric 7-10 mg capsule,sprinkle,ER 24hr 1 cap PO DAILY Qty: 30 10RF potassium chloride 10 mEq capsule, extended release See Rx Instructions .ROUTE .COMPLEX Qty: 90 5RF Dose Instruction: TAKE 1 CAPSULE BY MOUTH DAILY. Rx Instructions: TAKE 1 CAPSULE BY MOUTH DAILY. Xarelto 15 mg tablet 15 mg PO DAILY Qty: 90 3RF Rx Instructions: must administer with evening meal diphenoxylate-atropine [Lomotil] 2.5-0.025 mg tablet 1 tab PO TID PRN (Reason: diarrhea) Qty: 14 0RF oxycodone 5 mg tablet 5 mg PO BID PRN (Reason: pain) Qty: 60 0RF cefdinir 300 mg capsule 300 mg PO BID 10 Days Qty: 20 0RF ondansetron HCl 4 mg tablet 4 mg PO Q8H PRN (Reason: nausea and vomiting) Qty: 20 0RF hyoscyamine sulfate 0.125 mg tablet 0.125 mg PO QID PRN (Reason: diarrhea or abdominal cramping) Qty: 30 0RF dextromethorphan-guaifenesin 60-1,200 mg tablet extended release 12 hr 1 tab PO Q12H Qty: 60 0RF furosemide 40 mg tablet See Rx Instructions .ROUTE .COMPLEX Qty: 90 0RF Dose Instruction: TAKE 1 TABLET BY MOUTH DAILY NEEDED FOR EDEMA. Rx Instructions: TAKE 1 TABLET BY MOUTH DAILY NEEDED FOR EDEMA. lisinopril 2.5 mg tablet See Rx Instructions .ROUTE .COMPLEX Qty: 90 0RF Dose Instruction: TAKE 1 TABLET BY MOUTH DAILY. Rx Instructions: TAKE 1 TABLET BY MOUTH DAILY. Referrals Follow up/Referrals: Jesus Alberto Stevenson MD [Primary Care Provider] - See instructions Activity Restrictions/Add. Instructions Additional Instructions/Restrictions: You were evaluated in the emergency department today. Please follow-up closely with your primary care provider over the next 3 days for reassessment. I recommend close monitoring of your thyroid nodule because your TSH is low. Return to the emergency department for any new or worsening symptoms. 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 Clinical Impressions Clinical Impression: Thyroid nodule, General weakness, Hip pain, left, Fall, Acute UTI Instructions Patient Instructions: How to Prevent Falls Print Language Print Language: Malay Discharge ED Provider: Yeimy Evans General Adult HPI General Chief complaint: Fall Stated complaint: right lower back pain Time Seen by Provider: 07/05/24 15:18 Mode of Arrival: EMS Source of Information: Patient and EMS Limitations: No Limitations Description of Symptoms (Recalled from ER Triage Doc. by RN): PT BROUGHT IN BY [facility] FOR A FALL, STATES SHE FELL LAST NIGHT, DOESN'T REMEMBER WHAT CAUSED THE FALL, STATES SHE DIDN'T HIT HER HEAD OR LOSE CONSCIOUSNESS, FAMILY CALLED AND STATED PT HAS BEEN FALLING A LOT LATELY, MULTIPLE BRUISES NOTED, PT REPORTS PAIN IN LOWER R SIDE OF BACK, REPORTS PAIN 10/10 AND CONSTANT History of Present Illness HPI narrative: This patient is an 83-year-old female with a history of dementia, COPD, paroxysmal atrial fibrillation on Xarelto, chronic antiplatelet use with aspirin, CHF, hypertension, and hyperlipidemia presenting to the emergency department for evaluation with concern for fall and general weakness. According to family, they found the patient in the floor this morning and assume that she fell sometime between 230 and 4 AM. She was not on the ground for an extended period of time, they got her up and had to help her into bed. She lives with niece and niece's girlfriend. Throughout the day, patient is not been able to get up secondary to left-sided low back/hip pain. Pain is 10 out of 10 and constant. Patient cannot remember the fall or what happened, and family states that this is not outside of the normal for her because she forgets everything after 10 minutes with her memory issues. Family states that the patient might be sick because everyone at the home has been sick, but they did not note any significant symptoms. No other issues noted at this time and the family notes that the patient is at her baseline. Related Data Home Medications ?Medication ?Instructions ?Recorded ?Confirmed aspirin 81 mg tablet,delayed 81 mg PO DAILY heart [facility] 02/18/20 02/22/24 release (Adult Aspirin Regimen) cyanocobalamin (vitamin B-12) 1,000 mcg PO DAILY 12/06/23 02/22/24 1,000 mcg tablet melatonin 3 mg tablet 3 mg PO DAILY 12/06/23 02/22/24 Previous Rx's ?Medication ?Instructions ?Recorded albuterol sulfate 90 mcg/actuation 2 puff inhalation Q6 PRN Shortness 02/21/22 aerosol inhaler Of Breath Or Wheezing #8.5 grams ipratropium 0.5 mg-albuterol 3 mg 3 ml inhalation Q6 PRN Shortness 02/21/22 (2.5 mg base)/3 mL nebulization Of Breath Or Wheezing ##120 soln blood sugar diagnostic (OneTouch #100 ea 06/30/22 Verio test strips) umeclidinium 62.5 mcg-vilanterol 1 ea inhalation DAILY COPD #60 ea 10/30/23 25 mcg/actuation powdr for inhalation mirabegron 25 mg tablet,extended 25 mg PO DAILY #90 tabs 01/03/24 release 24 hr (Myrbetriq) trazodone 50 mg tablet 50 mg PO HS PRN sleep #30 tabs 02/22/24 cetirizine 10 mg tablet 10 mg PO DAILY #30 tabs 02/26/24 diltiazem HCl 120 mg capsule,24 120 mg PO DAILY #90 caps 03/22/24 hr,extended release risperidone 1 mg tablet (Risperdal) 1 mg PO HS #30 tabs 03/22/24 atorvastatin 10 mg tablet See Rx Instructions .Route 04/22/24 .COMPLEX #90 tabs famotidine 20 mg tablet See Rx Instructions .Route 04/22/24 .COMPLEX #180 tabs memantine ER 7 mg-donepezil 10 mg 1 cap PO DAILY #30 ea 04/22/24 capsule sprinkle,ext.release 24 hour (Namzaric) potassium chloride 10 mEq See Rx Instructions .Route 04/22/24 capsule,extended release .COMPLEX #90 caps rivaroxaban 15 mg tablet (Xarelto) 15 mg PO DAILY #90 tabs 05/15/24 diphenoxylate-atropine 2.5 1 tab PO TID PRN diarrhea #14 tabs 06/12/24 mg-0.025 mg tablet (Lomotil) oxycodone 5 mg tablet 5 mg PO BID PRN pain #60 tabs 06/12/24 cefdinir 300 mg capsule 300 mg PO BID 10 days #20 caps 06/14/24 dextromethorphan-guaifenesin ER 60 1 tab PO Q12H #60 tabs 07/01/24 mg-1,200 mg tab,extend release,12hr hyoscyamine sulfate 0.125 mg tablet 0.125 mg PO QID PRN diarrhea or 07/01/24 abdominal cramping #30 tabs ondansetron HCl 4 mg tablet 4 mg PO Q8H PRN nausea and 07/01/24 vomiting #20 tabs furosemide 40 mg tablet See Rx Instructions .Route 07/04/24 .COMPLEX #90 tabs lisinopril 2.5 mg tablet See Rx Instructions .Route 07/04/24 .COMPLEX #90 tabs cefdinir 300 mg capsule 300 mg PO BID 10 days #20 caps 07/05/24 Allergies Allergy/AdvReac Type Severity Reaction Status Date / Time codeine AdvReac Severe Anaphylaxis Verified 02/22/24 14:08 [facility] Disclaimer: The information contained in this section may have been updated after the patient was seen, as this information can be updated by other users. Medical History Nodule of left lung Acute exacerbation of chronic obstructive pulmonary disease (COPD) Dementia Surgical History H/O mastectomy History of cholecystectomy H/O right knee surgery Social History Smoking Status: Current some day smoker tobacco type: cigarettes packs per day: 1 alcohol intake: never substance use type: denies use current occupational status: retired Travel in the last 8 weeks: None household members: family housing: house caffeine: Yes Have you lived/traveled outside [place] in past 30 days?: No Contact w/someone who lives/traveled outside [place] past 30 days?: No Exposure to someone with infectious disease in past 14 days?: No Do you have a fever (greater than 100.4 F or 38 C)?: No Have you tested positive for COVID-19: No Exposed to someone with COVID-19 in past 14 days?: No Do you have a sore throat?: No Do you have a cough?: No Do you have any weakness?: No Do you have any diarrhea?: No Are you experiencing any unusual bleeding?: No Do you have any muscle aches/pain?: No Do you have any abdominal pain?: No Are you experiencing loss of taste or smell?: No Other Medical History Have you received the Flu Vaccine for this season: No Have you received the Pneumonia Vaccine: Yes ROS Obtained: Yes All systems reviewed & no additional complaints except as documented Physical Exam General General appearance: alert, in no apparent distress and obese Head Head exam: atraumatic and normocephalic Eye Eye exam: Present normal appearance, PERRL and EOMI ENT ENT exam: Present normal exam, normal oropharynx, mucous membranes moist and normal external ear exam Neck Neck exam: Present normal inspection, full ROM and trachea midline; Absent tenderness Chest Chest inspection: Present normal inspection and symmetric chest wall rise; Absent tenderness Respiratory Respiratory exam: Present normal lung sounds bilaterally; Absent respiratory distress, wheezes, stridor or accessory muscle use Cardiovascular Cardiovascular exam: Present regular rate and normal rhythm Abdominal Exam Abdominal exam: Present soft; Absent distention, tenderness or guarding Extremities Exam Extremities exam: Present tenderness (Left pelvis/hip), normal capillary refill and other (Scattered skin tears/abrasions that are healing on the lower legs with no concerns for acute infection. Neurovascularly intact distally.); Absent full ROM (Limited range of motion of the left hip secondary to pain) or edema Back Exam Back exam: Present full ROM and tenderness (Low back) Neurological Exam Neurological exam: Present alert and CN II-XII intact; Absent oriented X3 or motor sensory deficit Psychiatric Psychiatric exam: Present normal affect and normal mood Skin Skin exam: Present warm and dry Medical Decision Making Medical Records Medical records reviewed: Yes I reviewed the patient's medical records. Screening: Per USPSTF and CDC recommendations, given the prevalence of disease in our region, it is our hospital?s policy to screen for HIV and viral Hepatitis for all patients aged 18 and over and those with ongoing risk factors. Jose Inquiry Pt receiving controlled substance: No Vital Signs: 07/05/24 15:13 07/05/24 16:30 07/05/24 17:01 Temperature 97.7 F Temperature Source Oral Pulse Rate 67 Pulse Rate [Right Radial] 94 H Respiratory Rate 16 18 Blood Pressure 144/56 H 145/89 H Blood Pressure [Right Arm] 129/56 L Blood Pressure Mean 77 93 Blood Pressure Mean [Right Arm] 80 Blood Pressure Source Blood Pressure Source [Right Arm] Automatic Cuff Blood Pressure Position Blood Pressure Position [Right Arm] Sitting 02 Sat by Pulse Oximetry 97 97 98 Oxygen Delivery Method Room Air 07/05/24 17:31 07/05/24 18:00 07/05/24 19:11 Temperature 98.0 F Temperature Source Oral Pulse Rate 76 77 75 Pulse Rate [Right Radial] Respiratory Rate 18 18 18 Blood Pressure 120/57 L 140/71 138/70 Blood Pressure [Right Arm] Blood Pressure Mean 78 79 Blood Pressure Mean [Right Arm] Blood Pressure Source Automatic Cuff Blood Pressure Source [Right Arm] Blood Pressure Position Sitting Blood Pressure Position [Right Arm] 02 Sat by Pulse Oximetry 96 97 Oxygen Delivery Method Room Air Lab Data Lab results reviewed: Yes I reviewed the patient's lab results. Lab Results 07/05/24 15:29: VBG pH 7.34, VBG pCO2 41.2, VBG pO2 38.3, VBG HCO3 21.5 L, VBG Total CO2 22.8 L, VBG O2 Saturation 75.4 H, VBG Base Excess -4.3 L, VBG Lactic Acid 1.6 07/05/24 15:38: WBC 7.0, RBC 3.89 L, Hgb 12.9, Hct 38.9, MCV 100.0 H, MCH 33.2 H, MCHC 33.2, RDW 12.7, Plt Count 189, MPV 10.9 H, Neut % (Auto) 77.9, Lymph % (Auto) 11.8, Hickman % (Auto) 9.2, Eos % (Auto) 0.7, Baso % (Auto) 0.1, Neut # (Auto) 5.4, Lymph # (Auto) 0.8, Hickman # (Auto) 0.6, Eos # (Auto) 0.1, Baso # (Auto) 0.0, Sodium 142, Potassium 4.6, Chloride 109 H, Carbon Dioxide 25, Anion Gap 12.6, BUN 18 H, Creatinine 1.60 H, Estimated Creat Clear 23, Estimated GFR 31 L, Est GFR ( Amer) 37 L, Glucose 122 H, Calcium 9.2, Magnesium 1.7, Total Bilirubin 0.8, AST 26, ALT 13, Alkaline Phosphatase 121, Total Creatine Kinase 125, Troponin I < 0.01, NT-Pro-B Natriuret Pep 2840 H, Total Protein 6.5, Albumin 4.2, Globulin 2.3, Albumin/Globulin Ratio 1.8, TSH 0.34 L, Thyroxine (T4) 7.1 07/05/24 17:54: Urine Color Yellow, Urine Appearance Clear, Urine pH 6.0, Ur Specific Collins 1.025, Urine Protein Negative, Urine Glucose (UA) Negative, Urine Ketones Negative, Urine Blood Negative, Urine Nitrate Negative, Urine Bilirubin Negative, Urine Urobilinogen 0.2, Ur Leukocyte Esterase Negative, Urine RBC None, Urine WBC 3-5, Ur Squamous Epith Cells Occasional, Urine Bacteria 2+ 07/05/24 18:25: Troponin I < 0.01 07/05/24 15:38 07/05/24 15:38 Orders (Tests/Meds): ED MEDICATIONS Discontinued Medications Generic Name Dose Route Start Last Admin Trade Name Freq PRN Reason Stop Dose Admin Cefdinir 300 mg 07/05/24 18:52 07/05/24 18:58 Cefdinir 300mg Capsule PO 07/05/24 18:53 300 mg ONCE ONE Administration ORDERS Category Date Time Status CT abdomen pelvis wo con Stat Cat Scan 07/05/24 15:[address] bony pelvis Stat Cat Scan 07/05/24 15:[address] cervical spine wo con Stat Cat Scan 07/05/24 15:[address] chest wo con Stat Cat Scan 07/05/24 15:[address] head/brain wo con Stat Cat Scan 07/05/24 15:[address] lumbar spine wo con Stat Cat Scan 07/05/24 15:[address] thoracic spine wo con Stat Cat Scan 07/05/24 15:29 Completed Femur XR left 2 views [XR femur LT 2V] Stat Exams 07/05/24 15:29 Completed Hip XR left minimum 2 views [XR hip LT 2-3V w/pelvis] Exams 07/05/24 15:29 Completed Stat Knee XR left 3 views [XR knee LT 3V] Stat Exams 07/05/24 15:29 Completed BNP [NT Pro Brain Natriuretic Pep.] Stat Lab 07/05/24 15:38 Completed CBC w/Auto Diff [Complete Blood Count Auto Diff] Stat Lab 07/05/24 15:38 Completed CK [Creatine Kinase] Stat Lab 07/05/24 15:38 Completed CMP [Comprehensive Metabolic Panel] Stat Lab 07/05/24 15:38 Completed MAG [Magnesium] Stat Lab 07/05/24 15:38 Completed T4 (Thyroxine) Stat Lab 07/05/24 15:38 Completed TSH [Thyroid Stimulating Hormone] Stat Lab 07/05/24 15:38 Completed Trop I [Troponin I] Stat Lab 07/05/24 15:38 Completed Troponin I Q3H Lab 07/05/24 18:25 Completed UA [Urinalysis and Microscopic] Stat Lab 07/05/24 17:54 Completed Urine Culture Stat Micro 07/05/24 17:54 Received VBG [Venous Blood Gas] Stat RT 07/05/24 15:29 Completed ECG Data Tracing #1: I reviewed this ECG and interpreted as documented below: Rate controlled atrial fibrillation with a ventricular to 76 bpm. No acute STEMI. ECG initial impression date: 07/05/24 ECG initial impression time: 15:22 Medical Decision Narrative: In summary, this patient is a 83-year-old female presenting to the Emergency Department for evaluation of left hip/low back pain after a mechanical ground-level fall. Differential diagnoses considered include but are not limited to polytrauma, intracranial hemorrhage, spine fracture, hip pain. Ruling out the most morbid conditions drove assessment. It should be noted patient's history includes atrial fibrillation on Xarelto, hypertension, hyperlipidemia, dementia which may or may not be at goal therapy. This complicates all aspects of care by increasing patient's risk for morbidity. I reviewed patient's past medical records and noted prior evaluations for altered mental status as well as for COPD exacerbation. On exam, the patient is lying in bed in no acute distress. She has no increased work of breathing. She is at her neurologic baseline according to family. No focal deficits, but she is not oriented to time. Family states this is normal for her. She has tenderness to palpation of the left hip and low back. She is neurovascularly intact distally. Vitals are reassuring on cardiac telemetry. Workup included lab evaluation to evaluate for infectious, metabolic causes of her weakness and inability to get up on her own as well as CT scans from head to pelvis to look for traumatic injury. I also ordered x-rays of the injured left lower extremity. I independently interpreted CT scans and x-ray prior to the radiologist read and noted obvious acute fracture, no intracranial hemorrhage. Please see their read for final interpretation. Labs were obtained that demonstrated reassuring CBC without significant leukocytosis, chemistry is reassuring with creatinine around the patient's baseline, BNP not as elevated as prior. TSH is slightly low and patient did have incidental finding of thyroid nodule on scan, for which I recommended very close follow-up as an outpatient with primary care. She is not exhibiting symptoms of hyperthyroidism at this time. Urine is possibly concerning for infection with white blood cells and bacteria. This was a cath specimen. Given this, patient was given oral cefdinir. On reassessment, the patient remains at her neurologic baseline and states she is feeling fine. She is able to get up and walk with a walker which is what she does at home. Family states that they feel comfortable taking her home and just wanted to make sure she did not injure her hip. Will prescribe cefdinir given the possible UTI. Overall, strict return precautions were given and the patient was discharged to care of family in stable condition. Critical Care Critical Care Time Critical Care Time: No
[2024-07-05 16:12] LABS: NT Pro Brain Natriuretic Pep. 2840 pg/mL (0-450)
[2024-07-05 16:16] LABS: T4 (Thyroxine) 7.1 ug/dl (5.53-11.0); Troponin I < 0.01 ng/ml (0.00-0.034)
[2024-07-05 16:30] VITALS: BP 144/56; O2SAT 97
[2024-07-05 16:30] LABS: Thyroid Stimulating Hormone 0.34 uIU/mL (0.465-4.68)
[2024-07-05 17:01] VITALS: BP 145/89; PULSE 67; RESP 18; O2SAT 98
[2024-07-05 17:31] VITALS: BP 120/57; PULSE 76; RESP 18; O2SAT 96
[2024-07-05 17:37] LABS: Anion Gap 12.6 mEq/L (5-15); Potassium 4.6 mmoL/L (3.5-5.1)
[2024-07-05 17:57] LABS: Microscopic, Urine URINE MICROSCOPIC (MICROSCOPIC)
[2024-07-05 18:00] VITALS: BP 140/71; PULSE 77; RESP 18; O2SAT 97
[2024-07-05 18:03] LABS: Appearance,Urine CLEAR (Clear); Bilirubin,Urine Negative (Negative); Blood, Urine Negative (Negative); Color,Urine YELLOW (Yellow); Glucose,Urine (UA) Negative (Negative); Ketones,Urine Negative (Negative); Leukocyte Esterase,Urine Negative (Negative); Nitrate,Urine Negative (Negative); Protein,Urine Negative (Negative); Specific Gravity, Urine 1.025 (1.005-1.030); Urobilinogen,Urine 0.2 EU/dl (0.2)
[2024-07-05 18:41] LABS: Bacteria,Urine 2+ /lpf; Squamous Epithelial Cell,Urine Occasional #/hpf (0-5)
--- NOTE | 2024-07-05 18:44 | PC.NURSE ---
PT AMBULATED WITH WALKER. SON STATES SHE AMBULATED AT HER BASELINE
[2024-07-05] MEDS: CEFDINIR 300MG CAPSULE 300 MG PO (18:58)
[2024-07-05 19:11] VITALS: BP 138/70; PULSE 75; RESP 18; TEMP 36.7; O2SAT 96
[2024-07-05 19:26] LABS: Troponin I < 0.01 ng/ml (0.00-0.034)
== END 2024-07-05 19:12 | disposition home or self-care (01) ==
PROVIDERS: Emergency Provider Emergency Medicine; PCP Family Medicine
DX: N39.0 Urinary tract infection, site not specified (principal); E04.1 Nontoxic single thyroid nodule; M54.50 Low back pain, unspecified; R53.1 Weakness; M25.552 Pain in left hip; W19.XXXA Unspecified fall, initial encounter; Y93.9 Activity, unspecified
CPT/HCPCS: 70450; 71250; 72125; 72128; 72131; 72192; 73502; 73552; 73562; 74176; 80053; 81001; 82550; 82803; 83735; 83880; 84436; 84443; 84484; 85025; 87086; 93005; 99285

== ENCOUNTER 2024-08-26 15:17 | Observation (INO) | payer MEDICARE, MEDICAID, SELFPAY ==
[2024-08-26] VITALS (8 sets, daily range): BP systolic 120–147; BP diastolic 55–69; PULSE 71–114; RESP 15–19; TEMP 36.5–36.6; O2SAT 93–97; BMI 20.9; BMI 19.1
--- NOTE | 2024-08-26 15:30 | HMH.EDGENADL ---
Discharge Plan Disposition Patient Disposition: Admitted Condition: Fair Clinical Impressions Clinical Impression: Hyperkalemia Acute on chronic renal failure Qualifiers: Acute renal failure type: unspecified Chronic kidney disease stage: unspecified stage Qualified Code(s): N17.9 - Acute kidney failure, unspecified Discharge ED Provider: Alex Santana General Adult HPI <SUHAIL Muller - Last Filed: 08/26/24 23:13> General Chief complaint: Weakness Stated complaint: AO2/15@home, Rt side pain Time Seen by Provider: 08/26/24 15:30 History of Present Illness HPI narrative: Patient presents for evaluation of weakness and a fall. Patient at baseline has dementia but is ambulatory and conversant but is usually confused to time. Patient's family reports that 3 days ago that she fell and since then has had significant increasing weakness. Last known well was approximately 3 days ago and since then she has been too weak to get out of bed has had very slurred speech but no focal neurologic deficits. On arrival patient is able to identify that she is at the hospital and her son is in the room but not cannot tell me the year day or month. She denies any specific complaints including chest pain shortness of breath fever chills hemoptysis hematochezia melena nausea vomiting diarrhea or pain. Related Data Home Medications ?Medication ?Instructions ?Recorded ?Confirmed aspirin 81 mg tablet,delayed 81 mg PO DAILY [facility] 02/18/20 08/26/24 release (Adult Aspirin Regimen) cyanocobalamin (vitamin B-12) 1,000 mcg PO DAILY 12/06/23 08/26/24 1,000 mcg tablet Previous Rx's ?Medication ?Instructions ?Recorded albuterol sulfate 90 mcg/actuation 2 puff inhalation Q6 PRN Shortness 02/21/22 aerosol inhaler Of Breath Or Wheezing #8.5 grams ipratropium 0.5 mg-albuterol 3 mg 3 ml inhalation Q6 PRN Shortness 02/21/22 (2.5 mg base)/3 mL nebulization Of Breath Or Wheezing ##120 soln blood sugar diagnostic (OneTouch #100 ea 06/30/22 Verio test strips) umeclidinium 62.5 mcg-vilanterol 1 ea inhalation DAILY COPD #60 ea 10/30/23 25 mcg/actuation powdr for inhalation mirabegron 25 mg tablet,extended 25 mg PO DAILY #90 tabs 01/03/24 release 24 hr (Myrbetriq) cetirizine 10 mg tablet 10 mg PO DAILY #30 tabs 02/26/24 risperidone 1 mg tablet (Risperdal) 1 mg PO HS #30 tabs 03/22/24 atorvastatin 10 mg tablet See Rx Instructions .Route 04/22/24 .COMPLEX #90 tabs famotidine 20 mg tablet See Rx Instructions .Route 04/22/24 .COMPLEX #180 tabs memantine ER 7 mg-donepezil 10 mg 1 cap PO DAILY #30 ea 04/22/24 capsule sprinkle,ext.release 24 hour (Namzaric) potassium chloride 10 mEq See Rx Instructions .Route 04/22/24 capsule,extended release .COMPLEX #90 caps rivaroxaban 15 mg tablet (Xarelto) 15 mg PO DAILY #90 tabs 05/15/24 furosemide 40 mg tablet See Rx Instructions .Route 07/04/24 .COMPLEX #90 tabs lisinopril 2.5 mg tablet See Rx Instructions .Route 07/04/24 .COMPLEX #90 tabs azithromycin 500 mg tablet 500 mg PO DAILY 3 days #3 tabs 08/02/24 diltiazem HCl 120 mg capsule,24 120 mg PO DAILY #90 caps 08/02/24 hr,extended release oxycodone 5 mg tablet 5 mg PO BID PRN pain #60 tabs 08/02/24 quetiapine 100 mg tablet (Seroquel) See Rx Instructions PO DAILY #135 08/02/24 tabs cefdinir 300 mg capsule 300 mg PO BID 10 days #20 caps 08/14/24 Allergies Allergy/AdvReac Type Severity Reaction Status Date / Time codeine AdvReac Severe Anaphylaxis Verified 08/02/24 13:33 [facility] <SUHAIL Muller - Last Filed: 08/26/24 23:13> [facility] Disclaimer: The information contained in this section may have been updated after the patient was seen, as this information can be updated by other users. Medical History (Updated 08/26/24 @ 21:21 by JH Persaud) Nodule of left lung Acute exacerbation of chronic obstructive pulmonary disease (COPD) Dementia Surgical History H/O mastectomy History of cholecystectomy H/O right knee surgery Social History (Updated 08/26/24 @ 20:37 by Annetta Pope RN) Smoking Status: Never smoker alcohol intake: never substance use type: denies use current occupational status: retired Travel in the last 8 weeks: None household members: family housing: house caffeine: Yes Have you lived/traveled outside [place] in past 30 days?: No Contact w/someone who lives/traveled outside US past 30 days?: No Exposure to someone with infectious disease in past 14 days?: No Do you have a fever (greater than 100.4 F or 38 C)?: No Have you tested positive for COVID-19: No Exposed to someone with COVID-19 in past 14 days?: No Do you have a sore throat?: No Do you have a cough?: No Do you have any weakness?: No Do you have any diarrhea?: No Are you experiencing any unusual bleeding?: No Do you have any muscle aches/pain?: No Do you have any abdominal pain?: No Are you experiencing loss of taste or smell?: No Other Medical History Have you received the Flu Vaccine for this season: No Have you received the Pneumonia Vaccine: Yes <SUHAIL Muller - Last Filed: 08/26/24 23:13> ROS Obtained: Yes Systems reviewed as appropriate & no additional complaints except as documented Physical Exam <SUHAIL Muller - Last Filed: 08/26/24 23:13> General General appearance: alert and in no apparent distress Respiratory Respiratory exam: Present normal lung sounds bilaterally Cardiovascular Cardiovascular exam: Present regular rate Neurological Exam Neurological exam: Present alert and oriented X3 Medical Decision Making <SUHAIL Muller - Last Filed: 08/26/24 23:13> Medical Records Medical records reviewed: Yes I reviewed the patient's medical records. Screening: Per USPSTF and CDC recommendations, given the prevalence of disease in our region, it is our hospital?s policy to screen for HIV and viral Hepatitis for all patients aged 18 and over and those with ongoing risk factors. Jose Inquiry Pt receiving controlled substance: No Vital Signs: 08/26/24 15:18 08/26/24 16:20 08/26/24 17:31 Temperature 97.9 F Temperature Source Oral Pulse Rate Pulse Rate [Left Radial] 114 H 71 81 Respiratory Rate 19 17 17 Blood Pressure Blood Pressure [Right Arm] 120/62 146/69 H 147/55 H Blood Pressure Mean [Right Arm] 81 94 85 Blood Pressure Source [Right Arm] Automatic Cuff Automatic Cuff Automatic Cuff Blood Pressure Position [Right Arm] Sitting Sitting 02 Sat by Pulse Oximetry 95 94 L 93 L Oxygen Delivery Method Room Air Room Air Room Air 08/26/24 18:11 08/26/24 19:00 08/26/24 19:30 Temperature Temperature Source Pulse Rate Pulse Rate [Left Radial] 94 H Respiratory Rate 17 15 15 Blood Pressure 133/69 129/63 Blood Pressure [Right Arm] Blood Pressure Mean [Right Arm] Blood Pressure Source [Right Arm] Blood Pressure Position [Right Arm] 02 Sat by Pulse Oximetry 95 Oxygen Delivery Method Room Air 08/26/24 19:55 08/26/24 20:00 Temperature 97.7 F 97.9 F Temperature Source Oral Pulse Rate 94 H Pulse Rate [Left Radial] 95 H Respiratory Rate 18 15 Blood Pressure 129/63 Blood Pressure [Right Arm] 129/63 Blood Pressure Mean [Right Arm] 85 Blood Pressure Source [Right Arm] Automatic Cuff Blood Pressure Position [Right Arm] 02 Sat by Pulse Oximetry 95 Oxygen Delivery Method Room Air Room Air Lab Data Lab results reviewed: Yes I reviewed the patient's lab results. Lab Results 08/26/24 15:54: VBG pH 7.31, VBG pCO2 36.4, VBG pO2 65.1 H, VBG HCO3 17.8 L, VBG Total CO2 18.9 L, VBG O2 Saturation 91.0 H, VBG Base Excess -8.6 L, VBG Lactic Acid 2.2 H 08/26/24 15:55: WBC 7.1, RBC 4.24, Hgb 14.5, Hct 42.0, MCV 99.1 H, MCH 34.2 H, MCHC 34.5, RDW 12.5, Plt Count 185, MPV 10.9 H, Neut % (Auto) 80.5 H, Lymph % (Auto) 11.6, [place] % (Auto) 7.0, Eos % (Auto) 0.3, Baso % (Auto) 0.3, Neut # (Auto) 5.7, Lymph # (Auto) 0.8, [place] # (Auto) 0.5, Eos # (Auto) 0.0, Baso # (Auto) 0.0, PT 13.4 H, INR 1.22 H, Sodium 139, Potassium 6.0 H, Chloride 102, Carbon Dioxide 22, Anion Gap 21.0 H, BUN 55 H, Creatinine 2.90 H, Estimated GFR 16 L*, Est GFR ( Amer) 19 L*, Glucose 140 H, Calcium 9.3, Magnesium 2.5 H, Total Bilirubin 1.1, AST 47 H, ALT 28, Alkaline Phosphatase 98, Troponin I < 0.01, NT-Pro-B Natriuret Pep 1720 H, Total Protein 7.6, Albumin 5.0, Globulin 2.6, Albumin/Globulin Ratio 1.9 H, Procalcitonin 0.094, TSH 0.97, Free T4 Index 2.2 L, Thyroxine (T4) 5.7, T3 Uptake 39 08/26/24 16:50: Chlamy pneumoniae PCR Not detected, Adenovirus (PCR) Not detected, B. pertussis DNA (PCR) Not detected, Coronavirus OC43 (PCR) Not detected, Coronavirus HKU1 (PCR) Not detected, Coronavirus 229E (PCR) Not detected, SARS-CoV-2 (PCR) Not detected, Coronavirus NL63 (PCR) Not detected, Human Metapneumovir PCR Not detected, Influenza A (H1) PCR Not detected, Influ A (H1N1/09) PCR Not detected, Influenza A (H3) PCR Not detected, Influenza Type A (PCR) Not detected, Influenza Type B (PCR) Not detected, M. pneumoniae (PCR) Not detected, Parainfluenza 1 (PCR) Not detected, Parainfluenza 2 (PCR) Not detected, Parainfluenza 3 (PCR) Not detected, Parainfluenza 4 (PCR) Not detected, RSV (PCR) Not detected, Entero/Rhino (PCR) Not detected 08/26/24 17:15: Urine Color Yellow, Urine Appearance Clear, Urine pH 5.5, Ur Specific [place] 1.015, Urine Protein Negative, Urine Glucose (UA) Negative, Urine Ketones Negative, Urine Blood Negative, Urine Nitrate Negative, Urine Bilirubin Negative, Urine Urobilinogen 0.2, Ur Leukocyte Esterase Negative, Urine RBC None, Urine WBC 3-5, Ur Squamous Epith Cells Occasional, Urine Bacteria Trace, Hyaline Casts 3-5 08/26/24 15:55 08/26/24 19:05 Orders (Tests/Meds): ED MEDICATIONS Generic Name Dose Route Start Last Admin Trade Name Zahra PRN Reason Stop Dose Admin Sodium Chloride 1,000 mls @ 100 mls/hr 08/26/24 20:15 08/26/24 21:10 Sod Chlor 0.9% 1000ml Bag IV 09/25/24 20:14 100 mls/hr .Q10H WILLIAMS Administration Insulin Human Lispro 0 unit 08/27/24 06:00 Humalog 100 Units/Ml 10ml Vial (Ssi) SUBCUT 09/26/24 05:59 ACHS WILLIAMS Protocol Ondansetron HCl 4 mg 08/26/24 20:12 Ondansetron 4mg/2ml Vial IV 09/25/24 20:11 Q8HP PRN Nausea Sodium Chloride 10 ml 08/26/24 20:12 Sodium Chloride 0.9% 10ml Flush Syringe IV 09/25/24 20:11 NEEDED PRN Maintain IV Site Discontinued Medications Generic Name Dose Route Start Last Admin Trade Name Zahra PRN Reason Stop Dose Admin Dextrose 50 ml 08/26/24 16:53 08/26/24 17:43 Dextrose 50% 50ml Syringe (Crash Cart) IVP 08/26/24 16:54 50 ml ONCE ONE Administration Sodium Chloride 1,000 mls @ 999 mls/hr 08/26/24 15:51 08/26/24 16:48 Sod Chlor 0.9% 1000ml Bag IV 08/26/24 16:51 999 mls/hr .Q1H1M ONE Administration Calcium Gluconate/Sodium Chloride 2 gm in 100 mls @ 50 mls/hr 08/26/24 16:55 08/26/24 17:43 Calcium Gluconate 2,000mg/100ml Nacl Premix IV 08/26/24 18:54 50 mls/hr ONCE ONE Administration Insulin Human Regular 10 unit 08/26/24 16:53 08/26/24 17:42 Insulin Human Regular 100 Units/Ml 10ml Vial IVP 08/26/24 16:54 10 unit ONCE ONE Administration Iopamidol 160 ml 08/26/24 16:32 08/26/24 16:33 Iopamidol-370 (76%);100ml Bottle IV 08/26/24 16:33 160 ml ONCE ONE Administration Sodium Chloride 10 ml 08/26/24 16:32 08/26/24 16:33 Sodium Chloride 0.9% 10ml Syr (Rad Only) IV 08/26/24 16:33 10 ml ONCE ONE Administration Sodium Chloride 50 ml 08/26/24 16:32 08/26/24 16:33 0.9 % Sodium Chloride 50 Ml Vial IV 08/26/24 16:33 50 ml ONCE ONE Administration Sodium Zirconium Cyclosilicate 10 gm 08/26/24 16:55 08/26/24 17:43 Lokelma 5gm Packet PO 08/26/24 16:56 10 gm ONCE ONE Administration ORDERS Category Date Time Status CT angio abdomen pelvis Stat Cat Scan 08/26/24 15:[address] angio chest - dissection Stat Cat Scan 08/26/24 15:[address] angio head Stat Cat Scan 08/26/24 15:[address] angio neck Stat Cat Scan 08/26/24 15:[address] bony pelvis Stat Cat Scan 08/26/24 15:[address] cervical spine wo con Stat Cat Scan 08/26/24 15:[address] head/brain wo con Stat Cat Scan 08/26/24 15:[address] lumbar spine wo con Stat Cat Scan 08/26/24 15:[address] thoracic spine wo con Stat Cat Scan 08/26/24 15:54 Completed BNP [NT Pro Brain Natriuretic Pep.] Stat Lab 08/26/24 15:55 Completed CBC w/Auto Diff [Complete Blood Count Auto Diff] Stat Lab 08/26/24 15:55 Completed CMP [Comprehensive Metabolic Panel] Stat Lab 08/26/24 15:55 Completed Full Resp Panel w/COVID ([facility]) Routine Lab 08/26/24 16:50 Completed INR [Prothrombin Time INR] Stat Lab 08/26/24 15:55 Completed Magnesium Stat Lab 08/26/24 15:55 Completed Procalcitonin Stat Lab 08/26/24 15:55 Completed Thyroid Panel Stat Lab 08/26/24 15:55 Completed Trop I [Troponin I] Stat Lab 08/26/24 15:55 Completed Troponin I Q3H Lab 08/26/24 19:05 Completed Troponin I Q3H Lab 08/26/24 22:03 Completed UA [Urinalysis and Microscopic] Stat Lab 08/26/24 17:15 Completed Blood Culture Stat Micro 08/26/24 17:15 Received VBG [Venous Blood Gas] Stat RT 08/26/24 15:54 Completed HEART Score History (anamnesis): Slightly suspicious ECG: Non-specific disturbance Age: >65 years Risk factors: Atherosclerosis history Troponin: </= normal limit HEART Score: 5 Medical Decision Narrative: In summary patient is a 83-year-old female who presents to the emergency department for evaluation of fall and asthenia. Patient is initially normotensive 120/62 tachycardic at 114 with sinus tachycardia on the bedside monitor breathing 19 times a minute satting at 95% on room air with a temperature of 97.9 upon arrival. Physical exam reveals a very unwell appearing 83-year-old female who otherwise is no acute distress. Patient follows commands but has slightly weak and garbled speech but I am able to understand her. She is able to identify her son in the room. She is not able to identify the day month or year. She has no focal neurologic deficits although she appears to be globally weak she is able to move all 4 extremities. She is unable to participate in NIH exam due to her weakness however. Breath sounds are clear and equal bilaterally to the bases without adventitious sounds heart sounds show tachycardia with sinus tachycardia on bedside monitor but heart sounds are S1-S2 there is no dependent edema noted. Abdomen soft without rebound or guarding or rigidity normal bowel sounds.. Differential diagnosis includes stroke versus pneumonia versus fracture versus intracranial hemorrhage versus viral bacterial infection etc. Initial workup will be conducted with hematologic labs ED trauma scans urinalysis VBG. Initial interventions include crystalloid bolus for now. Initial workup reviewed by me and is significant for an INR of 1.22 VBG with a pH of 7.31 of VBG lactic acid of 2.2 a gap of 16.9 with a BUN of 55 a creatinine of 2.9 and GFR of 16 magnesium of 2.5 a troponin of less than 0.01 and NT proBNP of 1720 a TSH of 0.97 procalcitonin of 0.094 urinalysis that is bland and a full respiratory panel that is negative.. Given this there is diagnostic uncertainty as to why the patient has acute renal failure however I had interactive discussion with hospital medicine regarding patient SILVA findings and patient management and she will be admitted for further evaluation and care. <Alex Santana MD - Last Filed: 08/26/24 23:30> Vital Signs: 08/26/24 15:18 08/26/24 16:20 08/26/24 17:31 Temperature 97.9 F Temperature Source Oral Pulse Rate Pulse Rate [Left Radial] 114 H 71 81 Respiratory Rate 19 17 17 Blood Pressure Blood Pressure [Right Arm] 120/62 146/69 H 147/55 H Blood Pressure Mean [Right Arm] 81 94 85 Blood Pressure Source [Right Arm] Automatic Cuff Automatic Cuff Automatic Cuff Blood Pressure Position [Right Arm] Sitting Sitting 02 Sat by Pulse Oximetry 95 94 L 93 L Oxygen Delivery Method Room Air Room Air Room Air 08/26/24 18:11 08/26/24 19:00 08/26/24 19:30 Temperature Temperature Source Pulse Rate Pulse Rate [Left Radial] 94 H Respiratory Rate 17 15 15 Blood Pressure 133/69 129/63 Blood Pressure [Right Arm] Blood Pressure Mean [Right Arm] Blood Pressure Source [Right Arm] Blood Pressure Position [Right Arm] 02 Sat by Pulse Oximetry 95 Oxygen Delivery Method Room Air 08/26/24 19:55 08/26/24 20:00 Temperature 97.7 F 97.9 F Temperature Source Oral Pulse Rate 94 H Pulse Rate [Left Radial] 95 H Respiratory Rate 18 15 Blood Pressure 129/63 Blood Pressure [Right Arm] 129/63 Blood Pressure Mean [Right Arm] 85 Blood Pressure Source [Right Arm] Automatic Cuff Blood Pressure Position [Right Arm] 02 Sat by Pulse Oximetry 95 Oxygen Delivery Method Room Air Room Air Lab Data Lab Results 08/26/24 15:54: VBG pH 7.31, VBG pCO2 36.4, VBG pO2 65.1 H, VBG HCO3 17.8 L, VBG Total CO2 18.9 L, VBG O2 Saturation 91.0 H, VBG Base Excess -8.6 L, VBG Lactic Acid 2.2 H 08/26/24 15:55: WBC 7.1, RBC 4.24, Hgb 14.5, Hct 42.0, MCV 99.1 H, MCH 34.2 H, MCHC 34.5, RDW 12.5, Plt Count 185, MPV 10.9 H, Neut % (Auto) 80.5 H, Lymph % (Auto) 11.6, [place] % (Auto) 7.0, Eos % (Auto) 0.3, Baso % (Auto) 0.3, Neut # (Auto) 5.7, Lymph # (Auto) 0.8, [place] # (Auto) 0.5, Eos # (Auto) 0.0, Baso # (Auto) 0.0, PT 13.4 H, INR 1.22 H, Sodium 139, Potassium 6.0 H, Chloride 102, Carbon Dioxide 22, Anion Gap 21.0 H, BUN 55 H, Creatinine 2.90 H, Estimated GFR 16 L*, Est GFR ( Amer) 19 L*, Glucose 140 H, Calcium 9.3, Magnesium 2.5 H, Total Bilirubin 1.1, AST 47 H, ALT 28, Alkaline Phosphatase 98, Troponin I < 0.01, NT-Pro-B Natriuret Pep 1720 H, Total Protein 7.6, Albumin 5.0, Globulin 2.6, Albumin/Globulin Ratio 1.9 H, Procalcitonin 0.094, TSH 0.97, Free T4 Index 2.2 L, Thyroxine (T4) 5.7, T3 Uptake 39 08/26/24 16:50: Chlamy pneumoniae PCR Not detected, Adenovirus (PCR) Not detected, B. pertussis DNA (PCR) Not detected, Coronavirus OC43 (PCR) Not detected, Coronavirus HKU1 (PCR) Not detected, Coronavirus 229E (PCR) Not detected, SARS-CoV-2 (PCR) Not detected, Coronavirus NL63 (PCR) Not detected, Human Metapneumovir PCR Not detected, Influenza A (H1) PCR Not detected, Influ A (H1N1/09) PCR Not detected, Influenza A (H3) PCR Not detected, Influenza Type A (PCR) Not detected, Influenza Type B (PCR) Not detected, M. pneumoniae (PCR) Not detected, Parainfluenza 1 (PCR) Not detected, Parainfluenza 2 (PCR) Not detected, Parainfluenza 3 (PCR) Not detected, Parainfluenza 4 (PCR) Not detected, RSV (PCR) Not detected, Entero/Rhino (PCR) Not detected 08/26/24 17:15: Urine Color Yellow, Urine Appearance Clear, Urine pH 5.5, Ur Specific [place] 1.015, Urine Protein Negative, Urine Glucose (UA) Negative, Urine Ketones Negative, Urine Blood Negative, Urine Nitrate Negative, Urine Bilirubin Negative, Urine Urobilinogen 0.2, Ur Leukocyte Esterase Negative, Urine RBC None, Urine WBC 3-5, Ur Squamous Epith Cells Occasional, Urine Bacteria Trace, Hyaline Casts 3-5 Orders (Tests/Meds): ED MEDICATIONS Generic Name Dose Route Start Last Admin Trade Name Zahra PRN Reason Stop Dose Admin Sodium Chloride 1,000 mls @ 100 mls/hr 08/26/24 20:15 08/26/24 21:10 Sod Chlor 0.9% 1000ml Bag IV 09/25/24 20:14 100 mls/hr .Q10H WILLIAMS Administration Insulin Human Lispro 0 unit 08/27/24 06:00 Humalog 100 Units/Ml 10ml Vial (Ssi) SUBCUT 09/26/24 05:59 ACHS WILLIAMS Protocol Ondansetron HCl 4 mg 08/26/24 20:12 Ondansetron 4mg/2ml Vial IV 09/25/24 20:11 Q8HP PRN Nausea Sodium Chloride 10 ml 08/26/24 20:12 Sodium Chloride 0.9% 10ml Flush Syringe IV 09/25/24 20:11 NEEDED PRN Maintain IV Site Discontinued Medications Generic Name Dose Route Start Last Admin Trade Name Zahra PRN Reason Stop Dose Admin Dextrose 50 ml 08/26/24 16:53 08/26/24 17:43 Dextrose 50% 50ml Syringe (Crash Cart) IVP 08/26/24 16:54 50 ml ONCE ONE Administration Sodium Chloride 1,000 mls @ 999 mls/hr 08/26/24 15:51 08/26/24 16:48 Sod Chlor 0.9% 1000ml Bag IV 08/26/24 16:51 999 mls/hr .Q1H1M ONE Administration Calcium Gluconate/Sodium Chloride 2 gm in 100 mls @ 50 mls/hr 08/26/24 16:55 08/26/24 17:43 Calcium Gluconate 2,000mg/100ml Nacl Premix IV 08/26/24 18:54 50 mls/hr ONCE ONE Administration Insulin Human Regular 10 unit 08/26/24 16:53 08/26/24 17:42 Insulin Human Regular 100 Units/Ml 10ml Vial IVP 08/26/24 16:54 10 unit ONCE ONE Administration Iopamidol 160 ml 08/26/24 16:32 08/26/24 16:33 Iopamidol-370 (76%);100ml Bottle IV 08/26/24 16:33 160 ml ONCE ONE Administration Sodium Chloride 10 ml 08/26/24 16:32 08/26/24 16:33 Sodium Chloride 0.9% 10ml Syr (Rad Only) IV 08/26/24 16:33 10 ml ONCE ONE Administration Sodium Chloride 50 ml 08/26/24 16:32 08/26/24 16:33 0.9 % Sodium Chloride 50 Ml Vial IV 08/26/24 16:33 50 ml ONCE ONE Administration Sodium Zirconium Cyclosilicate 10 gm 08/26/24 16:55 08/26/24 17:43 Lokelma 5gm Packet PO 08/26/24 16:56 10 gm ONCE ONE Administration ORDERS Category Date Time Status CT angio abdomen pelvis Stat Cat Scan 08/26/24 15:[address] angio chest - dissection Stat Cat Scan 08/26/24 15:[address] angio head Stat Cat Scan 08/26/24 15:[address] angio neck Stat Cat Scan 08/26/24 15:[address] bony pelvis Stat Cat Scan 08/26/24 15:[address] cervical spine wo con Stat Cat Scan 08/26/24 15:[address] head/brain wo con Stat Cat Scan 08/26/24 15:[address] lumbar spine wo con Stat Cat Scan 08/26/24 15:[address] thoracic spine wo con Stat Cat Scan 08/26/24 15:54 Completed BNP [NT Pro Brain Natriuretic Pep.] Stat Lab 08/26/24 15:55 Completed CBC w/Auto Diff [Complete Blood Count Auto Diff] Stat Lab 08/26/24 15:55 Completed CMP [Comprehensive Metabolic Panel] Stat Lab 08/26/24 15:55 Completed Full Resp Panel w/COVID ([facility]) Routine Lab 08/26/24 16:50 Completed INR [Prothrombin Time INR] Stat Lab 08/26/24 15:55 Completed Magnesium Stat Lab 08/26/24 15:55 Completed Procalcitonin Stat Lab 08/26/24 15:55 Completed Thyroid Panel Stat Lab 08/26/24 15:55 Completed Trop I [Troponin I] Stat Lab 08/26/24 15:55 Completed Troponin I Q3H Lab 08/26/24 19:05 Completed Troponin I Q3H Lab 08/26/24 22:03 Completed UA [Urinalysis and Microscopic] Stat Lab 08/26/24 17:15 Completed Blood Culture Stat Micro 08/26/24 17:15 Received VBG [Venous Blood Gas] Stat RT 08/26/24 15:54 Completed HEART Score HEART Score: 5 Medical Decision Narrative: In summary patient is a 83-year-old female who presents to the emergency department for evaluation of fall and asthenia. Patient is initially normotensive 120/62 tachycardic at 114 with sinus tachycardia on the bedside monitor breathing 19 times a minute satting at 95% on room air with a temperature of 97.9 upon arrival. Physical exam reveals a very unwell appearing 83-year-old female who otherwise is no acute distress. Patient follows commands but has slightly weak and garbled speech but I am able to understand her. She is able to identify her son in the room. She is not able to identify the day month or year. She has no focal neurologic deficits although she appears to be globally weak she is able to move all 4 extremities. She is unable to participate in NIH exam due to her weakness however. Breath sounds are clear and equal bilaterally to the bases without adventitious sounds heart sounds show tachycardia with sinus tachycardia on bedside monitor but heart sounds are S1-S2 there is no dependent edema noted. Abdomen soft without rebound or guarding or rigidity normal bowel sounds.. Differential diagnosis includes stroke versus pneumonia versus fracture versus intracranial hemorrhage versus viral bacterial infection etc. Initial workup will be conducted with hematologic labs ED trauma scans urinalysis VBG. Initial interventions include crystalloid bolus for now. Initial workup reviewed by me and is significant for an INR of 1.22 VBG with a pH of 7.31 of VBG lactic acid of 2.2 a gap of 16.9 with a BUN of 55 a creatinine of 2.9 and GFR of 16 magnesium of 2.5 a troponin of less than 0.01 and NT proBNP of 1720 a TSH of 0.97 procalcitonin of 0.094 urinalysis that is bland and a full respiratory panel that is negative.. Given this there is diagnostic uncertainty as to why the patient has acute renal failure however I had interactive discussion with hospital medicine regarding patient SILVA findings and patient management and she will be admitted for further evaluation and care. I was consulted by the EDGAR, and we discussed the complexity of the problems being addressed. I approved the treatment and management plan for this patient's care in the Emergency Department, thus performing a substantive portion of the medical decision making. Alex Santana MD Critical Care <SUHAIL Muller - Last Filed: 08/26/24 23:13> Critical Care Time Critical Care Time: Yes Attestation: On 08/26/24, the high probability of a clinically significant, sudden or life threatening deterioration of the following system(s) required my full and direct attention, intervention and personal management. The time I documented below is in addition to time spent performing reported procedures but includes the following listed in this critical care notation. Total Time Total Critical Care Time: 35
--- NOTE | 2024-08-26 15:44 | CT_ITS ---
PROCEDURE INFORMATION: Exam: CT Head Without Contrast Exam date and time: 08/26/2024 3:55 PM Age: 83 years old Clinical indication: Injury or trauma; Additional info: Fall TECHNIQUE: Imaging protocol: Computed tomography of the head without contrast. Radiation optimization: All CT scans at this facility use at least one of these dose optimization techniques: automated exposure control; mA and/or kV adjustment per patient size (includes targeted exams where dose is matched to clinical indication); or iterative reconstruction. COMPARISON: CT HEAD/BRAIN WO CON 08/26/2024 3:55 PM FINDINGS: Brain: Stable chronic left periventricular white matter calcifications. Age related brain involution is present. Diffuse subcortical and periventricular white matter hypodensities are most in favor with chronic small vessel disease. No extra-axial fluid collections, midline shift, brain herniation, intracranial hemorrhage, or mass effect. Cerebral ventricles: Compensatory exvacuo ventriculomegaly. Paranasal sinuses: Visualized sinuses are unremarkable. No fluid levels. Mastoid air cells: Visualized mastoid air cells are well aerated. Bones: Unremarkable. No acute fracture. Soft tissues: Unremarkable. Other findings: Intracranial atherosclerosis is present. IMPRESSION: No acute intracranial abnormality.
--- NOTE | 2024-08-26 15:44 | CT_ITS ---
PROCEDURE INFORMATION: Exam: CT Cervical Spine Without Contrast Exam date and time: 08/26/2024 3:57 PM Age: 83 years old Clinical indication: Injury or trauma; Additional info: Fall TECHNIQUE: Imaging protocol: Computed tomography of the cervical spine without contrast. Radiation optimization: All CT scans at this facility use at least one of these dose optimization techniques: automated exposure control; mA and/or kV adjustment per patient size (includes targeted exams where dose is matched to clinical indication); or iterative reconstruction. COMPARISON: CT CERVICAL SPINE WO CON 08/26/2024 3:57 PM FINDINGS: Bones: Moderate degenerative changes of the cervical spine, worse at C6-C7 where there is moderate to severe disc space narrowing and endplate sclerosis with a small posterior disc osteophyte complex. Moderate degenerative changes of the atlantoaxial joint. Diffuse uncovertebral joint hypertrophy. Spinal canal is patent. No acute fracture or dislocation. Lungs: Lung apices are normal. Thyroid: 1.3 cm right thyroid lobe nodule. Vasculature: Severe calcifications of the carotid bulbs. Moderate vascular calcific atherosclerosis. Soft tissues: Unremarkable. IMPRESSION: 1. No acute fracture or dislocation. 2. Moderate degenerative changes. 3. 1.3 cm right thyroid lobe nodule. Consider nonemergent follow-up ultrasound. COMMENTS: Consistent with the [employer]'s Incidental Findings Committee white paper (J Am Lydia Radiol 2015): In patients aged 35 years and older with an incidental thyroid nodule equal to or greater than 1.[address], MRI or extrathyroidal US, further evaluation with dedicated thyroid US is recommended for patients with normal life expectancy and without comorbidities. For smaller nodules without suspicious features, no further evaluation or follow up is recommended.
--- NOTE | 2024-08-26 15:51 | CT_ITS ---
PROCEDURE INFORMATION: Exam: CTA Head With Contrast, Arteriography Exam date and time: 08/26/2024 4:21 PM Age: 83 years old Clinical indication: Injury or trauma; Additional info: Altered mental status TECHNIQUE: Imaging protocol: Computed tomographic angiography of the head with contrast. Exam focused on the arteries. 3D rendering (Not supervised by radiologist): MIP and/or 3D reconstructed images were created by the technologist. Radiation optimization: All CT scans at this facility use at least one of these dose optimization techniques: automated exposure control; mA and/or kV adjustment per patient size (includes targeted exams where dose is matched to clinical indication); or iterative reconstruction. Contrast material: ISOVUE; Contrast volume: 80 ml; Contrast route: INTRAVENOUS (IV); COMPARISON: CT HEAD/BRAIN WO CON 08/26/2024 3:55 PM FINDINGS: ANTERIOR CIRCULATION: Right internal carotid artery: Eccentric calcified plaques in the cavernous segment of the right internal carotid artery, causing up to 50% luminal stenosis. Right middle cerebral artery: Right middle cerebral artery is patent and without stenosis or occlusion. Right anterior cerebral artery: Right anterior cerebral artery is patent and without stenosis or occlusion. Left internal carotid artery: Eccentric calcifications in the intracranial/cavernous segment of the left internal carotid artery, causing less than 50% luminal stenosis. Left middle cerebral artery: Left middle cerebral artery is patent and without stenosis or occlusion. Left anterior cerebral artery: Left anterior cerebral artery is patent and without stenosis or occlusion. POSTERIOR CIRCULATION: Right vertebral artery: Eccentric calcified plaque in the intracranial segment of the right vertebral artery, causing less than 50% luminal stenosis. Left vertebral artery: Left vertebral artery is patent and without stenosis or occlusion. Basilar artery: Basilar artery is patent and without stenosis or occlusion. Right posterior cerebral artery: Right posterior cerebral artery is patent and without stenosis or occlusion. Left posterior cerebral artery: Left posterior cerebral artery is patent and without stenosis or occlusion. Brain: Age related brain involution is present. Diffuse subcortical and periventricular white matter hypodensities are most in favor with chronic small vessel disease. No intracranial mass effect. Cerebral ventricles: No ventriculomegaly. Orbital cavities: The orbits are normal. Mastoid air cells: The mastoid sinuses are clear. Paranasal sinuses: Paranasal sinuses are clear. Bones/joints: No acute skeletal abnormality or aggressive osseous lesion. Soft tissues: No acute soft tissue findings. IMPRESSION: Eccentric calcified plaques in the cavernous segment of the right internal carotid artery, causing up to 50% luminal stenosis.
--- NOTE | 2024-08-26 15:51 | CT_ITS ---
PROCEDURE INFORMATION: Exam: CTA Neck With Contrast Exam date and time: 08/26/2024 4:21 PM Age: 83 years old Clinical indication: Injury or trauma; Additional info: Altered mental status, fall TECHNIQUE: Imaging protocol: Computed tomographic angiography of the neck with contrast. Exam focused on the cervical segments of the vasculature. 3D rendering (Not supervised by radiologist): MIP and/or 3D reconstructed images were created by the technologist. Radiation optimization: All CT scans at this facility use at least one of these dose optimization techniques: automated exposure control; mA and/or kV adjustment per patient size (includes targeted exams where dose is matched to clinical indication); or iterative reconstruction. Contrast material: ISOVUE; Contrast volume: 80 ml; Contrast route: INTRAVENOUS (IV); COMPARISON: CT CERVICAL SPINE WO CON 08/26/2024 3:57 PM FINDINGS: Right common carotid artery: Eccentric calcifications in the distal right common carotid artery without stenosis or occlusion. Right internal carotid artery: Eccentric calcifications in the proximal right internal carotid artery without significant stenosis or occlusion. Eccentric calcifications in the intracranial (petrous) segment of the right internal carotid artery, causing at least 50% luminal stenosis. Eccentric calcifications in the cavernous segment of the right internal carotid artery without significant stenosis or occlusion. No other significant stenosis in the right internal carotid artery. Right external carotid artery: Eccentric calcifications in the proximal segments of the right external carotid artery without significant stenosis or occlusion. Left common carotid artery: Eccentric calcifications and noncalcified plaque throughout the left common carotid artery, worse at the distal segments causing up to 50% luminal stenosis. Left internal carotid artery: Severe calcified plaque in the proximal left internal carotid artery, causing 50-69% and possibly up to 70% luminal stenosis. Eccentric calcifications in the cavernous segment of the left internal carotid artery without significant stenosis or occlusion. Remainder of the left internal carotid artery is without significant stenosis. Left external carotid artery: Eccentric calcified plaque in the proximal segments of the left external carotid artery, causing at least 50% luminal stenosis. Right vertebral artery: Eccentric calcifications throughout the right vertebral artery, causing at least 50% luminal stenosis at the proximal/mid segments. No other significant stenosis in the right vertebral artery. Left vertebral artery: Eccentric calcified plaques throughout the left vertebral artery, not causing any hemodynamically significant stenosis or occlusion. Orbital cavities: The orbits are normal. Thyroid: Enlarged right thyroid lobe with multiple nodules, the largest measuring 9 mm. Soft tissues: No acute soft tissue findings. Bones/joints: No acute skeletal abnormality or aggressive osseous lesion. Multilevel degenerative changes of the vertebra are present, as manifested by multilevel anterior osteophytes, endplate sclerosis, and multilevel posterior disc osteophyte complexes. Findings are worse at C6 and C7. Lungs: Left lung calcified granuloma is benign. No acute findings in the lung apices. Mediastinal space: Scattered calcified granulomas throughout the mediastinum are benign. Other findings: Right hilar calcified granulomas, benign. IMPRESSION: 1. Eccentric calcifications throughout the right vertebral artery, causing at least 50% luminal stenosis at the proximal/mid segments. 2. Eccentric calcifications in the intracranial (petrous) segment of the right internal carotid artery, causing at least 50% luminal stenosis. 3. Eccentric calcifications and noncalcified plaque throughout the left common carotid artery, worse at the distal segments causing up to 50% luminal stenosis. 4. Severe calcified plaque in the proximal left internal carotid artery, causing 50-69% and possibly up to 70% luminal stenosis. 5. Eccentric calcified plaque in the proximal segments of the left external carotid artery, causing at least 50% luminal stenosis. 6. Enlarged right thyroid lobe with multiple nodules, the largest measuring 9 mm. Consider correlation with nonemergent thyroid ultrasound. REFERENCES: NASCET CRITERIA. The degree of stenosis in the cervical segment of the internal carotid artery is based on NASCET criteria. Normal is no stenosis. Mild is less than 50% stenosis. Moderate is 50-69% stenosis. Severe is 70% to 99% stenosis. Total occlusion is no detectable patent lumen.
--- NOTE | 2024-08-26 15:54 | CT_ITS ---
PROCEDURE INFORMATION: Exam: CTA Abdomen and Pelvis With Contrast Exam date and time: 08/26/2024 4:26 PM Age: 83 years old Clinical indication: Injury or trauma; Additional info: Trauma, critical injury suspected TECHNIQUE: Imaging protocol: Computed tomographic angiography of the abdomen and pelvis with contrast. Exam focused on the arteries. 3D rendering (Not supervised by radiologist): MIP and/or 3D reconstructed images were created by the technologist. Radiation optimization: All CT scans at this facility use at least one of these dose optimization techniques: automated exposure control; mA and/or kV adjustment per patient size (includes targeted exams where dose is matched to clinical indication); or iterative reconstruction. Contrast material: ISOVUE; Contrast volume: 80 ml; Contrast route: INTRAVENOUS (IV); COMPARISON: CT BONY PELVIS 08/26/2024 4:07 PM FINDINGS: Aorta: No abdominal aortic aneurysm.Atherosclerotic vascular disease is noted. Celiac trunk and mesenteric arteries: The celiac trunk is patent. There is moderate stenosis at the origin of the SMA. Renal arteries: Mild stenosis at the origin of the right renal artery. Left renal artery is diminutive. Right iliac arteries: No occlusion or significant stenosis. Left iliac arteries: No occlusion or significant stenosis. Other arteries: No active arterial bleeding identified. Liver: Calcified granulomata are seen in the liver. There are no focal liver lesions present. Gallbladder and biliary ducts: There has been a cholecystectomy. Pancreas: The pancreas is normal. Spleen: The spleen is normal. Adrenal glands: The adrenal glands are normal. 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 Stomach and bowel: There is no evidence of intestinal perforation or obstruction. Appendix: A normal appendix is identified. Intraperitoneal space: There is no free intraperitoneal air visualized. There is no evidence of free intraperitoneal or pelvic fluid. Lymph nodes: No pathologically enlarged lymph nodes are identified. Urinary bladder: The bladder is normal. Reproductive: Leiomyomatous uterus. Bones/joints: Spinal degenerative changes. Prominent Schmorl's node at the L1 superior endplate is age indeterminate. No acute lucent fracture lines are seen. Previous right hip fracture fixation. Soft tissues: Unremarkable. IMPRESSION: 1. Moderate SMA stenosis. 2. Mild right renal arterial stenosis. 3. No acute fracture or traumatic visceral injury identified in the abdomen or pelvis. 4. Malrotated, atrophic left kidney. 5. Leiomyomatous uterus.
--- NOTE | 2024-08-26 15:54 | CT_ITS ---
PROCEDURE INFORMATION: Exam: CT Thoracic Spine Without Contrast Exam date and time: 08/26/2024 4:01 PM Age: 83 years old Clinical indication: Injury or trauma; Additional info: Trauma, critical injury suspected TECHNIQUE: Imaging protocol: Computed tomography of the thoracic spine without contrast. Radiation optimization: All CT scans at this facility use at least one of these dose optimization techniques: automated exposure control; mA and/or kV adjustment per patient size (includes targeted exams where dose is matched to clinical indication); or iterative reconstruction. COMPARISON: CT THORACIC SPINE WO CON 08/26/2024 4:01 PM FINDINGS: Bones/joints: There is left convexity of the upper thoracic spine. There is no anterior wedging deformity. Central superior endplate depression is seen at T3. This is chronic.There are diffuse enthesopathic changes consistent with benign diffuse idiopathic skeletal hyperostosis (DISH). Facet arthropathy is seen at the left upper thoracic levels. No severe central canal or neural foraminal stenosis demonstrated by CT. Soft tissues: Unremarkable. IMPRESSION: No acute thoracic spinal injury demonstrated by CT.
--- NOTE | 2024-08-26 15:54 | CT_ITS ---
PROCEDURE INFORMATION: Exam: CTA Chest With Contrast Exam date and time: 08/26/2024 4:26 PM Age: 83 years old Clinical indication: Injury or trauma; Additional info: Trauma, critical injury suspected TECHNIQUE: Imaging protocol: Computed tomographic angiography of the chest with contrast. Exam focused on the arteries. 3D rendering (Not supervised by radiologist): MIP and/or 3D reconstructed images were created by the technologist. Radiation optimization: All CT scans at this facility use at least one of these dose optimization techniques: automated exposure control; mA and/or kV adjustment per patient size (includes targeted exams where dose is matched to clinical indication); or iterative reconstruction. Contrast material: ISOVUE; Contrast volume: 80 ml; Contrast route: INTRAVENOUS (IV); COMPARISON: CT CHEST WO CON 07/05/2024 4:03 PM FINDINGS: Pulmonary arteries: No pulmonary embolism identified. Great vessels off aortic arch: Mild stenosis at the right CCA origin. Moderate stenosis of the proximal left subclavian artery. Aorta: No thoracic aortic aneurysm or dissection.Atherosclerotic vascular disease is noted. Lungs: There is mild atelectasis at the lung bases. In the left upper lobe, there is a pleural-based calcified granuloma with mineral associated atelectasis. Pleural spaces: No pleural effusion. No pneumothorax. Heart: No cardiomegaly. No pericardial effusion. Coronary arterial calcifications are present. Lymph nodes: No pathologically enlarged lymph nodes are identified. Bones/joints: Mild central superior endplate depression T3 age indeterminate. Spinal degenerative changes noted. No acute displaced fracture is seen. Soft tissues: Unremarkable. Other findings: There is evidence of previous granulomatous reaction. IMPRESSION: 1. Mild central superior endplate depression T3 age indeterminate. 2. Mild atelectasis at the lung bases. 3. Mild stenosis at the right CCA origin. 4. Moderate stenosis of the proximal left subclavian artery.
--- NOTE | 2024-08-26 15:54 | CT_ITS ---
PROCEDURE INFORMATION: Exam: CT Lumbar Spine Without Contrast Exam date and time: 08/26/2024 4:04 PM Age: 83 years old Clinical indication: Injury or trauma; Additional info: Trauma, critical injury suspected TECHNIQUE: Imaging protocol: Computed tomography of the lumbar spine without contrast. Radiation optimization: All CT scans at this facility use at least one of these dose optimization techniques: automated exposure control; mA and/or kV adjustment per patient size (includes targeted exams where dose is matched to clinical indication); or iterative reconstruction. COMPARISON: CT LUMBAR SPINE WO CON 07/05/2024 4:05 PM FINDINGS: Bones/joints: There is no anterior wedging deformity. No acute lucent fracture lines are seen. There is minimal anterolisthesis at L5-S1. There are diffuse spondylitic changes of the lumbar spine, with diffuse facet arthropathy. Prominent Schmorl's node at the superior L1 endplate is age indeterminate. Lucent lesion at posterosuperior L3 endplate is felt to be related to the endplate and appears chronic. There is severe loss of disc height at L1-L2 L5-S1 vacuum disc at L1-L2, L2-L3 and L5-S1. There is right convexity of the upper lumbar. Central canal stenosis is moderate at L1-L2, moderate to severe at L2-L3, severe at L3-L4 and L4-L5, moderate to severe at L5-S1. Neural foraminal stenosis at multiple levels. Kidneys and ureters: Nonobstructing right nephrolithiasis noted. Soft tissues: Unremarkable. IMPRESSION: 1. No acute lumbar spinal injury demonstrated by CT. 2. Degenerative changes of the lumbar spine.
--- NOTE | 2024-08-26 15:55 | CT_ITS ---
PROCEDURE INFORMATION: Exam: CT Pelvis Without Contrast, Skeleton Exam date and time: 08/26/2024 4:07 PM Age: 83 years old Clinical indication: Injury or trauma; Additional info: Trauma, critical injury suspected TECHNIQUE: Imaging protocol: Computed tomography of the pelvis without contrast. Exam focused on the skeleton. Radiation optimization: All CT scans at this facility use at least one of these dose optimization techniques: automated exposure control; mA and/or kV adjustment per patient size (includes targeted exams where dose is matched to clinical indication); or iterative reconstruction. COMPARISON: CT BONY PELVIS 08/26/2024 4:07 PM FINDINGS: Intestine: Nonobstructive bowel pattern. Intraperitoneal space: No free air. No free fluid. Reproductive: Leiomyomatous uterus. Bones/joints: Previous right hip fracture fixation. Distal aspect the femoral medullary component is not visualized in this field of view. The bones are osteopenic. Mild degenerative joint space narrowing at the hips. No acute hip or pelvic fracture is identified. Severe lower lumbar facet arthropathy noted. Soft tissues: Unremarkable. Lymph nodes: No lymphadenopathy. IMPRESSION: No acute fracture.
[2024-08-26 16:06] LABS: Basophils % 0.3 % (0.1-2.0); Eosinophils % 0.3 % (0.1-12.0); Hemoglobin 14.5 g/dL (12.2-16.2); Lymphocytes # 0.8 K/mm3 (0.7-4.5); Lymphocytes % 11.6 % (10-50); Mean Corpuscular HGB Conc 34.5 g/dL (31.8-35.4); Mean Corpuscular Hemoglobin 34.2 pg (27.0-31.2); Mean Corpuscular Volume 99.1 fl (81-99); Mean Platelet Volume 10.9 fl (7.4-10.4); Monocytes # 0.5 K/mm3 (0.1-1.0); Neutrophils # 5.7 K/mm3 (1.8-7.8); Neutrophils % 80.5 % (37.0-80.0); Platelet Count 185 K/mm3 (142-424); Red Blood Count 4.24 M/mm3 (4.20-5.40); Red Cell Distribution Width 12.5 % (11.5-17.5); White Blood Count 7.1 K/mm3 (4.8-10.8)
[2024-08-26 16:19] LABS: INR 1.22 (0.9-1.1); Prothrombin Time 13.4 seconds (10.1-12.5)
[2024-08-26 16:21] LABS: VBG Base Excess -8.6 mmol/L (-2.4-2.3); VBG HCO3 17.8 mmol/L (23-30); VBG PCO2 36.4 mmol/L (35-51); VBG PH 7.31 mmol/L (7.31-7.41); VBG PO2 65.1 mmol/L (28-40); VBG Total CO2 18.9 mmol/L (23-27)
[2024-08-26 16:24] LABS: Lactate Venous 2.2 mmol/L (0.4-2.0)
[2024-08-26 16:24] LABS: Magnesium 2.5 mg/dl (1.6-2.3)
[2024-08-26 16:25] LABS: Alanine Aminotransferase 28 U/L (12-78); Albumin/Globulin Ratio 1.9 (1.1-1.8); Alkaline Phosphatase 98 U/L (38-126); Aspartate Amino Transferase 47 U/L (14-36); Bilirubin,Total 1.1 mg/dl (0.2-1.3); Blood Urea Nitrogen 55 mg/dl (7-17); Calcium 9.3 mg/dl (8.4-10.2); Carbon Dioxide 22 mmol/L (22.0-30.0); Chloride 102 mmol/L (98-107); Estimated Glomerular Filt Rate 16 ml/min (>60); GFR (African American) 19 ML/MIN (>60); Globulin 2.6 g/dL (1.3-3.2); Glucose 140 mg/dl (74-100); Sodium 139 mmol/L (136-145); Total Protein,Serum 7.6 g/dl (6.3-8.2)
[2024-08-26] MEDS: IOPAMIDOL-370 (76%);100ML BOTTLE 160 ML IV (16:33)
[2024-08-26] MEDS: SODIUM CHLORIDE 0.9% 10ML SYR (RAD ONLY) 10 ML IV (16:33)
[2024-08-26] MEDS: 0.9 % SODIUM CHLORIDE 50 ML VIAL IV (16:33)
[2024-08-26 16:36] LABS: NT Pro Brain Natriuretic Pep. 1720 pg/mL (0-450)
[2024-08-26 16:39] LABS: Troponin I < 0.01 ng/ml (0.00-0.034)
--- NOTE | 2024-08-26 16:39 | PC.NURSE ---
Per lab Pot. 6.0 and was not hemolized
[2024-08-26 16:43] LABS: Procalcitonin 0.094 ng/mL (0.0-2.0)
[2024-08-26 16:45] LABS: Free Thyroxine Index 2.2 ug/dL (5.93-13.13); T4 (Thyroxine) 5.7 ug/dl (5.53-11.0); Triiodothryronine (T3) Uptake 39 % (23.5-40.5)
[2024-08-26] MEDS: 0.9 % SODIUM CHLORIDE 1000ML 1,000 ML 999 ML IV (16:48)
[2024-08-26 16:52] LABS: Adenovirus,PCR Not Detected (NotDetected); Bordetella Pertussis Not Detected (NotDetected); Chlamydophila Pneumoniae, PCR Not Detected (NotDetected); Coronavirus 19, PCR Not Detected (NotDetected); Coronavirus 229E Not Detected (NotDetected); Coronavirus NL63 Not Detected (NotDetected); Coronavirus OC43 Not Detected (NotDetected); Coronovirus HKU1,PCR Not Detected (NotDetected); Human Metapneumovirus Not Detected (NotDetected); Influenza A, PCR Not Detected (NotDetected); Influenza AH1, 2009 Not Detected (NotDetected); Influenza AH1, PCR Not Detected (NotDetected); Influenza AH3,PCR Not Detected (NotDetected); Influenza B, PCR Not Detected (NotDetected); Mycoplasma Pneumoniae, PCR Not Detected (NotDetected); Parainfluenza 1, PCR Not Detected (NotDetected); Parainfluenza 2, PCR Not Detected (NotDetected); Parainfluenza 3, PCR Not Detected (NotDetected); Parainfluenza 4, PCR Not Detected (NotDetected); Respiratory Syncytial Virus Not Detected (NotDetected); Rhinovirus/Enterovirus Not Detected (NotDetected)
[2024-08-26 16:59] LABS: Thyroid Stimulating Hormone 0.97 uIU/mL (0.465-4.68)
--- NOTE | 2024-08-26 17:15 | PC.NURSE ---
pt in/out cath for urine specimen and 2nd set of blood cultures sent to lab at this time
[2024-08-26 17:20] LABS: Microscopic, Urine URINE MICROSCOPIC (MICROSCOPIC)
[2024-08-26 17:30] LABS: Appearance,Urine CLEAR (Clear); Bilirubin,Urine Negative (Negative); Blood, Urine Negative (Negative); Color,Urine YELLOW (Yellow); Glucose,Urine (UA) Negative (Negative); Ketones,Urine Negative (Negative); Leukocyte Esterase,Urine Negative (Negative); Nitrate,Urine Negative (Negative); PH,Urine 5.5 (5.0-8.5); Protein,Urine Negative (Negative); Specific Gravity, Urine 1.015 (1.005-1.030); Urobilinogen,Urine 0.2 EU/dl (0.2)
--- NOTE | 2024-08-26 17:31 | PC.NURSE ---
rounded on pt. pt resting with eyes clothes at this time
[2024-08-26] MEDS: INSULIN HUMAN REGULAR 100 UNITS/ML 10ML VIAL 10 UNIT IVP (17:42)
[2024-08-26] MEDS: CALCIUM GLUC IN NACL, ISO-OSM 2 GM/100 ML BAG IV (17:43)
[2024-08-26] MEDS: LOKELMA 5GM PACKET 10 GM PO (17:43)
[2024-08-26] MEDS: DEXTROSE 50% 50ML SYRINGE (CRASH CART) 50 ML IVP (17:43)
--- NOTE | 2024-08-26 17:48 | PC.NURSE ---
Andre speaking with hospitalist for admission
--- NOTE | 2024-08-26 17:53 | PC.NURSE ---
called house for admission
--- NOTE | 2024-08-26 18:21 | PC.NURSE ---
report called to CATHLEEN Davey
[2024-08-26 18:35] LABS: Squamous Epithelial Cell,Urine Occasional #/hpf (0-5)
[2024-08-26 18:36] LABS: Bacteria,Urine Trace /lpf
[2024-08-26 19:24] LABS: Chloride 104 mmol/L (98-107); Potassium 4.9 mmoL/L (3.5-5.1); Sodium 136 mmol/L (136-145)
[2024-08-26 19:27] LABS: Anion Gap 16.9 mEq/L (5-15); Blood Urea Nitrogen 55 mg/dl (7-17); Calcium 9.8 mg/dl (8.4-10.2); Carbon Dioxide 20 mmol/L (22.0-30.0); Creatinine Clearance Estimated 16 mL/min (50-200); Estimated Glomerular Filt Rate 17 ml/min (>60); GFR (African American) 20 ML/MIN (>60); Glucose 172 mg/dl (74-100)
[2024-08-26 19:39] LABS: Troponin I < 0.01 ng/ml (0.00-0.034)
--- NOTE | 2024-08-26 19:50 | PC.NURSE ---
Patient arrived to floor via stretcher from ED at 19:49.
[2024-08-26 20:24] LABS: Reflex Lactic Add Lactic Reflex
--- NOTE | 2024-08-26 21:03 | P.HP_ITS ---
<Statement entered by Petar Finch MD - 08/27/24 14:24> I personally examined the patient and agree with the plan of care outlined by the SEISMOGRAPH RECORDER. History of Present Illness *Admission Date: 08/26/24 *Reason for visit:: Generalized weakness *History of present illness: This is an 83-year-old female with a past medical history of dementia, chronic back pain, atrial fibrillation, T2DM, asthma who presents to the emergency department for generalized weakness. Son who is at bedside aids in collateral and states that she fell a couple days ago and has not been able to get up and move as well. Patient is also noted to be mildly altered which son states is different than her baseline. He states that she has periods of confusion but is not normally this debilitated. Lives with her niece and typically needs some help with her ADLs. emergency department workup remarkable for elevated creatinine of 2.9 with a potassium of 6 mildly elevated anion gap of 16.9, glucose of 172, proBNP of 1700, urinalysis negative. Given her generalized weakness and RENAE she is admitted to the hospitalist service [facility] Disclaimer: The information contained in this section may have been updated after the patient was seen, as this information can be updated by other users. Medical History (Updated 08/26/24 @ 21:21 by JH Persaud) Nodule of left lung Acute exacerbation of chronic obstructive pulmonary disease (COPD) Dementia Surgical History H/O mastectomy History of cholecystectomy H/O right knee surgery Social History (Updated 08/26/24 @ 20:37 by Annetta Pope RN) Smoking Status: Never smoker alcohol intake: never substance use type: denies use current occupational status: retired Travel in the last 8 weeks: None household members: family housing: house caffeine: Yes Have you lived/traveled outside [place] in past 30 days?: No Contact w/someone who lives/traveled outside US past 30 days?: No Exposure to someone with infectious disease in past 14 days?: No Do you have a fever (greater than 100.4 F or 38 C)?: No Have you tested positive for COVID-19: No Exposed to someone with COVID-19 in past 14 days?: No Do you have a sore throat?: No Do you have a cough?: No Do you have any weakness?: No Do you have any diarrhea?: No Are you experiencing any unusual bleeding?: No Do you have any muscle aches/pain?: No Do you have any abdominal pain?: No Are you experiencing loss of taste or smell?: No Other Medical History Have you received the Flu Vaccine for this season: Yes Have you received the Pneumonia Vaccine: Yes Review of Systems Review of Systems Review of systems:: pertinent systems reviewed and negative unless documented be low Review of systems (narrative): Negative except for HPI Meds Home Medications and Allergies Home Medications ?Medication ?Instructions ?Recorded ?Confirmed ?Type aspirin 81 mg tablet,delayed 81 mg PO DAILY 02/18/20 08/27/24 History release (Adult Aspirin Regimen) cyanocobalamin (vitamin B-12) 1,000 mcg PO DAILY 12/06/23 08/27/24 History 1,000 mcg tablet mirabegron 25 mg tablet,extended 25 mg PO DAILY #90 tabs 01/03/24 08/27/24 Rx release 24 hr (Myrbetriq) cetirizine 10 mg tablet 10 mg PO DAILY #30 tabs 02/26/24 08/27/24 Rx risperidone 1 mg tablet (Risperdal) 1 mg PO HS #30 tabs 03/22/24 08/27/24 Rx memantine ER 7 mg-donepezil 10 mg 1 cap PO DAILY #30 ea 04/22/24 08/27/24 Rx capsule sprinkle,ext.release 24 hour (Namzaric) diltiazem HCl 120 mg capsule,24 120 mg PO DAILY #90 caps 08/02/24 08/27/24 Rx hr,extended release albuterol sulfate 90 mcg/actuation 2 puff inhalation Q6HP PRN 08/27/24 08/27/24 History aerosol inhaler Shortness Of Breath Or Wheezing atorvastatin 10 mg tablet 10 mg PO HS 08/27/24 08/27/24 History famotidine 20 mg tablet 20 mg PO BID 08/27/24 08/27/24 History furosemide 40 mg tablet 40 mg PO DAILYP PRN Edema 08/27/24 08/27/24 History ipratropium 0.5 mg-albuterol 3 mg 3 ml inhalation Q6HP PRN Shortness 08/27/24 08/27/24 History (2.5 mg base)/3 mL nebulization Of Breath Or Wheezing soln levetiracetam 500 mg tablet 500 mg PO BID 08/27/24 08/27/24 History lisinopril 2.5 mg tablet 2.5 mg PO DAILY 08/27/24 08/27/24 History oxycodone 5 mg tablet 5 mg PO BIDP PRN Severe Pain 08/27/24 08/27/24 History (Scale Score 7-10) potassium chloride 10 mEq 10 meq PO DAILY 08/27/24 08/27/24 History capsule,extended release quetiapine 100 mg tablet (Seroquel) 150 mg PO HS 08/27/24 08/27/24 History rivaroxaban 15 mg tablet (Xarelto) 15 mg PO QPMWITHMEAL 08/27/24 08/27/24 History umeclidinium 62.5 mcg-vilanterol 1 ea inhalation DAILY 08/27/24 08/27/24 History 25 mcg/actuation powdr for inhalation New Prescriptions to Start Prescriptions: Allergies Allergy/AdvReac Type Severity Reaction Status Date / Time codeine AdvReac Severe Anaphylaxis Verified 08/02/24 13:33 Exam Data for Last 24 hours Vital signs and Labs for Last 24 Hours: Temp Pulse Resp BP Pulse Ox O2 Del Method 97.9 F 94 H 15 129/63 93 L Room Air 08/26/24 20:00 08/26/24 20:00 08/26/24 20:00 08/26/24 20:00 08/26/24 17:31 08/26/24 20:00 Laboratory Results - last 24 hr 08/26/24 15:54: VBG pH 7.31, VBG pCO2 36.4, VBG pO2 65.1 H, VBG HCO3 17.8 L, VBG Total CO2 18.9 L, VBG O2 Saturation 91.0 H, VBG Base Excess -8.6 L, VBG Lactic Acid 2.2 H 08/26/24 15:55: WBC 7.1, RBC 4.24, Hgb 14.5, Hct 42.0, MCV 99.1 H, MCH 34.2 H, MCHC 34.5, RDW 12.5, Plt Count 185, MPV 10.9 H, Neut % (Auto) 80.5 H, Lymph % (Auto) 11.6, Barron % (Auto) 7.0, Eos % (Auto) 0.3, Baso % (Auto) 0.3, Neut # (Auto) 5.7, Lymph # (Auto) 0.8, Barron # (Auto) 0.5, Eos # (Auto) 0.0, Baso # (Auto) 0.0, PT 13.4 H, INR 1.22 H, Sodium 139, Potassium 6.0 H, Chloride 102, Carbon Dioxide 22, Anion Gap 21.0 H, BUN 55 H, Creatinine 2.90 H, Estimated GFR 16 L*, Est GFR ( Amer) 19 L*, Glucose 140 H, Calcium 9.3, Magnesium 2.5 H , Total Bilirubin 1.1, AST 47 H, ALT 28, Alkaline Phosphatase 98, Troponin I < 0.01, NT-Pro-B Natriuret Pep 1720 H, Total Protein 7.6, Albumin 5.0, Globulin 2.6, Albumin/Globulin Ratio 1.9 H, Procalcitonin 0.094, TSH 0.97, Free T4 Index 2.2 L, Thyroxine (T4) 5.7, T3 Uptake 39 08/26/24 16:50: Chlamy pneumoniae PCR Not detected, Adenovirus (PCR) Not detected, B. pertussis DNA (PCR) Not detected, Coronavirus OC43 (PCR) Not detected, Coronavirus HKU1 (PCR) Not detected, Coronavirus 229E (PCR) Not detected, SARS-CoV-2 (PCR) Not detected, Coronavirus NL63 (PCR) Not detected, Human Metapneumovir PCR Not detected, Influenza A (H1) PCR Not detected, Influ A (H1N1/09) PCR Not detected, Influenza A (H3) PCR Not detected, Influenza Type A (PCR) Not detected, Influenza Type B (PCR) Not detected, M. pneumoniae (PCR) Not detected, Parainfluenza 1 (PCR) Not detected, Parainfluenza 2 (PCR) Not detected, Parainfluenza 3 (PCR) Not detected, Parainfluenza 4 (PCR) Not detected, RSV (PCR) Not detected, Entero/Rhino (PCR) Not detected 08/26/24 17:15: Urine Color Yellow, Urine Appearance Clear, Urine pH 5.5, Ur Specific [place] 1.015, Urine Protein Negative, Urine Glucose (UA) Negative, Urine Ketones Negative, Urine Blood Negative, Urine Nitrate Negative, Urine Bilirubin Negative, Urine Urobilinogen 0.2, Ur Leukocyte Esterase Negative, Urine RBC None, Urine WBC 3-5, Ur Squamous Epith Cells Occasional, Urine Bacteria Trace, Hyaline Casts 3-5 08/26/24 19:05: Sodium 136, Potassium 4.9, Chloride 104, Carbon Dioxide 20 L, Anion Gap 16.9 H, BUN 55 H, Creatinine 2.70 H, Estimated Creat Clear 16, Estimated GFR 17 L*, Est GFR ( Amer) 20 L, Glucose 172 H D, Calcium 9.8, Troponin I < 0.01 I & O for Last 24 hours: Intake & Output 08/23/24 08/24/24 08/25/24 08/26/24 23:59 23:59 23:59 23:59 Weight 60.781 kg Constitutional Constitutional: no acute distress *Routine HEENT Exam Head: Present normocephalic Eye: Present EOMI and PERRL ENT: Present mucous membranes dry Comments: Lips cracked *Routine Neck Exam Neck: Present supple; Absent lymphadenopathy *Routine Respiratory Exam Respiratory: Present CTA bilaterally *Routine Cardiovascular Exam Cardiovascular: Present RRR *Routine Abdominal Exam Abdominal: Present soft and normoactive bowel sounds; Absent tenderness *Routine Rectal Exam Rectal:: deferred *Routine Genitalia Exam Genitalia:: deferred *Routine Extremities Exam Extremities: Absent cyanosis, clubbing or edema *Routine Skin Exam Skin: Present intact Comments: Scattered ecchymosis across upper and lower extremity *Routine Neurological Exam Neurological: Present alert and oriented X3 Assessment and Plan *Assessment and plan (1) Acute on chronic renal failure: Status: Acute Qualifiers: Acute renal failure type: unspecified Chronic kidney disease stage: unspecified stage Qualified Code(s): N17.9 - Acute kidney failure, unspecified; N18.9 - Chronic kidney disease, unspecified Category: Medical Code(s): N17.9 - Acute kidney failure, unspecified; N18.9 - Chronic kidney disease, unspecified (2) Hyperkalemia: Status: Acute Category: Medical Code(s): E87.5 - Hyperkalemia (3) Alzheimer dementia: Status: Acute Qualifiers: Alzheimer's disease onset: unspecified onset Dementia behavioral or psychological symptom: unspecified whether behavioral, psychotic, or mood disturbance or anxiety Dementia severity: unspecified severity Qualified Code(s): G30.9 - Alzheimer's disease, unspecified; F02.80 - Dementia in other diseases classified elsewhere, unspecified severity, without behavioral disturbance, psychotic disturbance, mood disturbance, and anxiety Category: Medical Code(s): G30.9 - Alzheimer's disease, unspecified; F02.80 - Dementia in other diseases classified elsewhere, unspecified severity, without behavioral disturbance, psychotic disturbance, mood disturbance, and anxiety (4) Fall: Status: Acute Qualifiers: Encounter type: sequela Qualified Code(s): W19.XXXS - Unspecified fall, sequela Category: Medical Code(s): W19.XXXA - Unspecified fall, initial encounter (5) Atrial fibrillation: Status: Acute Qualifiers: Atrial fibrillation type: paroxysmal Qualified Code(s): I48.0 - Paroxysmal atrial fibrillation Category: Medical Code(s): I48.91 - Unspecified atrial fibrillation (6) DM2 (diabetes mellitus, type 2): Status: Acute Qualifiers: Diabetes mellitus complication status: with kidney complications Category: Medical Code(s): E11.9 - Type 2 diabetes mellitus without complications Plan #Acute acute kidney injury superimposed on CKD stage 3B Appears dehydrated on exam. Creatinine of 2.9 with a baseline around 1.5. Did receive IV fluids in the emergency department with improvement in renal function and potassium Will continue maintenance IV fluids Given recent fall and likely being on the floor for some time, will evaluate with CK levels Monitor intake and output #Hyperkalemia Initially 6.0 with improvement to 4.8 after IV hydration Monitor on next BMP EKG without peaked T waves #Fall Reports it was mechanical in nature. Neurological workup thus far negative PT OT in a.m. #Atrial fibrillation Continue home medications when able #Dementia Continue home medication #DM2 Continue sliding scale insulin #COPD Not in exacerbation at this time Continue home bronchodilators Rounded on patient after nurse practitioner. Personally examined and interviewed patient. Agree with exam findings and care plan as documented.
[2024-08-26] MEDS: 0.9 % SODIUM CHLORIDE 1000ML 1,000 ML 100 ML IV (21:10)
[2024-08-26 21:11] LABS: Creatine Kinase 433 U/L (30-135)
[2024-08-26 22:31] LABS: Lactic Acid Follow Up (RFLX 1) 2.1 mmol/L (0.7-2.1)
[2024-08-26 22:42] LABS: Troponin I < 0.01 ng/ml (0.00-0.034)
[2024-08-27] VITALS: BP 116/46; PULSE 82; RESP 16; TEMP 36.4; O2SAT 98
[2024-08-27 00:09] LABS: Reflex Lactic (2 hrs) Add Lactic Reflex
[2024-08-27 01:10] LABS: Lactic Acid Follow up (RFLX 2) 1.4 mmol/L (0.7-2.1)
[2024-08-27 04:00] VITALS: BP 117/65; PULSE 80; RESP 14; TEMP 36.9; O2SAT 96
--- NOTE | 2024-08-27 04:20 | PC.NURSE ---
Patient is alert to self but could correctly recite to me her full birthday; she presents pleasant confusion and disorientation. Speech is soft, mumbled, and occasionally incoherent. Her son has remained at the bedside this shift. She was observed to have eyes closed, respirations even and unlabored on room air, and no apparent distress for the majority of the night. Oral care was performed once this shift on behalf of finding yellow, caked debris on her tongue. Aspiration precautions performed. Patient has exhibited a loose, moist cough; lung sounds were diminished upon auscultation. Auscultation of heart irregular; bowel sounds normal and active. She has not had a bowel movement this shift thus far. A purewick has been utilized; urine has been emptied and documented accordingly. A pressure area was noted on her right buttock with some redness surrounding the area (foam flower dressing applied); scattered bruising was observed on her bilateral shins as well. Staff has been repositioning/turning patient in bed every two hours. Weakness noted. Legs/heels elevated; SCDs utilized. Normal saline infusing at 100 mL/hr. Admission assessment and home medication reconciliation completed during this shift. Home medication locked in the [facility]. [facility] glucose checks performed. Vital signs stable. At this time, the patient is resting in bed without any further complaints. Bed alarm on. Call light within reach.
[2024-08-27 06:30] LABS: Chloride 111 mmol/L (98-107); Potassium 4.9 mmoL/L (3.5-5.1); Sodium 138 mmol/L (136-145)
[2024-08-27 06:33] LABS: Anion Gap 12.9 mEq/L (5-15); Blood Urea Nitrogen 45 mg/dl (7-17); Calcium 8.5 mg/dl (8.4-10.2); Carbon Dioxide 19 mmol/L (22.0-30.0); Creatinine Clearance Estimated 20 mL/min (50-200); Estimated Glomerular Filt Rate 24 ml/min (>60); GFR (African American) 29 ML/MIN (>60); Glucose 86 mg/dl (74-100)
[2024-08-27 06:44] LABS: Eosinophils % 0.8 % (0.1-12.0); Hematocrit 49.4 % (37.0-47.0); Lymphocytes # 0.4 K/mm3 (0.7-4.5); Mean Corpuscular HGB Conc 34.2 g/dL (31.8-35.4); Mean Corpuscular Hemoglobin 33.3 pg (27.0-31.2); Mean Corpuscular Volume 97.4 fl (81-99); Mean Platelet Volume 10.8 fl (7.4-10.4); Monocytes # 0.2 K/mm3 (0.1-1.0); Monocytes % 7.5 % (1.7-9.3); Neutrophils # 1.9 K/mm3 (1.8-7.8); Neutrophils % 76.3 % (37.0-80.0); Platelet Count 83 K/mm3 (142-424); Red Blood Count 5.07 M/mm3 (4.20-5.40); Red Cell Distribution Width 12.3 % (11.5-17.5); White Blood Count 2.5 K/mm3 (4.8-10.8)
[2024-08-27 07:32] VITALS: BP 119/50; PULSE 78; RESP 16; TEMP 36.6; O2SAT 96
[2024-08-27] MEDS: 0.9 % SODIUM CHLORIDE 1000ML 1,000 ML 100 ML IV (08:15)
--- NOTE | 2024-08-27 09:08 | HMH.PHAINT1 ---
Pharmacy Intervention Comments: MEDICATION RECONCILIATION COMPLETE USING EXTERNAL PHARMACY FILL HISTORY, KARYN REPORT, AND RECENT MD OFFICE VISIT NOTE (08/02/24).
[2024-08-27 09:35] LABS: Hemoglobin 11.4 g/dL (12.2-16.2)
--- NOTE | 2024-08-27 09:45 | HMH.PTEV ---
Physical Therapy Evaluation Rehab PT IP Evaluation Start: 08/26/24 22:20 Freq: ONCE Status: Active Protocol: Document 08/27/24 09:40 SANGITA (Rec: 08/27/24 09:44 PHORYLAN [id number]) Subjective/History History History 83-year-old female with a past medical history of dementia, chronic back pain, atrial fibrillation, T2DM, asthma who presents to the emergency department for generalized weakness. Son who is at bedside aids in collateral and states that she fell a couple days ago and has not been able to get up and move as well. Patient is also noted to be mildly altered which son states is different than her baseline. He states that she has periods of confusion but is not normally this debilitated. Lives with her niece and typically needs some help with her ADLs. He reports 4-5 MARIA VICTORIA the home. Subjective Subjective Pt reports no c/o at this time and agrees to OOB mobility assessment. Rehab PT IP Eval Objective Appearance Patient Behavior Appropriate Patient Orientation Person Difficulty following instructions none Speech Pattern Clear Ambulation Patient Able to Ambulate Yes Ambulation Observation IP General Gait Pattern Observation Shuffling Step Ambulation Distance (feet) 8 Ambulation Assistive Device Rolling Walker Ambulation Ability Minimal x 2 (25% assist) Balance Ability to Arise Able, uses arms to help Sitting Balance Leans or slides in chair Standing Balance Unsteady Dynamic Sitting Balance Ability Poor Dynamic Standing Balance Ability Poor Transfers Bed Transfer Ability Moderate x 2 (50% assist) Chair Transfer Ability Minimal x 2 (25% assist) Sit to Stand Bed Transfer Ability Minimal x 2 (25% assist) Sit to Stand Chair Transfer Ability Minimal x 2 (25% assist) Rehab PT IP prob,goals,plan Problems Date of Evaluation: 08/27/24 PT IP Problems Bed Mobility,Transfers,Gait Rehab Potential Rehab Potential Good Plan PT Intervention Plan Bed Mobility,Transfers,Gait, Therapeutic Exercise PT Plan Frequency Daily Duration LOS Discharge Goals Bed Transfer Ability Minimal x 1 (25% assist) Sit to Stand Chair Transfer Ability Minimal x 1 (25% assist) Ambulation Assistive Device Rolling Walker Ambulation Distance (feet) 20 Discharge Plan PT Discharge Plan Pt is currently most appropriate for rehab placement once medically stable for d/c. Skilled therapy is indicated to improve pt transfers, bed mobility, and ambulation in order to return her to baseline mobility status and prior level of function with all ADLs. Eval Complexity Eval Charge Codes 56484 - High Complexity PHYSICIAN CERTIFICATION: I certify the specified therapy services for Goldie Ab Roche are required, authorized, and reviewed every 30 days.
--- NOTE | 2024-08-27 09:51 | HMH.OTEV ---
OT Inpatient Evaluation Rehab OT IP Evaluation Start: 08/26/24 22:20 Freq: ONCE Status: Active Protocol: Document 08/27/24 09:47 [facility] (Rec: 08/27/24 09:51 [facility] [id number]) Rehab OT IP Assessment Subjective History 83-year-old female with a past medical history of dementia, chronic back pain, atrial fibrillation, T2DM, asthma who presents to the emergency department for generalized weakness. Son who is at bedside aids in collateral and states that she fell a couple days ago and has not been able to get up and move as well. Patient is also noted to be mildly altered which son states is different than her baseline. He states that she has periods of confusion but is not normally this debilitated. Lives with her niece and typically needs some help with her ADLs. She is normally able to complete all functional transfers with rolling walker independently. She is dependent upon family for completion of IADLs. He reports 4-5 MARIA VICTORIA the home. Subjective Pt oriented x 2 on arrival. Pt has no complaints at this time and is agreeable to evaluation. Objective Patient Orientation Person,Birthday Right Upper Extremity Gross ROM Min Limitation <25% Left Upper Extremity Gross ROM Min Limitation <25% Shoulder ROM Limitations Muscle Weakness Elbow ROM Limitations Muscle Weakness Wrist Limitations of Range of Motion Muscle Weakness Bed Mobility bed mobility-scooting,bed mobility - supine/sit Assist Level Moderate x 2 (50% assist) Transfer Training Sit/Stand Transfer Assist Level Minimal x 2 (25% assist) Lower Body Dressing Ability Maximum Assistance Rehab OT IP prob,goals,plan Problems Date of Evaluation: 08/27/24 OT IP Problems Bed Mobility,Transfers,Balance ,Self care,Safety Rehab Potential Rehab Potential Good Equipment Needs Assistive Devices Rolling / Wheeled Walker Plan OT intervention Plan Bed Mobility,Transfers,Balance ,Self care,Safety,Therapeutic Exercise OT Plan Frequency Daily Duration LOS Discharge Goals Bed Mobility Ability Assistance x1 Sit to Stand Chair Transfer Ability Moderate x 1 (50% assist) Chair Transfer Ability Contact Guard/Hand Hold, Minimal x 1 (25% assist) Chair Transfer Technique Sit to/from Ambulatory Chair Transfer Assistive Devices Rolling Walker Feeding Ability Assist with Tray Set Up Lower Body Dressing Ability Moderate Assistance Upper Body Dressing Ability Minimal Assistance Bathing Ability Moderate Assistance Performing Toilet Hygiene Ability Moderate Assistance Overall Commode/Toilet Transfer Ability Contact Guard,Minimal Assistance Commode/Toilet Transfer Technique Sit to/from Ambulatory Commode/Toilet Transfer Assistive Grab Bars Devices Oral Care Assist Minimal Assistance Decrease in Endurance Yes Discharge Plan OT Discharge Plan Pt will continue to be seen for OT services while at [facility]. At this time, pt would benefit most from short term rehab at [facility] for continued skilled therapy. Continued skilled therapy is important in order for patient to improve strength, safety, endurance, ADL independence, and functional transfers to reach PLOF. Eval Complexity Eval Charge Codes 79446 - Moderate Complexity PHYSICIAN CERTIFICATION: I certify the specified therapy services for Goldie Roche are required, authorized, and reviewed every 30 days.
--- NOTE | 2024-08-27 11:21 | PC.NURSE ---
pt is up to the chair. she was able to stand and pivot with 2x assist. she was able to eat an entire cup of applesauce. I did feed her. she tolerated it well.
[2024-08-27 11:30] VITALS: BP 135/69; PULSE 84; RESP 16; TEMP 36.8; O2SAT 96
--- NOTE | 2024-08-27 12:19 | CARE MANAGER ---
Addendum entered by Alexandra Ring 08/28/24 07:04: Patient has been approved by insurance to admit to [facility] level of care. Addendum entered by Alexandra Ring 08/27/24 12:56: Sarah rosa/ [facility] is willing to accept patient SNF level of care and precert will be started today. Original Note: Met with patient and son to discuss discharge planning. Patient Choice signed for [facility] (first choice) and [facility] (second choice). Clinical faxed to [facility] today.
--- NOTE | 2024-08-27 12:51 | PC.NURSE ---
pt is tolerating po intake well
[2024-08-27 16:00] VITALS: BP 116/52; PULSE 98; RESP 18; TEMP 36.6; O2SAT 96
[2024-08-27 16:55] LABS: Chloride 108 mmol/L (98-107); Potassium 4.5 mmoL/L (3.5-5.1); Sodium 136 mmol/L (136-145)
[2024-08-27 16:58] LABS: Anion Gap 10.5 mEq/L (5-15); Blood Urea Nitrogen 42 mg/dl (7-17); Calcium 8.6 mg/dl (8.4-10.2); Carbon Dioxide 22 mmol/L (22.0-30.0); Creatinine Clearance Estimated 22 mL/min (50-200); Estimated Glomerular Filt Rate 27 ml/min (>60); GFR (African American) 33 ML/MIN (>60); Glucose 146 mg/dl (74-100)
--- NOTE | 2024-08-27 17:46 | EXP.ACUTE.PN ---
Subjective *Date: 08/27/24 *Time: 21:10 Interval history: Patient awoke to sternal rub this morning. Alert and oriented to self and place. Making urine. Stable on room air. Afebrile. Denies chest pain, nausea, vomiting. Kidney function showing slight improvement. Therapy working with patient today. Medical Exam Vital signs and Labs for Last 24 Hours: Vital Signs Temp Pulse Pulse Resp BP BP Pulse Ox 08/27/24 17:00 08/27/24 16:00 98 F 98 H 18 116/52 L 96 08/27/24 15:00 08/27/24 13:00 08/27/24 11:30 98.2 F 84 16 135/69 96 08/27/24 11:00 08/27/24 09:00 08/27/24 08:00 08/27/24 07:32 97.9 F 78 16 119/50 L 96 08/27/24 07:00 08/27/24 05:00 08/27/24 04:00 98.4 F 80 14 117/65 96 08/27/24 03:00 08/27/24 01:00 08/27/24 00:00 97.5 F L 82 16 116/46 L 98 08/26/24 23:00 08/26/24 21:00 08/26/24 20:00 97.9 F 94 H 15 129/63 08/26/24 19:55 97.7 F 95 H 18 129/63 95 08/26/24 19:30 15 129/63 08/26/24 19:00 15 133/69 08/26/24 18:11 94 H 17 95 O2 Del Method 08/27/24 17:00 Room Air 08/27/24 16:00 Room Air 08/27/24 15:00 Room Air 08/27/24 13:00 Room Air 08/27/24 11:30 Room Air 08/27/24 11:00 Room Air 08/27/24 09:00 Room Air 08/27/24 08:00 Room Air 08/27/24 07:32 Room Air 08/27/24 07:00 Room Air 08/27/24 05:00 Room Air 08/27/24 04:00 Room Air 08/27/24 03:00 Room Air 08/27/24 01:00 Room Air 08/27/24 00:00 Room Air 08/26/24 23:00 Room Air 08/26/24 21:00 Room Air 08/26/24 20:00 Room Air 08/26/24 19:55 Room Air 08/26/24 19:30 08/26/24 19:00 08/26/24 18:11 Room Air Intake and Output 08/27/24 08/27/24 08/27/24 07:59 15:59 23:59 Intake Total 306 / 566 260 / 566 Output Total 400 / 1000 600 / 1000 0 / 1000 Balance -94 / -434 -340 / -434 0 / -434 Intake: Intake, Oral Amount 260 / 260 Infusion Intake 306 / 306 0.9 % Sodium Chloride 1000ML 1, 306 / 306 000 ml @ 100 mls/hr IV .Q10H [facility] Rx#:[id number] Output: Output, Urine Amount 400 / 1000 600 / 1000 0 / 1000 Other: Number of Unmeasured Voids 1 1 Number of Bowel Movements 1 1 Weight 58.06 kg Patient Weight 08/27/24 23:59 Weight 58.06 kg Laboratory Results - last 24 hr 08/26/24 16:50: Chlamy pneumoniae PCR Not detected, Adenovirus (PCR) Not detected, B. pertussis DNA (PCR) Not detected, Coronavirus OC43 (PCR) Not detected, Coronavirus HKU1 (PCR) Not detected, Coronavirus 229E (PCR) Not detected, SARS-CoV-2 (PCR) Not detected, Coronavirus NL63 (PCR) Not detected, Human Metapneumovir PCR Not detected, Influenza A (H1) PCR Not detected, Influ A (H1N1/09) PCR Not detected, Influenza A (H3) PCR Not detected, Influenza Type A (PCR) Not detected, Influenza Type B (PCR) Not detected, M. pneumoniae (PCR) Not detected, Parainfluenza 1 (PCR) Not detected, Parainfluenza 2 (PCR) Not detected, Parainfluenza 3 (PCR) Not detected, Parainfluenza 4 (PCR) Not detected, RSV (PCR) Not detected, Entero/Rhino (PCR) Not detected 08/26/24 17:15: Urine Color Yellow, Urine Appearance Clear, Urine pH 5.5, Ur Specific [place] 1.015, Urine Protein Negative, Urine Glucose (UA) Negative, Urine Ketones Negative, Urine Blood Negative, Urine Nitrate Negative, Urine Bilirubin Negative, Urine Urobilinogen 0.2, Ur Leukocyte Esterase Negative, Urine RBC None, Urine WBC 3-5, Ur Squamous Epith Cells Occasional, Urine Bacteria Trace, Hyaline Casts 3-5 08/26/24 19:05: Sodium 136, Potassium 4.9, Chloride 104, Carbon Dioxide 20 L, Anion Gap 16.9 H, BUN 55 H, Creatinine 2.70 H, Estimated Creat Clear 16, Estimated GFR 17 L*, Est GFR ( Amer) 20 L, Glucose 172 H D, Calcium 9.8, Troponin I < 0.01 08/26/24 20:39: Total Creatine Kinase 433 H 08/26/24 21:55: Lactate 2.1 08/26/24 22:03: Troponin I < 0.01 08/27/24 00:40: Lactate 1.4 08/27/24 05:43: WBC 2.5 L D, RBC 5.07, Hgb 11.4 L D, Hct 49.4 H, MCV 97.4, MCH 33.3 H, MCHC 34.2, RDW 12.3, Plt Count 83 L D, MPV 10.8 H, Neut % (Auto) 76.3, Lymph % (Auto) 15.0, [place] % (Auto) 7.5, Eos % (Auto) 0.8, Baso % (Auto) 0.0 L, Neut # (Auto) 1.9, Lymph # (Auto) 0.4 L, [place] # (Auto) 0.2, Eos # (Auto) 0.0, Baso # (Auto) 0.0, Sodium 138, Potassium 4.9, Chloride 111 H, Carbon Dioxide 19 L, Anion Gap 12.9, BUN 45 H, Creatinine 2.00 H D, Estimated Creat Clear 20, Estimated GFR 24 L, Est GFR ( Amer) 29 L D, Glucose 86 D, Calcium 8.5 08/27/24 16:33: Sodium 136, Potassium 4.5, Chloride 108 H, Carbon Dioxide 22, Anion Gap 10.5, BUN 42 H, Creatinine 1.80 H, Estimated Creat Clear 22, Estimated GFR 27 L, Est GFR ( Amer) 33 L, Glucose 146 H D, Calcium 8.6 I & O for Labs for Last 24 Hours: Intake & Output 08/24/24 08/25/24 08/26/24 08/27/24 23:59 23:59 23:59 23:59 Intake Total 1444 / 1750 566 / 566 Output Total 400 / 800 1000 / 1000 Balance 1044 / 950 -434 / -434 Weight 55.111 kg 58.06 kg Microbiology Reports for the Last 24 Hours: Microbiology 08/26/24 17:15 Blood Blood Culture - Preliminary NO GROWTH AFTER 24 HOURS 08/26/24 15:55 Blood Blood Culture - Preliminary NO GROWTH AFTER 24 HOURS Constitutional: Present no acute distress, thin, chronically ill appearing and cooperative Head: Present atraumatic and normocephalic ENT: Present normal exam Respiratory: Present normal respiratory effort; Absent rhonchi, wheezes or crackles Cardiac: Present Reg Rate and Rhythm GI: Present soft and normal bowel sounds; Absent distention or tenderness Extremities: Present normal inspection and full ROM; Absent edema Skin: Present intact; Absent erythema Neuro: Present Grossly Intact, alert, awake and moves all extremities Assessment and Plan *Assessment and plan (1) Acute on chronic renal failure: Status: Acute Qualifiers: Acute renal failure type: unspecified Chronic kidney disease stage: unspecified stage Qualified Code(s): N17.9 - Acute kidney failure, unspecified; N18.9 - Chronic kidney disease, unspecified Category: Medical Code(s): N17.9 - Acute kidney failure, unspecified; N18.9 - Chronic kidney disease, unspecified (2) Hyperkalemia: Status: Acute Category: Medical Code(s): E87.5 - Hyperkalemia (3) Alzheimer dementia: Status: Acute Qualifiers: Alzheimer's disease onset: unspecified onset Dementia behavioral or psychological symptom: unspecified whether behavioral, psychotic, or mood disturbance or anxiety Dementia severity: unspecified severity Qualified Code(s): G30.9 - Alzheimer's disease, unspecified; F02.80 - Dementia in other diseases classified elsewhere, unspecified severity, without behavioral disturbance, psychotic disturbance, mood disturbance, and anxiety Category: Medical Code(s): G30.9 - Alzheimer's disease, unspecified; F02.80 - Dementia in other diseases classified elsewhere, unspecified severity, without behavioral disturbance, psychotic disturbance, mood disturbance, and anxiety (4) Fall: Status: Acute Qualifiers: Encounter type: sequela Qualified Code(s): W19.XXXS - Unspecified fall, sequela Category: Medical Code(s): W19.XXXA - Unspecified fall, initial encounter (5) Atrial fibrillation: Status: Acute Qualifiers: Atrial fibrillation type: paroxysmal Qualified Code(s): I48.0 - Paroxysmal atrial fibrillation Category: Medical Code(s): I48.91 - Unspecified atrial fibrillation (6) DM2 (diabetes mellitus, type 2): Status: Acute Qualifiers: Diabetes mellitus complication status: with kidney complications Category: Medical Code(s): E11.9 - Type 2 diabetes mellitus without complications Plan 83-year-old female admitted for RENAE and confusion. Seeing some improvement in kidney function. Therapy working with her today. Recommend SNF. Patient's son would like her to return back to living with family at discharge. Continues to require inpatient management for monitoring of kidney function. Stable on room air. 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 Will discontinue IV fluids. Creatinine 2.9 on admission. Improved to 2.0 this morning. Repeat CBC, CMP, magnesium ordered for the morning -Advance diet. Repeat BMP ordered for this evening -Holding nephrotoxins -CK level mildly elevated at 433. Low concern for significant rhabdomyolysis however #Hyperkalemia Initially 6.0 with improvement to 4.8 after IV hydration, repeat 4.9 this morning. Sodium 138. Monitor for improvement with improved kidney function #Fall Reports it was mechanical in nature. Neurological workup thus far negative Working with therapy. PT and OT recommend SNF. Family would like patient to return home instead of go to rehab. Lives with great-niece. Monitor for falls, fall risk. Up with assistance #Atrial fibrillation Resume diltiazem daily. Resume Xarelto. Holding lisinopril for blood pressure. Resume aspirin 81 mg daily #Dementia # Chronic pain # Acute encephalopathy Holding Risperdal, oxycodone, memantine, and Seroquel due to oversedation and mild confusion. #DM2 Continue sliding scale insulin #COPD Not in exacerbation at this time Continue home bronchodilators Full code Regular diet
--- NOTE | 2024-08-27 18:38 | PC.NURSE ---
pt has done increasingly well today through out the shift. She is more alert. able to tell staff when she needs to use the restroom. Able to feed herself with minimal assistance. She reports feeling better as the day has progressed. family is @ patients bedside.
[2024-08-27 20:00] VITALS: BP 124/60; PULSE 105; RESP 16; TEMP 36.6; O2SAT 96
[2024-08-28] VITALS: BP 111/47; PULSE 92; RESP 16; TEMP 36.6; O2SAT 96
[2024-08-28 02:32] LABS: POC Glucose,Bedside 93 (70-110)
[2024-08-28 02:32] LABS: POC Glucose,Bedside 148 (70-110)
[2024-08-28 02:32] LABS: POC Glucose,Bedside 95 (70-110)
[2024-08-28 02:32] LABS: POC Glucose,Bedside 123 (70-110)
[2024-08-28 04:00] VITALS: BP 110/52; PULSE 83; RESP 16; TEMP 36.5; O2SAT 96; BMI 20.3
--- NOTE | 2024-08-28 05:36 | PC.NURSE ---
Pt is alert to self at times. Pt denies pain and needs when asked. Pt has been repositioned per schedule and alarm is active and set.
[2024-08-28 06:02] LABS: POC Glucose,Bedside 107 (70-110)
[2024-08-28 06:55] LABS: Basophils % 0.2 % (0.1-2.0); Eosinophils % 0.8 % (0.1-12.0); Hematocrit 32.3 % (37.0-47.0); Hemoglobin 11.5 g/dL (12.2-16.2); Lymphocytes # 0.9 K/mm3 (0.7-4.5); Lymphocytes % 18.3 % (10-50); Mean Corpuscular HGB Conc 35.6 g/dL (31.8-35.4); Mean Corpuscular Hemoglobin 34.3 pg (27.0-31.2); Mean Corpuscular Volume 96.4 fl (81-99); Mean Platelet Volume 10.6 fl (7.4-10.4); Monocytes # 0.5 K/mm3 (0.1-1.0); Monocytes % 9.8 % (1.7-9.3); Neutrophils # 3.5 K/mm3 (1.8-7.8); Neutrophils % 70.5 % (37.0-80.0); Platelet Count 137 K/mm3 (142-424); Red Blood Count 3.35 M/mm3 (4.20-5.40); Red Cell Distribution Width 12.3 % (11.5-17.5); White Blood Count 4.9 K/mm3 (4.8-10.8)
[2024-08-28 07:15] LABS: Albumin Level 3.6 g/dl (3.5-5.0); Chloride 110 mmol/L (98-107); Potassium 4.5 mmoL/L (3.5-5.1); Sodium 136 mmol/L (136-145)
[2024-08-28 07:17] LABS: Blood Urea Nitrogen 36 mg/dl (7-17); Creatinine Clearance Estimated 27 mL/min (50-200); Estimated Glomerular Filt Rate 33 ml/min (>60); GFR (African American) 40 ML/MIN (>60)
[2024-08-28 07:18] LABS: Alanine Aminotransferase 20 U/L (12-78); Albumin/Globulin Ratio 1.6 (1.1-1.8); Alkaline Phosphatase 94 U/L (38-126); Anion Gap 10.5 mEq/L (5-15); Aspartate Amino Transferase 52 U/L (14-36); Bilirubin,Total 0.7 mg/dl (0.2-1.3); Calcium 8.5 mg/dl (8.4-10.2); Carbon Dioxide 20 mmol/L (22.0-30.0); Globulin 2.2 g/dL (1.3-3.2); Glucose 88 mg/dl (74-100); Total Protein,Serum 5.8 g/dl (6.3-8.2)
[2024-08-28 07:43] VITALS: BP 114/53; PULSE 82; RESP 14; TEMP 36.4; O2SAT 99
--- NOTE | 2024-08-28 07:46 | P.DS_ITS ---
General Admission date:: 08/27/24 Discharge date: 08/28/24 HPI HPI HPI: This is an 83-year-old female with a past medical history of dementia, chronic back pain, atrial fibrillation, T2DM, asthma who presents to the emergency department for generalized weakness. Son who is at bedside aids in collateral and states that she fell a couple days ago and has not been able to get up and move as well. Patient is also noted to be mildly altered which son states is different than her baseline. He states that she has periods of confusion but is not normally this debilitated. Lives with her niece and typically needs some help with her ADLs. emergency department workup remarkable for elevated creatinine of 2.9 with a potassium of 6 mildly elevated anion gap of 16.9, glucose of 172, proBNP of 1700, urinalysis negative. Given her generalized weakness and RENAE she is admitted to the hospitalist service Hospital Course Hospital Course Hospital Course: 83-year-old female admitted for RENAE and confusion. Kidney function is improved with IV hydration. Tolerating p.o. intake. Was evaluated by therapy, would b enefit from skilled placement for rehab. Stable on room air. Potassium normalized. Has had no behavioral disturbances during admission. Therapy worked with patient. Recommended SNF. Graciously excepted by [facility]. Stable to discharge at this time. 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 Improved to 1.5 by morning of discharge. This is back to her baseline. Needs repeat CMP and CBC in 1 week to monitor stability of kidney function and electrolytes. Tolerating p.o. intake. Encourage liberal p.o. fluids. Holding BEBA inhibitor at discharge. Caution with nephrotoxins. #Hyperkalemia: Initially 6.0 with improvement to 4.5 after IV hydration and improvement in kidney function. #Fall - Reports it was mechanical in nature. Neurological workup thus far negative. Working with therapy. PT and OT recommend SNF. After much discussion with case management, family agreeable to placement for rehab. Patient has been living with her great niece. Needs more assistance than can be provided at home at this time. #Atrial fibrillation: Continued home diltiazem daily and Xarelto. Blood pressure soft, hold lisinopril. Okay to resume aspirin #Dementia # Chronic pain # Acute encephalopathy Holding Risperdal, oxycodone, memantine, and Seroquel due to oversedation and mild confusion. #DM2: A1c in July of 5.7. Not on any diabetes meds at home. Required no sliding scale insulin during admission. Did not recommend diabetes meds at discharge. #COPD: Not in exacerbation at this time, on room air, Continue home bronchodilators Discharged to senior care for further management and therapy. [facility]aciously accepted to [facility]. Total time spent on discharge 32 minutes in counseling, documentation, chart review, and direct care with patient. Exam Data for Last 24 hours Vital signs and Labs for Last 24 Hours: Temp Pulse Resp BP Pulse Ox O2 Del Method 97.6 F 82 14 114/53 L 99 Room Air 08/28/24 07:43 08/28/24 07:43 08/28/24 07:43 08/28/24 07:43 08/28/24 07:43 08/28/24 07:43 Laboratory Results - last 24 hr 08/27/24 05:24: POC Glucose 95 08/27/24 05:43: Hgb 11.4 L D 08/27/24 11:44: POC Glucose 93 08/27/24 16:33: Sodium 136, Potassium 4.5, Chloride 108 H, Carbon Dioxide 22, Anion Gap 10.5, BUN 42 H, Creatinine 1.80 H, Estimated Creat Clear 22, Estimated GFR 27 L, Est GFR ( Amer) 33 L, Glucose 146 H D, Calcium 8.6 08/27/24 16:42: POC Glucose 148 H 08/27/24 21:01: POC Glucose 123 H 08/28/24 05:42: POC Glucose 107 08/28/24 06:34: WBC 4.9 D, RBC 3.35 L D, Hgb 11.5 L, Hct 32.3 L, MCV 96.4, MCH 34.3 H, MCHC 35.6 H, RDW 12.3, Plt Count 137 L D, MPV 10.6 H, Neut % (Auto) 70.5, Lymph % (Auto) 18.3, [place] % (Auto) 9.8 H, Eos % (Auto) 0.8, Baso % (Auto) 0.2, Neut # (Auto) 3.5, Lymph # (Auto) 0.9, [place] # (Auto) 0.5, Eos # (Auto) 0.0, Baso # (Auto) 0.0, Sodium 136, Potassium 4.5, Chloride 110 H, Carbon Dioxide 20 L, Anion Gap 10.5, BUN 36 H, Creatinine 1.50 H, Estimated Creat Clear 27, Estimated GFR 33 L, Est GFR ( Amer) 40 L D, Glucose 88 D, Calcium 8.5, Magnesium 2.0 D, Total Bilirubin 0.7, AST 52 H, ALT 20 D, Alkaline Phosphatase 94, Total Protein 5.8 L, Albumin 3.6, Globulin 2.2, Albumin/Globulin Ratio 1.6 I & O for Last 24 hours: Intake & Output 08/25/24 08/26/24 08/27/24 08/28/24 23:59 23:59 23:59 23:59 Intake Total 1444 / 1750 566 / 566 Output Total 400 / 800 1000 / 1400 400 / 400 Balance 1044 / 950 -434 / -834 -400 / -400 Weight 55.111 kg 58.06 kg 58.831 kg Microbiology Reports for the Last 24 Hours: Microbiology 08/26/24 17:15 Blood Blood Culture - Preliminary NO GROWTH AFTER 24 HOURS 08/26/24 15:55 Blood Blood Culture - Preliminary NO GROWTH AFTER 24 HOURS Constitutional Constitutional: no acute distress, thin, chronically ill appearing and cooperative *Routine HEENT Exam Head: Present normocephalic Eye: Present EOMI and PERRL ENT: Present mucous membranes moist *Routine Neck Exam Neck: Present supple; Absent lymphadenopathy *Routine Respiratory Exam Respiratory: Present CTA bilaterally; Absent rhonchi, stridor, wheezes or crackles *Routine Cardiovascular Exam Cardiovascular: Present RRR *Routine Abdominal Exam Abdominal: Present soft and normoactive bowel sounds; Absent tenderness *Routine Rectal Exam Patient deferred: visual exam *Routine Exam Patient deferred: external exam *Routine Extremities Exam Extremities: Absent cyanosis, clubbing or edema *Routine Skin Exam Skin: Present intact and warm; Absent rash *Routine Neurological Exam Neurological: Present alert, CN II-XII intact and moving all extremities; Absent altered mental status Results Data Completed and Pending Labs on day of discharge: Labs from last 24 hours 08/28/24 08/28/24 08/27/24 06:34 05:42 21:01 WBC 4.9 D RBC 3.35 L D Hgb 11.5 L Hct 32.3 L MCV 96.4 MCH 34.3 H MCHC 35.6 H RDW 12.3 Plt Count 137 L D MPV 10.6 H Neut % (Auto) 70.5 Lymph % (Auto) 18.3 [place] % (Auto) 9.8 H Eos % (Auto) 0.8 Baso % (Auto) 0.2 Neut # (Auto) 3.5 Lymph # (Auto) 0.9 [place] # (Auto) 0.5 Eos # (Auto) 0.0 Baso # (Auto) 0.0 Sodium 136 Potassium 4.5 Chloride 110 H Carbon Dioxide 20 L Anion Gap 10.5 BUN 36 H Creatinine 1.50 H Estimated Creat Clear 27 Estimated GFR 33 L Est GFR ( Amer) 40 L D Glucose 88 D POC Glucose 107 123 H Calcium 8.5 Magnesium 2.0 D Total Bilirubin 0.7 AST 52 H ALT 20 D Alkaline Phosphatase 94 Total Protein 5.8 L Albumin 3.6 Globulin 2.2 Albumin/Globulin Ratio 1.6 08/27/24 08/27/24 08/27/24 16:42 16:33 11:44 WBC RBC Hgb Hct MCV MCH MCHC RDW Plt Count MPV Neut % (Auto) Lymph % (Auto) [place] % (Auto) Eos % (Auto) Baso % (Auto) Neut # (Auto) Lymph # (Auto) [place] # (Auto) Eos # (Auto) Baso # (Auto) Sodium 136 Potassium 4.5 Chloride 108 H Carbon Dioxide 22 Anion Gap 10.5 BUN 42 H Creatinine 1.80 H Estimated Creat Clear 22 Estimated GFR 27 L Est GFR ( Amer) 33 L Glucose 146 H D POC Glucose 148 H 93 Calcium 8.6 Magnesium Total Bilirubin AST ALT Alkaline Phosphatase Total Protein Albumin Globulin Albumin/Globulin Ratio 08/27/24 08/27/24 05:43 05:24 WBC RBC Hgb 11.4 L D Hct MCV MCH MCHC RDW Plt Count MPV Neut % (Auto) Lymph % (Auto) [place] % (Auto) Eos % (Auto) Baso % (Auto) Neut # (Auto) Lymph # (Auto) [place] # (Auto) Eos # (Auto) Baso # (Auto) Sodium Potassium Chloride Carbon Dioxide Anion Gap BUN Creatinine Estimated Creat Clear Estimated GFR Est GFR ( Amer) Glucose POC Glucose 95 Calcium Magnesium Total Bilirubin AST ALT Alkaline Phosphatase Total Protein Albumin Globulin Albumin/Globulin Ratio Preliminary micro results at discharge 08/26/24 17:15 Blood Culture - Preliminary Blood NO GROWTH AFTER 24 HOURS 08/26/24 15:55 Blood Culture - Preliminary Blood NO GROWTH AFTER 24 HOURS DS: Diagnosis Discharge Diagnosis (1) Acute on chronic renal failure: Status: Acute Code(s): N17.9 - Acute kidney failure, unspecified; N18.9 - Chronic kidney disease, unspecified Qualifiers: Acute renal failure type: unspecified Chronic kidney disease stage: unspecified stage Qualified Code(s): N17.9 - Acute kidney failure, unspecified; N18.9 - Chronic kidney disease, unspecified (2) Hyperkalemia: Status: Acute Code(s): E87.5 - Hyperkalemia (3) Alzheimer dementia: Status: Acute Code(s): G30.9 - Alzheimer's disease, unspecified; F02.80 - Dementia in other diseases classified elsewhere, unspecified severity, without behavioral disturbance, psychotic disturbance, mood disturbance, and anxiety Qualifiers: Alzheimer's disease onset: unspecified onset Dementia severity: unspecified severity Dementia behavioral or psychological symptom: unspecified whether behavioral, psychotic, or mood disturbance or anxiety Qualified Code(s): G30.9 - Alzheimer's disease, unspecified; F02.80 - Dementia in other diseases classified elsewhere, unspecified severity, without behavioral disturbance, psychotic disturbance, mood disturbance, and anxiety (4) Fall: Status: Acute Code(s): W19.XXXA - Unspecified fall, initial encounter Qualifiers: Encounter type: sequela Qualified Code(s): W19.XXXS - Unspecified fall, sequela (5) Atrial fibrillation: Status: Acute Code(s): I48.91 - Unspecified atrial fibrillation Qualifiers: Atrial fibrillation type: paroxysmal Qualified Code(s): I48.0 - Paroxysmal atrial fibrillation (6) DM2 (diabetes mellitus, type 2): Status: Acute Code(s): E11.9 - Type 2 diabetes mellitus without complications Qualifiers: Diabetes mellitus complication status: with kidney complications Meds Home Medications and Allergies Home Medications ?Medication ?Instructions ?Recorded ?Confirmed ?Type aspirin 81 mg tablet,delayed 81 mg PO DAILY 02/18/20 08/27/24 History release (Adult Aspirin Regimen) cyanocobalamin (vitamin B-12) 1,000 mcg PO DAILY 12/06/23 08/27/24 History 1,000 mcg tablet mirabegron 25 mg tablet,extended 25 mg PO DAILY #90 tabs 01/03/24 08/27/24 Rx release 24 hr (Myrbetriq) cetirizine 10 mg tablet 10 mg PO DAILY #30 tabs 02/26/24 08/27/24 Rx risperidone 1 mg tablet (Risperdal) 1 mg PO HS #30 tabs 03/22/24 08/27/24 Rx memantine ER 7 mg-donepezil 10 mg 1 cap PO DAILY #30 ea 04/22/24 08/27/24 Rx capsule sprinkle,ext.release 24 hour (Namzaric) diltiazem HCl 120 mg capsule,24 120 mg PO DAILY #90 caps 08/02/24 08/27/24 Rx hr,extended release albuterol sulfate 90 mcg/actuation 2 puff inhalation Q6HP PRN 08/27/24 08/27/24 History aerosol inhaler Shortness Of Breath Or Wheezing atorvastatin 10 mg tablet 10 mg PO HS 08/27/24 08/27/24 History famotidine 20 mg tablet 20 mg PO BID 08/27/24 08/27/24 History furosemide 40 mg tablet 40 mg PO DAILYP PRN Edema 08/27/24 08/27/24 History ipratropium 0.5 mg-albuterol 3 mg 3 ml inhalation Q6HP PRN Shortness 08/27/24 08/27/24 History (2.5 mg base)/3 mL nebulization Of Breath Or Wheezing soln levetiracetam 500 mg tablet 500 mg PO BID 08/27/24 08/27/24 History oxycodone 5 mg tablet 5 mg PO BIDP PRN Severe Pain 08/27/24 08/27/24 History (Scale Score 7-10) quetiapine 100 mg tablet (Seroquel) 150 mg PO HS 08/27/24 08/27/24 History rivaroxaban 15 mg tablet (Xarelto) 15 mg PO QPMWITHMEAL 08/27/24 08/27/24 History umeclidinium 62.5 mcg-vilanterol 1 ea inhalation DAILY 08/27/24 08/27/24 History 25 mcg/actuation powdr for inhalation New Prescriptions to Start Prescriptions: Allergies Allergy/AdvReac Type Severity Reaction Status Date / Time codeine AdvReac Severe Anaphylaxis Verified 08/02/24 13:33 Discharge Plan Disposition Patient Disposition: [facility] Condition: Fair Discharge Order Discharge Orders: Discharge Order (Routine); Ordered 08/28/24 Ordered By: Jose Vazquez Follow up Plan Prescriptions/Medication Reconciliation: Continued cyanocobalamin (vitamin B-12) 1,000 mcg tablet 1,000 mcg PO DAILY mirabegron [Myrbetriq] 25 mg tablet extended release 24 hr 25 mg PO DAILY Qty: 90 3RF aspirin [Adult Aspirin Regimen] 81 mg tablet,delayed release (DR/EC) 81 mg PO DAILY diltiazem HCl 120 mg capsule,extended release 24hr 120 mg PO DAILY Qty: 90 0RF cetirizine 10 mg tablet 10 mg PO DAILY Qty: 30 2RF Namzaric 7-10 mg capsule,sprinkle,ER 24hr 1 cap PO DAILY Qty: 30 10RF levetiracetam 500 mg tablet 500 mg PO BID ipratropium-albuterol 0.5 mg-3 mg(2.5 mg base)/3 mL solution for nebulization 3 ml IH Q6HP PRN (Reason: Shortness Of Breath Or Wheezing) atorvastatin 10 mg tablet 10 mg PO HS famotidine 20 mg tablet 20 mg PO BID albuterol sulfate 90 mcg/actuation HFA aerosol inhaler 2 puff INHALATION Q6HP PRN (Reason: Shortness Of Breath Or Wheezing) Xarelto 15 mg tablet 15 mg PO QPMWITHMEAL Rx Instructions: must administer with evening meal umeclidinium-vilanterol 62.5-25 mcg/actuation blister with device 1 ea IH DAILY Discontinued potassium chloride 10 mEq capsule, extended release 10 meq PO DAILY lisinopril 2.5 mg tablet 2.5 mg PO DAILY No Action risperidone [Risperdal] 1 mg tablet 1 mg PO HS Qty: 30 3RF furosemide 40 mg tablet 40 mg PO DAILYP PRN (Reason: Edema) quetiapine [Seroquel] 100 mg tablet 150 mg PO HS oxycodone 5 mg tablet 5 mg PO BIDP PRN (Reason: Severe Pain (Scale Score 7-10)) Problem Reconciliation Problems Reviewed?: Yes Patient Discharge Instructions DIET: continue same diet Patient Instructions: DI for Kidney Failure, DI for Hyperkalemia, DI for Muscle Weakness Print Language: [place]ian Providers Primary Care Provider: Jesus Alberto Stevenson Admit Provider: Petar Finch Attending Provider: Petar Finch
[2024-08-28] MEDS: dilTIAZem ER 120MG CAPSULE 120 MG PO (09:08)
[2024-08-28] MEDS: FAMOTIDINE 20MG TABLET 20 MG PO (09:08)
[2024-08-28] MEDS: ASPIRIN EC 81MG TABLET 81 MG PO (09:08)
[2024-08-28] MEDS: UMECLIDINIUM/VILANTEROL 62.5/25MCG INHALER 1 PUFF IH (09:08)
[2024-08-28] MEDS: levETIRAcetam 500 MG TABLET PO (09:08)
== END 2024-08-28 10:28 ==
LOC: ER 17:53 → 2ND 18:10
PROVIDERS: Internal Medicine Adolescent Medicine; Nurse Practitioner Acute Care; Physician Assistant; Admitting Provider Student in an Organized Health Care Education/Training Program; Emergency Provider Emergency Medicine; PCP Family Medicine; Visit Provider Student in an Organized Health Care Education/Training Program
DX: N17.9 Acute kidney failure, unspecified (principal); N18.32 Chronic kidney disease, stage 3b; F05 Delirium due to known physiological condition; W19.XXXA Unspecified fall, initial encounter; G93.40 Encephalopathy, unspecified; J44.89 Other specified chronic obstructive pulmonary disease; M54.9 Dorsalgia, unspecified; G30.9 Alzheimer's disease, unspecified; E11.22 Type 2 diabetes mellitus with diabetic chronic kidney disease; E87.5 Hyperkalemia; I48.0 Paroxysmal atrial fibrillation; Z79.899 Other long term (current) drug therapy; Z79.891 Long term (current) use of opiate analgesic; Z79.02 Long term (current) use of antithrombotics/antiplatelets; Z88.5 Allergy status to narcotic agent; Z79.01 Long term (current) use of anticoagulants; Z79.82 Long term (current) use of aspirin
CPT/HCPCS: 36415; 70450; 70496; 70498; 71275; 72125; 72128; 72131; 72192; 74174; 80048; 80053; 81001; 82550; 82803; 82962; 83605; 83735; 83880; 84145; 84436; 84443; 84479; 84484; 85025; 85610; 87040; 87633; 97163; 97166; 97530; 99291; G0378; J7030; Q9967

== ENCOUNTER 2024-10-11 18:28 | Observation (INO) | payer MEDICARE, MEDICAID, SELFPAY ==
[2024-10-11] VITALS (8 sets, daily range): BP systolic 111–149; BP diastolic 39–63; PULSE 54–89; RESP 14–18; TEMP 36.4; O2SAT 94–99; BMI 22.9
--- NOTE | 2024-10-11 18:33 | ED_ITS ---
Discharge Plan Disposition Patient Disposition: Admitted Condition: Fair Clinical Impressions Clinical Impression: Acute exacerbation of CHF (congestive heart failure) Qualifiers: Heart failure type: unspecified Qualified Code(s): I50.9 - Heart failure, unspecified Discharge ED Provider: Farhat Tang General Adult HPI <SUHAIL Muller - Last Filed: 10/11/24 20:34> General Chief complaint: Weakness Stated complaint: chest rosibel., wheezing, cough Time Seen by Provider: 10/11/24 18:32 History of Present Illness HPI narrative: Patient presents for chest congestion wheezing and cough. Patient has had 2 days of increasing nonproductive cough wheezing. Patient has a history of dementia, history of atrial fibrillation maintained on Eliquis, history of CHF in the last ejection fraction that I was able to find was from 2020 and showed an ejection fraction of 55%. She has not on diuretic at baseline as she also has chronic kidney disease. Family notes that she has had increasing nonproductive wet cough that they call congestion and is had a minor functional decline if she is normally amatory and conversant but has been fatigued and staying in bed more. They do not weigh her on a daily basis so unsure if she has gained any water weight. They deny any fever chills hemoptysis hematochezia melena hematemesis hematuria. Related Data Home Medications ?Medication ?Instructions ?Recorded ?Confirmed aspirin 81 mg tablet,delayed 81 mg PO DAILY 02/18/20 10/07/24 release (Adult Aspirin Regimen) albuterol sulfate 90 mcg/actuation 2 puff inhalation Q6HP PRN 08/27/24 10/07/24 aerosol inhaler Shortness Of Breath Or Wheezing atorvastatin 10 mg tablet 10 mg PO HS 08/27/24 10/07/24 famotidine 20 mg tablet 20 mg PO BID 08/27/24 10/07/24 ipratropium 0.5 mg-albuterol 3 mg 3 ml inhalation Q6HP PRN Shortness 08/27/24 10/07/24 (2.5 mg base)/3 mL nebulization Of Breath Or Wheezing soln levetiracetam 500 mg tablet 500 mg PO BID 08/27/24 10/07/24 rivaroxaban 15 mg tablet (Xarelto) 15 mg PO QPMWITHMEAL 08/27/24 10/07/24 umeclidinium 62.5 mcg-vilanterol 1 ea inhalation DAILY 08/27/24 10/07/24 25 mcg/actuation powdr for inhalation Previous Rx's ?Medication ?Instructions ?Recorded mirabegron 25 mg tablet,extended 25 mg PO DAILY #90 tabs 01/03/24 release 24 hr (Myrbetriq) diltiazem HCl 120 mg capsule,24 120 mg PO DAILY #90 caps 08/02/24 hr,extended release quetiapine 100 mg tablet (Seroquel) 50 mg (1/2 x 100 mg) PO HS 30 days 08/28/24 #15 tabs cyanocobalamin (vitamin B-12) 1,000 mcg PO DAILY #90 tabs 09/09/24 1,000 mcg tablet memantine ER 7 mg-donepezil 10 mg 1 cap PO DAILY #30 ea 09/09/24 capsule sprinkle,ext.release 24 hour (Namzaric) risperidone 1 mg tablet 1 mg PO QHS #30 tabs 09/18/24 oxycodone 5 mg tablet 5 mg PO Q8H PRN Severe Pain (Scale 10/07/24 Score 7-10) 30 days #90 tabs Allergies Allergy/AdvReac Type Severity Reaction Status Date / Time codeine AdvReac Severe Anaphylaxis Verified 10/11/24 18:51 [facility] <SUHAIL Muller - Last Filed: 10/11/24 20:34> [facility] Disclaimer: The information contained in this section may have been updated after the patient was seen, as this information can be updated by other users. Medical History (Updated 10/11/24 @ 20:15 by SUHAIL Muller) Intraparenchymal hemorrhage of brain Tobacco use Overweight (BMI 25.0-29.9) History of pneumonia Nodule of left lung Acute exacerbation of chronic obstructive pulmonary disease (COPD) Dementia Surgical History H/O mastectomy History of cholecystectomy H/O right knee surgery Social History Smoking Status: Former smoker tobacco type: cigarettes packs per day: 1 and e- cigarettes alcohol intake: never substance use type: denies use current occupational status: retired Travel in the last 8 weeks: None household members: family housing: house caffeine: Yes Have you lived/traveled outside [place] in past 30 days?: No Contact w/someone who lives/traveled outside US past 30 days?: No Exposure to someone with infectious disease in past 14 days?: No Do you have a fever (greater than 100.4 F or 38 C)?: No Have you tested positive for COVID-19: No Exposed to someone with COVID-19 in past 14 days?: No Do you have a sore throat?: No Do you have a cough?: No Do you have any weakness?: No Do you have any diarrhea?: No Are you experiencing any unusual bleeding?: No Do you have any muscle aches/pain?: No Do you have any abdominal pain?: No Are you experiencing loss of taste or smell?: No Other Medical History Have you received the Flu Vaccine for this season: No Have you received the Pneumonia Vaccine: Yes <SUHAIL Muller - Last Filed: 10/11/24 20:34> ROS Obtained: Yes Systems reviewed as appropriate & no additional complaints except as documented Physical Exam <SUHAIL Muller - Last Filed: 10/11/24 20:34> General General appearance: alert and in no apparent distress Respiratory Respiratory exam: Absent normal lung sounds bilaterally (Diffuse Rales in all 4 rodríguez) or accessory muscle use Cardiovascular Cardiovascular exam: Present irregular rhythm (And controlled rate) Neurological Exam Neurological exam: Present alert; Absent oriented X3 (Pleasantly confused but follows commands) Medical Decision Making <SUHAIL Muller - Last Filed: 10/11/24 20:34> Medical Records Medical records reviewed: Yes I reviewed the patient's medical records. Screening: Per USPSTF and CDC recommendations, given the prevalence of disease in our region, it is our hospital?s policy to screen for HIV and viral Hepatitis for all patients aged 18 and over and those with ongoing risk factors. Jose Inquiry Pt receiving controlled substance: No Vital Signs: 10/11/24 18:42 10/11/24 19:15 10/11/24 19:23 Temperature 97.6 F Temperature Source Oral Pulse Rate 74 54 L Pulse Rate [Left] 62 Respiratory Rate 17 16 16 Blood Pressure 111/39 L Blood Pressure [Right Arm] 130/54 L Blood Pressure Mean [Right Arm] 79 Blood Pressure Source Blood Pressure Source [Right Arm] Automatic Cuff Blood Pressure Position Blood Pressure Position [Right Arm] Supine 02 Sat by Pulse Oximetry 96 96 94 L Oxygen Delivery Method Room Air Room Air 10/11/24 19:28 10/11/24 19:28 10/11/24 19:28 Temperature Temperature Source Pulse Rate 89 86 86 Pulse Rate [Left] Respiratory Rate 18 Blood Pressure Blood Pressure [Right Arm] Blood Pressure Mean [Right Arm] Blood Pressure Source Blood Pressure Source [Right Arm] Blood Pressure Position Blood Pressure Position [Right Arm] 02 Sat by Pulse Oximetry Oxygen Delivery Method 10/11/24 20:01 10/11/24 20:15 10/11/24 20:28 Temperature 97.6 F Temperature Source Oral Pulse Rate 58 L 60 60 Pulse Rate [Left] Respiratory Rate 14 15 16 Blood Pressure 149/63 H 149/63 H Blood Pressure [Right Arm] Blood Pressure Mean [Right Arm] Blood Pressure Source Automatic Cuff Blood Pressure Source [Right Arm] Blood Pressure Position Supine Blood Pressure Position [Right Arm] 02 Sat by Pulse Oximetry 94 L 94 L Oxygen Delivery Method Room Air Room Air Lab Data Lab results reviewed: Yes I reviewed the patient's lab results. Lab Results 10/11/24 18:55: WBC 5.6, RBC 4.04 L, Hgb 13.4, Hct 41.2, MCV 102.0 H, MCH 33.2 H , MCHC 32.5, RDW 12.2, Plt Count 173, MPV 10.2, Neut % (Auto) 81.2 H, Lymph % (Auto) 8.3 L, Caldwell % (Auto) 9.4 H, Eos % (Auto) 0.5, Baso % (Auto) 0.2, Neut # (Auto) 4.6, Lymph # (Auto) 0.5 L, Caldwell # (Auto) 0.5, Eos # (Auto) 0.0, Baso # (Auto) 0.0, Sodium 139, Potassium 4.7, Chloride 105, Carbon Dioxide 27, Anion Gap 11.7, BUN 21 H, Creatinine 1.20 H, Estimated Creat Clear 36, Estimated GFR 43 L, Est GFR ( Amer) 52 L, Glucose 174 H, Calcium 9.1, Magnesium 1.9, Total Bilirubin 1.2, AST 26, ALT 18, Alkaline Phosphatase 105, Troponin I < 0.01, NT-Pro-B Natriuret Pep 4560 H, Total Protein 6.8, Albumin 4.1, Globulin 2.7, Albumin/Globulin Ratio 1.5, Procalcitonin 0.046, HCV Ab LAURY w/Rflx PCR Qn Negative 10/11/24 19:04: VBG pH 7.29 L, VBG pCO2 48.7, VBG pO2 36.1, VBG HCO3 22.6 L, VBG Total CO2 24.1, VBG O2 Saturation 61.6, VBG Base Excess -4.0 L, VBG Lactic Acid 2.1 H 10/11/24 19:43: SARS-CoV-2 (PCR) Not detected, Influenza A Untype (PCR) Not detected, Influenza Type B (PCR) Not detected 10/11/24 20:10: Urine Color Yellow, Urine Appearance Clear, Urine pH 6.0, Ur Specific Cameron 1.020, Urine Protein Negative, Urine Glucose (UA) Negative, Urine Ketones Negative, Urine Blood Negative, Urine Nitrate Negative, Urine Bilirubin Negative, Urine Urobilinogen 0.2, Ur Leukocyte Esterase Negative, Urine RBC None, Urine WBC 3-5, Ur Squamous Epith Cells Occasional, Ur Transition Epith Cell Occ, Urine Bacteria Trace, Hyaline Casts Occasional 10/11/24 18:55 10/11/24 18:55 Orders (Tests/Meds): ED MEDICATIONS Generic Name Dose Route Start Last Admin Trade Name Freq PRN Reason Stop Dose Admin Furosemide 40 mg 10/12/24 09:00 Furosemide 40mg/4ml Vial IV 11/11/24 08:59 DAILY WILLIAMS Azithromycin 500 mg/ Sodium 250 mls @ 250 mls/hr 10/11/24 20:15 10/11/24 20:35 Chloride IV 10/11/24 21:14 250 mls/hr ONCE ONE Administration Sodium Chloride 3 ml 10/11/24 18:39 10/11/24 19:28 Sodium Chloride 3% 15ml [facility] 11/10/24 18:38 3 ml ONCE PRN Administration INDUCE SPUTUM COLLECTION Discontinued Medications Generic Name Dose Route Start Last Admin Trade Name Freq PRN Reason Stop Dose Admin Albuterol/Ipratropium 3 ml 10/11/24 18:39 10/11/24 19:28 Ipratropium/Albuterol 3 Ml [facility] 10/11/24 18:40 3 ml ONCE ONE Administration Dexamethasone Sodium Phosphate 10 mg 10/11/24 18:39 10/11/24 19:19 Dexamethasone 4mg/Ml 5ml Mdv IV 10/11/24 18:40 10 mg ONCE ONE Administration Furosemide 80 mg 10/11/24 19:46 10/11/24 20:11 Furosemide 40mg/4ml Vial IV 10/11/24 19:47 80 mg ONCE ONE Administration Ceftriaxone Sodium 1 gm/ 50 mls @ 100 mls/hr 10/11/24 20:15 10/11/24 20:20 Sodium Chloride IV 10/11/24 20:44 100 mls/hr ONCE ONE Administration Iopamidol 70 ml 10/11/24 19:26 10/11/24 19:37 Iopamidol-370 (76%);100ml Bottle IV 10/11/24 19:27 70 ml ONCE ONE Administration Sodium Chloride 50 ml 10/11/24 19:26 10/11/24 19:37 0.9 % Sodium Chloride 50 Ml Vial IV 10/11/24 19:27 50 ml ONCE ONE Administration Sodium Chloride 10 ml 10/11/24 19:26 10/11/24 19:37 Sodium Chloride 0.9% 10ml Syr (Rad Only) IV 10/11/24 19:27 10 ml ONCE ONE Administration ORDERS Category Date Time Status CT angio chest PE protocol Stat Cat Scan 10/11/24 18:39 Completed POCUS Point of Care (ER Only) Stat Exams 10/11/24 18:45 Taken BNP [NT Pro Brain Natriuretic Pep.] Stat Lab 10/11/24 18:55 Completed CBC w/Auto Diff [Complete Blood Count Auto Diff] Stat Lab 10/11/24 18:55 Completed CMP [Comprehensive Metabolic Panel] Stat Lab 10/11/24 18:55 Completed HIV Combo Stat Lab 10/11/24 18:55 Received Hepatitis C Ab Qual. W/ RFX Stat Lab 10/11/24 18:55 Completed Magnesium Stat Lab 10/11/24 18:55 Completed Procalcitonin Stat Lab 10/11/24 18:55 Completed Rapid PCR Covid and Flu A/B Stat Lab 10/11/24 19:43 Completed Trop I [Troponin I] Stat Lab 10/11/24 18:55 Completed Troponin I Q3H Lab 10/11/24 21:45 Ordered Troponin I Q3H Lab 10/12/24 00:45 Ordered Urinalysis and Microscopic Stat Lab 10/11/24 20:10 Completed Blood Culture Stat Micro 10/11/24 19:03 Received Sputum Culture & Gram Stain Stat Micro 10/11/24 19:39 Received VBG [Venous Blood Gas] Stat RT 10/11/24 19:04 Completed Tissue Perfus/Sepsis Re-Eval Sepsis Re-Evaluation Performed: Yes Date Performed: 10/11/24 Time Performed: 20:27 HEART Score History (anamnesis): Slightly suspicious ECG: Non-specific disturbance Age: >65 years Risk factors: 3 or more risk factors Troponin: </= normal limit HEART Score: 5 Medical Decision Narrative: In summary patient is a 83-year-old female who presents to the emergency department for evaluation of chest congestion and nonproductive cough. Patient is hemodynamically stable with a blood pressure 130/54 heart rate 62 with controlled A-fib on the bedside monitor breathing 17 times a minute satting at 96% on room air upon arrival, and afebrile at 97.6. Physical exam is remarkable for diffuse Rales in all 4 rodríguez without accessory muscle use or increased work of breathing currently. She has a wet sounding cough but is unable to produce sputum. Abdomen is soft without rebound or guarding or rigidity. I do not appreciate any dependent edema currently.. Differential diagnosis includes pneumonia versus CHF exacerbation versus PE versus ACS etc. Initial workup will be conducted with hematologic labs urinalysis COVID and flu swabs CT PE protocol. Initial interventions include DuoNeb Decadron until workup complete. I did consider a sepsis bolus however patient has no red flags suggestive of sepsis on initial evaluation thus deferred until SILVA complete. Initial workup reviewed by me and her hematologic labs are remarkable for white count of 5.6 normal H&H with no neutrophilic shift, VBG shows a pH of 7.29 with a VBG lactic acid of 2.1, creatinine is 1.2 GFR is 43 which is about her normal baseline, glucose 174 initial troponin undetectable at 0.01 her NT proBNP however is elevated at 4560 procalcitonin is 0.046 urinalysis is bland COVID and flu are undetectable and my informal interpretation of her CT imaging does not show any evidence of thrombus or infiltrate but is suggestive of pulmonary edema. Given this I have given the patient a dose of Lasix, mike Robles, started her on Rocephin and Zithromax, and have deferred a sepsis bolus due to volume overload and stable vital signs. Given this I had an interactive discussion with hospital medicine regarding patient SILVA and patient management and she will be admitted for further evaluation and care. <Farhat Tang MD - Last Filed: 10/11/24 20:45> Vital Signs: 10/11/24 18:42 10/11/24 19:15 10/11/24 19:23 Temperature 97.6 F Temperature Source Oral Pulse Rate 74 54 L Pulse Rate [Left] 62 Respiratory Rate 17 16 16 Blood Pressure 111/39 L Blood Pressure [Right Arm] 130/54 L Blood Pressure Mean [Right Arm] 79 Blood Pressure Source Blood Pressure Source [Right Arm] Automatic Cuff Blood Pressure Position Blood Pressure Position [Right Arm] Supine 02 Sat by Pulse Oximetry 96 96 94 L Oxygen Delivery Method Room Air Room Air 10/11/24 19:28 10/11/24 19:28 10/11/24 19:28 Temperature Temperature Source Pulse Rate 89 86 86 Pulse Rate [Left] Respiratory Rate 18 Blood Pressure Blood Pressure [Right Arm] Blood Pressure Mean [Right Arm] Blood Pressure Source Blood Pressure Source [Right Arm] Blood Pressure Position Blood Pressure Position [Right Arm] 02 Sat by Pulse Oximetry Oxygen Delivery Method 10/11/24 20:01 10/11/24 20:15 10/11/24 20:28 Temperature 97.6 F Temperature Source Oral Pulse Rate 58 L 60 60 Pulse Rate [Left] Respiratory Rate 14 15 16 Blood Pressure 149/63 H 149/63 H Blood Pressure [Right Arm] Blood Pressure Mean [Right Arm] Blood Pressure Source Automatic Cuff Blood Pressure Source [Right Arm] Blood Pressure Position Supine Blood Pressure Position [Right Arm] 02 Sat by Pulse Oximetry 94 L 94 L Oxygen Delivery Method Room Air Room Air Lab Data Lab Results 10/11/24 18:55: WBC 5.6, RBC 4.04 L, Hgb 13.4, Hct 41.2, MCV 102.0 H, MCH 33.2 H , MCHC 32.5, RDW 12.2, Plt Count 173, MPV 10.2, Neut % (Auto) 81.2 H, Lymph % (Auto) 8.3 L, Caldwell % (Auto) 9.4 H, Eos % (Auto) 0.5, Baso % (Auto) 0.2, Neut # (Auto) 4.6, Lymph # (Auto) 0.5 L, Caldwell # (Auto) 0.5, Eos # (Auto) 0.0, Baso # (Auto) 0.0, Sodium 139, Potassium 4.7, Chloride 105, Carbon Dioxide 27, Anion Gap 11.7, BUN 21 H, Creatinine 1.20 H, Estimated Creat Clear 36, Estimated GFR 43 L, Est GFR ( Amer) 52 L, Glucose 174 H, Calcium 9.1, Magnesium 1.9, Total Bilirubin 1.2, AST 26, ALT 18, Alkaline Phosphatase 105, Troponin I < 0.01, NT-Pro-B Natriuret Pep 4560 H, Total Protein 6.8, Albumin 4.1, Globulin 2.7, Albumin/Globulin Ratio 1.5, Procalcitonin 0.046, HCV Ab LAURY w/Rflx PCR Qn Negative 10/11/24 19:04: VBG pH 7.29 L, VBG pCO2 48.7, VBG pO2 36.1, VBG HCO3 22.6 L, VBG Total CO2 24.1, VBG O2 Saturation 61.6, VBG Base Excess -4.0 L, VBG Lactic Acid 2.1 H 10/11/24 19:43: SARS-CoV-2 (PCR) Not detected, Influenza A Untype (PCR) Not detected, Influenza Type B (PCR) Not detected 10/11/24 20:10: Urine Color Yellow, Urine Appearance Clear, Urine pH 6.0, Ur Specific Cameron 1.020, Urine Protein Negative, Urine Glucose (UA) Negative, Urine Ketones Negative, Urine Blood Negative, Urine Nitrate Negative, Urine Bilirubin Negative, Urine Urobilinogen 0.2, Ur Leukocyte Esterase Negative, Urine RBC None, Urine WBC 3-5, Ur Squamous Epith Cells Occasional, Ur Transition Epith Cell Occ, Urine Bacteria Trace, Hyaline Casts Occasional Orders (Tests/Meds): ED MEDICATIONS Generic Name Dose Route Start Last Admin Trade Name Freq PRN Reason Stop Dose Admin Furosemide 40 mg 10/12/24 09:00 Furosemide 40mg/4ml Vial IV 11/11/24 08:59 DAILY WILLIAMS Azithromycin 500 mg/ Sodium 250 mls @ 250 mls/hr 10/11/24 20:15 10/11/24 20:35 Chloride IV 10/11/24 21:14 250 mls/hr ONCE ONE Administration Sodium Chloride 3 ml 10/11/24 18:39 10/11/24 19:28 Sodium Chloride 3% 15ml [facility] 11/10/24 18:38 3 ml ONCE PRN Administration INDUCE SPUTUM COLLECTION Discontinued Medications Generic Name Dose Route Start Last Admin Trade Name Freq PRN Reason Stop Dose Admin Albuterol/Ipratropium 3 ml 10/11/24 18:39 10/11/24 19:28 Ipratropium/Albuterol 3 Ml [facility] 10/11/24 18:40 3 ml ONCE ONE Administration Dexamethasone Sodium Phosphate 10 mg 10/11/24 18:39 10/11/24 19:19 Dexamethasone 4mg/Ml 5ml Mdv IV 10/11/24 18:40 10 mg ONCE ONE Administration Furosemide 80 mg 10/11/24 19:46 10/11/24 20:11 Furosemide 40mg/4ml Vial IV 10/11/24 19:47 80 mg ONCE ONE Administration Ceftriaxone Sodium 1 gm/ 50 mls @ 100 mls/hr 10/11/24 20:15 10/11/24 20:20 Sodium Chloride IV 10/11/24 20:44 100 mls/hr ONCE ONE Administration Iopamidol 70 ml 10/11/24 19:26 10/11/24 19:37 Iopamidol-370 (76%);100ml Bottle IV 10/11/24 19:27 70 ml ONCE ONE Administration Sodium Chloride 50 ml 10/11/24 19:26 10/11/24 19:37 0.9 % Sodium Chloride 50 Ml Vial IV 10/11/24 19:27 50 ml ONCE ONE Administration Sodium Chloride 10 ml 10/11/24 19:26 10/11/24 19:37 Sodium Chloride 0.9% 10ml Syr (Rad Only) IV 10/11/24 19:27 10 ml ONCE ONE Administration ORDERS Category Date Time Status CT angio chest PE protocol Stat Cat Scan 10/11/24 18:39 Completed POCUS Point of Care (ER Only) Stat Exams 10/11/24 18:45 Taken BNP [NT Pro Brain Natriuretic Pep.] Stat Lab 10/11/24 18:55 Completed CBC w/Auto Diff [Complete Blood Count Auto Diff] Stat Lab 10/11/24 18:55 Completed CMP [Comprehensive Metabolic Panel] Stat Lab 10/11/24 18:55 Completed HIV Combo Stat Lab 10/11/24 18:55 Received Hepatitis C Ab Qual. W/ RFX Stat Lab 10/11/24 18:55 Completed Magnesium Stat Lab 10/11/24 18:55 Completed Procalcitonin Stat Lab 10/11/24 18:55 Completed Rapid PCR Covid and Flu A/B Stat Lab 10/11/24 19:43 Completed Trop I [Troponin I] Stat Lab 10/11/24 18:55 Completed Troponin I Q3H Lab 10/11/24 21:45 Ordered Troponin I Q3H Lab 10/12/24 00:45 Ordered Urinalysis and Microscopic Stat Lab 10/11/24 20:10 Completed Blood Culture Stat Micro 10/11/24 19:03 Received Sputum Culture & Gram Stain Stat Micro 10/11/24 19:39 Received VBG [Venous Blood Gas] Stat RT 10/11/24 19:04 Completed ECG Data Tracing #1: Independently interpreted by me rate is 55, rhythm is irregular, slow A- fib, QTc 440. No ST elevation in anatomical contiguous leads. HEART Score HEART Score: 5 Medical Decision Narrative: In summary patient is a 83-year-old female who presents to the emergency department for evaluation of chest congestion and nonproductive cough. Patient is hemodynamically stable with a blood pressure 130/54 heart rate 62 with controlled A-fib on the bedside monitor breathing 17 times a minute satting at 96% on room air upon arrival, and afebrile at 97.6. Physical exam is remarkable for diffuse Rales in all 4 rodríguez without accessory muscle use or increased work of breathing currently. She has a wet sounding cough but is unable to produce sputum. Abdomen is soft without rebound or guarding or rigidity. I do not appreciate any dependent edema currently.. Differential diagnosis includes pneumonia versus CHF exacerbation versus PE versus ACS etc. Initial workup will be conducted with hematologic labs urinalysis COVID and flu swabs CT PE protocol. Initial interventions include DuoNeb Decadron until workup complete. I did consider a sepsis bolus however patient has no red flags suggestive of sepsis on initial evaluation thus deferred until SILVA complete. Initial workup reviewed by me and her hematologic labs are remarkable for white count of 5.6 normal H&H with no neutrophilic shift, VBG shows a pH of 7.29 with a VBG lactic acid of 2.1, creatinine is 1.2 GFR is 43 which is about her normal baseline, glucose 174 initial troponin undetectable at 0.01 her NT proBNP however is elevated at 4560 procalcitonin is 0.046 urinalysis is bland COVID and flu are undetectable and my informal interpretation of her CT imaging does not show any evidence of thrombus or infiltrate but is suggestive of pulmonary edema. Given this I have given the patient a dose of Lasix, anchored Robles, started her on Rocephin and Zithromax, and have deferred a sepsis bolus due to volume overload and stable vital signs. Given this I had an interactive discussion with hospital medicine regarding patient SILVA and patient management and she will be admitted for further evaluation and care. I was consulted by the EDGAR, and we discussed the complexity of the problems being addressed. I approved the treatment and management plan for this patient's care in the emergency department, thus performing a substantive portion of the medical decision making. Farhat Tang MD Critical Care <SUHAIL Muller - Last Filed: 10/11/24 20:34> Critical Care Time Critical Care Time: Yes Attestation: On 10/11/24, the high probability of a clinically significant, sudden or life threatening deterioration of the following system(s) required my full and direct attention, intervention and personal management. The time I documented below is in addition to time spent performing reported procedures but includes the following listed in this critical care notation. Total Time Total Critical Care Time: 35
--- NOTE | 2024-10-11 18:39 | CT_ITS ---
PROCEDURE INFORMATION: Exam: CTA Chest With Contrast Exam date and time: 10/11/2024 7:27 PM Age: 83 years old Clinical indication: Cough; Additional info: Cough congestion TECHNIQUE: Imaging protocol: Computed tomographic angiography of the chest with contrast. Exam focused on the arteries. 3D rendering (Not supervised by radiologist): MIP and/or 3D reconstructed images were created by the technologist. Radiation optimization: All CT scans at this facility use at least one of these dose optimization techniques: automated exposure control; mA and/or kV adjustment per patient size (includes targeted exams where dose is matched to clinical indication); or iterative reconstruction. Contrast material: ISO 370; Contrast volume: 70 ml; Contrast route: INTRAVENOUS (IV); COMPARISON: CT ANGIO CHEST 08/26/2024 4:26 PM FINDINGS: Pulmonary arteries: Normal. No pulmonary emboli. Aorta: Atherosclerotic calcification of aorta without aneurysm. Lungs: Right posterobasilar benign calcified pulmonary nodule. Patchy pulmonary air trapping. Pleural spaces: Unremarkable. No pneumothorax. No pleural effusion. Heart: Unremarkable. No cardiomegaly. No pericardial effusion. Coronary arteries: Atherosclerotic calcification of coronary arteries. Lymph nodes: Calcified mediastinal and right hilar lymph nodes without lymphadenopathy. Bones/joints: Unremarkable. No acute fracture. Soft tissues: Unremarkable. IMPRESSION: 1. No central or segmental pulmonary arterial embolism identified. 2. Mild air trapping.
[2024-10-11 19:11] LABS: Lactate Venous 2.1 mmol/L (0.4-2.0); VBG HCO3 22.6 mmol/L (23-30); VBG Oxygen Saturation 61.6 % (50-70); VBG PCO2 48.7 mmol/L (35-51); VBG PH 7.29 mmol/L (7.31-7.41); VBG PO2 36.1 mmol/L (28-40); VBG Total CO2 24.1 mmol/L (23-27)
[2024-10-11 19:14] LABS: Basophils % 0.2 % (0.1-2.0); Eosinophils % 0.5 % (0.1-12.0); Hematocrit 41.2 % (37.0-47.0); Hemoglobin 13.4 g/dL (12.2-16.2); Lymphocytes # 0.5 K/mm3 (0.7-4.5); Lymphocytes % 8.3 % (10-50); Mean Corpuscular HGB Conc 32.5 g/dL (31.8-35.4); Mean Corpuscular Hemoglobin 33.2 pg (27.0-31.2); Mean Platelet Volume 10.2 fl (7.4-10.4); Monocytes # 0.5 K/mm3 (0.1-1.0); Monocytes % 9.4 % (1.7-9.3); Neutrophils # 4.6 K/mm3 (1.8-7.8); Neutrophils % 81.2 % (37.0-80.0); Platelet Count 173 K/mm3 (142-424); Red Blood Count 4.04 M/mm3 (4.20-5.40); Red Cell Distribution Width 12.2 % (11.5-17.5); White Blood Count 5.6 K/mm3 (4.8-10.8)
[2024-10-11 19:16] LABS: Albumin Level 4.1 g/dl (3.5-5.0); Chloride 105 mmol/L (98-107)
[2024-10-11 19:17] LABS: Potassium 4.7 mmoL/L (3.5-5.1); Sodium 139 mmol/L (136-145)
[2024-10-11 19:19] LABS: Alanine Aminotransferase 18 U/L (12-78); Aspartate Amino Transferase 26 U/L (14-36); Blood Urea Nitrogen 21 mg/dl (7-17); Creatinine Clearance Estimated 36 mL/min (50-200); Estimated Glomerular Filt Rate 43 ml/min (>60); GFR (African American) 52 ML/MIN (>60)
[2024-10-11] MEDS: DEXAMETHASONE 4MG/ML 5ML MDV 10 MG IV (19:19)
[2024-10-11 19:20] LABS: Albumin/Globulin Ratio 1.5 (1.1-1.8); Alkaline Phosphatase 105 U/L (38-126); Anion Gap 11.7 mEq/L (5-15); Bilirubin,Total 1.2 mg/dl (0.2-1.3); Calcium 9.1 mg/dl (8.4-10.2); Carbon Dioxide 27 mmol/L (22.0-30.0); Globulin 2.7 g/dL (1.3-3.2); Glucose 174 mg/dl (74-100); Magnesium 1.9 mg/dl (1.6-2.3); Total Protein,Serum 6.8 g/dl (6.3-8.2)
[2024-10-11] MEDS: IPRATROPIUM/ALBUTEROL 3 ML NEB IH (19:28)
[2024-10-11] MEDS: SODIUM CHLORIDE 3% 15ML NEB 3 ML IH (19:28)
[2024-10-11 19:29] LABS: NT Pro Brain Natriuretic Pep. 4560 pg/mL (0-450)
[2024-10-11 19:34] LABS: Troponin I < 0.01 ng/ml (0.00-0.034)
[2024-10-11] MEDS: IOPAMIDOL-370 (76%);100ML BOTTLE 70 ML IV (19:37)
[2024-10-11] MEDS: 0.9 % SODIUM CHLORIDE 50 ML VIAL IV (19:37)
[2024-10-11] MEDS: SODIUM CHLORIDE 0.9% 10ML SYR (RAD ONLY) 10 ML IV (19:37)
[2024-10-11 19:45] LABS: Procalcitonin 0.046 ng/mL (0.0-2.0)
[2024-10-11 19:46] LABS: Coronavirus 19, PCR Not Detected (NotDetected); Influenza A, PCR Not Detected (NotDetected); Influenza B, PCR Not Detected (NotDetected)
--- NOTE | 2024-10-11 20:02 | ECG_ITS ---
APPROVED REPORT Exam: Resting ECG HR:55 bpm ECG Measurements Heart Rate 55 AXES QRSd 99 QRS 41 QT 450 T 70 QTc 440 Conclusion ATRIAL FIBRILLATION WITH SLOW VENTRICULAR RESPONSE ST DEVIATION AND MODERATE T-WAVE ABNORMALITY, CONSIDER ANTERIOR ISCHEMIA [-0.1+ mV T-WAVE IN V3/V4] No STEMI Electronically signed by : ADDIS CONTEH, 10/12/2024 03:36:47
[2024-10-11] MEDS: FUROSEMIDE 40MG/4ML VIAL 80 MG IV (20:11)
[2024-10-11 20:12] LABS: Hepatitis C Ab Qual. W/ RFX NEGATIVE (Negative)
[2024-10-11 20:20] LABS: Microscopic, Urine URINE MICROSCOPIC (MICROSCOPIC)
[2024-10-11] MEDS: CEFTRIAXONE 1 GM 1 GM in 0.9 % SODIUM CHLORIDE 50 ML IV (20:20)
[2024-10-11 20:22] LABS: Appearance,Urine CLEAR (Clear); Bilirubin,Urine Negative (Negative); Blood, Urine Negative (Negative); Color,Urine YELLOW (Yellow); Glucose,Urine (UA) Negative (Negative); Ketones,Urine Negative (Negative); Leukocyte Esterase,Urine Negative (Negative); Nitrate,Urine Negative (Negative); Protein,Urine Negative (Negative); Urobilinogen,Urine 0.2 EU/dl (0.2)
--- NOTE | 2024-10-11 20:30 | PC.NURSE ---
Report called to CATHLEEN Keller; Waiting on floor to get patient
[2024-10-11] MEDS: AZITHROMYCIN 500 MG in 0.9 % SODIUM CHLORIDE 250 ML 250 MG IV (20:35)
[2024-10-11 20:36] LABS: Bacteria,Urine Trace /lpf; Squamous Epithelial Cell,Urine Occasional #/hpf (0-5); Transitional Epi Cells,Urine OCC #/lpf (0-3)
[2024-10-11 20:37] LABS: Hyaline Casts,Urine Occasional #/lpf (0)
[2024-10-11 20:54] LABS: HIV Combo NEGATIVE (Negative)
--- NOTE | 2024-10-11 21:48 | P.HP_ITS ---
<Statement entered by Jose Vazquez MD - 10/12/24 18:39> Rounded on patient after nurse practitioner. Personally examined and interviewed patient. Agree with exam findings and care plan as documented. History of Present Illness *Admission Date: 10/11/24 *Reason for visit:: Shortness of breath *History of present illness: This is an 83-year-old female with past medical history of COPD, CHF, DM 2, atrial fibrillation, Alzheimer's who presents emergency department with family for generalized weakness. Family is at bedside and provides collateral and states that she has not been as active as normal. Does have an element of dementia but is able to get up and move around at home. They felt that she was having progressive functional decline recently worse in the last couple days. They did notice that she seemed to be coughing more. They noticed loud lung sounds and felt that she might have too much fluid on her as this has happened in the past. They do state that the daughter that lives with the patient has had some upper respiratory virus recently and felt that this also may be contributing. Emergency department workup notable for elevated BNP of 4500 mild respiratory distress noted on arrival. Creatinine of 1.2. Lactic acid of 2.1. Patient had improvement in respiratory symptoms after nebulizer breathing treatment. Now oxygenating well on room air. Does continue to have coarse lung sounds with mild wheezing. Given her CHF/COPD exacerbation she is admitted to hospital service. [facility] Disclaimer: The information contained in this section may have been updated after the patient was seen, as this information can be updated by other users. Medical History (Updated 10/11/24 @ 22:02 by JH Persaud) Intraparenchymal hemorrhage of brain Tobacco use Overweight (BMI 25.0-29.9) History of pneumonia Nodule of left lung Acute exacerbation of chronic obstructive pulmonary disease (COPD) Dementia Surgical History H/O mastectomy History of cholecystectomy H/O right knee surgery Family History (Updated 10/11/24 @ 21:40 by Arianna Bullock RN) Other No significant family history Social History (Updated 10/11/24 @ 21:40 by Arianna Bullock RN) Smoking Status: Former smoker tobacco type: cigarettes packs per day: 1 and e- cigarettes alcohol intake: never substance use type: denies use current occupational status: retired Travel in the last 8 weeks: None household members: family housing: house caffeine: Yes Have you lived/traveled outside [place] in past 30 days?: No Contact w/someone who lives/traveled outside [place] past 30 days?: No Exposure to someone with infectious disease in past 14 days?: No Do you have a fever (greater than 100.4 F or 38 C)?: No Have you tested positive for COVID-19: No Exposed to someone with COVID-19 in past 14 days?: No Do you have a sore throat?: No Do you have a cough?: No Do you have any weakness?: No Do you have any diarrhea?: No Are you experiencing any unusual bleeding?: No Do you have any muscle aches/pain?: No Do you have any abdominal pain?: No Are you experiencing loss of taste or smell?: No Other Medical History Have you received the Flu Vaccine for this season: No Have you received the Pneumonia Vaccine: No Review of Systems Review of Systems Review of systems:: pertinent systems reviewed and negative unless documented below Review of systems (narrative): Negative except for HPI Meds Home Medications and Allergies Home Medications ?Medication ?Instructions ?Recorded ?Confirmed ?Type mirabegron 25 mg tablet,extended 25 mg PO DAILY #90 tabs 01/03/24 10/11/24 Rx release 24 hr (Myrbetriq) diltiazem HCl 120 mg capsule,24 120 mg PO DAILY #90 caps 08/02/24 10/11/24 Rx hr,extended release albuterol sulfate 90 mcg/actuation 2 puff inhalation Q6HP PRN 08/27/24 10/11/24 History aerosol inhaler Shortness Of Breath Or Wheezing atorvastatin 10 mg tablet 10 mg PO HS 08/27/24 10/11/24 History ipratropium 0.5 mg-albuterol 3 mg 3 ml inhalation Q6HP PRN Shortness 08/27/24 10/11/24 History (2.5 mg base)/3 mL nebulization Of Breath Or Wheezing soln levetiracetam 500 mg tablet 500 mg PO BID 08/27/24 10/11/24 History rivaroxaban 15 mg tablet (Xarelto) 15 mg PO QPMWITHMEAL 08/27/24 10/11/24 History umeclidinium 62.5 mcg-vilanterol 1 ea inhalation DAILY 08/27/24 10/11/24 History 25 mcg/actuation powdr for inhalation quetiapine 100 mg tablet (Seroquel) 50 mg (1/2 x 100 mg) PO HS 30 days 08/28/24 10/11/24 Rx #15 tabs cyanocobalamin (vitamin B-12) 1,000 mcg PO DAILY #90 tabs 09/09/24 10/11/24 Rx 1,000 mcg tablet memantine ER 7 mg-donepezil 10 mg 1 cap PO DAILY #30 ea 09/09/24 10/11/24 Rx capsule sprinkle,ext.release 24 hour (Namzaric) risperidone 1 mg tablet 1 mg PO QHS #30 tabs 09/18/24 10/11/24 Rx famotidine 20 mg tablet 20 mg PO BID 10/11/24 10/11/24 History furosemide 20 mg tablet 20 mg PO DAILY 10/11/24 10/11/24 History oxycodone 5 mg tablet 5 mg PO TID PRN Severe Pain (Scale 10/11/24 10/11/24 History Score 7-10) New Prescriptions to Start Prescriptions: Allergies Allergy/AdvReac Type Severity Reaction Status Date / Time codeine AdvReac Severe Anaphylaxis Verified 10/11/24 18:51 Exam Data for Last 24 hours Vital signs and Labs for Last 24 Hours: Temp Pulse Resp BP Pulse Ox O2 Del Method 97.6 F 59 L 18 128/50 L 99 Room Air 10/11/24 20:28 10/11/24 21:11 10/11/24 21:11 10/11/24 21:11 10/11/24 21:11 10/11/24 21:16 Laboratory Results - last 24 hr 10/11/24 18:55: WBC 5.6, RBC 4.04 L, Hgb 13.4, Hct 41.2, MCV 102.0 H, MCH 33.2 H , MCHC 32.5, RDW 12.2, Plt Count 173, MPV 10.2, Neut % (Auto) 81.2 H, Lymph % (Auto) 8.3 L, Glenn % (Auto) 9.4 H, Eos % (Auto) 0.5, Baso % (Auto) 0.2, Neut # (Auto) 4.6, Lymph # (Auto) 0.5 L, Glenn # (Auto) 0.5, Eos # (Auto) 0.0, Baso # (Auto) 0.0, Sodium 139, Potassium 4.7, Chloride 105, Carbon Dioxide 27, Anion Gap 11.7, BUN 21 H, Creatinine 1.20 H, Estimated Creat Clear 36, Estimated GFR 43 L, Est GFR ( Amer) 52 L, Glucose 174 H, Calcium 9.1, Magnesium 1.9, Total Bilirubin 1.2, AST 26, ALT 18, Alkaline Phosphatase 105, Troponin I < 0.01, NT-Pro-B Natriuret Pep 4560 H, Total Protein 6.8, Albumin 4.1, Globulin 2.7, Albumin/Globulin Ratio 1.5, Procalcitonin 0.046, HCV Ab LAURY w/Rflx PCR Qn Negative, HIV Ag/Ab Combo Qual Negative 10/11/24 19:04: VBG pH 7.29 L, VBG pCO2 48.7, VBG pO2 36.1, VBG HCO3 22.6 L, VBG Total CO2 24.1, VBG O2 Saturation 61.6, VBG Base Excess -4.0 L, VBG Lactic Acid 2.1 H 10/11/24 19:43: SARS-CoV-2 (PCR) Not detected, Influenza A Untype (PCR) Not detected, Influenza Type B (PCR) Not detected 10/11/24 20:10: Urine Color Yellow, Urine Appearance Clear, Urine pH 6.0, Ur Specific [place] 1.020, Urine Protein Negative, Urine Glucose (UA) Negative, Urine Ketones Negative, Urine Blood Negative, Urine Nitrate Negative, Urine Bilirubin Negative, Urine Urobilinogen 0.2, Ur Leukocyte Esterase Negative, Urine RBC None, Urine WBC 3-5, Ur Squamous Epith Cells Occasional, Ur Transition Epith Cell Occ, Urine Bacteria Trace, Hyaline Casts Occasional I & O for Last 24 hours: Intake & Output 10/08/24 10/09/24 10/10/24 10/11/24 23:59 23:59 23:59 23:59 Weight 62.596 kg Constitutional Constitutional: no acute distress *Routine HEENT Exam Head: Present normocephalic Eye: Present EOMI and PERRL ENT: Present mucous membranes moist *Routine Neck Exam Neck: Present supple; Absent lymphadenopathy *Routine Respiratory Exam Respiratory: Present wheezes and crackles *Routine Cardiovascular Exam Cardiovascular: Present RRR *Routine Abdominal Exam Abdominal: Present soft and normoactive bowel sounds; Absent tenderness *Routine Rectal Exam Rectal:: deferred *Routine Genitalia Exam Genitalia:: deferred *Routine Extremities Exam Extremities: Absent cyanosis, clubbing or edema *Routine Skin Exam Skin: Present warm; Absent rash *Routine Neurological Exam Neurological: Present alert and oriented X3 Assessment and Plan *Assessment and plan (1) Acute on chronic diastolic heart failure: Status: Acute Category: Medical Code(s): I50.33 - Acute on chronic diastolic (congestive) heart failure (2) COPD exacerbation: Status: Acute Category: Medical Code(s): J44.1 - Chronic obstructive pulmonary disease with (acute) exacerbation (3) Acute and chronic respiratory failure: Status: Acute Category: Medical Code(s): J96.20 - Acute and chronic respiratory failure, unspecified whether with hypoxia or hypercapnia (4) DM2 (diabetes mellitus, type 2): Status: Acute Qualifiers: Diabetes mellitus complication status: with kidney complications Category: Medical Code(s): E11.9 - Type 2 diabetes mellitus without complications (5) Atrial fibrillation: Status: Acute Qualifiers: Atrial fibrillation type: paroxysmal Qualified Code(s): I48.0 - Pa roxysmal atrial fibrillation Category: Medical Code(s): I48.91 - Unspecified atrial fibrillation (6) Alzheimer dementia: Status: Acute Qualifiers: Alzheimer's disease onset: unspecified onset Dementia behavioral or psychological symptom: unspecified whether behavioral, psychotic, or mood disturbance or anxiety Dementia severity: unspecified severity Qualified Code(s): G30.9 - Alzheimer's disease, unspecified; F02.80 - Dementia in other diseases classified elsewhere, unspecified severity, without behavioral disturbance, psychotic disturbance, mood disturbance, and anxiety Category: Medical Code(s): G30.9 - Alzheimer's disease, unspecified; F02.80 - Dementia in other diseases classified elsewhere, unspecified severity, without behavioral disturbance, psychotic disturbance, mood disturbance, and anxiety Plan #Acute on chronic respiratory failure #Acute on chronic diastolic heart #COPD exacerbation Currently oxygenating well on room air. Was tachypneic and tachycardic upon a rrival. Elevated BNP of 4500 which is up from patient's baseline. Coarse lung sounds noted. Continue IV diuresis persistent wheezing on exam. Continue bronchodilators and corticosteroids Received azithromycin and Rocephin in the emergency department, procalcitonin negative, will defer further antibiotic therapy at this time Respiratory pathogen panel pending, COVID flu negative but given lung sounds and prior sick contacts, will obtain full respiratory panel #DM 2 Continue sliding scale insulin #Atrial fibrillation Continue home medications namely Xarelto and diltiazem #Dementia Continue home medications
[2024-10-11 22:00] LABS: Adenovirus,PCR Not Detected (NotDetected); Bordetella Pertussis Not Detected (NotDetected); Chlamydophila Pneumoniae, PCR Not Detected (NotDetected); Coronavirus 19, PCR Not Detected (NotDetected); Coronavirus 229E Not Detected (NotDetected); Coronavirus NL63 Not Detected (NotDetected); Coronavirus OC43 Not Detected (NotDetected); Coronovirus HKU1,PCR Not Detected (NotDetected); Human Metapneumovirus Not Detected (NotDetected); Influenza A, PCR Not Detected (NotDetected); Influenza AH1, 2009 Not Detected (NotDetected); Influenza AH1, PCR Not Detected (NotDetected); Influenza AH3,PCR Not Detected (NotDetected); Influenza B, PCR Not Detected (NotDetected); Mycoplasma Pneumoniae, PCR Not Detected (NotDetected); Parainfluenza 1, PCR Not Detected (NotDetected); Parainfluenza 2, PCR Not Detected (NotDetected); Parainfluenza 3, PCR Not Detected (NotDetected); Parainfluenza 4, PCR Not Detected (NotDetected); Respiratory Syncytial Virus Not Detected (NotDetected)
[2024-10-11] MEDS: humaLOG 100 UNITS/ML 10ML VIAL (SSI) SUBCUT (22:11)
[2024-10-11 22:15] LABS: POC Glucose,Bedside 339 (70-110)
--- NOTE | 2024-10-11 22:30 | PC.NURSE ---
Pt O2 88% on RA, 1L of O2 applied at this time, Pt O2 saturation decreases when pt falls asleep. Pt O2 saturation 92% on 1L
[2024-10-11 23:12] LABS: Reflex Lactic Add Lactic Reflex
[2024-10-11 23:22] LABS: Troponin I < 0.01 ng/ml (0.00-0.034)
[2024-10-11 23:25] LABS: Lactic Acid Follow Up (RFLX 1) 2.7 mmol/L (0.7-2.1)
[2024-10-11 23:44] LABS: Rhinovirus/Enterovirus Detected (NotDetected)
[2024-10-12] VITALS (7 sets, daily range): BP systolic 103–116; BP diastolic 47–63; PULSE 50–89; RESP 14–17; TEMP 36.3–36.7; O2SAT 91–96; BMI 23.2
[2024-10-12] MEDS: IPRATROPIUM/ALBUTEROL 3 ML NEB IH ×3 (00:27→11:19)
[2024-10-12 01:14] LABS: Reflex Lactic (2 hrs) Add Lactic Reflex
[2024-10-12 01:15] LABS: Troponin I < 0.01 ng/ml (0.00-0.034)
[2024-10-12 01:27] LABS: Lactic Acid Follow up (RFLX 2) 2.3 mmol/L (0.7-2.1)
--- NOTE | 2024-10-12 04:52 | PC.NURSE ---
Pt remains alert to self with confusion. Pt lung sounds remain course. Pt is tolerating 1L well and sating @ 93%. Pt has rested well this shift and has tolerated antibiotics well. Pt glucose was 339 upon admission and insulin was given. Pt denies pain and needs when asked and has had no other acute changes to note at this time.
[2024-10-12] MEDS: humaLOG 100 UNITS/ML 10ML VIAL (SSI) SUBCUT ×2 (05:33→10:29)
[2024-10-12] MEDS: ACETAMINOPHEN 325MG TAB 650 MG PO (05:39)
[2024-10-12 05:51] LABS: POC Glucose,Bedside 193 (70-110)
--- NOTE | 2024-10-12 07:40 | EXP.DC.SUM ---
General Admission date:: 10/11/24 Discharge date: 10/12/24 HPI HPI HPI: This is an 83-year-old female with past medical history of COPD, CHF, DM 2, atrial fibrillation, Alzheimer's who presents emergency department with family for generalized weakness. Family is at bedside and provides collateral and states that she has not been as active as normal. Does have an element of dementia but is able to get up and move around at home. They felt that she was having progressive functional decline recently worse in the last couple days. They did notice that she seemed to be coughing more. They noticed loud lung sounds and felt that she might have too much fluid on her as this has happened in the past. They do state that the daughter that lives with the patient has had some upper respiratory virus recently and felt that this also may be contributing. Emergency department workup notable for elevated BNP of 4500 mild respiratory distress noted on arrival. Creatinine of 1.2. Lactic acid of 2.1. Patient had improvement in respiratory symptoms after nebulizer breathing treatment. Now oxygenating well on room air. Does continue to have coarse lung sounds with mild wheezing. Given her CHF/COPD exacerbation she is admitted to hospital service. Hospital Course Hospital Course Hospital Course: 83-year-old female with dementia, chronic pain, A-fib. Presented with shortness of breath and fatigue. Found to be rhinovirus positive with mild CHF exacerbation. Did well overnight. Weaned to room air. Stable to discharge home. Problems addressed as follows: #Acute on chronic respiratory failure, resolved #Acute on chronic diastolic heart #COPD exacerbation Currently oxygenating well on room air. Was tachypneic and tachycardic upon arrival. Elevated BNP of 4500 which is up from patient's baseline. Coarse lung sounds noted. Responded to IV diuresis. Negative volume status. Improved lung exam by morning. Continue bronchodilators. Respiratory panel found to be positive for rhinovirus. Received a dose of steroids, azithromycin, and Rocephin in the ED. Procalcitonin negative. No further antibiotic therapy at discharge given her stability on room air, improvement in lung exam, continue bronchodilators with nebulizer per home regimen. #Atrial fibrillation: Continue home medications Xarelto and diltiazem #Dementia: Continue home memantine/donepezil sprinkle capsule. Continue home Seroquel 50 mg nightly to help with sleep, continue Resporal 1 mg nightly for mood order #DM2: A1c in July of 5.7. Not on any diabetes meds at home. Did not recommend diabetes meds at discharge. #COPD: Not in exacerbation at this time, on room air, Continue home bronchodilators Exam Data for Last 24 hours Vital signs and Labs for Last 24 Hours: Temp Pulse Resp BP Pulse Ox O2 Del Method O2 Flow Rate 97.4 F L 71 16 116/63 96 Room Air 1 10/12/24 04:00 10/12/24 06:20 10/12/24 04:00 10/12/24 04:00 10/12/24 06:20 10/12/24 06:32 10/12/24 06:20 Laboratory Results - last 24 hr 10/11/24 18:55: WBC 5.6, RBC 4.04 L, Hgb 13.4, Hct 41.2, MCV 102.0 H, MCH 33.2 H, MCHC 32.5, RDW 12.2, Plt Count 173, MPV 10.2, Neut % (Auto) 81.2 H, Lymph % (Auto) 8.3 L, [place] % (Auto) 9.4 H, Eos % (Auto) 0.5, Baso % (Auto) 0.2, Neut # (Auto) 4.6, Lymph # (Auto) 0.5 L, [place] # (Auto) 0.5, Eos # (Auto) 0.0, Baso # (Auto) 0.0, Sodium 139, Potassium 4.7, Chloride 105, Carbon Dioxide 27, Anion Gap 11.7, BUN 21 H, Creatinine 1.20 H, Estimated Creat Clear 36, Estimated GFR 43 L, Est GFR ( Amer) 52 L, Glucose 174 H, Calcium 9.1, Magnesium 1.9, Total Bilirubin 1.2, AST 26, ALT 18, Alkaline Phosphatase 105, Troponin I < 0.01, NT-Pro-B Natriuret Pep 4560 H, Total Protein 6.8, Albumin 4.1, Globulin 2.7, Albumin/Globulin Ratio 1.5, Procalcitonin 0.046, HCV Ab LAURY w/Rflx PCR Qn Negative, HIV Ag/Ab Combo Qual Negative 10/11/24 19:04: VBG pH 7.29 L, VBG pCO2 48.7, VBG pO2 36.1, VBG HCO3 22.6 L, VBG Total CO2 24.1, VBG O2 Saturation 61.6, VBG Base Excess -4.0 L, VBG Lactic Acid 2.1 H 10/11/24 19:43: SARS-CoV-2 (PCR) Not detected, Influenza A Untype (PCR) Not detected, Influenza Type B (PCR) Not detected 10/11/24 20:10: Urine Color Yellow, Urine Appearance Clear, Urine pH 6.0, Ur Specific [place] 1.020, Urine Protein Negative, Urine Glucose (UA) Negative, Urine Ketones Negative, Urine Blood Negative, Urine Nitrate Negative, Urine Bilirubin Negative, Urine Urobilinogen 0.2, Ur Leukocyte Esterase Negative, Urine RBC None, Urine WBC 3-5, Ur Squamous Epith Cells Occasional, Ur Transition Epith Cell Occ, Urine Bacteria Trace, Hyaline Casts Occasional 10/11/24 21:53: POC Glucose 339 H* 10/11/24 21:54: Chlamy pneumoniae PCR Not detected, Adenovirus (PCR) Not detected, B. pertussis DNA (PCR) Not detected, Coronavirus OC43 (PCR) Not detected, Coronavirus HKU1 (PCR) Not detected, Coronavirus 229E (PCR) Not detected, SARS-CoV-2 (PCR) Not detected, Coronavirus NL63 (PCR) Not detected, Human Metapneumovir PCR Not detected, Influenza A (H1) PCR Not detected, Influ A (H1N1/09) PCR Not detected, Influenza A (H3) PCR Not detected, Influenza Type A (PCR) Not detected, Influenza Type B (PCR) Not detected, M. pneumoniae (PCR) Not detected, Parainfluenza 1 (PCR) Not detected, Parainfluenza 2 (PCR) Not detected, Parainfluenza 3 (PCR) Not detected, Parainfluenza 4 (PCR) Not detected, RSV (PCR) Not detected, Entero/Rhino (PCR) Detected A 10/11/24 22:46: Lactate 2.7 H, Troponin I < 0.01 10/12/24 00:42: Lactate 2.3 H, Troponin I < 0.01 10/12/24 05:31: POC Glucose 193 H I & O for Last 24 hours: Intake & Output 10/09/24 10/10/24 10/11/24 10/12/24 23:59 23:59 23:59 23:59 Intake Total 50 / 50 Output Total 700 / 700 Balance -650 / -650 Weight 62.596 kg 63.185 kg Microbiology Reports for the Last 24 Hours: Microbiology 10/11/24 19:39 Sputum - Expectorated Sputum Gram Stain - Final Constitutional Constitutional: no acute distress, thin, chronically ill appearing and cooperative *Routine HEENT Exam Head: Present normocephalic Eye: Present EOMI and PERRL ENT: Present mucous membranes moist *Routine Neck Exam Neck: Present supple; Absent lymphadenopathy *Routine Respiratory Exam Respiratory: Present rhonchi and normal respiratory effort; Absent stridor, wheezes or crackles *Routine Cardiovascular Exam Cardiovascular: Present RRR *Routine Abdominal Exam Abdominal: Present soft and normoactive bowel sounds; Absent tenderness *Routine Rectal Exam Patient deferred: visual exam *Routine Exam Patient deferred: external exam *Routine Extremities Exam Extremities: Absent cyanosis, clubbing or edema *Routine Skin Exam Skin: Present intact and warm; Absent rash *Routine Neurological Exam Neurological: Present alert, CN II-XII intact and moving all extremities; Absent altered mental status Results Data Completed and Pending Labs on day of discharge: Labs from last 24 hours 10/12/24 10/12/24 10/11/24 05:31 00:42 22:46 WBC RBC Hgb Hct MCV MCH MCHC RDW Plt Count MPV Neut % (Auto) Lymph % (Auto) [place] % (Auto) Eos % (Auto) Baso % (Auto) Neut # (Auto) Lymph # (Auto) [place] # (Auto) Eos # (Auto) Baso # (Auto) VBG pH VBG pCO2 VBG pO2 VBG HCO3 VBG Total CO2 VBG O2 Saturation VBG Base Excess VBG Lactic Acid Sodium Potassium Chloride Carbon Dioxide Anion Gap BUN Creatinine Estimated Creat Clear Estimated GFR Est GFR ( Amer) Glucose POC Glucose 193 H Lactate 2.3 H 2.7 H Calcium Magnesium Total Bilirubin AST ALT Alkaline Phosphatase Troponin I < 0.01 < 0.01 NT-Pro-B Natriuret Pep Total Protein Albumin Globulin Albumin/Globulin Ratio Procalcitonin Urine Color Urine Appearance Urine pH Ur Specific [place] Urine Protein Urine Glucose (UA) Urine Ketones Urine Blood Urine Nitrate Urine Bilirubin Urine Urobilinogen Ur Leukocyte Esterase Urine RBC Urine WBC Ur Squamous Epith Cells Ur Transition Epith Cell Urine Bacteria Hyaline Casts Chlamy pneumoniae PCR Adenovirus (PCR) B. pertussis DNA (PCR) Coronavirus OC43 (PCR) Coronavirus HKU1 (PCR) Coronavirus 229E (PCR) SARS-CoV-2 (PCR) Coronavirus NL63 (PCR) HCV Ab LAURY w/Rflx PCR Qn HIV Ag/Ab Combo Qual Human Metapneumovir PCR Influenza A (H1) PCR Influ A (H1N1/09) PCR Influenza A (H3) PCR Influenza Type A (PCR) Influenza A Untype (PCR) Influenza Type B (PCR) M. pneumoniae (PCR) Parainfluenza 1 (PCR) Parainfluenza 2 (PCR) Parainfluenza 3 (PCR) Parainfluenza 4 (PCR) RSV (PCR) Entero/Rhino (PCR) 10/11/24 10/11/24 10/11/24 21:54 21:53 20:10 WBC RBC Hgb Hct MCV MCH MCHC RDW Plt Count MPV Neut % (Auto) Lymph % (Auto) [place] % (Auto) Eos % (Auto) Baso % (Auto) Neut # (Auto) Lymph # (Auto) [place] # (Auto) Eos # (Auto) Baso # (Auto) VBG pH VBG pCO2 VBG pO2 VBG HCO3 VBG Total CO2 VBG O2 Saturation VBG Base Excess VBG Lactic Acid Sodium Potassium Chloride Carbon Dioxide Anion Gap BUN Creatinine Estimated Creat Clear Estimated GFR Est GFR ( Amer) Glucose POC Glucose 339 H* Lactate Calcium Magnesium Total Bilirubin AST ALT Alkaline Phosphatase Troponin I NT-Pro-B Natriuret Pep Total Protein Albumin Globulin Albumin/Globulin Ratio Procalcitonin Urine Color Yellow Urine Appearance Clear Urine pH 6.0 Ur Specific [place] 1.020 Urine Protein Negative Urine Glucose (UA) Negative Urine Ketones Negative Urine Blood Negative Urine Nitrate Negative Urine Bilirubin Negative Urine Urobilinogen 0.2 Ur Leukocyte Esterase Negative Urine RBC None Urine WBC 3-5 Ur Squamous Epith Cells Occasional Ur Transition Epith Cell Occ Urine Bacteria Trace Hyaline Casts Occasional Chlamy pneumoniae PCR Not detected Adenovirus (PCR) Not detected B. pertussis DNA (PCR) Not detected Coronavirus OC43 (PCR) Not detected Coronavirus HKU1 (PCR) Not detected Coronavirus 229E (PCR) Not detected SARS-CoV-2 (PCR) Not detected Coronavirus NL63 (PCR) Not detected HCV Ab LAURY w/Rflx PCR Qn HIV Ag/Ab Combo Qual Human Metapneumovir PCR Not detected Influenza A (H1) PCR Not detected Influ A (H1N1/09) PCR Not detected Influenza A (H3) PCR Not detected Influenza Type A (PCR) Not detected Influenza A Untype (PCR) Influenza Type B (PCR) Not detected M. pneumoniae (PCR) Not detected Parainfluenza 1 (PCR) Not detected Parainfluenza 2 (PCR) Not detected Parainfluenza 3 (PCR) Not detected Parainfluenza 4 (PCR) Not detected RSV (PCR) Not detected Entero/Rhino (PCR) Detected A 10/11/24 10/11/24 10/11/24 19:43 19:04 18:55 WBC 5.6 RBC 4.04 L Hgb 13.4 Hct 41.2 MCV 102.0 H MCH 33.2 H MCHC 32.5 RDW 12.2 Plt Count 173 MPV 10.2 Neut % (Auto) 81.2 H Lymph % (Auto) 8.3 L [place] % (Auto) 9.4 H Eos % (Auto) 0.5 Baso % (Auto) 0.2 Neut # (Auto) 4.6 Lymph # (Auto) 0.5 L [place] # (Auto) 0.5 Eos # (Auto) 0.0 Baso # (Auto) 0.0 VBG pH 7.29 L VBG pCO2 48.7 VBG pO2 36.1 VBG HCO3 22.6 L VBG Total CO2 24.1 VBG O2 Saturation 61.6 VBG Base Excess -4.0 L VBG Lactic Acid 2.1 H Sodium 139 Potassium 4.7 Chloride 105 Carbon Dioxide 27 Anion Gap 11.7 BUN 21 H Creatinine 1.20 H Estimated Creat Clear 36 Estimated GFR 43 L Est GFR ( Amer) 52 L Glucose 174 H POC Glucose Lactate Calcium 9.1 Magnesium 1.9 Total Bilirubin 1.2 AST 26 ALT 18 Alkaline Phosphatase 105 Troponin I < 0.01 NT-Pro-B Natriuret Pep 4560 H Total Protein 6.8 Albumin 4.1 Globulin 2.7 Albumin/Globulin Ratio 1.5 Procalcitonin 0.046 Urine Color Urine Appearance Urine pH Ur Specific [place] Urine Protein Urine Glucose (UA) Urine Ketones Urine Blood Urine Nitrate Urine Bilirubin Urine Urobilinogen Ur Leukocyte Esterase Urine RBC Urine WBC Ur Squamous Epith Cells Ur Transition Epith Cell Urine Bacteria Hyaline Casts Chlamy pneumoniae PCR Adenovirus (PCR) B. pertussis DNA (PCR) Coronavirus OC43 (PCR) Coronavirus HKU1 (PCR) Coronavirus 229E (PCR) SARS-CoV-2 (PCR) Not detected Coronavirus NL63 (PCR) HCV Ab LAURY w/Rflx PCR Qn Negative HIV Ag/Ab Combo Qual Negative Human Metapneumovir PCR Influenza A (H1) PCR Influ A (H1N1/09) PCR Influenza A (H3) PCR Influenza Type A (PCR) Influenza A Untype (PCR) Not detected Influenza Type B (PCR) Not detected M. pneumoniae (PCR) Parainfluenza 1 (PCR) Parainfluenza 2 (PCR) Parainfluenza 3 (PCR) Parainfluenza 4 (PCR) RSV (PCR) Entero/Rhino (PCR) DS: Diagnosis Discharge Diagnosis (1) Acute on chronic diastolic heart failure: Status: Acute Code(s): I50.33 - Acute on chronic diastolic (congestive) heart failure (2) COPD exacerbation: Status: Acute Code(s): J44.1 - Chronic obstructive pulmonary disease with (acute) exacerbation (3) Acute and chronic respiratory failure: Status: Acute Code(s): J96.20 - Acute and chronic respiratory failure, unspecified whether with hypoxia or hypercapnia (4) DM2 (diabetes mellitus, type 2): Status: Acute Code(s): E11.9 - Type 2 diabetes mellitus without complications Qualifiers: Diabetes mellitus complication status: with kidney complications (5) Atrial fibrillation: Status: Acute Code(s): I48.91 - Unspecified atrial fibrillation Qualifiers: Atrial fibrillation type: paroxysmal Qualified Code(s): I48.0 - Paroxysmal atrial fibrillation (6) Alzheimer dementia: Status: Acute Code(s): G30.9 - Alzheimer's disease, unspecified; F02.80 - Dementia in other diseases classified elsewhere, unspecified severity, without behavioral disturbance, psychotic disturbance, mood disturbance, and anxiety Qualifiers: Alzheimer's disease onset: unspecified onset Dementia behavioral or psychological symptom: unspecified whether behavioral, psychotic, or mood disturbance or anxiety Dementia severity: unspecified severity Qualified Code(s): G30.9 - Alzheimer's disease, unspecified; F02.80 - Dementia in other diseases classified elsewhere, unspecified severity, without behavioral disturbance, psychotic disturbance, mood disturbance, and anxiety Meds Home Medications and Allergies Home Medications ?Medication ?Instructions ?Recorded ?Confirmed ?Type mirabegron 25 mg tablet,extended 25 mg PO DAILY #90 tabs 01/03/24 10/12/24 Rx release 24 hr (Myrbetriq) diltiazem HCl 120 mg capsule,24 120 mg PO DAILY #90 caps 08/02/24 10/12/24 Rx hr,extended release albuterol sulfate 90 mcg/actuation 2 puff inhalation Q6HP PRN 08/27/24 10/12/24 History aerosol inhaler Shortness Of Breath Or Wheezing atorvastatin 10 mg tablet 10 mg PO HS 08/27/24 10/12/24 History ipratropium 0.5 mg-albuterol 3 mg 3 ml inhalation Q6HP PRN Shortness 08/27/24 10/12/24 History (2.5 mg base)/3 mL nebulization Of Breath Or Wheezing soln levetiracetam 500 mg tablet 500 mg PO BID 08/27/24 10/12/24 History rivaroxaban 15 mg tablet (Xarelto) 15 mg PO QPMWITHMEAL 08/27/24 10/12/24 History umeclidinium 62.5 mcg-vilanterol 1 ea inhalation DAILY 08/27/24 10/12/24 History 25 mcg/actuation powdr for inhalation quetiapine 100 mg tablet (Seroquel) 50 mg (1/2 x 100 mg) PO HS 30 days 08/28/24 10/12/24 Rx #15 tabs cyanocobalamin (vitamin B-12) 1,000 mcg PO DAILY #90 tabs 09/09/24 10/12/24 Rx 1,000 mcg tablet memantine ER 7 mg-donepezil 10 mg 1 cap PO DAILY #30 ea 09/09/24 10/12/24 Rx capsule sprinkle,ext.release 24 hour (Namzaric) famotidine 20 mg tablet 20 mg PO BID 10/11/24 10/12/24 History furosemide 20 mg tablet 20 mg PO DAILY 10/11/24 10/12/24 History oxycodone 5 mg tablet 5 mg PO Q8HP PRN Severe Pain 10/11/24 10/12/24 History (Scale Score 7-10) aspirin 81 mg tablet,delayed 81 mg PO DAILY 10/12/24 10/12/24 History release risperidone 1 mg tablet 1 mg PO HS 10/12/24 10/12/24 History New Prescriptions to Start Prescriptions: Allergies Allergy/AdvReac Type Severity Reaction Status Date / Time codeine AdvReac Severe Anaphylaxis Verified 10/11/24 18:51 Discharge Plan Disposition Patient Disposition: Home, Self-Care Condition: Fair Follow up Plan Follow up with: Jesus Alberto Stevenson MD [Primary Care Provider] - Enter time for follow up Prescriptions/Medication Reconciliation: Continued mirabegron [Myrbetriq] 25 mg tablet extended release 24 hr 25 mg PO DAILY Qty: 90 3RF Namzaric 7-10 mg capsule,sprinkle,ER 24hr 1 cap PO DAILY Qty: 30 10RF cyanocobalamin (vitamin B-12) 1,000 mcg tablet 1,000 mcg PO DAILY Qty: 90 3RF diltiazem HCl 120 mg capsule,extended release 24hr 120 mg PO DAILY Qty: 90 0RF levetiracetam 500 mg tablet 500 mg PO BID ipratropium-albuterol 0.5 mg-3 mg(2.5 mg base)/3 mL solution for nebulization 3 ml IH Q6HP PRN (Reason: Shortness Of Breath Or Wheezing) atorvastatin 10 mg tablet 10 mg PO HS albuterol sulfate 90 mcg/actuation HFA aerosol inhaler 2 puff INHALATION Q6HP PRN (Reason: Shortness Of Breath Or Wheezing) Xarelto 15 mg tablet 15 mg PO QPMWITHMEAL Rx Instructions: must administer with evening meal umeclidinium-vilanterol 62.5-25 mcg/actuation blister with device 1 ea IH DAILY quetiapine [Seroquel] 100 mg tablet 50 mg PO HS 30 Days Qty: 15 0RF oxycodone 5 mg tablet 5 mg PO Q8HP PRN (Reason: Severe Pain (Scale Score 7-10)) famotidine 20 mg Tablet 20 mg PO BID furosemide 20 mg Tablet 20 mg PO DAILY aspirin 81 mg tablet,delayed release (DR/EC) 81 mg PO DAILY risperidone 1 mg tablet 1 mg PO HS Problem Reconciliation Problems Reviewed?: Yes Patient Discharge Instructions ACTIVITY: Continue current activity DIET: continue same diet Patient Instructions: DI for Heart Failure, DI for Chronic Obstructive Pulmonary Disease, Catheter-Associated Urinary Tract Infection Print Language: Gabonese Providers Primary Care Provider: Jesus Alberto Stevenson Admit Provider: Jose Vazquez Attending Provider: Joes Vazquez
[2024-10-12 07:58] LABS: Hematocrit 38.2 % (37.0-47.0); Hemoglobin 12.9 g/dL (12.2-16.2); Lymphocytes # 0.3 K/mm3 (0.7-4.5); Lymphocytes % 3.9 % (10-50); Mean Corpuscular HGB Conc 33.8 g/dL (31.8-35.4); Mean Corpuscular Hemoglobin 33.7 pg (27.0-31.2); Mean Corpuscular Volume 99.7 fl (81-99); Mean Platelet Volume 10.1 fl (7.4-10.4); Monocytes # 0.1 K/mm3 (0.1-1.0); Monocytes % 1.4 % (1.7-9.3); Neutrophils # 6.1 K/mm3 (1.8-7.8); Neutrophils % 94.4 % (37.0-80.0); Platelet Count 186 K/mm3 (142-424); Red Blood Count 3.83 M/mm3 (4.20-5.40); White Blood Count 6.4 K/mm3 (4.8-10.8)
[2024-10-12 08:04] LABS: MANUAL DIFFERENTIAL MANUAL DIFFERENTIAL (MANUAL DIFF)
[2024-10-12 08:05] LABS: Chloride 106 mmol/L (98-107); Potassium 4.6 mmoL/L (3.5-5.1); Sodium 139 mmol/L (136-145)
[2024-10-12 08:08] LABS: Anion Gap 15.6 mEq/L (5-15); Blood Urea Nitrogen 26 mg/dl (7-17); Calcium 8.9 mg/dl (8.4-10.2); Carbon Dioxide 22 mmol/L (22.0-30.0); Creatinine Clearance Estimated 37 mL/min (50-200); Estimated Glomerular Filt Rate 43 ml/min (>60); GFR (African American) 52 ML/MIN (>60); Glucose 182 mg/dl (74-100)
[2024-10-12] MEDS: FUROSEMIDE 40MG/4ML VIAL 40 MG IV (08:21)
[2024-10-12 09:43] LABS: Lymphocytes % 7 % (10-50); Macrocytosis 1+; Monocytes % 1 % (2-9); Neutrophils % 92 % (42-76); Platelet Estimate Normal; Total Cells Counted 100
[2024-10-12 10:06] LABS: POC Glucose,Bedside 277 (70-110)
--- NOTE | 2024-10-12 10:08 | HMH.PHAINT1 ---
Pharmacy Intervention Comments: MEDICATION RECONCILIATION COMLETE USING EXTERNAL PHARMACY FILL HISTORY, KARYN REPORT, AND RECENT MD OFFICE VISIT NOTE.
--- NOTE | 2024-10-14 12:03 | SW/DCPLANNER ---
Spoke with patients tree care foreman on the phone. Patients caregiver stated that she is getting better. Patients caregiver stated that she was calling today to schedule an appointment with her primary care provider. Patients tree care foreman stated that she has no concerns or questions at this time. Wesley Fuller
== END 2024-10-12 12:30 | disposition home or self-care (01) ==
LOC: ER 20:15 → 2ND 20:19
PROVIDERS: Nurse Practitioner Acute Care; Physician Assistant; Admitting Provider Internal Medicine Adolescent Medicine; Emergency Provider Emergency Medicine; PCP Family Medicine; Visit Provider Internal Medicine Adolescent Medicine
DX: I50.33 Acute on chronic diastolic (congestive) heart failure (principal); J44.1 Chronic obstructive pulmonary disease with (acute) exacerbation; J96.20 Acute and chronic respiratory failure, unspecified whether with hypoxia or hypercapnia; E11.22 Type 2 diabetes mellitus with diabetic chronic kidney disease; N18.9 Chronic kidney disease, unspecified; I48.0 Paroxysmal atrial fibrillation; G30.9 Alzheimer's disease, unspecified; F02.80 Dementia in other diseases classified elsewhere, unspecified severity, without behavioral disturbance, psychotic disturbance, mood disturbance, and anxiety; G89.29 Other chronic pain; R00.0 Tachycardia, unspecified; R91.8 Other nonspecific abnormal finding of lung field; B34.8 Other viral infections of unspecified site; Z87.891 Personal history of nicotine dependence; Z90.10 Acquired absence of unspecified breast and nipple; Z90.49 Acquired absence of other specified parts of digestive tract; Z79.891 Long term (current) use of opiate analgesic; Z79.899 Other long term (current) drug therapy; Z88.5 Allergy status to narcotic agent
CPT/HCPCS: 36415; 51702; 71275; 80048; 80053; 81001; 82803; 82962; 83605; 83735; 83880; 84145; 84484; 85007; 85025; 85027; 86803; 87040; 87070; 87077; 87205; 87389; 87633; 87636; 93005; 94640; 99291; G0378; J0456; J0696; J1100; J1938; J7050; J7620; Q9967